=== PATIENT | male | born 1955 | race Caucasian/White ===

== ENCOUNTER 2021-02-04 21:12 | Inpatient (IN) ==
[2021-02-04] MEDS ORDERED: MoRPHine SULFATE 10 MG/ML CARP/VIAL IV STA (22:34)
[2021-02-04] MEDS ORDERED: SODIUM CHLORIDE 0.9% 1000ML 1,000 ML IV ONE (22:34)
[2021-02-04] MEDS ORDERED: ONDANSETRON INJ 2 MG/ML 2 ML VIAL IV STA (22:34)
--- NOTE | 2021-02-04 22:45 | Emergency Department Note ---
History of Present Illness General Chief complaint: Abdominal Pain Stated complaint: SEVERE STOMACH PAIN Time Seen by Provider: 02/04/21 22:22 Source: patient Mode of arrival: ambulatory Limitations: no limitations History of Present Illness Maximum Pain Intensity: 9 This patient is a 65-year-old male who presents to the emergency department for evaluation of abdominal pain. Patient reports that 2 weeks ago, he noticed an increase of his acid reflux. He states it was "the worst reflux of his life." He had some dry heaving associated with this. He states that 2 days ago while at work, he drank some Sprite and afterward developed some upper abdominal pain. He has had persistent pain since then and states it has gradually worsened. He reports the pain is across the upper abdomen. He has no nausea or vomiting. He reports a sensation of fullness and bloating. He denies urinary symptoms, fevers or changes in bowel movements. He states that the pain is "extreme" and rates his discomfort an 8/10. He states the pain makes it difficult for him to sleep. He reports associated muscle aches and headaches with the pain. He states that he saw his PCP yesterday and they recommended that he double up on his Prilosec. He states that nothing makes the pain better. He has tried Tums and chamomile tea. He reports a history of IN with 4 stents. He denies any history of similar symptoms to these. Patient states that he drinks 2-3 beers each weekend. Home Medications Medication Instructions Recorded Confirmed Type Aspirin Enteric Coated (Ecotrin Or 81 mg PO DAILY #0 08/09/08 02/05/21 History Generic *) Lisinopril (Prinivil) 10 mg PO DAILY #0 01/16/16 02/05/21 History Metoprolol Tartrate (Lopressor) 25 mg PO DAILY #0 01/16/16 02/05/21 History (Lopressor) Prilosec 20 mg PO DAILY 02/05/21 02/05/21 History nitroglycerin 0.4 mg sublingual 0.4 mg SUBLINGUAL Q5M PRN 02/05/21 02/05/21 History tablet tramadol 50 mg tablet 50 mg PO Q8H PRN 02/05/21 02/05/21 History Allergies Allergy/AdvReac Type Severity Reaction Status Date / Time No Known Allergies Allergy Unknown Verified 01/16/16 07:04 Past Med/Surg History Medical History Coronary atherosclerosis of [place] coronary vessel Esophageal reflux Myocardial infarction Surgical History History of arthroscopy of knee Social History Smoking Status: Current some day smoker Tobacco Type: E-cigarettes / Vaping Hx Substance Use: No 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 Required: No Beliefs That Will Affect Care: None Current Living Situation: Spouse Other Information That Helps Us Care for You: No Feels Safe at Home: Yes Safety Concerns: Feels Safe At This Time Assistive Devices: None Review of Systems A total of 10 systems reviewed and were otherwise negative Physical Exam Vital Signs Vital Signs - 24 hr 02/04/21 21:14 Temperature 36.8 C Temperature Source Temporal Artery Scan Pulse Rate 108 H Pulse Rhythm Regular Pulse Strength Normal Respiratory Rate 26 H Respiratory Effort / Characteristics Non-Labored Respiratory Depth Normal Respiratory Pattern Regular Blood Pressure 211/156 H Blood Pressure Mean 174 Blood Pressure Position Sitting Pulse Oximetry 95 Oxygen Delivery Method Room Air Sepsis Recent Fever Within 48 Hours No Sepsis New/Unexplained Change in Mental Status N/A Sepsis Action Taken by Nursing No Action Required VITALS: Vitals are noted on the nurse's note and reviewed by myself. GENERAL: This is a 65-year-old male, in no acute distress, nondiaphoretic. SKIN: The skin was without rashes. EARS: External auditory canals clear, tympanic membranes pearly [place]on without erythema or effusion bilaterally. EYES: Pupils equal round and reactive to light and accommodation. No scleral icterus. MOUTH: Mucous membranes moist. NECK: Supple without nuchal rigidity. HEART: Regular rate and rhythm without murmurs gallops or rubs. LUNGS: Clear to auscultation bilaterally without wheezes, rales or rhonchi. ABDOMEN: Positive bowel sounds x 4. Soft, moderate tenderness to palpation in the epigastric region and right upper quadrant. No guarding or rebound tenderness. NEURO: Patient was alert and oriented to person place and time. Course Consultations Consultation #1: Dr. Yo Mckeon hospitalist Administered Medications Aspirin (Aspirin 81 Mg Ectab) 81 mg PO DAILY ALBER Stop: 03/07/21 08:59 Last Admin: 02/05/21 09:13 Dose: 81 mg Documented by: [id number] Enoxaparin Sodium (Enoxaparin Inj 40 Mg/0.4 Ml Syr) 40 mg SQ QAM ALBER Stop: 03/07/21 08:59 Last Admin: 02/05/21 09:13 Dose: 40 mg Documented by: [id number] Promethazine HCl 12.5 mg/ (Sodium Chloride) 50.5 mls @ 202 mls/hr IV Q6H PRN PRN Reason: Nausea And Vomiting Stop: 03/07/21 04:39 Last Infusion: 02/05/21 22:28 Dose: 0 mls/hr Documented by: [id number] Admin: 02/05/21 20:28 Dose: 202 mls/hr Documented by: [id number] Lactated Ringer's (Lr) 1,000 mls @ 200 mls/hr IV .Q5H ALBER Stop: 03/07/21 08:39 Last Admin: 02/06/21 04:45 Dose: 200 mls/hr Documented by: [id number] Infusion: 02/06/21 04:45 Dose: 200 mls/hr Documented by: [id number] Admin: 02/05/21 23:49 Dose: 200 mls/hr Documented by: [id number] Infusion: 02/05/21 23:48 Dose: 0 mls/hr Documented by: [id number] Admin: 02/05/21 18:20 Dose: 200 mls/hr Documented by: [id number] Infusion: 02/05/21 18:14 Dose: 0 mls/hr Documented by: [id number] Admin: 02/05/21 13:13 Dose: 200 mls/hr Documented by: [id number] Infusion: 02/05/21 13:12 Dose: 0 mls/hr Documented by: [id number] Infusion: 02/05/21 10:53 Dose: 200 mls/hr Documented by: [id number] Infusion: 02/05/21 10:00 Dose: 0 mls/hr Documented by: [id number] Admin: 02/05/21 07:21 Dose: 200 mls/hr Documented by: [id number] Piperacillin Sod/Tazobactam (Sod 3.375 gm/ Dextrose) 115 mls @ 28.75 mls/hr IV Q8H ALBER; Protocol Stop: 02/15/21 19:59 Last Admin: 02/06/21 04:45 Dose: 28.8 mls/hr Documented by: [id number] Infusion: 02/06/21 01:19 Dose: 0 mls/hr Documented by: [id number] Admin: 02/05/21 20:22 Dose: 28.8 mls/hr Documented by: [id number] Lisinopril (Lisinopril 5 Mg Tab) 5 mg PO DAILY ALBER Stop: 03/07/21 08:59 Last Admin: 02/05/21 09:13 Dose: 5 mg Documented by: [id number] Metoprolol Tartrate (Metoprolol Tartrate 25 Mg Tab) 25 mg PO BID ALBER Stop: 03/07/21 20:59 Last Admin: 02/05/21 20:29 Dose: 25 mg Documented by: [id number] Morphine Sulfate (Morphine Sulfate 4 Mg/Ml 1 Ml Carp\\Vial) 4 mg IV Q4H PRN PRN Reason: Pain Stop: 02/19/21 04:39 Last Admin: 02/06/21 04:42 Dose: 4 mg Documented by: [id number] Admin: 02/05/21 20:52 Dose: 4 mg Documented by: [id number] Pantoprazole Sodium (Pantoprazole 40 Mg Tab) 40 mg PO DAILY ALBER Stop: 03/07/21 08:59 Last Admin: 02/05/21 09:13 Dose: 40 mg Documented by: [id number] Tramadol HCl (Tramadol Hcl 50 Mg Tablet) 25 - 50 mg PO Q4H PRN PRN Reason: Pain Stop: 03/07/21 04:39 Last Admin: 02/05/21 20:21 Dose: 50 mg Documented by: [id number] Admin: 02/05/21 15:29 Dose: 50 mg Documented by: [id number] Admin: 02/05/21 09:13 Dose: 50 mg Documented by: [id number] Admin: 02/05/21 04:51 Dose: 50 mg Documented by: [id number] Discontinued Medications Hydromorphone HCl (Hydromorphone Inj 0.5 Mg/0.5 Ml Syr) 0.5 mg IV NOW STA Stop: 02/05/21 00:20 Last Admin: 02/05/21 00:39 Dose: 0.5 mg Documented by: [id number] Sodium Chloride (Nss 1000ml) 1,000 mls @ 999 mls/hr IV .Q1H1M ONE Stop: 02/04/21 23:34 Last Infusion: 02/05/21 00:44 Dose: 0 mls/hr Documented by: [id number] Admin: 02/04/21 22:47 Dose: 999 mls/hr Documented by: [id number] Lactated Ringer's (Lr) 1,000 mls @ 200 mls/hr IV .Q5H ONE Stop: 02/05/21 07:01 Last Infusion: 02/05/21 07:20 Dose: 0 mls/hr Documented by: [id number] Admin: 02/05/21 03:40 Dose: 200 mls/hr Documented by: [id number] Piperacillin Sod/Tazobactam (Sod 3.375 gm/ Dextrose) 115 mls @ 230 mls/hr IV NOW ONE; Protocol Stop: 02/05/21 14:29 Last Infusion: 02/05/21 15:56 Dose: 0 mls/hr Documented by: [id number] Admin: 02/05/21 15:26 Dose: 230 mls/hr Documented by: [id number] Ioversol (Optiray 320 100ml) 93 ml IV ONCE ONE Stop: 02/04/21 23:22 Last Admin: 02/04/21 23:21 Dose: 93 ml Documented by: [id number] Metoprolol Tartrate (Metoprolol Tartrate 25 Mg Tab) 25 mg PO NOW STA Stop: 02/05/21 03:38 Last Admin: 02/05/21 03:40 Dose: 25 mg Documented by: [id number] Morphine Sulfate (Morphine Sulfate 10 Mg/Ml Carp/Vial) 6 mg IV NOW STA Stop: 02/04/21 22:35 Last Admin: 02/04/21 22:45 Dose: 6 mg Documented by: [id number] Morphine Sulfate (Morphine Sulfate 4 Mg/Ml 1 Ml Carp\\Vial) 4 mg IV NOW STA Stop: 02/05/21 03:28 Last Admin: 02/05/21 03:41 Dose: 4 mg Documented by: [id number] Morphine Sulfate (Morphine Sulfate 4 Mg/Ml 1 Ml Carp\\Vial) Confirm Administered Dose 4 mg .ROUTE .STK-MED ONE Stop: 02/05/21 03:39 Last Admin: 02/05/21 03:42 Dose: Not Given Documented by: [id number] Non-Formulary Medication (Metoprolol Tartrate (Lopressor) (Lopressor)) 25 mg PO BID ALBER Stop: 03/07/21 02:15 Last Admin: 02/05/21 07:00 Dose: Not Given Documented by: [id number] Non-Formulary Medication (Metoprolol Tartrate (Lopressor) (Lopressor)) 25 mg PO NOW STA Stop: 02/05/21 03:29 Last Admin: 02/05/21 07:00 Dose: Not Given Documented by: [id number] Ondansetron HCl (Ondansetron Inj 2 Mg/Ml 2 Ml Vial) 4 mg IV NOW STA Stop: 02/04/21 22:35 Last Admin: 02/04/21 22:43 Dose: 4 mg Documented by: [id number] Ondansetron HCl (Ondansetron Inj 2 Mg/Ml 2 Ml Vial) 4 mg IV NOW STA Stop: 02/05/21 00:20 Last Admin: 02/05/21 00:38 Dose: 4 mg Documented by: [id number] Medical Decision Making Differential Diagnosis Appendicitis, testicular torsion, infections, diverticulitis, UTI, obstruction, mesenteric ischemia, aortic pathology, inflammatory bowel disease, renal colic, PUD, pancreatitis, biliary pathology, hernia, volvulus, constipation, as well as other pathologies. Home Medications Current Medication List: was personally reviewed by me Laboratory Data Attestation: I reviewed the patient's lab results. Result diagrams: 02/06/21 06:20 02/05/21 06:54 Lab Results 02/04/21 02/04/21 02/04/21 Range/Units 22:27 22:27 22:27 WBC 12.03 H (4.8-10.8) K/uL RBC 4.63 L (4.7-6.1) M/uL Hgb 15.0 (14.0-18.0) g/dL Hct 43.5 (42-52) % MCV 94.0 (80-100) fL MCH 32.4 (25-34) pg MCHC 34.5 (32-36) g/dL RDW Std Deviation 45.5 (36.4-46.3) fL RDW Coeff of Isaiah 13.4 (11.5-14.5) % Plt Count 264 (130-400) K/uL MPV 10.1 (7.4-10.4) fL Immature Gran % (Auto) 0.9 % Neut % (Auto) 83.5 % Lymph % (Auto) 5.8 % [place] % (Auto) 8.6 % Eos % (Auto) 0.9 % Baso % (Auto) 0.3 % Neut # (Auto) 10.03 H (1.4-6.5) K/uL Lymph # (Auto) 0.70 L (1.2-3.4) K/uL [place] # (Auto) 1.04 H (0.11-0.59) K/uL Eos # (Auto) 0.11 (0-0.5) K/uL Baso # (Auto) 0.04 (0-0.2) K/uL Immature Gran # (Auto) 0.11 H (0.00-0.02) K/uL Sodium 133 L (136-145) mmol/L Potassium 3.9 (3.5-5.1) mmol/L Chloride 101 (98-107) mmol/L Carbon Dioxide 26 (21-32) mmol/L Anion Gap 6.0 (3-11) BUN 12 (7-18) mg/dl Creatinine 1.22 (0.6-1.4) mg/dl Est Cr Clr Drug Dosing 72.3 ml/min Est GFR ( Amer) 71.2 ml/min Est GFR (Non-Af Amer) 61.4 ml/min BUN/Creatinine Ratio 9.8 L (10-20) Glucose 178 H (70-99) mg/dl Estimat Average Glucose 146 mg/dl Hemoglobin A1c 6.7 H (4.5-5.6) % Calcium 9.5 (8.5-10.1) mg/dl Magnesium 2.2 (1.8-2.4) mg/dl Total Bilirubin 3.9 H (0.2-1) mg/dl AST 407 H (15-37) U/L ALT 642 H (12-78) U/L Alkaline Phosphatase 178 H (45-117) U/L Troponin I < 0.015 (0-0.045) ng/ml Total Protein 8.1 (6.4-8.2) gm/dl Albumin 3.6 (3.4-5.0) gm/dl Globulin 4.5 H (2.5-4.0) gm/dl Albumin/Globulin Ratio 0.8 L (0.9-2) Lipase 48777 H (73-393) U/L Procalcitonin (0-0.5) ng/ml TSH 3.230 (0.300-4.500) uIu/ml Urine Color Urine Appearance (Clear) Urine pH (4.5-7.5) Ur Specific [place] (1.000-1.030) Urine Protein (Negative) Urine Glucose (UA) (Negative) Urine Ketones (Negative) Urine Blood (Negative) Urine Nitrite (Negative) Urine Bilirubin (Negative) Urine Urobilinogen (Negative) Ur Leukocyte Esterase (Negative) Urine WBC (Auto) (0-5) /hpf Urine RBC (Auto) (0-4) /hpf U Hyaline Cast (Auto) (0-5) /lpf U Epithel Cells (Auto) (0-5) /lpf Urine Bacteria (Auto) (Negative) COVID-19 Eval Order SARS-CoV-2 (PCR) (Negative) 02/04/21 02/04/21 02/04/21 Range/Units 22:27 22:40 22:56 WBC (4.8-10.8) K/uL RBC (4.7-6.1) M/uL Hgb (14.0-18.0) g/dL Hct (42-52) % MCV (80-100) fL MCH (25-34) pg MCHC (32-36) g/dL RDW Std Deviation (36.4-46.3) fL RDW Coeff of Isaiah (11.5-14.5) % Plt Count (130-400) K/uL MPV (7.4-10.4) fL Immature Gran % (Auto) % Neut % (Auto) % Lymph % (Auto) % [place] % (Auto) % Eos % (Auto) % Baso % (Auto) % Neut # (Auto) (1.4-6.5) K/uL Lymph # (Auto) (1.2-3.4) K/uL [place] # (Auto) (0.11-0.59) K/uL Eos # (Auto) (0-0.5) K/uL Baso # (Auto) (0-0.2) K/uL Immature Gran # (Auto) (0.00-0.02) K/uL Sodium (136-145) mmol/L Potassium (3.5-5.1) mmol/L Chloride (98-107) mmol/L Carbon Dioxide (21-32) mmol/L Anion Gap (3-11) BUN (7-18) mg/dl Creatinine (0.6-1.4) mg/dl Est Cr Clr Drug Dosing ml/min Est GFR ( Amer) ml/min Est GFR (Non-Af Amer) ml/min BUN/Creatinine Ratio (10-20) Glucose (70-99) mg/dl Estimat Average Glucose mg/dl Hemoglobin A1c (4.5-5.6) % Calcium (8.5-10.1) mg/dl Magnesium (1.8-2.4) mg/dl Total Bilirubin (0.2-1) mg/dl AST (15-37) U/L ALT (12-78) U/L Alkaline Phosphatase (45-117) U/L Troponin I (0-0.045) ng/ml Total Protein (6.4-8.2) gm/dl Albumin (3.4-5.0) gm/dl Globulin (2.5-4.0) gm/dl Albumin/Globulin Ratio (0.9-2) Lipase (73-393) U/L Procalcitonin 0.21 (0-0.5) ng/ml TSH (0.300-4.500) uIu/ml Urine Color Dark Yellow Urine Appearance Clear (Clear) Urine pH 5.0 (4.5-7.5) Ur Specific [place] 1.018 (1.000-1.030) Urine Protein Negative (Negative) Urine Glucose (UA) Negative (Negative) Urine Ketones Negative (Negative) Urine Blood Trace H (Negative) Urine Nitrite Negative (Negative) Urine Bilirubin 1+ H (Negative) Urine Urobilinogen Positive H (Negative) Ur Leukocyte Esterase Negative (Negative) Urine WBC (Auto) 0 (0-5) /hpf Urine RBC (Auto) 0-4 (0-4) /hpf U Hyaline Cast (Auto) 0 (0-5) /lpf U Epithel Cells (Auto) 0-5 (0-5) /lpf Urine Bacteria (Auto) Negative (Negative) COVID-19 Eval Order Covid19 at [facility] SARS-CoV-2 (PCR) (Negative) 02/04/21 Range/Units 22:56 WBC (4.8-10.8) K/uL RBC (4.7-6.1) M/uL Hgb (14.0-18.0) g/dL Hct (42-52) % MCV (80-100) fL MCH (25-34) pg MCHC (32-36) g/dL RDW Std Deviation (36.4-46.3) fL RDW Coeff of Isaiah (11.5-14.5) % Plt Count (130-400) K/uL MPV (7.4-10.4) fL Immature Gran % (Auto) % Neut % (Auto) % Lymph % (Auto) % [place] % (Auto) % Eos % (Auto) % Baso % (Auto) % Neut # (Auto) (1.4-6.5) K/uL Lymph # (Auto) (1.2-3.4) K/uL [place] # (Auto) (0.11-0.59) K/uL Eos # (Auto) (0-0.5) K/uL Baso # (Auto) (0-0.2) K/uL Immature Gran # (Auto) (0.00-0.02) K/uL Sodium (136-145) mmol/L Potassium (3.5-5.1) mmol/L Chloride (98-107) mmol/L Carbon Dioxide (21-32) mmol/L Anion Gap (3-11) BUN (7-18) mg/dl Creatinine (0.6-1.4) mg/dl Est Cr Clr Drug Dosing ml/min Est GFR ( Amer) ml/min Est GFR (Non-Af Amer) ml/min BUN/Creatinine Ratio (10-20) Glucose (70-99) mg/dl Estimat Average Glucose mg/dl Hemoglobin A1c (4.5-5.6) % Calcium (8.5-10.1) mg/dl Magnesium (1.8-2.4) mg/dl Total Bilirubin (0.2-1) mg/dl AST (15-37) U/L ALT (12-78) U/L Alkaline Phosphatase (45-117) U/L Troponin I (0-0.045) ng/ml Total Protein (6.4-8.2) gm/dl Albumin (3.4-5.0) gm/dl Globulin (2.5-4.0) gm/dl Albumin/Globulin Ratio (0.9-2) Lipase (73-393) U/L Procalcitonin (0-0.5) ng/ml TSH (0.300-4.500) uIu/ml Urine Color Urine Appearance (Clear) Urine pH (4.5-7.5) Ur Specific [place] (1.000-1.030) Urine Protein (Negative) Urine Glucose (UA) (Negative) Urine Ketones (Negative) Urine Blood (Negative) Urine Nitrite (Negative) Urine Bilirubin (Negative) Urine Urobilinogen (Negative) Ur Leukocyte Esterase (Negative) Urine WBC (Auto) (0-5) /hpf Urine RBC (Auto) (0-4) /hpf U Hyaline Cast (Auto) (0-5) /lpf U Epithel Cells (Auto) (0-5) /lpf Urine Bacteria (Auto) (Negative) COVID-19 Eval Order SARS-CoV-2 (PCR) NEGATIVE (Negative) Imaging Data Attestation: I personally reviewed and interpreted this imaging study as follows: Radiologist's Impression: CT ABDOMEN & PELVIS With Contrast: Mild bilateral lower lobe atelectasis. Normal cardiac size with coronary artery calcifications. Diffuse fatty liver. Multiple small stones within the gallbladder. There is questionable larger stones versus fold in the gallbladder fundus. These findings may be further assessed with ultrasound if indicated. Tiny calcification in the hepatic hilum which could represent vascular origin versus tiny stones within the biliary duct. There is mild stranding surrounding the pancreas and duodenal C-loop suggestive of pancreatitis versus duodenitis. Correlation with alveolar is a lipase recommended. There is minimal stranding within the mesenteric fat. Normal bilateral kidneys. Unremarkable stomach. Nonspecific small bowel. Multilevel mild diverticulosis with no signs of diverticulitis. Normal appendix. Normal urinary bladder. Normal size of prostate gland. Tiny right-sided. Degenerative disease of the spine. Calcified atherosclerotic disease of aorta with no aneurysm. Radiologist: Kady Aviles MD US RUQ: Exam is limited due to gas artifact in the bowel. The pain is obscured. The liver measures 18.2 cm with diffuse increased echogenicity suggestive of fatty infiltration. The gallbladder reveals irregular wall with thickening and measures 3.6 mm up to 6.1 mm. Possible Pseudomonas. Question phrygian cap with multiple stones in the fundus. Echogenic sludge within the gallbladder. These findings suggest acute cholecystitis. Due to heterogeneous and irregular thickening of the wall, cannot exclude neoplasm. Questionable, tail artifact along the anterior wall which may be seen with adenomyomatosis. Marcial sign cannot be assessed due to prior medication. Common bile that measures 5.5, nonspecific. Radiologist: Kady Aviles MD MDM Narrative Continuous cardiac cath technician: Order was placed for continuous cardiac cath technician. Patient was placed on the cardiac cath technician. Patient was noted to be in sinus tachycardia at an initial rate of 100 bpm. The patient is a 65-year-old male who presents today complaining of abdominal pain which has been ongoing for the past few days. His work-up is suggestive of gallstone pancreatitis. He has an elevated lipase, elevated LFTs. He has a mild leukocytosis, but no fever. CT shows evidence of pancreatitis. Right upper quadrant ultrasound was then ordered and patient's case was discussed with the [facility] hospitalist, who agreed to evaluate the patient for further care. Patient received IV fluids, antiemetics and 2 doses of IV pain medications in the ER. He felt much better after treatment with this. All findings were discussed with the patient. Impression & Plan Acute gallstone pancreatitis Discharge Plan Visit Data Chief Complaint: Abdominal Pain Stated Complaint: SEVERE STOMACH PAIN ED Provider: Turner Mckeon ED Midlevel Provider: Kaylen Pascal Discharge Problem: Acute gallstone pancreatitis Patient Disposition: Admitted As Inpatient Discharge Instructions Interventions: ED Discharge Assessment Last Done: 02/05/21 03:43
[2021-02-04 22:46] LABS: Basophils # (auto) 0.04 K/uL (0-0.2); Basophils % (auto) 0.3 %; Eosinophils # (auto) 0.11 K/uL (0-0.5); Eosinophils % (auto) 0.9 %; Hematocrit (blood only) 43.5 % (42-52); Immature Granulocytes # (auto) 0.11 K/uL (0.00-0.02); Immature Granulocytes % (auto) 0.9 %; Lymphocytes % (auto) 5.8 %; Mean Corpuscular Hemoglobin 32.4 pg (25-34); Mean Corpuscular Hgb Conc 34.5 g/dL (32-36); Mean Platelet Volume 10.1 fL (7.4-10.4); Monocytes # (auto) 1.04 K/uL (0.11-0.59); Monocytes % (auto) 8.6 %; Neutrophils # (auto) 10.03 K/uL (1.4-6.5); Neutrophils % (auto) 83.5 %; Platelet Count 264 K/uL (130-400); RDW Coefficient of Variation 13.4 % (11.5-14.5); RDW Standard Deviation 45.5 fL (36.4-46.3); Red Blood Count 4.63 M/uL (4.7-6.1); White Blood Count 12.03 K/uL (4.8-10.8)
[2021-02-04 23:03] LABS: Alanine Aminotransferase 642 U/L (12-78); Albumin Level 3.6 gm/dl (3.4-5.0); Aspartate Aminotransferase 407 U/L (15-37); BUN Creatinine Ratio 9.8 (10-20); Blood Urea Nitrogen 12 mg/dl (7-18); Calcium 9.5 mg/dl (8.5-10.1); Carbon Dioxide 26 mmol/L (21-32); Chloride 101 mmol/L (98-107); Creatinine Clr Calc Pharmacy 72.3 ml/min; Est GFR (African American) 71.2 ml/min; Est GFR (Non-African American) 61.4 ml/min; Glucose 178 mg/dl (70-99); Potassium 3.9 mmol/L (3.5-5.1); Sodium 133 mmol/L (136-145)
[2021-02-04] MEDS ORDERED: OPTIRAY 320 100ml IV ONE (23:21)
[2021-02-04 23:26] LABS: Albumin Globulin Ratio 0.8 (0.9-2); Alkaline Phosphatase 178 U/L (45-117); Bilirubin,Total 3.9 mg/dl (0.2-1); Globulin 4.5 gm/dl (2.5-4.0); Lipase 27554 U/L (73-393); Total Protein 8.1 gm/dl (6.4-8.2); Troponin I < 0.015 ng/ml (0-0.045)
[2021-02-04 23:51] LABS: Appearance Urine Clear (Clear); Bacteria Urine Automated Negative (Negative); Blood Urine Trace (Negative); Cast Urine Automated 0 /lpf (0-5); Color Urine Dark Yellow; Epithelial Cell Urine Auto 0-5 /lpf (0-5); Glucose Urine UA Negative (Negative); Ketones Urine Negative (Negative); Leukocyte Esterase Urine Negative (Negative); Nitrite Urine Negative (Negative); Protein Urine Negative (Negative); RBC Urine Automated 0-4 /hpf (0-4); Specific Gravity Urine 1.018 (1.000-1.030); Urobilinogen Urine Positive (Negative); WBC Urine Automated 0 /hpf (0-5)
[2021-02-05 00:10] LABS: Bilirubin Urine 1+ (Negative)
[2021-02-05] MEDS ORDERED: HYDROmorphone INJ 0.5 MG/0.5 ML SYR IV STA (00:19)
[2021-02-05] MEDS ORDERED: ONDANSETRON INJ 2 MG/ML 2 ML VIAL IV STA (00:19)
[2021-02-05 01:39] LABS: Magnesium 2.2 mg/dl (1.8-2.4)
[2021-02-05] MEDS ORDERED: LACTATED RINGER'S 1,000 ML IV ONE (02:02)
--- NOTE | 2021-02-05 02:04 | History & Physical Report ---
Date of Service February 05, 2021 Assessment & Plan (1) Asymptomatic hypertensive urgency: Plan: Secondary to gallstone pancreatitis Rule out bile duct obstruction given abnormal LFTs hx CAD status post stent (2005) borderline DM as per patient, past tobacco abuse Medical telemetry Analgesia Titrate home BP meds IVF, bowel rest GI consult Re: Gallstone pancreatitis MRCP RE abnormal LFTs May require surgery consult pending GI evaluation Update hemoglobin A1c DVT prophylaxis. Lovenox subcu Full code Text document was generated using [employer] voice recognition software. It may contain grammatical or spelling errors. Kindly contact undersigned for clarification of any documentation item in question. History of Present Illness Chief Complaint: Abdominal pain Primary Care Provider: Kishore Delatorre MD History obtained from patient and records. Medical history significant for CAD status post stent, hypertension, hyperlipidemia, borderline DM as per patient, past tobacco abuse. 2 weeks history of achy epigastric discomfort described as reflux-like going under the ribs, intermittent symptoms associated with dry heaving. No fever, no chills. Urine noted to be dark at home. Patient not sure if pain related to food intake. Patient seen at PCP's office 2 days ago. Omeprazole re-prescribed for possible GERD. EGD recommended if with worsening symptoms. Worsening abdominal pain despite medication compliance. Patient consulted ER last night. Initial SBP upon arrival at the ER 210s. Patient denies chest pain, S OB, headache symptoms Medical History as above Surgical History : None Family History : Heart disease Personal/Social history : Past tobacco abuse, few alcoholic drinks on the weekend as per patient, [employer] Allergies Allergy/AdvReac Type Severity Reaction Status Date / Time No Known Allergies Allergy Unknown Verified 01/16/16 07:04 Home Medications Medication Instructions Recorded Confirmed Type Aspirin Enteric Coated (Ecotrin Or 81 mg PO DAILY #0 08/09/08 02/05/21 History Generic *) Lisinopril (Prinivil) 10 mg PO DAILY #0 01/16/16 02/05/21 History Metoprolol Tartrate (Lopressor) 25 mg PO DAILY #0 01/16/16 02/05/21 History (Lopressor) Prilosec 20 mg PO DAILY 02/05/21 02/05/21 History nitroglycerin 0.4 mg sublingual 0.4 mg SUBLINGUAL Q5M PRN 02/05/21 02/05/21 History tablet tramadol 50 mg tablet 50 mg PO Q8H PRN 02/05/21 02/05/21 History Past Med/Surg History Medical History Coronary atherosclerosis of elim ira coronary vessel Esophageal reflux Myocardial infarction Surgical History History of arthroscopy of knee Social History Smoking Status: Current every day smoker Tobacco Type: E-cigarettes / Vaping Preferred Language: Yoruba Feels Safe at Home: Yes Review of Systems Review of Systems: As per HPI, all 10 systems reviewed, all other ROS negative Physical Exam Physical Exam: GENERAL: Slightly uncomfortable, pleasant, obese, no respiratory distress SKIN: Normal color, warm HEENT: [place] palpebral conjunctivae, no ptosis, dry buccal mucosa NECK : Supple, short neck, no tenderness CHEST : CTA, no tenderness HEART : RRR, no obvious murmurs ABDOMEN: Some distention, right upper quadrant tenderness EXTREMITIES : No LE swelling/tenderness, no other conspicuous deformities noted NEUROLOGIC : Coherent, no facial asymmetry, no other gross focality Results & Data Results & Data ([facility]) Vital Signs (Past 12 Hours) Vital Signs Temp Pulse Pulse Resp BP BP Pulse Ox 02/05/21 01:00 87 22 143/87 H 02/05/21 00:30 90 25 H 139/81 02/05/21 00:11 86 15 142/79 H 94 02/04/21 23:39 93 H 16 149/75 H 96 02/04/21 22:54 93 H 18 96 02/04/21 22:52 37.2 C 93 H 18 130/65 93 02/04/21 21:14 36.8 C 108 H 26 H 211/156 H 95 Laboratory Results Laboratory Results WBC 12.03 K/uL (4.8-10.8) H 02/04/21 22:27 RBC 4.63 M/uL (4.7-6.1) L 02/04/21 22:27 Hgb 15.0 g/dL (14.0-18.0) 02/04/21 22:27 Hct 43.5 % (42-52) 02/04/21 22:27 MCV 94.0 fL (80-100) 02/04/21 22: MCH 32.4 pg (25-34) 02/04/21: MCHC 34.5 g/dL (32-36) 02/04/21: RDW Std Deviation 45.5 fL (36.4-46.3) 02/04/21: RDW Coeff of Isaiah 13.4 % (11.5-14.5) 02/04/21: Plt Count 264 K/uL (130-400) 02/04/21 22: MPV 10.1 fL (7.4-10.4) 02/04/21: Immature Gran % (Auto) 0.9 % 02/04/21: Neut % (Auto) 83.5 % 02/04/21: Lymph % (Auto) 5.8 % 02/04/21: Irion % (Auto) 8.6 % 02/04/21: Eos % (Auto) 0.9 % 02/04/21: Baso % (Auto) 0.3 % 02/04/21: Neut # (Auto) 10.03 K/uL (1.4-6.5) H 02/04/21: Lymph # (Auto) 0.70 K/uL (1.2-3.4) L 02/04/21: Irion # (Auto) 1.04 K/uL (0.11-0.59) H 02/04/21: Eos # (Auto) 0.11 K/uL (0-0.5) 02/04/21: Baso # (Auto) 0.04 K/uL (0-0.2) 02/04/21: Immature Gran # (Auto) 0.11 K/uL (0.00-0.02) H 02/04/21: Sodium 133 mmol/L (136-145) L 02/04/21: Potassium 3.9 mmol/L (3.5-5.1) 02/04/21: Chloride 101 mmol/L (98-107) 02/04/21: Carbon Dioxide 26 mmol/L (21-32) 02/04/21: Anion Gap 6.0 (3-11) 02/04/21 22: BUN 12 mg/dl (7-18) 02/04/21 22: Creatinine 1.22 mg/dl (0.6-1.4) 02/04/21 22: Est Cr Clr Drug Dosing 72.3 ml/min 02/04/21 22:27 Est GFR ( Amer) 71.2 ml/min 02/04/21 22: Est GFR (Non-Af Amer) 61.4 ml/min 02/04/21 22: BUN/Creatinine Ratio 9.8 (10-20) L 02/04/21 22: Glucose 178 mg/dl (70-99) H 02/04/21 22: Calcium 9.5 mg/dl (8.5-10.1) 02/04/21 22: Magnesium 2.2 mg/dl (1.8-2.4) 02/04/21: Total Bilirubin 3.9 mg/dl (0.2-1) H 02/04/21 22: AST 407 U/L (15-37) H 02/04/21 22: ALT 642 U/L (12-78) H 02/04/21 22: Alkaline Phosphatase 178 U/L (45-117) H 02/04/21 22: Troponin I < 0.015 ng/ml (0-0.045) 02/04/21 22: Total Protein 8.1 gm/dl (6.4-8.2) 02/04/21 22: Albumin 3.6 gm/dl (3.4-5.0) 02/04/21 22: Globulin 4.5 gm/dl (2.5-4.0) H 02/04/21 22: Albumin/Globulin Ratio 0.8 (0.9-2) L 02/04/21 22: Lipase 18296 U/L (73-393) H 02/04/21 22: Procalcitonin 0.21 ng/ml (0-0.5) 02/04/21 22: TSH 3.230 uIu/ml (0.300-4.500) 02/04/21 22: Urine Color Dark Yellow 02/04/21 22:40 Urine Appearance Clear (Clear) 02/04/21 22:40 Urine pH 5.0 (4.5-7.5) 02/04/21 22:40 Ur Specific [place] 1.018 (1.000-1.030) 02/04/21 22:40 Urine Protein Negative (Negative) 02/04/21 22:40 Urine Glucose (UA) Negative (Negative) 02/04/21 22:40 Urine Ketones Negative (Negative) 02/04/21 22:40 Urine Blood Trace (Negative) H 02/04/21 22:40 Urine Nitrite Negative (Negative) 02/04/21 22:40 Urine Bilirubin 1+ (Negative) H 02/04/21 22:40 Urine Urobilinogen Positive (Negative) H 02/04/21 22:40 Ur Leukocyte Esterase Negative (Negative) 02/04/21 22:40 Urine WBC (Auto) 0 /hpf (0-5) 02/04/21 22:40 Urine RBC (Auto) 0-4 /hpf (0-4) 02/04/21 22:40 U Hyaline Cast (Auto) 0 /lpf (0-5) 02/04/21 22:40 U Epithel Cells (Auto) 0-5 /lpf (0-5) 02/04/21 22:40 Urine Bacteria (Auto) Negative (Negative) 02/04/21 22:40 COVID-19 Eval Order Covid19 at [facility] 02/04/21 22:56 SARS-CoV-2 (PCR) NEGATIVE (Negative) 02/04/21 22:[address] abdomen pelvis initial read: Mild bilateral lower lobe atelectasis. Normal cardiac size with coronaryarterycalcifications. Diffuse fattyliver. Multiple small stoneswithin the gallbladder. There is questionable larger stones versus fold in the gallbladder fundus. These findings maybe further assessed with ultrasound if indicated. Tinycalcification in the hepatic hilumwhich could represent vascular origin versus tiny stoneswithin the biliaryduct. There is mild stranding surrounding the pancreas and duodenal C-loop suggestive of pancreatitis versus duodenitis. Correlation with alveolar is a lipase recommended. There is minimal stranding within the mesenteric fat. Normal bilateral kidneys. Unremarkable stomach. Nonspecific small bowel. Multilevel mild diverticulosiswith no signs of diverticulitis. Normal appendix. Normal urinarybladder. Normal size of prostate gland. Tinyrightsided. Degenerative disease of the spine. Calcified atherosclerotic disease of aortawith no aneurysm Gallbladder ultrasound initial read: Examis limited due to gas artifact in the bowel. The pain is obscured. The liver measures 18.2 cmwith diffuse increased echogenicitysuggestive of fattyinfiltration. The gallbladder reveals irregular wall with thickening and measures 3.6 mmup to 6.1 mm. Question phrygian cap with multiple stones in the fundus. Echogenic sludge within the gallbladder. These findings suggest acute cholecystitis. Due to heterogeneous and irregular thickening of the wall, cannot exclude neoplasm. Questionable, tail artifact along the anterior wall which maybe seen with adenomyomatosis. Murphysign cannot be assessed due to prior medication. Common bile that measures 5.5, nonspecific. EKG as per my interpretation: Rate 90, NSR, normal axis, RBBB, no ischemia Code Status & VTE Plan VTE Prophylaxis Plan VTE Prophylaxis will be ordered: Yes
[2021-02-05] MEDS ORDERED: METOPROLOL TARTRATE 25 MG PO SCH (02:16)
[2021-02-05] MEDS ORDERED: MoRPHine SULFATE 4 MG/ML 1 ML CARP\\VIAL IV STA (03:27)
[2021-02-05] MEDS ORDERED: METOPROLOL TARTRATE 25 MG PO STA (03:28)
[2021-02-05] MEDS ORDERED: METOPROLOL TARTRATE 25 MG TAB PO STA (03:37)
[2021-02-05] MEDS ORDERED: MoRPHine SULFATE 4 MG/ML 1 ML CARP\\VIAL ONE (03:38)
[2021-02-05] MEDS ORDERED: LORazepam 0.5 MG/1 ML VIAL IV PRN (04:40)
[2021-02-05] MEDS ORDERED: ACETAMINOPHEN 325 MG TAB PO PRN (04:40)
[2021-02-05] MEDS: traMADol HCL 50 MG TABLET PO PRN ×4 (04:51→20:21)
[2021-02-05 06:38] LABS: Estimated Average Glucose 146 mg/dl; Hemoglobin A1C 6.7 % (4.5-5.6)
[2021-02-05] MEDS ORDERED: LACTATED RINGER'S 1,000 ML IV SCH (07:00)
[2021-02-05 07:18] LABS: Basophils # (auto) 0.03 K/uL (0-0.2); Basophils % (auto) 0.3 %; Eosinophils # (auto) 0.17 K/uL (0-0.5); Eosinophils % (auto) 1.5 %; Hematocrit (blood only) 38.4 % (42-52); Hemoglobin 13.1 g/dL (14.0-18.0); Immature Granulocytes # (auto) 0.14 K/uL (0.00-0.02); Immature Granulocytes % (auto) 1.2 %; Lymphocytes # (auto) 1.15 K/uL (1.2-3.4); Lymphocytes % (auto) 10.1 %; Mean Corpuscular Hemoglobin 31.9 pg (25-34); Mean Corpuscular Hgb Conc 34.1 g/dL (32-36); Mean Corpuscular Volume 93.4 fL (80-100); Mean Platelet Volume 9.8 fL (7.4-10.4); Neutrophils # (auto) 9.11 K/uL (1.4-6.5); Neutrophils % (auto) 79.9 %; Platelet Count 251 K/uL (130-400); RDW Coefficient of Variation 13.4 % (11.5-14.5); RDW Standard Deviation 45.2 fL (36.4-46.3); Red Blood Count 4.11 M/uL (4.7-6.1)
[2021-02-05] MEDS: LACTATED RINGER'S 1,000 ML IV SCH ×4 (07:21→23:49)
[2021-02-05 07:43] LABS: Albumin Globulin Ratio 0.8 (0.9-2); BUN Creatinine Ratio 12.3 (10-20); Calcium 8.5 mg/dl (8.5-10.1); Creatinine Clr Calc Pharmacy 91.2 ml/min; Est GFR (African American) 103.3 ml/min; Est GFR (Non-African American) 89.1 ml/min; Potassium 3.9 mmol/L (3.5-5.1)
--- NOTE | 2021-02-05 07:49 | CT Scan Report ---
CT SCAN OF THE ABDOMEN AND PELVIS WITH IV CONTRAST CLINICAL HISTORY: Epigastric abdominal pain. COMPARISON STUDY: Abdominal CT dated 08/09/2008. TECHNIQUE: Following the IV administration of 93 cc of Optiray 320, CT scan of the abdomen and pelvi s is performed from the lung bases to the proximal femora. Images are reviewed in the axial, sagittal , and coronal planes. IV contrast was administered without complication. A dose lowering technique wa s utilized adhering to the principles of ALARA. CT DOSE: 1313.80 mGy.cm FINDINGS: Lung bases: The heart is normal in size and without pericardial effusion. The coronary arteries are d ensely calcified. There is a tiny hiatal hernia. The lung bases are clear noting bibasilar scarring/a telectasis. Liver: The contrast-enhanced liver is enlarged, measuring 19.7 cm in length. The liver demonstrates d iffusely diminished attenuation consistent with hepatic steatosis. There is no intrahepatic biliary d uctal dilatation. The hepatic veins and portal veins are patent. Gallbladder: The gallbladder is distended and contains numerous gallstones. The gallbladder wall is t hickened and there is pericholecystic inflammation. Stones are suggested within the cystic duct on im age #141. Spleen: Normal in size and attenuation. Pancreas: There is mild glandular atrophy of the pancreas. There is peripancreatic inflammatory real e and trace fluid. The appearance is consistent with acute pancreatitis. The gland enhances homogeneo usly and the duct is normal in caliber. No organized peripancreatic fluid collection is identified. T he splenic vein is patent. Adrenal glands: Unremarkable. Kidneys: The contrast enhanced kidneys are normal in size and without hydronephrosis. The kidneys enh ance symmetrically. Abdominal vasculature: The abdominal aorta is normal in course and caliber noting advanced atheroscle rotic calcification. Bowel: There is mild colonic diverticulosis without CT evidence of acute diverticulitis. No bowel obs truction is identified. Wall thickening and hyperemia of the duodenum is likely related to adjacent p ancreatitis. The appendix is well-visualized and normal. Peritoneum: No intraperitoneal free air is identified. There is trace free fluid in the pelvis. Lymphadenopathy: None. Pelvic viscera: The bladder, prostate, and seminal vesicles are normal as visualized. Skeletal structures: The skeletal structures appear osteopenic. There is moderate lumbosacral spondyl osis. No lytic or blastic lesions are seen. IMPRESSION: 1. Cholelithiasis with evidence of acute cholecystitis. 2. Findings are consistent with acute pancreatitis. 3. The pancreas enhances homogeneously and no organized peripancreatic fluid collection is identified . 4. Hepatomegaly and hepatic steatosis. 5. Inflammation of the duodenum is likely related to adjacent pancreatitis. 6. Advanced coronary artery calcification. 7. Mild colonic diverticulosis without CT evidence of acute diverticulitis. 8. Additional findings as above. ACT 112: Negative or not required by law. Electronically signed by: Dominic Kelley M.D. 02/05/2021 7:47 AM
--- NOTE | 2021-02-05 08:40 | Ultrasound Report ---
ULTRASOUND RIGHT UPPER QUADRANT ABDOMEN CLINICAL HISTORY: Right upper quadrant abdominal pain. Elevated hepatic transaminases. Elevated lipas e.. COMPARISON STUDY: Abdominal CT dated 02/04/2021. TECHNIQUE: Real-time, grayscale, and color flow sonography of the right upper quadrant of the abdomen was performed. Images are reviewed in the transverse and longitudinal planes. FINDINGS: Liver: The liver is enlarged and demonstrates heterogeneously increased echotexture consistent with h epatic steatosis. There is no intrahepatic biliary ductal dilatation. The main portal vein is patent. Gallbladder: The gallbladder is distended and contains numerous gallstones. The wall appears thickene d an irregular, measuring up to 6 mm. Foci of adenomyomatosis are noted. There is a prominent fold in the gallbladder fundus which contains sludge/debris. No pericholecystic fluid is seen. A sonographic Marcial's sign could not be assessed as the patient received analgesia. The common bile duct measures up to 0.6 cm in diameter. Pancreas: Visualized portions of the pancreatic head and body are normal in appearance. The splenic v ein is patent. Right kidney: Survey images of the right kidney demonstrate normal size and echotexture. There is no hydronephrosis. Ascites: None. IMPRESSION: 1. Cholelithiasis with an abnormal and thick-walled gallbladder. When correlated with today's CT find ings the appearance is highly concerning for acute cholecystitis. Although considered much less likel y, given the irregularity of the gallbladder wall an underlying neoplasm would be impossible to exclu de. 2. The pancreas is normal as visualized by ultrasound. 3. There is no intra or extrahepatic biliary ductal dilatation. ACT 112: Negative or not required by law. Electronically signed by: Dominic Kelley M.D. 02/05/2021 8:39 AM
[2021-02-05] MEDS: PANTOprazole 40 MG TAB PO SCH (09:13)
[2021-02-05] MEDS: ASPIRIN 81 MG ECTAB PO SCH (09:13)
[2021-02-05] MEDS: ENOXAPARIN INJ 40 MG/0.4 ML SYR SQ SCH (09:13)
[2021-02-05] MEDS: lisinopril 5 MG TAB PO SCH (09:13)
--- NOTE | 2021-02-05 13:35 | Hospitalist Progress Note ---
Date of Service February 05, 2021 Assessment & Plan (1) Acute gallstone pancreatitis: Plan: Abnormal gallbladder on us liver highly concerning for acute cholecystitis. CT and clinical picture consistent with acute gallstone pancreatitis with ongoing symptoms for the past two weeks. MRCP pending from this morning. Although improved with IVF resuscitation, the patient was tachycardic with a mild leukocytosis on admission. He doesn't appear septic, however, would cover him empirically with Zosyn for now pending negative blood cultures and clinical improvement in setting of cholecystitis. GI consulted and will also add consult for general surgery. (2) Acute cholecystitis: Plan: plan as above. (3) Asymptomatic hypertensive urgency: Plan: Secondary to gallstone pancreatitis-improved with initial therapy. Cont terra elisinopril and metoprolol (4) Obesity: Plan: Lifestyle changes recommended. (5) ASCVD (arteriosclerotic cardiovascular disease): Plan: h/o 4 stents, no chest pain or active ACS. Cont medical management per home regimen including aspirin, lisinopril and metoprolol. (6) Tobacco use disorder: Plan: Vaping-encouraged to quit and hopefully re-educated him on the misconception that vaping is "better for you" than smoking. Declines nicotine supplementation at this time. (7) DVT prophylaxis: Plan: Lovenox Full Code Dispo-to home when improved and tolerating PO. Sarita Burciaga DO [facility] Hospitalist Admission and Anticipated Discharge Date Admission Date: February 05, 2021 Subjective 65 yo M reports onset of symptoms two weeks ago with intermittent epigastric tenderness associated with heartburn. Symptoms became worse this week and pain brought him to the ER. Denied vomiting. Feels slightly better this morning after IVF overnight and narcotic medications. Denies bowel changes Epigastric pain still present and spreads across upper abdomen in both directions. denies fevers, chills, SOB or other symptoms at this time. Review of Systems Review of Systems: All systems were reviewed and negative except as indicated in HPI above. Physical Exam Physical Exam: CONSTITUTIONAL: WNWD, vitals as above, generally well- appearing EYES: normal conjunctivae, no scleral icterus ENT: external ear and nose normal, MMM NECK: trachea midline RESPIRATORY: clear to auscultation bilaterally, no crackles, rales or wheezes, normal respiratory effort CARDIOVASCULAR: regular rate and rhythm, S1 and 2 heard without murmurs, gallops or rubs, no JVD, no peripheral edema CHEST: inspection of chest was normal GASTROINTESTINAL: soft, protuberant, nondistended, TTP in epigastric region, MUSCULOSKELETAL: strength 5/5 throughout, head is normocephalic and atraumatic SKIN: warm and dry NEUROLOGIC: No facial palsy, no dysarthria. CN 2-12 grossly intact, no sensory deficit, normal cognition, normal speech, no tremor PSYCHIATRIC: alert cooperative and oriented to person, place and time. Results & Data Results & Data ([facility]) Vital Signs (Past 12 Hours) Vital Signs Temp Pulse Pulse Resp BP BP Pulse Ox 02/05/21 12:15 36.4 C L 73 18 136/92 95 02/05/21 08: 37.1 C 71 16 121/70 95 02/05/21 07:25 71 02/05/21 06:29 72 02/05/21 04:40 37 C 73 18 117/72 96 02/05/21 03:30 76 20 121/79 93 02/05/21 02:30 84 22 169/85 H 90 02/05/21 02:20 83 20 152/72 H 94 02/05/21 01:43 84 18 140/80 95 Laboratory Results Short CBC 02/04/21 02/05/21 Range/Units 22:27 06:54 WBC 12.03 H 11.40 H (4.8-10.8) K/uL Hgb 15.0 13.1 L (14.0-18.0) g/dL Hct 43.5 38.4 L (42-52) % Plt Count 264 251 (130-400) K/uL BMP 02/04/21 02/05/21 22:27 06:54 Sodium 133 L 135 L Potassium 3.9 3.9 Chloride 101 106 Carbon Dioxide 26 24 BUN 12 11 Creatinine 1.22 0.89 D Glucose 178 H 133 H Calcium 9.5 8.5 Cardiac Enzymes 02/04/21 Range/Units 22:27 Troponin I < 0.015 (0-0.045) ng/ml Liver Function 02/04/21 02/05/21 Range/Units 22:27 06:54 Total Bilirubin 3.9 H 1.0 D (0.2-1) mg/dl AST 407 H 197 H (15-37) U/L ALT 642 H 488 H (12-78) U/L Alkaline Phosphatase 178 H 150 H (45-117) U/L Albumin 3.6 3.0 L (3.4-5.0) gm/dl Urine 02/04/21 Range/Units 22:40 Urine Color Dark Yellow Urine Appearance Clear (Clear) Urine pH 5.0 (4.5-7.5) Ur Specific [place] 1.018 (1.000-1.030) Urine Protein Negative (Negative) Urine Glucose (UA) Negative (Negative) Medications Administered Current Inpatient Medications Acetaminophen (Acetaminophen 325 Mg Tab) 325 mg PO Q6H PRN PRN Reason: Mild Pain Stop: 03/07/21 04:39 Aspirin (Aspirin 81 Mg Ectab) 81 mg PO DAILY [facility] Stop: 03/07/21 08:59 Last Admin: 02/05/21 09:13 Dose: 81 mg Documented by: Enoxaparin Sodium (Enoxaparin Inj 40 Mg/0.4 Ml Syr) 40 mg SQ QAM ALBER Stop: 03/07/21 08:59 Last Admin: 02/05/21 09:13 Dose: 40 mg Documented by: Promethazine HCl 12.5 mg/ (Sodium Chloride) 50.5 mls @ 202 mls/hr IV Q6H PRN PRN Reason: Nausea And Vomiting Stop: 03/07/21 04:39 Lorazepam (Ativan) 0.5 mg in 1 mls @ 1 mls/min IV Q4H PRN PRN Reason: Anxiety/Agitation Stop: 03/07/21 04:39 Lactated Ringer's (Lr) 1,000 mls @ 200 mls/hr IV .Q5H ALBER Stop: 03/07/21 08:39 Last Admin: 02/05/21 13:13 Dose: 200 mls/hr Documented by: Lisinopril (Lisinopril 5 Mg Tab) 5 mg PO DAILY [facility] Stop: 03/07/21 08:59 Last Admin: 02/05/21 09:13 Dose: 5 mg Documented by: Metoprolol Tartrate (Metoprolol Tartrate 25 Mg Tab) 25 mg PO BID [facility] Stop: 03/07/21 20:59 Morphine Sulfate (Morphine Sulfate 4 Mg/Ml 1 Ml Carp\\Vial) 4 mg IV Q4H PRN PRN Reason: Pain Stop: 02/19/21 04:39 Pantoprazole Sodium (Pantoprazole 40 Mg Tab) 40 mg PO DAILY ALBER Stop: 03/07/21 08:59 Last Admin: 02/05/21 09:13 Dose: 40 mg Documented by: Tramadol HCl (Tramadol Hcl 50 Mg Tablet) 25 - 50 mg PO Q4H PRN PRN Reason: Pain Stop: 03/07/21 04:39 Last Admin: 02/05/21 09:13 Dose: 50 mg Documented by:
[2021-02-05] MEDS ORDERED: PIPERACILL/TAZOBAC CONSULT ACTIVE PRN (13:54)
[2021-02-05] MEDS ORDERED: PIPERACILLIN/TAZOBACTAM 3.375 GM in DEXTROSE 5% 100 ML IV ONE (14:00)
--- NOTE | 2021-02-05 15:07 | Magnetic Resonance Report ---
MRCP CLINICAL HISTORY: Abnormal liver function studies. Pancreatitis. COMPARISON STUDY: Abdominal ultrasound dated 02/05/2021. Abdominal CT dated 02/04/2021. TECHNIQUE: Abdominal MRCP is performed utilizing various T2-weighted sequences in the axial and coron al planes. 3-D reformats are created and assessed. IV contrast was not administered for this examinat ion. FINDINGS: The gallbladder is distended, and the gallbladder wall is irregularly thickened. Numerous gallstones are identified. A prominent fold is seen at the gallbladder fundus. There is no intra or extrahepatic biliary ductal dilatation. The common bile duct is normal in caliber measuring up to 4 mm. No intral uminal filling defects are identified to suggest choledocholithiasis. The pancreatic duct is normal i n caliber. The liver is enlarged. Steatosis was shown on the recent CT and ultrasound examinations. The unenhanc ed spleen, adrenal glands, and kidneys are grossly normal. There is mild peripancreatic stranding and fluid consistent with acute pancreatitis. No organized peripancreatic fluid collection is identified . A small hiatal hernia is noted. There is no pleural effusion. The visualized bony structures appear intact. IMPRESSION: 1. Cholelithiasis within an abnormal gallbladder. Findings suggest cholecystitis and clinical correla tion will be required. 2. The gallbladder wall is thickened and irregular, especially in the fundal region. This likely repr esents adenomyomatosis with superimposed cholecystitis. A mass lesion is considered less likely but n ot excluded. 3. There is evidence of mild acute pancreatitis. 4. There is no intra or extrahepatic biliary ductal dilatation or evidence of choledocholithiasis. Dictated: 02/05/2021 10:53 AM Transcribed: 02/05/2021 2:59 PM [place] [id number] [email or web address] Electronically signed by: Dominic Kelley M.D. 02/05/2021 3:06 PM
--- NOTE | 2021-02-05 15:45 | Consultation Report ---
GASTROENTEROLOGY CONSULTATION DATE OF SERVICE: 02/05/2021 REFERRED BY: Radhames Vicente MD. HISTORY OF PRESENT ILLNESS: I was asked by Dr. Vicente to consult on this gentleman for evaluation o f abdominal pain. The patient is a 65-year-old who presented to our institution with severe mid epig astric abdominal pain that he felt was going on and off for about 2 weeks. It became so severe that he presented to the Emergency Room. Upon evaluation, he was found to have gallstone pancreatitis. Anival vaughn denies previous bouts of this. He does not drink alcohol significantly. He had some associated dr berlin rizvi. He denies any fever. He denies any rectal bleeding. He has had no fevers. I reviewed anival garcia medical records and his past medical history. PAST MEDICAL HISTORY: Significant for coronary artery disease. He has had an CT and he has a histor y of reflux disease. OUTPATIENT MEDICATIONS: Include Prinivil, aspirin, Lopressor, Prilosec, tramadol and p.r.n. nitrogly cerin. ALLERGIES: He denies any drug allergies. SOCIAL HISTORY: Significant for smoking. FAMILY HISTORY: Negative for gastrointestinal disease. REVIEW OF SYSTEMS: As above, otherwise, he denies any change in vision or hearing. He has had no he at or cold intolerance. He denies any icterus or pruritus. He has had no easy bruising. He denies any joint swelling. He has had no polyuria or polydipsia. He denies any dysuria. He has had no scot nge in mood or seizure activity. He denies any hair loss. He has had no productive cough or recent chest pain episodes. PHYSICAL EXAMINATION: GENERAL: Reveals a pleasant gentleman in no distress. VITAL SIGNS: Blood pressure is 136/92, pulse is 73, temperature is 36.4. SKIN: Anicteric. HEENT: Eyes show anicteric sclerae. Mouth is dry, but clear of lesions. NECK: Supple. CHEST: Clear with good breath sounds. ABDOMEN: Soft with epigastric discomfort to pressure, but no rebound and intact bowel sounds. He jain s no masses. EXTREMITIES: Warm with fair distal pulses. NEUROLOGICAL: He is grossly intact, and alert and oriented x3. LABORATORY DATA: Shows on admission, white blood cell count of 12 with a hemoglobin of 15 and a plat elet count of 264,000. With hydration, his hemoglobin appropriately dropped to 13. Total bilirubin on admission was 3.9 and on repeat today is 1 with improvement in his AST from 407 to 197 and ALT fro m 642 to 488. Lipase on admission was 27,000. IMAGING: Shows on CAT scan cholelithiasis with some evidence of acute cholecystitis. There were fea tures consistent with acute pancreatitis including peripancreatic inflammatory changes. He also has hepatomegaly with some hepatic steatosis. IMPRESSION AND PLAN: A 65-year-old gentleman with acute gallstone pancreatitis and some evidence of cholecystitis. Aggressive hydration is the main stay of treatment. He should be n.p.o. until he has some improvement in his symptoms. He had an MRI today looking for choledocholithiasis and this shou ld be followed up. Surgery should see him to discuss the timing of cholecystectomy, and depending on MRI findings and how his symptoms are, he may or may not need an ERCP. This was discussed with the patient as well. Job ID: [id number]
--- NOTE | 2021-02-05 16:44 | Surgery Consultation ---
Date of Consultation February 05, 2021 Assessment & Plan (1) Acute cholecystitis: Acute cholecystitis identified on imaging as well as MRCP now. No evidence of a common bile duct stone. His bilirubin is now down to normal. He continues to have an elevated lipase however in light of his symptoms dramatically improving I think it would be safe to proceed with cholecystectomy tomorrow morning. I discussed his options as well as risks which would include bleeding, infection, injury to another organ, bile duct injury or bile leaks, DVT, PE, SD, CVA etc. Following our discussion I answered all of his questions. We will proceed tomorrow with laparoscopic cholecystectomy. (2) Obesity: (3) Acute gallstone pancreatitis: History of Present Illness Attending Physician: Sarita Burciaga, History of Present Illness Patient with a several day history of abdominal pain and nausea. He had it over the course of several weeks but it rapidly worsened this past into Sunday. He was admitted to the hospital with calculus cholecystitis as well as pancreatitis. He currently is feeling much better. His pain and nausea have resolved. Allergies Allergy/AdvReac Type Severity Reaction Status Date / Time No Known Allergies Allergy Unknown Verified 01/16/16 07:04 Home Medications Medication Instructions Recorded Confirmed Type Aspirin Enteric Coated (Ecotrin Or 81 mg PO DAILY #0 08/09/08 02/05/21 History Generic *) Lisinopril (Prinivil) 10 mg PO DAILY #0 01/16/16 02/05/21 History Metoprolol Tartrate (Lopressor) 25 mg PO DAILY #0 01/16/16 02/05/21 History (Lopressor) Prilosec 20 mg PO DAILY 02/05/21 02/05/21 History nitroglycerin 0.4 mg sublingual 0.4 mg SUBLINGUAL Q5M PRN 02/05/21 02/05/21 History tablet tramadol 50 mg tablet 50 mg PO Q8H PRN 02/05/21 02/05/21 History Patient History Medical History Coronary atherosclerosis of [place] coronary vessel Esophageal reflux Myocardial infarction Surgical History History of arthroscopy of knee Social History Smoking Status: Current some day smoker Tobacco Type: E-cigarettes / Vaping Hx Substance Use: No Preferred Language: Czech Community Marketing Coordinator Required: No Beliefs That Will Affect Care: None Current Living Situation: Spouse Other Information That Helps Us Care for You: No Feels Safe at Home: Yes Safety Concerns: Feels Safe At This Time Assistive Devices: None Review of Systems Review of Systems: All systems reviewed & are unremarkable except as noted in HPI & below Physical Exam Constitutional: WD/WN, vitals as above no acute distress and not ill appearing Eyes: PERRL, conjunctivae normal, anicteric sclerae EOM intact bilaterally ENMT: external ear and nose normal, oropharynx normal Ears: no hearing impairment Neck: trachea midline, no thyromegaly Respiratory: normal respiratory effort; no respiratory distress and does not use accessory muscles Cardiovascular: Rate/Rhythm: regular rate and regular rhythm Gastrointestinal (Abdomen): Soft. Obese. Mild right upper quadrant tenderness. No guarding rebound or rigidity. Skin: no rashes, warm and dry Psychiatric: Orientation: alert, oriented x 3 and cooperative Results & Data ([facility]) Vital Signs (Past 12 Hours) Vital Signs Temp Pulse Pulse Resp BP BP Pulse Ox 02/05/21 15:59 36.6 C 78 18 134/73 96 02/05/21 15:44 78 02/05/21 12:15 36.4 C L 73 18 136/92 95 02/05/21 08:21 37.1 C 71 16 121/70 95 02/05/21 07:25 71 02/05/21 06:29 72 PG Care Time/CCT Total # of Minutes Spent Total Time Spent with Patient: Total time spent is greater than 50% in coordination of care (as documented) at patient's floor/unit and/or counseling patient: Coding Level of Care Code 32188 Office/OBS Consult Lvl 4 Diagnoses Acute cholecystitis K81.0 Obesity E66.9 Acute gallstone pancreatitis K85.10
[2021-02-05] MEDS: PIPERACILLIN/TAZOBACTAM 3.375 GM in DEXTROSE 5% 100 ML IV SCH (20:22)
[2021-02-05] MEDS: PROMETHAZINE HCL 12.5 MG in SODIUM CHLORIDE 0.9% 50 ML IV PRN (20:28)
[2021-02-05] MEDS: METOPROLOL TARTRATE 25 MG TAB PO SCH (20:29)
[2021-02-05] MEDS: MoRPHine SULFATE 4 MG/ML 1 ML CARP\\VIAL IV PRN (20:52)
[2021-02-06] MEDS: MoRPHine SULFATE 4 MG/ML 1 ML CARP\\VIAL IV PRN ×2 (04:42→11:38)
[2021-02-06] MEDS: PIPERACILLIN/TAZOBACTAM 3.375 GM in DEXTROSE 5% 100 ML IV SCH ×3 (04:45→20:31)
[2021-02-06] MEDS: LACTATED RINGER'S 1,000 ML IV SCH ×2 (04:45→10:38)
--- NOTE | 2021-02-06 06:20 | Surgery Progress Note ---
Date of Service February 06, 2021 Assessment & Plan (1) Acute cholecystitis: Plan: Patient has been admitted by the hospitalist service seeding as follows: To new analgesics Continue antiemetics Continue hydration with IV fluids A.m. labs are pending Patient was noted to have a pancreatitis likely caused by gallstones. He is clinically improved and due to his cholecystitis we are planning on surgical intervention this morning. Further recommendation will made based on the patient's clinical course as it unfolds as well as operative findings. Admission and Anticipated Discharge Date Admission Date: February 05, 2021 Subjective Patient is resting in bed. He notes that he has not had any nausea or vomiting overnight. He denies having any bowel movements overnight. He notes that his abdominal pain that was noted at time of mission is markedly improved. Physical Exam Gastrointestinal (Abdomen): Slight distention noted of the abdomen. There is no rebound tenderness or guarding. There is minimal pain with palpation in the epigastric area. Results & Data ([facility]) Vital Signs (Past 12 Hours) Vital Signs Temp Pulse Pulse Resp BP Pulse Ox 02/06/21 04:16 37.4 C 80 18 141/74 H 95 02/06/21 00:00 72 02/05/21 22:21 37.6 C H 73 18 111/71 93 02/05/21 19:03 37.2 C 75 18 125/72 96 PG Care Time/CCT Total # of Minutes Spent Total Time Spent with Patient: Total time spent is greater than 50% in coordination of care (as documented) at patient's floor/unit and/or counseling patient: Coding Level of Care Code 32856 Subseq Hosp Care Lvl 1 Diagnoses Acute cholecystitis K81.0
[2021-02-06] MEDS ORDERED: BUPIVACAINE 0.5 % 5 MG/1 ML MPF 30ML VIAL ONE (06:50)
[2021-02-06] MEDS ORDERED: EPINEPHrine INJ 1 MG/ML AMP ONE (06:50)
[2021-02-06 06:52] LABS: Hematocrit (blood only) 35.6 % (42-52); Hemoglobin 11.8 g/dL (14.0-18.0); Mean Corpuscular Hemoglobin 31.7 pg (25-34); Mean Corpuscular Hgb Conc 33.1 g/dL (32-36); Mean Corpuscular Volume 95.7 fL (80-100); Mean Platelet Volume 9.8 fL (7.4-10.4); Platelet Count 236 K/uL (130-400); RDW Coefficient of Variation 13.4 % (11.5-14.5); RDW Standard Deviation 46.7 fL (36.4-46.3); Red Blood Count 3.72 M/uL (4.7-6.1); White Blood Count 9.99 K/uL (4.8-10.8)
[2021-02-06] MEDS ORDERED: PROPOFOL IV EMULSION 10 MG/ML 20 ML VIAL IV ONE ×3 (06:52→06:56)
[2021-02-06] MEDS ORDERED: LIDOCAINE 2% 2 ML VIAL/AMP(20MG/ML) INFIL ONE (06:52)
[2021-02-06] MEDS ORDERED: fentaNYL citrate 100 MCG/2 ML VIAL ONE (06:52)
[2021-02-06] MEDS ORDERED: ONDANSETRON INJ 2 MG/ML 2 ML VIAL ONE (06:52)
[2021-02-06] MEDS ORDERED: ROCURONIUM BROMIDE 10 MG/ML 5 ML VIAL IV ONE (06:57)
[2021-02-06] MEDS ORDERED: LARYING-O-JET KIT (LTA) ONE (06:57)
[2021-02-06] MEDS ORDERED: ePHEDrine sulfate 50 MG/ML AMP IV PRN (07:14)
[2021-02-06] MEDS ORDERED: ONDANSETRON INJ 2 MG/ML 2 ML VIAL IV PRN (07:14)
[2021-02-06] MEDS ORDERED: ATROPINE SULFATE 0.1 MG/ML 10ML SYR IV PRN (07:14)
--- NOTE | 2021-02-06 07:14 | Anesthesiology Consultation ---
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 History Surgery Operation Date: 02/06/21 08:00 Proposed Procedures p Laparoscopic Cholecystectomy - Jd Del Angel DO Height/Weight Height: 5 ft 8 in Weight: 114.5 kg Allergies Allergy/AdvReac Type Severity Reaction Status Date / Time No Known Allergies Allergy Unknown Verified 01/16/16 07:04 Medications Home Medications Medication Instructions Recorded Confirmed Last Taken Aspirin Enteric Coated (Ecotrin Or 81 mg PO DAILY #0 08/09/08 02/05/21 Unknown Generic *) Lisinopril (Prinivil) 10 mg PO DAILY #0 01/16/16 02/05/21 Unknown Metoprolol Tartrate (Lopressor) 25 mg PO DAILY #0 01/16/16 02/05/21 Unknown (Lopressor) Prilosec 20 mg PO DAILY 02/05/21 02/05/21 Unknown nitroglycerin 0.4 mg sublingual 0.4 mg SUBLINGUAL Q5M PRN 02/05/21 02/05/21 Unknown tablet tramadol 50 mg tablet 50 mg PO Q8H PRN 02/05/21 02/05/21 Unknown Active Medications Generic Name Dose Route Start Last Admin Trade Name Freq PRN Reason Stop Dose Admin Aspirin 81 mg 02/05/21 09:00 02/05/21 09:13 Aspirin 81 Mg Ectab PO 03/07/21 08:59 81 mg DAILY ALBER Administration Enoxaparin Sodium 40 mg 02/05/21 09:00 02/05/21 09:13 Enoxaparin Inj 40 Mg/0.4 Ml Syr SQ 03/07/21 08:59 40 mg QAM ALBER Administration Promethazine HCl 12.5 mg/ 50.5 mls @ 202 mls/hr 02/05/21 04:40 02/05/21 22:28 Sodium Chloride IV 03/07/21 04:39 Infused Q6H PRN Infusion Nausea And Vomiting Lactated Ringer's 1,000 mls @ 200 mls/hr 02/05/21 08:40 02/06/21 04:45 Lr IV 03/07/21 08:39 200 mls/hr .Q5H ALBER Administration Piperacillin Sod/Tazobactam 115 mls @ 28.75 mls/hr 02/05/21 20:00 02/06/21 04:45 Sod 3.375 gm/ Dextrose IV 02/15/21 19:59 28.8 mls/hr Q8H ALBER Administration Protocol Lisinopril 5 mg 02/05/21 09:00 02/05/21 09:13 Lisinopril 5 Mg Tab PO 03/07/21 08:59 5 mg DAILY ALBER Administration Metoprolol Tartrate 25 mg 02/05/21 21:00 02/05/21 20:29 Metoprolol Tartrate 25 Mg Tab PO 03/07/21 20:59 25 mg BID ALBER Administration Morphine Sulfate 4 mg 02/05/21 04:40 02/06/21 04:42 Morphine Sulfate 4 Mg/Ml 1 Ml Carp\Vial IV 02/19/21 04:39 4 mg Q4H PRN Administration Pain Pantoprazole Sodium 40 mg 02/05/21 09:00 02/05/21 09:13 Pantoprazole 40 Mg Tab PO 03/07/21 08:59 40 mg DAILY ALBER Administration Tramadol HCl 25 - 50 mg 02/05/21 04:40 02/05/21 20:21 Tramadol Hcl 50 Mg Tablet PO 03/07/21 04:39 50 mg Q4H PRN Administration Pain Past Medical History Medical History Coronary atherosclerosis of [place] coronary vessel Esophageal reflux Myocardial infarction Past Surgical History Surgical History History of arthroscopy of knee Social History Smoking Status: Current some day smoker tobacco type: e-cigarettes Alcohol type: beer alcohol intake frequency: a few times a month Hx Substance Use: No Physical Exam Vital Signs Last Vital Signs Temp 99.3 F 02/06/21 04:16 Pulse 80 02/06/21 04:16 Resp 18 02/06/21 04:16 BP 141/74 H 02/06/21 04:16 Pulse Ox 95 02/06/21 04:16 Testing Laboratory Results 02/06/21 06:20 Hemoglobin A1c 6.7 % (4.5-5.6) H 02/04/21 22:27 Urine Color Dark Yellow 02/04/21 22:40 Urine Appearance Clear (Clear) 02/04/21 22:40 Urine pH 5.0 (4.5-7.5) 02/04/21 22:40 Ur Specific Mcgregor 1.018 (1.000-1.030) 02/04/21 22:40 Urine Protein Negative (Negative) 02/04/21 22:40 Urine Glucose (UA) Negative (Negative) 02/04/21 22:40 Urine Ketones Negative (Negative) 02/04/21 22:40 Urine Nitrite Negative (Negative) 02/04/21 22:40 Ur Leukocyte Esterase Negative (Negative) 02/04/21 22:40 Urine WBC (Auto) 0 /hpf (0-5) 02/04/21 22:40 Urine RBC (Auto) 0-4 /hpf (0-4) 02/04/21 22:40 U Hyaline Cast (Auto) 0 /lpf (0-5) 02/04/21 22:40 U Epithel Cells (Auto) 0-5 /lpf (0-5) 02/04/21 22:40 Urine Bacteria (Auto) Negative (Negative) 02/04/21 22:40 Electrocardiogram Date: 02/04/21 Normal sinus rhythm, rate 89 bpm Right bundle branch block Abnormal ECG When compared with ECG of 09-AUG-2008 00:59, QRS axis Shifted right
--- NOTE | 2021-02-06 07:26 | History & Physical Bridge Note ---
Date of Service February 06, 2021 History & Physical Bridge Note I have examined the patient, reviewed the History & Physical and in the interval since the performance of the History & Physical I have noted the following changes of clinical significance: no changes noted
[2021-02-06 07:29] LABS: Albumin Level 2.8 gm/dl (3.4-5.0); BUN Creatinine Ratio 10.6 (10-20); Calcium 8.7 mg/dl (8.5-10.1); Creatinine Clr Calc Pharmacy 117.4 ml/min; Est GFR (African American) 110.2 ml/min; Est GFR (Non-African American) 95.1 ml/min; Potassium 3.7 mmol/L (3.5-5.1)
[2021-02-06 07:31] LABS: Bilirubin Direct 0.4 mg/dl (0-0.2); Bilirubin,Total 0.9 mg/dl (0.2-1); Total Protein 6.9 gm/dl (6.4-8.2)
--- NOTE | 2021-02-06 07:35 | Electrocardiogram Report ---
Test Reason : Blood Pressure : / mmHG Vent. Rate : 089 BPM Atrial Rate : 089 BPM P-R Int : 164 ms QRS Dur : 162 ms QT Int : 394 ms P-R-T Axes : 046 053 045 degrees QTc Int : 479 ms Normal sinus rhythm Right bundle branch block Abnormal ECG When compared with ECG of 09-AUG-2008 00:59, QRS axis Shifted right Confirmed by Hesham Linda ([id number]) on 02/06/2021 7:34:50 AM Referred By: REFERRED SELF Confirmed By:Hesham Linda
[2021-02-06] MEDS ORDERED: GLYCOPYRROLATE 0.2 MG/ML VIAL ONE (08:32)
[2021-02-06] MEDS ORDERED: NEOSTIGMINE METHYLSULFATE 1 MG/ML 10ML VIAL ONE (08:32)
[2021-02-06] MEDS ORDERED: SURGICEL ABSORB HEMOSTAT 2IN X 14IN TOP ONE (08:42)
--- NOTE | 2021-02-06 09:21 | Operative Report ---
PG Post Operative Report Pre & Post Diagnosis Operation Date: 02/06/21 08:00 Pre-Op Diagnosis: Acute cholecystitis. Post-Op Diagnosis: Acute cholecystitis. I identified the patient and participated in the time-out.: Yes Procedure Operation Date: 02/06/21 08:00 Actual Procedures p Laparoscopic Cholecystectomy - Jd Del Angel DO Surgeon Jd Del Angel DO Hot Box Spotter n/a Estimated Blood Loss 100 Findings Consistent with Post-Op Diagnosis Specimens gallbladder Description of Procedure After informed consent was obtained the patient was taken to the operating room and placed in the supine position. After successful intubation the abdomen was sterilely prepped and draped in usual fashion. A periumbilical incision was m kemi with an 11 blade scalpel and carried down through the soft tissue using electrocautery. The anterior rectus fascia was opened using electrocautery and 2 #0 Vicryl stay sutures were placed. The peritoneum was elevated with hemostats and incised under direct vision using Metzenbaum scissors. A finger sweep was performed and a 12 mm Reynolds trocar was placed. The abdomen was insufflated to 18 mmHg. The laparoscope was inserted and the abdomen was examined in 360. No gross abnormalities were identified. A subxiphoid 5 mm port and 2 right upper quadrant 5 mm ports were placed under direct vision. The patient was placed in a reverse Trendelenburg position and slightly airplaned to the left. The gallbladder was acutely inflamed and thickened. The gallbladder was grasped and elevated superiorly and laterally. A [place] dissector was used to take down adhesions around the neck of the gallbladder. The cystic duct was identified and skeletonized. It was quite thick and because of the inflammation I wanted to stay close to the gallbladder neck. For that reason I replaced the subxiphoid port with a 12 mm port and used a DOMINGO brown cartridge 60 mm stapler to transect the neck of the gallbladder/cystic duct junction. the cystic artery was identified and skeletonized clipped and divided. The gallbladder was removed from the gallbladder fossa with electrocautery. A small hole was made in it during this process. We immediately suctioned out the bile. There were a few stones that escaped as well. These were placed into the bag after the gallbladder was removed. It was placed into an Endo Catch bag. Thorough irrigation was performed. At the end of the procedure there was adequate hemostasis and no evidence of any bile leaks. I did not see any stones that were left behind. A final look around the abdomen showed no other abnormalities. There was a small amount of oozing on the gallbladder fossa and therefore I placed a piece of Surgicel into the gallbladder fossa. A 10 flat Jm-Murphy drain was also placed in the right upper quadrant and brought out through one of the trocar sites. The gallbladder and trochars were all removed and the abdomen was desufflated. The fascia of the camera port was closed using 0 Vicryl in a [id number] fashion. All the wounds were irrigated and closed using 4-0 Monocryl. Marcaine was injected around them for postoperative analgesia and skin glue used as a dressing. The patient was awakened, extubated and transferred to recovery in stable condition. I attest to the content of the Intraoperative Record and any orders documented therein. Any exceptions are noted below.
[2021-02-06] MEDS: fentaNYL citrate 100 MCG/2 ML VIAL IV PRN ×2 (09:30→09:40)
--- NOTE | 2021-02-06 09:58 | Anesthesiology Progress Note ---
Date of Service February 06, 2021 Anesthesia Post Procedure Vital Signs Vital Signs: Temp Pulse Pulse Pulse Resp BP BP 02/06/21 09:45 80 16 136/77 02/06/21 09:35 80 18 148/85 H 02/06/21 09:25 81 20 154/93 H 02/06/21 09:15 97.2 F L 86 12 142/80 H 02/06/21 07:00 81 02/06/21 04:16 99.3 F 80 18 141/74 H 02/06/21 00:00 72 02/05/21 22:21 99.7 F H 73 18 111/71 02/05/21 19:03 99.0 F 75 18 125/72 02/05/21 15:59 97.9 F 78 18 134/73 02/05/21 15:44 78 02/05/21 12:15 97.5 F L 73 18 136/92 Pulse Ox 02/06/21 09:45 94 02/06/21 09:35 95 02/06/21 09:25 96 02/06/21 09:15 96 02/06/21 07:00 02/06/21 04:16 95 02/06/21 00:00 02/05/21 22:21 93 02/05/21 19:03 96 02/05/21 15:59 96 02/05/21 15:44 02/05/21 12:15 95 Pain Intensity Abdomen: Pain Intensity: 4 Transfer of Care Handoff Completed per policy Notes Mental Status: alert / awake / arousable and participated in evaluation Patient Amnestic to Procedure: Yes Nausea / Vomiting: adequately controlled Pain: adequately controlled Airway Patency, RR, SpO2: stable & adequate BP & HR: stable & adequate Hydration State: stable & adequate Anesthetic Complications: no major complications apparent and Pt Satisfied with anesthetic care
[2021-02-06] MEDS: ASPIRIN 81 MG ECTAB PO SCH (10:18)
[2021-02-06] MEDS: METOPROLOL TARTRATE 25 MG TAB PO SCH ×2 (10:27→20:32)
[2021-02-06] MEDS: traMADol HCL 50 MG TABLET PO PRN ×2 (10:27→23:01)
[2021-02-06] MEDS: lisinopril 5 MG TAB PO SCH (10:27)
[2021-02-06] MEDS: ENOXAPARIN INJ 40 MG/0.4 ML SYR SQ SCH (10:27)
[2021-02-06] MEDS: PANTOprazole 40 MG TAB PO SCH (10:27)
[2021-02-06] MEDS ORDERED: HYDROmorphone INJ 1 MG/ML SYRINGE IV STA (11:59)
[2021-02-06] MEDS ORDERED: oxyCODONE/ACETAMINOPHEN 5mg/325mg TAB PO PRN (12:01)
--- NOTE | 2021-02-06 13:10 | Hospitalist Progress Note ---
Date of Service February 06, 2021 Assessment & Plan (1) Acute gallstone pancreatitis: Plan: No choledocholithiasis seen on MRCP yesterday, which also confirmed acute cholecystitis. Scott mckenna performed this am and is is recovering in the room. Cont Zosyn and supportive care for now. Wound care per surgery. With ongoing pain and abdominal discomfort, also with 5L input overnight and resolution of lipase to normal range, will hold on IVF at this time and will add back if patient cannot have an advancement to his diet later today. Dilaudid 1mg given now and upgraded PRN pain meds to include PRN intravenous dilaudid and percocet PRN. Nurse is aware. (2) Acute cholecystitis: Plan: plan as above. (3) Asymptomatic hypertensive urgency: Plan: Secondary to gallstone pancreatitis-resolved with therapy. Cont home lisinopril and metoprolol (4) Obesity: Plan: Lifestyle changes recommended. (5) ASCVD (arteriosclerotic cardiovascular disease): Plan: h/o 4 stents, no chest pain or active ACS. Good functional status at baseline. Works a [employer]. Cont medical management per home regimen including aspirin, lisinopril and metoprolol. (6) Tobacco use disorder: Plan: Vaping-encouraged to quit and hopefully re-educated him on the misconception that vaping is "better for you" than smoking. Declines nicotine supplementation at this time. (7) DVT prophylaxis: Plan: Lovenox Full Code Dispo-to home when improved and tolerating PO. Sarita Burciaga DO [facility]ist Admission and Anticipated Discharge Date Admission Date: February 05, 2021 Subjective 65 yo M admitted for acute gallstone pancreatitis with acute cholecystitis Recently post-op this am and having significant pain 5L in and unmeasured voids out overnight-nurse reports good output and bladder scan was consistently 35 denies nausea reports feeling "grouchy" because of the pain Review of Systems Review of Systems: All systems were reviewed and negative except as indicated in HPI above. Physical Exam Physical Exam: CONSTITUTIONAL: obese, vitals as above, generally in moderate distress EYES: normal conjunctivae, no scleral icterus ENT: external ear and nose normal, MMM NECK: trachea midline RESPIRATORY: clear to auscultation bilaterally, no crackles, rales or wheezes, normal respiratory effort CARDIOVASCULAR: regular rate and rhythm, S1 and 2 heard without murmurs, gallops or rubs, no JVD, no peripheral edema CHEST: inspection of chest was normal GASTROINTESTINAL: soft, protuberant, nondistended, guarding, TTP around right abdomen. Incision covered with dressing that is c/d/i, +BRIANNA drain in place with bloody output MUSCULOSKELETAL: no gross focal deficits, limited exam as patient is in pain SKIN: warm and dry, incisions on abdomen as above. NEUROLOGIC: CN 2-12 grossly intact, no sensory deficit, normal cognition, normal speech, no tremor PSYCHIATRIC: alert cooperative and oriented to person, place and time. Results & Data Results & Data ([facility]) Vital Signs (Past 12 Hours) Vital Signs Temp Pulse Pulse Pulse Resp BP Pulse Ox 02/06/21 11:38 36.8 C 79 18 116/64 92 02/06/21 11:00 36.8 C 75 16 111/68 92 02/06/21 10:55 80 02/06/21 10:30 36.8 C 78 18 131/76 93 02/06/21 10:15 36.8 C 75 18 129/79 93 02/06/21 10:05 79 16 141/75 H 94 02/06/21 09:55 36.1 C L 79 18 139/80 93 02/06/21 09:45 80 16 136/77 94 02/06/21 09:35 80 18 148/85 H 95 02/06/21 09:25 81 20 154/93 H 96 02/06/21 09:15 36.2 C L 86 12 142/80 H 96 02/06/21 07:00 81 02/06/21 04:16 37.4 C 80 18 141/74 H 95 Laboratory Results Short CBC 02/06/21 Range/Units 06:20 WBC 9.99 (4.8-10.8) K/uL Hgb 11.8 L (14.0-18.0) g/dL Hct 35.6 L (42-52) % Plt Count 236 (130-400) K/uL BMP 02/06/21 06:20 Sodium 136 Potassium 3.7 Chloride 103 Carbon Dioxide 25 BUN 8 Creatinine 0.76 Glucose 108 H Calcium 8.7 Liver Function 02/06/21 Range/Units 06:20 Total Bilirubin 0.9 (0.2-1) mg/dl Direct Bilirubin 0.4 H (0-0.2) mg/dl AST 58 H (15-37) U/L ALT 277 H (12-78) U/L Alkaline Phosphatase 110 (45-117) U/L Albumin 2.8 L (3.4-5.0) gm/dl Medications Administered Current Inpatient Medications Acetaminophen (Acetaminophen 325 Mg Tab) 325 mg PO Q6H PRN PRN Reason: Mild Pain Stop: 03/07/21 04:39 Enoxaparin Sodium (Enoxaparin Inj 40 Mg/0.4 Ml Syr) 40 mg SQ QAM [facility] Stop: 03/07/21 08:59 Last Admin: 02/06/21 10:27 Dose: 40 mg Documented by: Hydromorphone HCl (Hydromorphone Inj 0.5 Mg/0.5 Ml Syr) 0.5 mg IV Q6H PRN PRN Reason: Severe Pain Stop: 02/20/21 12:00 Promethazine HCl 12.5 mg/ (Sodium Chloride) 50.5 mls @ 202 mls/hr IV Q6H PRN PRN Reason: Nausea And Vomiting Stop: 03/07/21 04:39 Last Infusion: 02/05/21 22:28 Dose: Infused Documented by: Lorazepam (Ativan) 0.5 mg in 1 mls @ 1 mls/min IV Q4H PRN PRN Reason: Anxiety/Agitation Stop: 03/07/21 04:39 Lactated Ringer's (Lr) 1,000 mls @ 200 mls/hr IV .Q5H [facility] Stop: 03/07/21 08:39 Last Infusion: 02/06/21 12:09 Dose: 0 mls/hr Documented by: Piperacillin Sod/Tazobactam (Sod 3.375 gm/ Dextrose) 115 mls @ 28.75 mls/hr IV Q8H [facility]; Protocol Stop: 02/15/21 19:59 Last Admin: 02/06/21 12:12 Dose: 28.8 mls/hr Documented by: Lisinopril (Lisinopril 5 Mg Tab) 5 mg PO DAILY [facility] Stop: 03/07/21 08:59 Last Admin: 02/06/21 10:27 Dose: 5 mg Documented by: Metoprolol Tartrate (Metoprolol Tartrate 25 Mg Tab) 25 mg PO BID [facility] Stop: 03/07/21 20:59 Last Admin: 02/06/21 10:27 Dose: 25 mg Documented by: Miscellaneous Information (Piperacill/Tazobac Consult Active) 1 ea N/A UD PRN PRN Reason: Consult Stop: 03/07/21 13:53 Oxycodone/Acetaminophen (Oxycodone/Acetaminophen 5mg/325mg Tab) 1 tab PO Q4H PRN PRN Reason: Pain Stop: 02/20/21 12:00 Pantoprazole Sodium (Pantoprazole 40 Mg Tab) 40 mg PO DAILY [facility] Stop: 03/07/21 08:59 Last Admin: 02/06/21 10:27 Dose: 40 mg Documented by:
[2021-02-06] MEDS ORDERED: traMADol HCL 50 MG TABLET PO STA (17:23)
[2021-02-06] MEDS: HYDROmorphone INJ 0.5 MG/0.5 ML SYR IV PRN (19:35)
[2021-02-06] MEDS: PROMETHAZINE HCL 12.5 MG in SODIUM CHLORIDE 0.9% 50 ML IV PRN (20:14)
[2021-02-07] MEDS: HYDROmorphone INJ 0.5 MG/0.5 ML SYR IV PRN (04:38)
[2021-02-07] MEDS: PIPERACILLIN/TAZOBACTAM 3.375 GM in DEXTROSE 5% 100 ML IV SCH ×3 (04:44→20:53)
[2021-02-07 08:02] LABS: Basophils # (auto) 0.03 K/uL (0-0.2); Basophils % (auto) 0.3 %; Eosinophils # (auto) 0.12 K/uL (0-0.5); Eosinophils % (auto) 1.1 %; Hematocrit (blood only) 32.6 % (42-52); Hemoglobin 10.7 g/dL (14.0-18.0); Immature Granulocytes % (auto) 0.9 %; Lymphocytes # (auto) 0.87 K/uL (1.2-3.4); Lymphocytes % (auto) 8.1 %; Mean Corpuscular Hemoglobin 31.9 pg (25-34); Mean Corpuscular Hgb Conc 32.8 g/dL (32-36); Mean Corpuscular Volume 97.3 fL (80-100); Mean Platelet Volume 9.5 fL (7.4-10.4); Monocytes # (auto) 0.88 K/uL (0.11-0.59); Monocytes % (auto) 8.2 %; Neutrophils # (auto) 8.71 K/uL (1.4-6.5); Neutrophils % (auto) 81.4 %; Platelet Count 245 K/uL (130-400); RDW Coefficient of Variation 13.5 % (11.5-14.5); RDW Standard Deviation 47.9 fL (36.4-46.3); Red Blood Count 3.35 M/uL (4.7-6.1); White Blood Count 10.71 K/uL (4.8-10.8)
[2021-02-07] MEDS: traMADol HCL 50 MG TABLET PO PRN ×2 (08:16→15:10)
[2021-02-07] MEDS: ENOXAPARIN INJ 40 MG/0.4 ML SYR SQ SCH (08:17)
[2021-02-07] MEDS: PANTOprazole 40 MG TAB PO SCH (08:17)
[2021-02-07] MEDS: METOPROLOL TARTRATE 25 MG TAB PO SCH ×2 (08:17→20:52)
[2021-02-07] MEDS: lisinopril 5 MG TAB PO SCH (08:17)
--- NOTE | 2021-02-07 08:26 | Surgery Progress Note ---
Date of Service February 07, 2021 Assessment & Plan (1) Acute cholecystitis: Plan: pod 1 doing ok. will add flomax for urinary retention slowly advance diet as tolerated not ready for d/c yet. labs pending Admission and Anticipated Discharge Date Admission Date: February 05, 2021 Subjective pt seen. doing ok. some pain. had bee placed last night for urinary retention. Physical Exam Physical Exam: alert. nad. abd: soft. expected ttp. wounds look good. BRIANNA serous. pink Results & Data ([facility]) Vital Signs (Past 12 Hours) Vital Signs Temp Pulse Pulse Pulse Resp BP Pulse Ox 02/07/21 08:20 91 02/07/21 08:15 36.8 C 77 18 109/65 94 02/07/21 07:07 56 L 02/07/21 04:20 36.7 C 77 20 115/72 94 02/07/21 02:56 99 H 02/06/21 23:00 36.6 C 87 20 125/69 93 PG Care Time/CCT Total # of Minutes Spent Total Time Spent with Patient: Total time spent is greater than 50% in coordination of care (as documented) at patient's floor/unit and/or counseling patient: Coding Level of Care Code None Diagnoses Acute cholecystitis K81.0
[2021-02-07 08:38] LABS: Albumin Level 2.5 gm/dl (3.4-5.0); BUN Creatinine Ratio 10.5 (10-20); Bilirubin Direct 0.3 mg/dl (0-0.2); Calcium 8.1 mg/dl (8.5-10.1); Creatinine Clr Calc Pharmacy 109.5 ml/min; Est GFR (African American) 106.8 ml/min; Est GFR (Non-African American) 92.1 ml/min; Potassium 3.7 mmol/L (3.5-5.1)
[2021-02-07 08:41] LABS: Albumin Globulin Ratio 0.7 (0.9-2); Bilirubin,Total 0.8 mg/dl (0.2-1); Globulin 3.8 gm/dl (2.5-4.0); Total Protein 6.3 gm/dl (6.4-8.2)
[2021-02-07] MEDS: TAMSULOSIN HCL 0.4 MG CAP PO SCH (09:00)
--- NOTE | 2021-02-07 13:00 | Hospitalist Progress Note ---
Date of Service February 07, 2021 Assessment & Plan (1) Acute gallstone pancreatitis: Plan: No choledocholithiasis seen on MRCP, which also confirmed acute cholecystitis. Lap clarisa performed 02/07 and is is recovering in the room. Cont Zosyn and supportive care for now. Wound care per surgery. With ongoing pain and abdominal discomfort, also with 5L input overnight and resolution of lipase to normal range, will hold on IVF at this time and will add back if patient cannot have an advancement to his diet later today. Dilaudid 1mg given now and upgraded PRN pain meds to include PRN intravenous dilaudid and percocet PRN. Nurse is aware. (2) Acute cholecystitis: Plan: plan as above. (3) Obesity: Plan: Lifestyle changes recommended. (4) ASCVD (arteriosclerotic cardiovascular disease): Plan: h/o 4 stents, no chest pain or active ACS. Good functional status at baseline. Works a [employer]. Cont medical management per home regimen including aspirin, lisinopril and metoprolol. (5) Tobacco use disorder: Plan: Vaping-encouraged to quit. Declines nicotine supplementation at this time. (6) Hypertension: Plan: At goal, Cont home lisinopril and metoprolol (7) Hypoxia: Plan: Possibly related to tramadol use, patient notably fatigued per nurse. Will cut back on this now with pain reportedly more under control. Cont tylenol PRN. (8) DVT prophylaxis: Plan: Lovenox Full Code Dispo-to home when improved and tolerating PO. Sarita Burciaga DO [facility] Hospitalist Admission and Anticipated Discharge Date Admission Date: February 05, 2021 Subjective 65 yo M with acute gallstone pancreatitis, POD #1 s/p lap clarisa Pain improved no flatus or BM yet AUR requiring bee catheter placement overnight flomax started this am. tolerating clear liquids Review of Systems Review of Systems: All systems were reviewed and negative except as indicated in HPI above. Physical Exam Physical Exam: CONSTITUTIONAL: obese, vitals as above, generally in moderate distress EYES: normal conjunctivae, no scleral icterus ENT: external ear and nose normal, MMM NECK: trachea midline RESPIRATORY: clear to auscultation bilaterally, no crackles, rales or wheezes, normal respiratory effort CARDIOVASCULAR: regular rate and rhythm, S1 and 2 heard without murmurs, gallops or rubs, no JVD, no peripheral edema CHEST: inspection of chest was normal GASTROINTESTINAL: soft, protuberant, nondistended, no guarding, nontender. Incision covered with dressing that is c/d/i, +BRIANNA drain in place with bloody output MUSCULOSKELETAL: no gross focal deficits, limited exam as patient is in pain SKIN: warm and dry, incisions on abdomen as above. NEUROLOGIC: CN 2-12 grossly intact, no sensory deficit, normal cognition, normal speech, no tremor PSYCHIATRIC: alert cooperative and oriented to person, place and time. Results & Data Results & Data ([facility]) Vital Signs (Past 12 Hours) Vital Signs Temp Pulse Pulse Pulse Resp BP Pulse Ox 02/07/21 11:39 36.7 C 76 16 120/75 94 02/07/21 08:20 91 02/07/21 08:15 36.8 C 77 18 109/65 94 02/07/21 07:07 56 L 02/07/21 04:20 36.7 C 77 20 115/72 94 02/07/21 02:56 99 H Laboratory Results Short CBC 02/07/21 Range/Units 07:29 WBC 10.71 (4.8-10.8) K/uL Hgb 10.7 L (14.0-18.0) g/dL Hct 32.6 L (42-52) % Plt Count 245 (130-400) K/uL BMP 02/07/21 07:29 Sodium 133 L Potassium 3.7 Chloride 100 Carbon Dioxide 27 BUN 9 Creatinine 0.82 Glucose 124 H Calcium 8.1 L Liver Function 02/07/21 Range/Units 07:29 Total Bilirubin 0.8 (0.2-1) mg/dl Direct Bilirubin 0.3 H (0-0.2) mg/dl AST 68 H (15-37) U/L ALT 195 H (12-78) U/L Alkaline Phosphatase 82 (45-117) U/L Albumin 2.5 L (3.4-5.0) gm/dl Medications Administered Current Inpatient Medications Acetaminophen (Acetaminophen 325 Mg Tab) 325 mg PO Q6H PRN PRN Reason: Mild Pain Stop: 03/07/21 04:39 Enoxaparin Sodium (Enoxaparin Inj 40 Mg/0.4 Ml Syr) 40 mg SQ QAM [facility] Stop: 03/07/21 08:59 Last Admin: 02/07/21 08:17 Dose: 40 mg Documented by: Hydromorphone HCl (Hydromorphone Inj 0.5 Mg/0.5 Ml Syr) 0.5 mg IV Q6H PRN PRN Reason: Severe Pain Stop: 02/20/21 12:00 Last Admin: 02/07/21 04:38 Dose: 0.5 mg Documented by: Piperacillin Sod/Tazobactam (Sod 3.375 gm/ Dextrose) 115 mls @ 28.75 mls/hr IV Q8H [facility]; Protocol Stop: 02/15/21 19:59 Last Admin: 02/07/21 11:56 Dose: 28.8 mls/hr Documented by: Lisinopril (Lisinopril 5 Mg Tab) 5 mg PO DAILY [facility] Stop: 03/07/21 08:59 Last Admin: 02/07/21 08:17 Dose: 5 mg Documented by: Metoprolol Tartrate (Metoprolol Tartrate 25 Mg Tab) 25 mg PO BID [facility] Stop: 03/07/21 20:59 Last Admin: 02/07/21 08:17 Dose: 25 mg Documented by: Miscellaneous Information (Piperacill/Tazobac Consult Active) 1 ea N/A UD PRN PRN Reason: Consult Stop: 03/07/21 13:53 Pantoprazole Sodium (Pantoprazole 40 Mg Tab) 40 mg PO DAILY [facility] Stop: 03/07/21 08:59 Last Admin: 02/07/21 08:17 Dose: 40 mg Documented by: Tamsulosin HCl (Tamsulosin Hcl 0.4 Mg Cap) 0.4 mg PO QAM [facility] Stop: 03/09/21 08:59 Last Admin: 02/07/21 09:00 Dose: 0.4 mg Documented by: Tramadol HCl (Tramadol Hcl 50 Mg Tablet) 100 mg PO Q6H PRN PRN Reason: severe pain Stop: 03/08/21 17:29 Last Admin: 02/07/21 08:16 Dose: 100 mg Documented by:
[2021-02-07] MEDS ORDERED: ACETAMINOPHEN 325 MG TAB PO PRN (16:24)
[2021-02-07] MEDS ORDERED: PROMETHAZINE HCL 12.5 MG in SODIUM CHLORIDE 0.9% 50 ML IV STA (21:15)
[2021-02-07] MEDS ORDERED: traMADol HCL 50 MG TABLET PO PRN (23:00)
[2021-02-08] MEDS ORDERED: KETOROLAC TROMETHAMINE 15 MG/ML VIAL IV ONE (01:50)
[2021-02-08] MEDS: PIPERACILLIN/TAZOBACTAM 3.375 GM in DEXTROSE 5% 100 ML IV SCH ×3 (03:59→12:28)
--- NOTE | 2021-02-08 07:23 | Surgery Progress Note ---
Date of Service February 08, 2021 Assessment & Plan (1) Acute cholecystitis: Plan: POD 2 lap clarisa advance diet as above. ok for d/c when ok with primary service. post op instructions given. f/u with me in 1-2 weeks. Admission and Anticipated Discharge Date Admission Date: February 05, 2021 Subjective feeling better, minimal pain, hungry Physical Exam Gastrointestinal (Abdomen): Inspection/Auscultation: abdomen not distended Percussion/Palpation: abdomen soft; abdomen nontender Results & Data ([facility]) Vital Signs (Past 12 Hours) Vital Signs Temp Pulse Resp BP BP Pulse Ox 02/07/21 23:00 36.6 C 79 20 130/71 95 02/07/21 19:56 37.2 C 83 22 133/79 92 PG Care Time/CCT Total # of Minutes Spent Total Time Spent with Patient: Total time spent is greater than 50% in coordination of care (as documented) at patient's floor/unit and/or counseling patient: Coding Level of Care Code None Diagnoses Acute cholecystitis K81.0
[2021-02-08] MEDS: ENOXAPARIN INJ 40 MG/0.4 ML SYR SQ SCH (08:59)
[2021-02-08] MEDS: lisinopril 5 MG TAB PO SCH (08:59)
[2021-02-08] MEDS: METOPROLOL TARTRATE 25 MG TAB PO SCH (09:00)
[2021-02-08] MEDS: TAMSULOSIN HCL 0.4 MG CAP PO SCH (09:01)
[2021-02-08] MEDS: PANTOprazole 40 MG TAB PO SCH (09:01)
--- NOTE | 2021-02-08 14:53 | Discharge Summary ---
Date of Service February 08, 2021 Admission HPI Per Admitting Provider History obtained from patient and records. Medical history significant for CAD status post stent, hypertension, hyperlipidemia, borderline DM as per patient, past tobacco abuse. 2 weeks history of achy epigastric discomfort described as reflux-like going under the ribs, intermittent symptoms associated with dry heaving. No fever, no chills. Urine noted to be dark at home. Patient not sure if pain related to fo od intake. Patient seen at PCP's office 2 days ago. Omeprazole re-prescribed for possible GERD. EGD recommended if with worsening symptoms. Worsening abdominal pain despite medication compliance. Patient consulted ER last night. Initial SBP upon arrival at the ER 210s. 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 [employer] Admission Exam Per Admitting Provider Physical Exam: GENERAL: Slightly uncomfortable, pleasant, obese, no respiratory distress SKIN: Normal color, warm HEENT: [place] palpebral conjunctivae, no ptosis, dry buccal mucosa NECK : Supple, short neck, no tenderness CHEST : CTA, no tenderness HEART : RRR, no obvious murmurs ABDOMEN: Some distention, right upper quadrant tenderness EXTREMITIES : No LE swelling/tenderness, no other conspicuous deformities noted NEUROLOGIC : Coherent, no facial asymmetry, no other gross focality Principal Diagnosis Acute gallstone pancreatitis Acute cholecystitis s/p lap clarisa Tobacco use disorder-vaping mechanism Hypoxia-resolved post operative acute blood loss Discharge Exam GENERAL: Slightly uncomfortable, pleasant, obese, no respiratory distress SKIN: Normal color, warm HEENT: [place] palpebral conjunctivae, no ptosis, dry buccal mucosa NECK : Supple, short neck, no tenderness CHEST : CTA, no tenderness HEART : RRR, no obvious murmurs ABDOMEN: Some distention, right upper quadrant tenderness EXTREMITIES : No LE swelling/tenderness, no other conspicuous deformities noted NEUROLOGIC : Coherent, no facial asymmetry, no other gross focality Discharge Data Allergies Allergy/AdvReac Type Severity Reaction Status Date / Time Oihcmlp-Vez-Nsg Reductase Allergy Mild muscle Verified 02/16/21 14:12 Inhibitor aches oxycodone AdvReac Unknown upset Verified 02/06/21 17:23 stomach Consultations 02/05/21 01:06 ED Decision to Admit Stat 02/05/21 04:40 Consult Gastroenterology Routine 02/05/21 13:36 Consult General Surgery Routine Procedures Performed Operation Date: 02/06/21 08:00 Actual Procedures p Laparoscopic Cholecystectomy - Jd Del Angel DO Ordered Studies Laboratory Results WBC 10.71 K/uL (4.8-10.8) 02/07/21 07:29 RBC 3.35 M/uL (4.7-6.1) L 02/07/21 07:29 Hgb 10.7 g/dL (14.0-18.0) L 02/07/21 07:29 Hct 32.6 % (42-52) L 02/07/21 07:29 MCV 97.3 fL (80-100) 02/07/21 07:29 MCH 31.9 pg (25-34) 02/07/21 07:29 MCHC 32.8 g/dL (32-36) 02/07/21 07:29 RDW Std Deviation 47.9 fL (36.4-46.3) H 02/07/21 07:29 RDW Coeff of Isaiah 13.5 % (11.5-14.5) 02/07/21 07:29 Plt Count 245 K/uL (130-400) 02/07/21 07:29 MPV 9.5 fL (7.4-10.4) 02/07/21 07:29 Immature Gran % (Auto) 0.9 % 02/07/21 07:29 Neut % (Auto) 81.4 % 02/07/21 07:29 Lymph % (Auto) 8.1 % 02/07/21 07:29 [place] % (Auto) 8.2 % 02/07/21 07:29 Eos % (Auto) 1.1 % 02/07/21 07:29 Baso % (Auto) 0.3 % 02/07/21 07:29 Neut # (Auto) 8.71 K/uL (1.4-6.5) H 02/07/21 07:29 Lymph # (Auto) 0.87 K/uL (1.2-3.4) L 02/07/21 07:29 [place] # (Auto) 0.88 K/uL (0.11-0.59) H 02/07/21 07:29 Eos # (Auto) 0.12 K/uL (0-0.5) 02/07/21 07:29 Baso # (Auto) 0.03 K/uL (0-0.2) 02/07/21 07:29 Immature Gran # (Auto) 0.10 K/uL (0.00-0.02) H 02/07/21 07:29 Sodium 133 mmol/L (136-145) L 02/07/21 07:29 Potassium 3.7 mmol/L (3.5-5.1) 02/07/21 07:29 Chloride 100 mmol/L (98-107) 02/07/21 07:29 Carbon Dioxide 27 mmol/L (21-32) 02/07/21 07:29 Anion Gap 7.0 (3-11) 02/07/21 07:29 BUN 9 mg/dl (7-18) 02/07/21 07:29 Creatinine 0.82 mg/dl (0.6-1.4) 02/07/21 07:29 Est Cr Clr Drug Dosing 109.5 ml/min 02/07/21 07:29 Est GFR ( Amer) 106.8 ml/min 02/07/21 07:29 Est GFR (Non-Af Amer) 92.1 ml/min 02/07/21 07:29 BUN/Creatinine Ratio 10.5 (10-20) 02/07/21 07:29 Glucose 124 mg/dl (70-99) H 02/07/21 07:29 Estimat Average Glucose 146 mg/dl 02/04/21 22:27 Hemoglobin A1c 6.7 % (4.5-5.6) H 02/04/21 22:27 Calcium 8.1 mg/dl (8.5-10.1) L 02/07/21 07:29 Magnesium 2.2 mg/dl (1.8-2.4) 02/04/21 22:27 Total Bilirubin 0.8 mg/dl (0.2-1) 02/07/21 07:29 Direct Bilirubin 0.3 mg/dl (0-0.2) H 02/07/21 07:29 AST 68 U/L (15-37) H 02/07/21 07:29 ALT 195 U/L (12-78) H 02/07/21 07:29 Alkaline Phosphatase 82 U/L (45-117) 02/07/21 07: Troponin I < 0.015 ng/ml (0-0.045) 02/04/21 22:27 Total Protein 6.3 gm/dl (6.4-8.2) L 02/07/21 07: Albumin 2.5 gm/dl (3.4-5.0) L 02/07/21 07: Globulin 3.8 gm/dl (2.5-4.0) 02/07/21 07: Albumin/Globulin Ratio 0.7 (0.9-2) L 02/07/21 07: Lipase 168 U/L (73-393) 02/07/21 07: Procalcitonin 0.21 ng/ml (0-0.5) 02/04/21 22:27 TSH 3.230 uIu/ml (0.300-4.500) 02/04/21 22:27 Urine Color Dark Yellow 02/04/21 22:40 Urine Appearance Clear (Clear) 02/04/21 22:40 Urine pH 5.0 (4.5-7.5) 02/04/21 22:40 Ur Specific [place] 1.018 (1.000-1.030) 02/04/21 22:40 Urine Protein Negative (Negative) 02/04/21 22:40 Urine Glucose (UA) Negative (Negative) 02/04/21 22:40 Urine Ketones Negative (Negative) 02/04/21 22:40 Urine Blood Trace (Negative) H 02/04/21 22:40 Urine Nitrite Negative (Negative) 02/04/21 22:40 Urine Bilirubin 1+ (Negative) H 02/04/21 22:40 Urine Urobilinogen Positive (Negative) H 02/04/21 22:40 Ur Leukocyte Esterase Negative (Negative) 02/04/21 22:40 Urine WBC (Auto) 0 /hpf (0-5) 02/04/21 22:40 Urine RBC (Auto) 0-4 /hpf (0-4) 02/04/21 22:40 U Hyaline Cast (Auto) 0 /lpf (0-5) 02/04/21 22:40 U Epithel Cells (Auto) 0-5 /lpf (0-5) 02/04/21 22:40 Urine Bacteria (Auto) Negative (Negative) 02/04/21 22:40 COVID-19 Eval Order Covid19 at [facility] 02/04/21 22:56 SARS-CoV-2 (PCR) NEGATIVE (Negative) 02/04/21 22:56 Hepatitis C Ab Screen Neg (Neg) 02/06/21 06:20 Impressions Abdomen/Pelvis CT 02/04/21 22:34 CT SCAN OF THE ABDOMEN AND PELVIS WITH IV CONTRAST CLINICAL HISTORY: Epigastric abdominal pain. COMPARISON STUDY: Abdominal CT dated 08/09/2008. TECHNIQUE: Following the IV administration of 93 cc of Optiray 320, CT scan of the abdomen and pelvis is performed from the lung bases to the proximal femora. Images are reviewed in the axial, sagittal, and coronal planes. IV contrast was administered without complication. A dose lowering technique was utilized adhering to the principles of ALARA. CT DOSE: 1313.80 mGy.cm FINDINGS: Lung bases: The heart is normal in size and without pericardial effusion. The coronary arteries are densely calcified. There is a tiny hiatal hernia. The lung bases are clear noting bibasilar scarring/atelectasis. Liver: The contrast-enhanced liver is enlarged, measuring 19.7 cm in length. The liver demonstrates diffusely diminished attenuation consistent with hepatic steatosis. There is no intrahepatic biliary ductal dilatation. The hepatic veins and portal veins are patent. Gallbladder: The gallbladder is distended and contains numerous gallstones. The gallbladder wall is thickened and there is pericholecystic inflammation. Stones are suggested within the cystic duct on image #141. Spleen: Normal in size and attenuation. Pancreas: There is mild glandular atrophy of the pancreas. There is peripancreatic inflammatory change and trace fluid. The appearance is consistent with acute pancreatitis. The gland enhances homogeneously and the duct is normal in caliber. No organized peripancreatic fluid collection is identified. The splenic vein is patent. Adrenal glands: Unremarkable. Kidneys: The contrast enhanced kidneys are normal in size and without hydronephrosis. The kidneys enhance symmetrically. Abdominal vasculature: The abdominal aorta is normal in course and caliber noting advanced atherosclerotic calcification. Bowel: There is mild colonic diverticulosis without CT evidence of acute diverticulitis. No bowel obstruction is identified. Wall thickening and hyperemia of the duodenum is likely related to adjacent pancreatitis. The appendix is well-visualized and normal. Peritoneum: No intraperitoneal free air is identified. There is trace free fluid in the pelvis. Lymphadenopathy: None. Pelvic viscera: The bladder, prostate, and seminal vesicles are normal as visualized. Skeletal structures: The skeletal structures appear osteopenic. There is moderate lumbosacral spondylosis. No lytic or blastic lesions are seen. IMPRESSION: 1. Cholelithiasis with evidence of acute cholecystitis. 2. Findings are consistent with acute pancreatitis. 3. The pancreas enhances homogeneously and no organized peripancreatic fluid collection is identified. 4. Hepatomegaly and hepatic steatosis. 5. Inflammation of the duodenum is likely related to adjacent pancreatitis. 6. Advanced coronary artery calcification. 7. Mild colonic diverticulosis without CT evidence of acute diverticulitis. 8. Additional findings as above. ACT 112: Negative or not required by law. Electronically signed by: Dominic Kelley M.D. 02/05/2021 7:47 AM Gallbladder Ultrasound 02/05/21 00:19 ULTRASOUND RIGHT UPPER QUADRANT ABDOMEN CLINICAL HISTORY: Right upper quadrant abdominal pain. Elevated hepatic transaminases. Elevated lipase.. COMPARISON STUDY: Abdominal CT dated 02/04/2021. TECHNIQUE: Real-time, grayscale, and color flow sonography of the right upper quadrant of the abdomen was performed. Images are reviewed in the transverse and longitudinal planes. FINDINGS: Liver: The liver is enlarged and demonstrates heterogeneously increased echotexture consistent with hepatic steatosis. There is no intrahepatic biliary ductal dilatation. The main portal vein is patent. Gallbladder: The gallbladder is distended and contains numerous gallstones. The wall appears thickened an irregular, measuring up to 6 mm. Foci of adenomyomatosis are noted. There is a prominent fold in the gallbladder fundus which contains sludge/debris. No pericholecystic fluid is seen. A sonographic Marcial's sign could not be assessed as the patient received analgesia. The common bile duct measures up to 0.6 cm in diameter. Pancreas: Visualized portions of the pancreatic head and body are normal in appearance. The splenic vein is patent. Right kidney: Survey images of the right kidney demonstrate normal size and echotexture. There is no hydronephrosis. Ascites: None. IMPRESSION: 1. Cholelithiasis with an abnormal and thick-walled gallbladder. When correlated with today's CT findings the appearance is highly concerning for acute c holecystitis. Although considered much less likely, given the irregularity of the gallbladder wall an underlying neoplasm would be impossible to exclude. 2. The pancreas is normal as visualized by ultrasound. 3. There is no intra or extrahepatic biliary ductal dilatation. ACT 112: Negative or not required by law. Electronically signed by: Dominic Kelley M.D. 02/05/2021 8:39 AM Cholangiopancreatography MRI 02/05/21 02:02 MRCP CLINICAL HISTORY: Abnormal liver function studies. Pancreatitis. COMPARISON STUDY: Abdominal ultrasound dated 02/05/2021. Abdominal CT dated 02/04/2021. TECHNIQUE: Abdominal MRCP is performed utilizing various T2-weighted sequences in the axial and coronal planes. 3-D reformats are created and assessed. IV contrast was not administered for this examination. FINDINGS: The gallbladder is distended, and the gallbladder wall is irregularly thickened. Numerous gallstones are identified. A prominent fold is seen at the gallbladder fundus. There is no intra or extrahepatic biliary ductal dilatation. The common bile duct is normal in caliber measuring up to 4 mm. No intraluminal filling defects are identified to suggest choledocholithiasis. The pancreatic duct is normal in caliber. The liver is enlarged. Steatosis was shown on the recent CT and ultrasound examinations. The unenhanced spleen, adrenal glands, and kidneys are grossly normal. There is mild peripancreatic stranding and fluid consistent with acute pancreatitis. No organized peripancreatic fluid collection is identified. A small hiatal hernia is noted. There is no pleural effusion. The visualized bony structures appear intact. IMPRESSION: 1. Cholelithiasis within an abnormal gallbladder. Findings suggest cholecystitis and clinical correlation will be required. 2. The gallbladder wall is thickened and irregular, especially in the fundal region. This likely represents adenomyomatosis with superimposed cholecystitis. A mass lesion is considered less likely but not excluded. 3. There is evidence of mild acute pancreatitis. 4. There is no intra or extrahepatic biliary ductal dilatation or evidence of choledocholithiasis. Dictated: 02/05/2021 10:53 AM Transcribed: 02/05/2021 2:59 PM [place] [id number] IVANNA_Rajan Electronically signed by: Dominic Kelley M.D. 02/05/2021 3:06 PM Hospital Course (1) Acute gallstone pancreatitis: No choledocholithiasis seen on MRCP, which also confirmed acute cholecystitis. Lap clarisa performed 02/07 and recovered without complication on the floor. Zosyn was given during this hospital stay. He remained afebrile and hemodynamically stable most of his stay, the exception being one temp of 37.6C on 02/05 in the evening. He was mildly hypoxic post-operatively, requiring approximately 1-2 LPM supplementation, likely related to some oversedation with Tramadol which caused some excessive sleepiness. Initial volume resuscitation efforts to treat acute pancreatitis may have also contributed. Prior to discharge he was mentating clearly, his pain was managed well with minimal PO medications, and he was oxygenating well on room air. He was discharged in stable condition with close primary care and general surgery follow-up post- operatively. (2) Acute cholecystitis: (3) Hypoxia: (4) Postoperative anemia due to acute blood loss: (5) Obesity: (6) Tobacco use disorder: (7) Hypertension: Total Time Total Time Spent Total Time Spent (In Minutes): 45 Discharge Plan Discharge Items Patient Disposition: Home - Self-Care Reason For Visit: HTN URG, PANCREATITIS Discharge Diagnosis: Acute gallstone pancreatitis Acute cholecystitis s/p lap clarisa Tobacco use disorder-vaping mechanism Hypoxia-resolved Condition on Discharge: Good Health Concerns: STOP VAPING TOBACCO Activity: As commented below Lifting: No more than 10 pounds Bathing: No limitations Bathing Comment: can shower over skin glue Driving/Machine Use: Resume 3 days after discharge Non-emergency contact: Surgeon Call non-emergency contact if: you have any medication questions, your pain is not controlled, you have a fever and your temperature is above 101.5 Follow-up/Referrals: Jd Del Angel, [Surgeon] - (Please call to make an appt in 2 weeks) Kishore Delatorre MD [Primary Care Provider] - (Date & Time 02/10/2021 10:20 AM Provider Kishore Delatorre MD [facility] ) Diet: Low Fat Addtl Attending Provider Instructions: Please take all medications as instructed on discharge list below. Please follow all post-operative instructions as written by surgery team and followup as scheduled. It is essential that you quit smoking/vaping as this is terrible for your health! Please follow-up with your primary care physician at the date and time above to ensure you are still doing well after returning home. It was a pleasure taking care of you! Please call if you have any questions or problems. You can reach a [facility] hospitalist on duty at [facility] 24 hours a day by calling [phone]. Take care of yourself. Sarita Burciaga DO [facility] Hospitalist Pending Studies at Discharge: No Stand-Alone Forms: My [facility], Smoking Cessation Medications and DC Order Prescriptions: Continued aspirin 81 mg tablet,delayed release (DR/EC) 81 mg PO DAILY RF: 0 lisinopril 5 mg tablet 5 mg PO DAILY RF: 0 metoprolol tartrate 25 mg tablet 25 mg PO DAILY RF: 0 omeprazole 20 mg capsule,delayed release(DR/EC) 20 mg PO DAILY RF: 0 nitroglycerin 0.4 mg tablet, sublingual 0.4 mg sublingual Q5M PRN (Reason: Chest Pain) RF: 0 tramadol 50 mg tablet 50 mg PO Q8H PRN (Reason: pain, severe) Qty: 20 RF: 0 Discharge Orders: Discharge Order (Routine); Ordered 02/08/21 Ordered By: Sarita Green/Other Patient Handouts: A1C, 5 Steps for Eating Healthier Admission Data Admit Date/Time: 02/05/21 02:00 Attending Provider: Sarita Burciaga Admit Provider: Radhames Ram Primary Care Provider: Kishore Delatorre Other Providers: Radhames Ram ; Gracie Horvath ; Dianna Cruz ; Miguel Viramontes ; Anjana Baker ; Rony Hernandez ; Serafin Gary ; Caleb Garza ; [place] ; Janiya Hendrix ; Sue Townsend ; Edith Lynn ; Yadi Gómez ; Amanda Santos ; Jd Del Angel Other Interventions: Discharge Summary Assessment (RN) Last Done: 02/08/21 16:37
== END 2021-02-08 17:48 | disposition home or self-care (01) | DRG 418 ==
LOC: ED 21:12 → 2N 02-05 02:00
DX: Z68.39 Body mass index [BMI] 39.0-39.9, adult; I25.10 Atherosclerotic heart disease of native coronary artery without angina pectoris; E11.9 Type 2 diabetes mellitus without complications; E78.5 Hyperlipidemia, unspecified; Y92.239 Unspecified place in hospital as the place of occurrence of the external cause; K21.9 Gastro-esophageal reflux disease without esophagitis; Z95.5 Presence of coronary angioplasty implant and graft; K81.0 Acute cholecystitis; I25.2 Old myocardial infarction; R09.02 Hypoxemia; D62 Acute posthemorrhagic anemia; U07.0 Vaping-related disorder; T40.425A Adverse effect of tramadol, initial encounter; F17.290 Nicotine dependence, other tobacco product, uncomplicated; E66.9 Obesity, unspecified; K85.10 Biliary acute pancreatitis without necrosis or infection

== ENCOUNTER 2022-01-04 10:32 | Inpatient (IN) ==
[2022-01-04] MEDS ORDERED: CEFEPIME 2,000 MG/20 ML VIAL IV STA (10:43)
[2022-01-04] MEDS ORDERED: SODIUM CHLORIDE 0.9% 1000ML 1,000 ML IV SCH (10:45)
[2022-01-04] MEDS ORDERED: ONDANSETRON INJ 2 MG/ML 2 ML VIAL IV STA (10:54)
[2022-01-04] MEDS ORDERED: KETOROLAC TROMETHAMINE 15 MG/ML VIAL IV STA (10:54)
--- NOTE | 2022-01-04 10:59 | Emergency Department Note ---
Impression & Plan Weakness, Anemia, SOB (shortness of breath), Acute hyponatremia, Status post chemotherapy ED Provider Note NAME: DESIRAE MATTHEW AGE: 66 SEX: M : 1955 ARRIVES VIA: Walk-In INFORMANT: [Patient][] ED PROVIDER(S): [Dominic Bustamante MD] CHIEF COMPLAINT: Illness HISTORY OF PRESENT ILLNESS: The patient is a 66-year-old male who has adenocarcinoma of the gallbladder. He received chemotherapy on the , 5 days ago. Since the chemotherapy, he has been tired and fatigue. He has had vomiting for a few days. He has been trying some Zofran but it does not seem to be helping. Yesterday, he developed some diarrhea. No black or bloody stool, no bloody vomitus. He has felt weaker and has stumbled a few times but has not fallen. He has noticed some issues with his balance. He feels short of breath with exertion but not at rest. Patient has noticed a decreased urine stream but no urinary burning. He has had some chills, no documented fever. The patient basically feels very washed out. He was in contact with his oncologist, he was referred to the ED. Of note, the patient did test positive with an at home test for COVID-19 three weeks ago, he has since tested negative. REVIEW OF SYSTEMS: See HPI for pertinent positives and negatives. A total of ten systems were reviewed and were otherwise negative. PMHx/PSHx: See Below SOCIAL HISTORY: See Below. PHYSICAL EXAM: GENERAL: Patient is in no acute distress. HEENT: No acute trauma, normocephalic atraumatic, mucous membranes moist, no nasal congestion, no scleral icterus. NECK: No stridor, no adenopathy, no meningismus, trachea is midline. LUNGS: Clear to auscultation bilaterally, no wheezing, no respiratory distress. Breath sounds equal. HEART: Mildly tachycardic, regular rhythm, no murmurs. ABDOMEN: Soft, nontender, bowel sounds positive, no peritonitis. EXTREMITIES: No cyanosis or edema, full range of motion of all the joints without pain or difficulty, no signs for acute trauma. NEUROLOGIC: Oriented x 3, no acute motor or sensory deficits, no focal weakness. SKIN: No rash, no jaundice, no diaphoresis. Pale. Rectal: Yellow stool, heme-negative. DIFFERENTIAL DIAGNOSIS: Sepsis, UTI, pneumonia, neutropenia, dehydration, COVID-19, metabolic a bnormality, electrolyte abnormalities, cardiac sources, cellulitis, bacteremia, intracerebral event, toxicologic etiology, neurologic event, as well as other pathologies. EMERGENCY DEPARTMENT COURSE/PROCEDURES: ECG: Indication was weakness. The ECG shows a normal sinus rhythm with a rate of 88. There is a right bundle branch block. There is no ST elevation, no PVCs. QTC is 493. Compared to an ECG from 04 February 2021, I see no significant change. Continuous Cardiac Monitoring: An order was placed for continuous cardiac monitoring. The monitor shows a rate of 85 with normal sinus rhythm. Critical Care Note: I have personally spent 49 minutes of critical care time in the direct management of this patient. This includes bedside care, interpretation of diagnostic studies, and testing, discussion with consultants, patient, and family members, and other required patient management activities. This 49 minutes is in excess of all separately billable procedures. MEDICAL DECISION MAKING: There is no leukocytosis. Hemoglobin is quite low at 4.8. Platelet count was normal at 266. INR showed a slight elevation at 1.2. The PTTR was normal. Sodium was low at 126. Creatinine was a bit elevated consistent with dehydration/renal insufficiency. Lactic acid level was not elevated making severe sepsis less likely. A few subtle liver enzyme elevations were noted, ho wever, the bilirubin was normal. ECG showed a normal sinus rhythm, no obvious acute ischemia. Cardiac enzyme testing x1 was not consistent with acute cardiac injury. Procalcitonin level was elevated at 1.10. Bio fire testing returned completely negative. COVID, influenza and RSV test were negative. Chest film did not show pneumonia or CHF. I did perform a rectal exam, stool was yellow and heme-negative. Patient received IV saline for hydration. He was given IV Zofran for nausea, IV Toradol for pain, he received IV cefepime as empiric antibiotic coverage. He was ordered for 2 units of packed red blood cells to be transfused. He did sign consent for the transfusion. The patient is clearly in need of a hospital stay. I spoke to the patient about his findings, I spoke with his oncologist. I did speak with case management as well as the on-call hospitalist. I do think the majority of his symptoms can be explained by the anemia and low sodium value. Past Med/Surg History Medical History Acute gallstone pancreatitis Adenocarcinoma of gallbladder Coronary artery disease Coronary atherosclerosis of [place] coronary vessel Esophageal reflux Myocardial infarction 2005 stents x 4 Statin intolerance Type 2 diabetes mellitus Surgical History History of arthroscopy of knee History of heart artery stent x4 at [facility] History of surgery of liver due to gallbladder cancer and lymph nodes involved Hx of arthroscopy of shoulder left Port-A-Cath in place (05/04/21) Insertion Access Port with Fluoroscopy- Jd Del Angel, 05/04/2021 S/P laparoscopic cholecystectomy 02/06/2021: Grade 2 view, MAC#3, ETT#7.5, atraumatic x 1. No issues per anesthesia progress note. Family History Father Heart disease Myocardial infarction Mother Heart disease Myocardial infarction Denies family history of Ovarian cancer Prostate cancer Breast cancer Colorectal cancer Social History Smoking Status: Former smoker Tobacco Type: E-cigarettes / Vaping Second Hand Exposure: No; Hx Alcohol Use: No Hx Substance Use: No Preferred Language: Togolese Communication Ability: Effective Visual Impairment: Partially Limited Software Support Specialist Required: No Beliefs That Will Affect Care: None marital status: Current Living Situation: Spouse current occupational status: unemployed Feels Safe at Home: Yes Assistive Devices: None Allergies Allergies Allergy/AdvReac Type Severity Reaction Status Date / Time oxycodone AdvReac Mild Unknown Verified 01/04/22 15:24 [id number]-[id number]-VlV Reductase AdvReac Mild muscle Verified 01/04/22 15:24 Inhibitor aches [Rdsikdj-Nnf-Kkx Reductase Inhibitor] Home Meds Home Medications Medication Instructions Recorded Confirmed nitroglycerin 0.4 mg sublingual 0.4 mg sublingual Q5M PRN Chest 02/05/21 01/04/22 tablet Pain aspirin 81 mg tablet,delayed 81 mg PO QAM 02/16/21 01/04/22 release metoprolol tartrate 25 mg tablet 25 mg PO QAM 02/16/21 01/04/22 omeprazole 20 mg capsule,delayed 20 mg PO HS 02/16/21 01/04/22 release docusate sodium 100 mg capsule 100 mg PO BID 01/04/22 01/04/22 olanzapine 2.5 mg tablet 2.5 mg PO UD 01/04/22 01/04/22 Previous Rx's Medication Instructions Recorded tramadol 50 mg tablet 50 mg PO Q8H PRN pain, severe #20 02/08/21 tabs lisinopril 10 mg tablet 5 mg PO QAM #45 tabs 11/25/21 sennosides 8.6 mg capsule (senna) 8.6 mg PO DAILY #90 caps 11/25/21 tamsulosin 0.4 mg capsule 0.4 mg PO DAILY #90 caps 11/25/21 Results & Data (ED) Vital Signs Vital Signs - 24 hr 01/04/22 10:36 01/04/22 11:26 01/04/22 10:43 Temperature 37 C Temperature Source Temporal Artery Scan Pulse Rate 107 H 107 H Pulse Rate from SpO2 Sensor Pulse Rhythm Regular Respiratory Rate 18 18 18 Respiratory Effort / Characteristics Non-Labored Blood Pressure 136/76 Blood Pressure Mean 96 Pulse Oximetry 98 98 98 Oxygen Delivery Method Room Air Room Air Room Air Sepsis Recent Fever Within 48 Hours No Sepsis New/Unexplained Change in Mental Status No Sepsis Action Taken by Nursing No Action Required 01/04/22 11:13 01/04/22 11:43 01/04/22 12:13 Temperature Temperature Source Pulse Rate Pulse Rate from SpO2 Sensor Pulse Rhythm Respiratory Rate 18 18 18 Respiratory Effort / Characteristics Non-Labored Non-Labored Non-Labored Blood Pressure Blood Pressure Mean Pulse Oximetry 98 98 98 Oxygen Delivery Method Room Air Room Air Room Air Sepsis Recent Fever Within 48 Hours Sepsis New/Unexplained Change in Mental Status Sepsis Action Taken by Nursing 01/04/22 12:10 01/04/22 12:30 01/04/22 13:00 Temperature Temperature Source Pulse Rate 85 85 81 Pulse Rate from SpO2 Sensor 85 86 Pulse Rhythm Respiratory Rate 20 18 12 Respiratory Effort / Characteristics Blood Pressure 146/77 H 137/75 146/75 H Blood Pressure Mean 100 95 98 Pulse Oximetry 95 93 Oxygen Delivery Method Sepsis Recent Fever Within 48 Hours Sepsis New/Unexplained Change in Mental Status Sepsis Action Taken by Nursing 01/04/22 13:30 Temperature Temperature Source Pulse Rate 78 Pulse Rate from SpO2 Sensor 77 Pulse Rhythm Respiratory Rate 19 Respiratory Effort / Characteristics Blood Pressure 148/107 H Blood Pressure Mean 120 Pulse Oximetry 95 Oxygen Delivery Method Sepsis Recent Fever Within 48 Hours Sepsis New/Unexplained Change in Mental Status Sepsis Action Taken by Correction Medications Current Medication List: was personally reviewed by me Laboratory Data Attestation: I reviewed the patient's lab results. Result diagrams: 01/04/22 12:00 01/04/22 12:00 Lab Results 01/04/22 01/04/22 01/04/22 Range/Units 12:00 12:00 12:00 WBC 8.81 (4.8-10.8) K/ul RBC 1.55 L (4.63-6.08) M/uL Hgb 4.8 L* (14.0-18.0) g/dl Hct 13.8 L* (40.1-51.0) % MCV 89.0 (80.0-100.0) fL MCH 31.0 (25.0-34.0) pg MCHC 34.8 (32.0-36.0) g/dL RDW Std Deviation 46.8 H (36.4-46.3) fL RDW Coeff of Isaiah 15.3 H (11.5-14.5) % Plt Count 266 (130-400) K/uL MPV 9.8 (9.4-12.4) fL Immature Gran % (Auto) 5.6 % Neut % (Auto) 62.4 % Lymph % (Auto) 16.0 % Bennett % (Auto) 15.0 % Eos % (Auto) 0.9 % Baso % (Auto) 0.1 % Neut # (Auto) 5.50 (1.4-6.5) K/uL Lymph # (Auto) 1.41 (1.2-3.4) K/uL Bennett # (Auto) 1.32 H (0.24-0.82) K/uL Eos # (Auto) 0.08 (0-0.50) K/uL Baso # (Auto) 0.01 (0-0.2) K/uL Immature Gran # (Auto) 0.49 H (0.00-0.02) K/uL RBC Morphology Unremarkable PT 12.4 H (9.0-12.0) Seconds INR 1.2 H (0.9-1.1) APTT 27.6 (21.0-31.0) Seconds PTT Ratio 1.0 Sodium 126 L (136-145) mmol/L Potassium 4.3 (3.5-5.1) mmol/L Chloride 95 L (98-107) mmol/L Carbon Dioxide 21 (21-32) mmol/L Anion Gap 10 (3-11) BUN 30 H (6-23) mg/dl Creatinine 1.74 H (0.6-1.4) mg/dl Est Cr Clr Drug Dosing 47.4 ml/min Est GFR ( Amer) 46.0 ml/min Est GFR (Non-Af Amer) 39.7 ml/min BUN/Creatinine Ratio 17.2 (10-20) Glucose 101 H (70-99(Fasting)) mg/dl Lactate (0.4-2.0) mmol/L Calcium 8.8 (8.5-10.1) mg/dl Magnesium 1.9 (1.7-2.4) mg/dl Total Bilirubin 1.0 (0.2-1.0) mg/dl AST 62 H (13-39) U/L ALT 80 H (7-52) U/L Alkaline Phosphatase 68 (34-104) U/L Troponin I High Sens 12.5 (0-20) pg/ml Total Protein 7.3 (6.0-8.3) gm/dl Albumin 3.6 (3.4-5.0) gm/dl Globulin 3.7 (2.5-4.0) gm/dl Albumin/Globulin Ratio 1.0 (0.9-2) Procalcitonin (0-0.5) ng/ml SARS-CoV-2 (PCR) (Negative) Influenza Type A (PCR) (Neg) Influenza Type B (PCR) (Neg) RSV (RT-PCR) (Neg) Blood Type Antibody Screen Crossmatch 01/04/22 01/04/22 01/04/22 Range/Units 12:00 12:00 12:07 WBC (4.8-10.8) K/ul RBC (4.63-6.08) M/uL Hgb (14.0-18.0) g/dl Hct (40.1-51.0) % MCV (80.0-100.0) fL MCH (25.0-34.0) pg MCHC (32.0-36.0) g/dL RDW Std Deviation (36.4-46.3) fL RDW Coeff of Isaiah (11.5-14.5) % Plt Count (130-400) K/uL MPV (9.4-12.4) fL Immature Gran % (Auto) % Neut % (Auto) % Lymph % (Auto) % Bennett % (Auto) % Eos % (Auto) % Baso % (Auto) % Neut # (Auto) (1.4-6.5) K/uL Lymph # (Auto) (1.2-3.4) K/uL Bennett # (Auto) (0.24-0.82) K/uL Eos # (Auto) (0-0.50) K/uL Baso # (Auto) (0-0.2) K/uL Immature Gran # (Auto) (0.00-0.02) K/uL RBC Morphology PT (9.0-12.0) Seconds INR (0.9-1.1) APTT (21.0-31.0) Seconds PTT Ratio Sodium (136-145) mmol/L Potassium (3.5-5.1) mmol/L Chloride (98-107) mmol/L Carbon Dioxide (21-32) mmol/L Anion Gap (3-11) BUN (6-23) mg/dl Creatinine (0.6-1.4) mg/dl Est Cr Clr Drug Dosing ml/min Est GFR ( Amer) ml/min Est GFR (Non-Af Amer) ml/min BUN/Creatinine Ratio (10-20) Glucose (70-99(Fasting)) mg/dl Lactate 1.4 (0.4-2.0) mmol/L Calcium (8.5-10.1) mg/dl Magnesium (1.7-2.4) mg/dl Total Bilirubin (0.2-1.0) mg/dl AST (13-39) U/L ALT (7-52) U/L Alkaline Phosphatase (34-104) U/L Troponin I High Sens (0-20) pg/ml Total Protein (6.0-8.3) gm/dl Albumin (3.4-5.0) gm/dl Globulin (2.5-4.0) gm/dl Albumin/Globulin Ratio (0.9-2) Procalcitonin 1.10 H (0-0.5) ng/ml SARS-CoV-2 (PCR) NEGATIVE (Negative) Influenza Type A (PCR) Negative (Neg) Influenza Type B (PCR) Negative (Neg) RSV (RT-PCR) Negative (Neg) Blood Type Antibody Screen Crossmatch 01/04/22 Range/Units 12:59 WBC (4.8-10.8) K/ul RBC (4.63-6.08) M/uL Hgb (14.0-18.0) g/dl Hct (40.1-51.0) % MCV (80.0-100.0) fL MCH (25.0-34.0) pg MCHC (32.0-36.0) g/dL RDW Std Deviation (36.4-46.3) fL RDW Coeff of Isaiah (11.5-14.5) % Plt Count (130-400) K/uL MPV (9.4-12.4) fL Immature Gran % (Auto) % Neut % (Auto) % Lymph % (Auto) % Bennett % (Auto) % Eos % (Auto) % Baso % (Auto) % Neut # (Auto) (1.4-6.5) K/uL Lymph # (Auto) (1.2-3.4) K/uL Bennett # (Auto) (0.24-0.82) K/uL Eos # (Auto) (0-0.50) K/uL Baso # (Auto) (0-0.2) K/uL Immature Gran # (Auto) (0.00-0.02) K/uL RBC Morphology PT (9.0-12.0) Seconds INR (0.9-1.1) APTT (21.0-31.0) Seconds PTT Ratio Sodium (136-145) mmol/L Potassium (3.5-5.1) mmol/L Chloride (98-107) mmol/L Carbon Dioxide (21-32) mmol/L Anion Gap (3-11) BUN (6-23) mg/dl Creatinine (0.6-1.4) mg/dl Est Cr Clr Drug Dosing ml/min Est GFR ( Amer) ml/min Est GFR (Non-Af Amer) ml/min BUN/Creatinine Ratio (10-20) Glucose (70-99(Fasting)) mg/dl Lactate (0.4-2.0) mmol/L Calcium (8.5-10.1) mg/dl Magnesium (1.7-2.4) mg/dl Total Bilirubin (0.2-1.0) mg/dl AST (13-39) U/L ALT (7-52) U/L Alkaline Phosphatase (34-104) U/L Troponin I High Sens (0-20) pg/ml Total Protein (6.0-8.3) gm/dl Albumin (3.4-5.0) gm/dl Globulin (2.5-4.0) gm/dl Albumin/Globulin Ratio (0.9-2) Procalcitonin (0-0.5) ng/ml SARS-CoV-2 (PCR) (Negative) Influenza Type A (PCR) (Neg) Influenza Type B (PCR) (Neg) RSV (RT-PCR) (Neg) Blood Type AB Negative Antibody Screen NEGATIVE Crossmatch See Detail Administered Medications Discontinued Medications Sodium Chloride (Nss 1000ml) 1,000 mls @ 999 mls/hr IV .Q1H1M ALBER Stop: 01/04/22 11:45 Last Infusion: 01/04/22 13:10 Dose: 0 mls/hr Documented By: Admin: 01/04/22 12:07 Dose: 999 mls/hr Documented By: SINGH Cefepime HCl (Maxipime) 2,000 mg in 20 mls @ 5 mls/min IV NOW STA; Protocol Stop: 01/04/22 10:46 Last Admin: 01/04/22 12:08 Dose: 5 mls/min Documented By: SINGH Ketorolac Tromethamine (Ketorolac Tromethamine 15 Mg/Ml Vial) 15 mg IV NOW STA Stop: 01/04/22 10:55 Last Admin: 01/04/22 12:07 Dose: 15 mg Documented By: SINGH Ondansetron HCl (Ondansetron Inj 2 Mg/Ml 2 Ml Vial) 4 mg IV NOW STA Stop: 01/04/22 10:55 Last Admin: 01/04/22 12:07 Dose: 4 mg Documented By: SINGH Imaging Data Radiologist's Impression: Chest X-Ray 01/04/22 10:43 XR chest 1V portable CLINICAL HISTORY: SEPSIS COMPARISON STUDY: Chest CT November 22, 2021. FINDINGS: Left subclavian Esrnxc-z-Owjo is in place. Lung volumes are normal. Lungs are clear. There is no pneumothorax or pleural effusion. Cardiac size is stable. Mediastinal contours are normal. There is no evidence for pulmonary edema. IMPRESSION: No acute cardiopulmonary findings. No change in appearance of the chest. ACT 112: Negative or not required by law. Electronically signed by: Camden Dahl M.D. 01/04/2022 12:29 PM Discharge Plan Visit Data Chief Complaint: Illness Stated Complaint: CANCER, FATIGUE, ACHING, DIARRHEA ED Provider: Dominic Bustamante Discharge Problem: Weakness, Anemia, SOB (shortness of breath), Acute hyponatremia, Status post chemotherapy Patient Disposition: Admitted As Inpatient Condition: Fair
[2022-01-04 12:22] LABS: Hematocrit (blood only) 13.8 % (40.1-51.0); Hemoglobin 4.8 g/dl (14.0-18.0); Mean Corpuscular Hgb Conc 34.8 g/dL (32.0-36.0); Mean Platelet Volume 9.8 fL (9.4-12.4); Platelet Count 266 K/uL (130-400); RDW Coefficient of Variation 15.3 % (11.5-14.5); RDW Standard Deviation 46.8 fL (36.4-46.3); Red Blood Count 1.55 M/uL (4.63-6.08); White Blood Count 8.81 K/ul (4.8-10.8)
--- NOTE | 2022-01-04 12:31 | XRay Report ---
XR chest 1V portable CLINICAL HISTORY: SEPSIS COMPARISON STUDY: Chest CT November 22, 2021. FINDINGS: Left subclavian Dkhlum-z-Uydv is in place. Lung volumes are normal. Lungs are clear. There is no pneumothorax or pleural effusion. Cardiac size is stable. Mediastinal contours are normal. Ther e is no evidence for pulmonary edema. IMPRESSION: No acute cardiopulmonary findings. No change in appearance of the chest. ACT 112: Negative or not required by law. Electronically signed by: Camden Dahl M.D. 01/04/2022 12:29 PM
[2022-01-04 12:37] LABS: Basophils # (auto) 0.01 K/uL (0-0.2); Basophils % (auto) 0.1 %; Eosinophils # (auto) 0.08 K/uL (0-0.50); Eosinophils % (auto) 0.9 %; Immature Granulocytes # (auto) 0.49 K/uL (0.00-0.02); Immature Granulocytes % (auto) 5.6 %; Lymphocytes # (auto) 1.41 K/uL (1.2-3.4); Monocytes # (auto) 1.32 K/uL (0.24-0.82); Neutrophils % (auto) 62.4 %; RBC Morphology Unremarkable
[2022-01-04 12:41] LABS: Albumin Level 3.6 gm/dl (3.4-5.0); BUN Creatinine Ratio 17.2 (10-20); Calcium 8.8 mg/dl (8.5-10.1); Creatinine Clr Calc Pharmacy 47.4 ml/min; Est GFR (Non-African American) 39.7 ml/min; Globulin 3.7 gm/dl (2.5-4.0); Magnesium 1.9 mg/dl (1.7-2.4); Potassium 4.3 mmol/L (3.5-5.1); Total Protein 7.3 gm/dl (6.0-8.3); Troponin I High Sensitivity 12.5 pg/ml (0-20)
[2022-01-04] MEDS ORDERED: SODIUM CHLORIDE 0.9% 250 ML IV PRN ×2 (12:44→22:42)
[2022-01-04 13:16] LABS: Influenza A virus by PCR Negative (Neg); Influenza B virus by PCR Negative (Neg); RSV by PCR Negative (Neg); SARS CoV2 RNA(COVID-19) InHosp NEGATIVE (Negative)
[2022-01-04 13:33] LABS: INR 1.2 (0.9-1.1); Partial Thromboplastin Time 27.6 Seconds (21.0-31.0); Prothrombin Time 12.4 Seconds (9.0-12.0)
--- NOTE | 2022-01-04 14:07 | History & Physical Report ---
Date of Service January 04, 2022 Assessment & Plan (1) Anemia: Plan: Anemia unspecified- subacute/chronic likely as he is hemodynamically stable and without reports of GI symptoms/loss- FOBT negative in EMD. - Likely related to his chemotherapy - RBC morphology reported as unremarkable - Normocytic, normochromic, RDW 15 - Transfuse 2 units PRBC - follow CBC- is without chest pain, but is dyspneic, pale, and easily fatigued - Will place on PPI IV BID until rule out other losses - Hold ASA likely able to restart in AM - Follow hemodynamics - continue Metoprolol hold YAMILKA (2) Hyponatremia: Plan: Likely related to diarrhea and decrease oral intake with fatigue - NA level 126 asymptomatic - Serum OSMO - Urine OSMO - WENDIE - Likely hypovolemic hyponatremia as hypochloremic as well Saline infusion fo llowing blood volume (3) ANNA (acute kidney injury): Plan: LUCY II secondary to above - hold YAMILKA in am - replete intravascular volume - follow in AM - avoid further nephrotoxic medicaitons (4) Diarrhea: Plan: one day history of with 2-3 loose stools but none endorsed today - he is not leukopenic or neutropenic and is with out any abdominal pain/discomfort - will await stool culture - PCT is elevated, but as above without fevers or further evidence of infection, normal lactate - follow clinically (5) Adenocarcinoma of gallbladder: Plan: Currently undergoing chemotherapy - LFTs elevated- downtrending - Follow as above (6) Type 2 diabetes mellitus: Plan: Not on any agents at home - will place on sliding scale aspart at this time - goal <180 if needed (7) Coronary artery disease: Plan: History of stents x4 - no symptoms of angina - hold asa- likely able to restart in AM if his HGB stays stble - Hold YAMILKA with ANNA and follow hemodynamics - Statin intolerant (8) Elevated liver enzymes: Plan: As above follow History of Present Illness Primary Care Provider: Alysia Espinal MD 66 YOM with medical history of: adenocarcinoma of the gallbladder (on chemotherapy), medi-port placement, DMII (not on therapy), CT(2005 with 4 stents), GERD, Obesity. Patient comes to the hospital today for about a week of feeling fatigued, cold, and dyspneic with any exertion. He reports that this was associated with some body aches. He reports that he tested himself for COVID a few weeks ago and was positive and retested at a later date and was negative. His COVID test here is Negative. He tested himself following his receipt of his COVID and Pneumovax booster administration and after a chemotherapy session. As he started feeling the above symptoms. They have never quite resolved. He denies any fevers, chills, urinary symptoms or sore throats. He does endorse some diarrhea that started yesterday. Denies any change in his stools or abdominal pain. He continues to endorse easily fatigability, dizziness when standing, and dyspnea. In the EMD the patient had routine labs performed to include a HScTNI. His labs were notable for anemia with a HGB of 4.8, WBC 8 and stable PLT count of 266. He is also noted to be hyponatremic at 126 with elevated [employer]. Patient reports his last Chemotherapy appointment was last week as he thinks he is starting maintenance cycles- he is unsure of what he received and his chemotherapy records are not available for review. He did have a HGB level drawn on 12/14 and 12/23 that was 13.1 and 11.8 respectively. Patient was typed and crossed in the EMD and will receive 2 units of PRBCs. He is symptomatic, is without chest pain or elevation in his HScTNI. PCT was elevated without source and no fever or WBC elevation. Will await stool culture ordered in EMD and UA. He received empiric dose of Cefepime in the EMD. Will admit to medical surgical floor. Follow CBC. Adenocarcinoma of gallbladder diagnosed 03/31- he underwent diagnostic laparotomy [place] [facility] [place] biopsy and segmental wedge resection of liver, cystic du ct stump and portal lymphadenopathy. [facility] is [facility]. He completed his original cycles of Gemcitabine and Cisplatin. COVID/RSV/FLU: NEGATIVE on admission Allergies Allergy/AdvReac Type Severity Reaction Status Date / Time oxycodone AdvReac Mild Unknown Verified 01/04/22 15:24 Gdcjrnk-HWU-KyL Reductase AdvReac Mild muscle Verified 01/04/22 15:24 Inhibitor aches [Chmsywf-Ogx-Ysd Reductase Inhibitor] Home Medications Medication Instructions Recorded Confirmed Type nitroglycerin 0.4 mg sublingual 0.4 mg sublingual Q5M PRN Chest 02/05/21 01/04/22 History tablet Pain tramadol 50 mg tablet 50 mg PO Q8H PRN pain, severe #20 02/08/21 01/04/22 Rx tabs aspirin 81 mg tablet,delayed 81 mg PO QAM 02/16/21 01/04/22 History release metoprolol tartrate 25 mg tablet 25 mg PO QAM 02/16/21 01/04/22 History omeprazole 20 mg capsule,delayed 20 mg PO HS 02/16/21 01/04/22 History release lisinopril 10 mg tablet 5 mg PO QAM #45 tabs 11/25/21 01/04/22 Rx sennosides 8.6 mg capsule (senna) 8.6 mg PO DAILY #90 caps 11/25/21 01/04/22 Rx tamsulosin 0.4 mg capsule 0.4 mg PO DAILY #90 caps 11/25/21 01/04/22 Rx docusate sodium 100 mg capsule 100 mg PO BID 01/04/22 01/04/22 History olanzapine 2.5 mg tablet 2.5 mg PO UD 01/04/22 01/04/22 History Past Med/Surg History Medical History Acute gallstone pancreatitis Adenocarcinoma of gallbladder Coronary artery disease Coronary atherosclerosis of mo[place] coronary vessel Esophageal reflux Myocardial infarction 2004 stents x 4 [facility] Statin intolerance Type 2 diabetes mellitus Surgical History History of arthroscopy of knee History of heart artery stent x4 at [facility] History of surgery of liver due to gallbladder cancer and lymph nodes involved Hx of arthroscopy of shoulder left Port-A-Cath in place (05/04/21) Insertion Access Port with Fluoroscopy- Jd Del Angel, DO 05/04/2021 S/P laparoscopic cholecystectomy 02/06/2021: Grade 2 view, MAC#3, ETT#7.5, atraumatic x 1. No issues per anesthesia progress note. Family History Father Heart disease Myocardial infarction Mother Heart disease Myocardial infarction Denies family history of Ovarian cancer Prostate cancer Breast cancer Colorectal cancer Social History Smoking Status: Former smoker Tobacco Type: E-cigarettes / Vaping Second Hand Exposure: No; Hx Alcohol Use: No Hx Substance Use: No Preferred Language: Greek Communication Ability: Effective Visual Impairment: Partially Limited Grades 6 Through 8 Teacher Required: No Beliefs That Will Affect Care: None marital status: Current Living Situation: Spouse current occupational status: unemployed Feels Safe at Home: Yes Assistive Devices: None Review of Systems Review of Systems: REVIEW OF SYSTEMS: Constitutional: No fever, sweats or chills Eyes: No diplopia, no worsening or blurred vision ENT: normal hearing, no trouble swallowing Respiratory: (+) dyspnea with any activity, No cough, sputum Cardiovascular: (+) dizziness, No chest pain, tightness or palpitations Abdomen: (+) diarrhea, No pain, nausea, vomiting, diarrhea or constipation Musculoskeletal: No joint pain, calf pain, swelling Neurologic: No weakness, numbness/tingling, or balance problems Psychiatric: No anxiety or depression Skin: No rash or itch Physical Exam Physical Exam: PHYSICAL EXAM: General: awake, alert, no apparent distress Head: Normocephalic, atraumatic ENT: PERRLA, EOMI, no pharyngeal exudate, mucous membranes dry Neuro: AAO x 3, speech clear and appropriate, strength intact bilaterally 5/5, sensation intact and equal all extremities and dermatomes, no pronator drift Chest: equal rise and fall of the chest, no accessory muscle use, no heaves or thrills, Clear to auscultation, on room air, Cardiac: Regular rate and rhythm, telemetry reviewed-NSR, skin warm dry, cap refill <3 seconds, peripheral pulses +2 no JVD, no murmur, no edema GI: NABS x 4 quadrants, soft, nontender to palpation, no rebound, guarding or tenderness, no epigastric pain, small central hernia soft and not incarcerated : Spontaneously voiding, no pain, no CVA tenderness, Extremities: Normal inspection, no peripheral edema or erythema, calfs nontender to palpation Psych: Normal mood and affect Skin: no rash or erythema Results & Data Results & Data ([facility]) Vital Signs (Past 12 Hours) Vital Signs Temp Pulse Resp BP Pulse Ox O2 Del Method 01/04/22 13:00 81 12 146/75 H 01/04/22 12:30 85 18 137/75 93 01/04/22 12:10 85 20 146/77 H 95 01/04/22 12:13 18 98 Room Air 01/04/22 11:43 18 98 Room Air 01/04/22 11:13 18 98 Room Air 01/04/22 10:43 18 98 Room Air 01/04/22 11:26 107 H 18 98 Room Air 01/04/22 10:36 37 C 107 H 18 136/76 98 Room Air Laboratory Results Abnormal lab results 01/04/22 01/04/22 01/04/22 Range/Units 12:00 12:00 12:00 RBC 1.55 L (4.63-6.08) M/uL Hgb 4.8 L* (14.0-18.0) g/dl Hct 13.8 L* (40.1-51.0) % RDW Std Deviation 46.8 H (36.4-46.3) fL RDW Coeff of Isaiah 15.3 H (11.5-14.5) % [place] # (Auto) 1.32 H (0.24-0.82) K/uL Immature Gran # (Auto) 0.49 H (0.00-0.02) K/uL PT 12.4 H (9.0-12.0) Seconds INR 1.2 H (0.9-1.1) Sodium 126 L (136-145) mmol/L Chloride 95 L (98-107) mmol/L BUN 30 H (6-23) mg/dl Creatinine 1.74 H (0.6-1.4) mg/dl Glucose 101 H (70-99(Fasting)) mg/dl AST 62 H (13-39) U/L ALT 80 H (7-52) U/L Procalcitonin (0-0.5) ng/ml Crossmatch 01/04/22 01/04/22 Range/Units 12:00 12:59 RBC (4.63-6.08) M/uL Hgb (14.0-18.0) g/dl Hct (40.1-51.0) % RDW Std Deviation (36.4-46.3) fL RDW Coeff of Isaiah (11.5-14.5) % [place] # (Auto) (0.24-0.82) K/uL Immature Gran # (Auto) (0.00-0.02) K/uL PT (9.0-12.0) Seconds INR (0.9-1.1) Sodium (136-145) mmol/L Chloride (98-107) mmol/L BUN (6-23) mg/dl Creatinine (0.6-1.4) mg/dl Glucose (70-99(Fasting)) mg/dl AST (13-39) U/L ALT (7-52) U/L Procalcitonin 1.10 H (0-0.5) ng/ml Crossmatch See Detail Diagnostic Findings Chest X-Ray 01/04/22 10:43 XR chest 1V portable CLINICAL HISTORY: SEPSIS COMPARISON STUDY: Chest CT November 22, 2021. FINDINGS: Left subclavian Rlgahe-s-Zqby is in place. Lung volumes are normal. Lungs are clear. There is no pneumothorax or pleural effusion. Cardiac size is stable. Mediastinal contours are normal. There is no evidence for pulmonary edema. IMPRESSION: No acute cardiopulmonary findings. No change in appearance of the chest. ACT 112: Negative or not required by law. Electronically signed by: Camden Dahl M.D. 01/04/2022 12:29 PM Medications Administered Home Medications nitroglycerin 0.4 mg sublingual tablet 0.4 mg sublingual Q5M PRN Chest Pain 02/05/21 [History Confirmed 11/25/21] tramadol 50 mg tablet 50 mg PO Q8H PRN pain, severe #20 tabs 02/08/21 [Rx Confirmed 11/25/21] aspirin 81 mg tablet,delayed release 81 mg PO QAM 02/16/21 [History Confirmed 11/25/21] metoprolol tartrate 25 mg tablet 25 mg PO QAM 02/16/21 [History Confirmed 11/25/21] omeprazole 20 mg capsule,delayed release 20 mg PO HS 02/16/21 [History Confirmed 11/25/21] Colace 1 tab PO DAILY 05/04/21 [History Confirmed 11/25/21] lisinopril 10 mg tablet 5 mg PO QAM #45 tabs 11/25/21 [Rx Confirmed 11/25/21] sennosides 8.6 mg capsule (senna) 8.6 mg PO DAILY #90 caps 11/25/21 [Rx Confirmed 11/25/21] tamsulosin 0.4 mg capsule 0.4 mg PO DAILY #90 caps 11/25/21 [Rx Confirmed 11/25/21] Active Medications Sodium Chloride (Nss) 250 mls @ 15 mls/hr IV .[id number] PRN PRN Reason: For Transfusion Stop: 01/04/22 22:44 Discontinued Medications Sodium Chloride (Nss 1000ml) 1,000 mls @ 999 mls/hr IV .Q1H1M ALBER Stop: 01/04/22 11:45 Last Infusion: 01/04/22 13:10 Dose: 0 mls/hr Documented By: Admin: 01/04/22 12:07 Dose: 999 mls/hr Documented By: SINGH Cefepime HCl (Maxipime) 2,000 mg in 20 mls @ 5 mls/min IV NOW STA; Protocol Stop: 01/04/22 10:46 Last Admin: 01/04/22 12:08 Dose: 5 mls/min Documented By: SINGH Ketorolac Tromethamine (Ketorolac Tromethamine 15 Mg/Ml Vial) 15 mg IV NOW STA Stop: 01/04/22 10:55 Last Admin: 01/04/22 12:07 Dose: 15 mg Documented By: SINGH Ondansetron HCl (Ondansetron Inj 2 Mg/Ml 2 Ml Vial) 4 mg IV NOW STA Stop: 01/04/22 10:55 Last Admin: 01/04/22 12:07 Dose: 4 mg Documented By: SINGH ECG Additional Comments: Normal sinus rhythm Right bundle branch block Abnormal ECG When compared with ECG of 04-FEB-2021 21:23, No significant change was found Code Status & VTE Plan Code Status CODE: FULL VTE: SCDS, ambulation VTE Prophylaxis Plan VTE Prophylaxis will be ordered: Yes Supervising Physician Co-Signing Physician Notes I supervised ALF Merritt on this admission. I interviewed and examined the patient independently of him. The plan is as written in his note except for any following changes/exceptions: None 66yo M w/ gallbladder adenocarcinoma who presents with VILLAR and fatigue and found to be significantly anemic. Patient with stable vitals, making subacute process likely. Will give blood and follow trend. No present signs/symptoms of acute bleeding. No focal infectious findings, so will monitor cultures and defer further abx for now. PG Care Time/CCT Total # of Minutes Spent Total Time Spent with Patient: Total time spent is greater than 50% in coordination of care (as documented) at patient's floor/unit and/or counseling patient: Coding Level of Care Code 24291 Initial Inpt Care Lvl 3 Diagnoses Anemia D64.9 Hyponatremia E87.1 ANNA (acute kidney injury) N17.9 Diarrhea R19.7 Adenocarcinoma of gallbladder C23 Type 2 diabetes mellitus E11.9 Coronary artery disease I25.10 Elevated liver enzymes R74.8
--- NOTE | 2022-01-04 14:49 | Electrocardiogram Report ---
Test Reason : Blood Pressure : / mmHG Vent. Rate : 088 BPM Atrial Rate : 088 BPM P-R Int : 194 ms QRS Dur : 170 ms QT Int : 408 ms P-R-T Axes : 064 087 031 degrees QTc Int : 493 ms Normal sinus rhythm Right bundle branch block Abnormal ECG When compared with ECG of 04-FEB-2021 21:23, No significant change was found Confirmed by Mike Vargas ([id number]) on 01/04/2022 2:49:21 PM Referred By: REFERRED SELF Confirmed By:Mike Vargas
[2022-01-04 15:49] LABS: Adenovirus F 40/41 PCR Not Detected (NotDetected); Astrovirus PCR Not Detected (NotDetected); Campylobacter PCR Not Detected (NotDetected); Clostridium diff Toxin A/B PCR Not Detected (NotDetected); Cryptosporidium PCR Not Detected (NotDetected); Cyclospora cayetanensis PCR Not Detected (NotDetected); Entamoeba histolytica PCR Not Detected (NotDetected); Enteroaggregative E.coli(EAEC) Not Detected (NotDetected); Enteropathogenic E.coli (EPEC) Not Detected (NotDetected); Enterotoxigenic E.coli (ETEC) Not Detected (NotDetected); Giardia lamblia PCR Not Detected (NotDetected); Norovirus GI/GII PCR Not Detected (NotDetected); Plesiomonas shigelloides PCR Not Detected (NotDetected); Rotavirus A PCR Not Detected (NotDetected); Salmonella PCR Not Detected (NotDetected); Sapovirus PCR Not Detected (NotDetected); Shiga-like Toxin E.coli (STEC) Not Detected (NotDetected); Shigella/Enteroinvasive E.coli Not Detected (NotDetected); Vibrio cholerae PCR Not Detected (NotDetected); Vibrio species PCR Not Detected (NotDetected); Yersinia enterocolitica PCR Not Detected (NotDetected)
[2022-01-04] MEDS ORDERED: CARBOHYDRATES FOR HYPOGLYCEMIA PO PRN (16:18)
[2022-01-04] MEDS ORDERED: DEXTROSE 50% 50 ML SYRINGE IV PRN (16:18)
[2022-01-04] MEDS ORDERED: GLUCOSE 40% GEL 15 GM TUBE PO PRN (16:18)
[2022-01-04] MEDS ORDERED: GLUCAGON FOR INJ 1 MG VIAL SQ PRN (16:18)
[2022-01-04] MEDS ORDERED: ONDANSETRON INJ 2 MG/ML 2 ML VIAL IV PRN (16:18)
[2022-01-04] MEDS ORDERED: NITROGLYCERIN SL 0.4 MG/TAB TAB SL PRN (16:18)
[2022-01-04] MEDS ORDERED: GLUCOSE 10 TAB/TUBE PO PRN (16:18)
[2022-01-04] MEDS: SODIUM CHLORIDE 0.9% 1000ML 1,000 ML IV SCH (16:25)
[2022-01-04] MEDS: INSULIN ASPART PER UNIT SC SCH ×2 (18:17→20:25)
[2022-01-04] MEDS ORDERED: IBUPROFEN 600 MG TAB PO STA (20:03)
[2022-01-04] MEDS ORDERED: VANCOMYCIN CONSULT ACTIVE PRN (20:04)
[2022-01-04] MEDS ORDERED: ACETAMINOPHEN 500 MG TAB PO ONE (20:04)
[2022-01-04] MEDS: IBUPROFEN 600 MG TAB PO ONE ×2 (20:04→20:12)
[2022-01-04] MEDS: ACETAMINOPHEN 500 MG TAB ONE ×2 (20:04→20:12)
--- NOTE | 2022-01-04 20:23 | Pharmacy Report ---
Pharmacy PK ABX Note - Date of Service January 04, 2022 - Assessment and Plan Assessment 66 year old M receiving IV Vancomycin + Cefepime for empiric treatment of fever, elevated procal, unknown source, questionable if caused by transfusion reaction? Blood cultures pending PMH: GB cancer, currently on chemo, mediport in place Febrile Plan Vancomycin * Loading dose: 2500 mg IV x 1 * Maintenance dose: 1250 mg IV every 24 hours * Regimen is predicted to achieve target AUC/SUDHEER of 400-600 mg/L.hr * Levels to be ordered if duration of therapy extended beyond 48 hours Cefepime 2g IV Q12H for CrCl 30-60ml/min Pharmacy will continue to follow and will adjust dose/frequency as necessary. Thank you. Pharmacy has transitioned to AUC monitoring for vancomycin. AUC/SUDHEER is the preferred PK/PD target and is associated with decreased risk of nephrotoxicity c ompared to traditional trough targets.
[2022-01-04] MEDS ORDERED: VANCOMYCIN HCL 2,500 MG in SODIUM CHLORIDE 0.9% 500 ML IV ONE (20:30)
[2022-01-04 20:44] LABS: Blood Urine 3+ (Negative); RBC Urine Automated 0-4 /hpf (0-4)
[2022-01-04] MEDS: PANTOprazole 40 MG in SYRINGE 0 ML IV SCH (21:35)
[2022-01-05] MEDS ORDERED: ACETAMINOPHEN 500 MG TAB ONE (01:28)
[2022-01-05] MEDS ORDERED: CEFEPIME 2,000 MG/20 ML VIAL ONE (01:28)
[2022-01-05] MEDS: CEFEPIME 2,000 MG in SYRINGE 0 ML IV SCH ×3 (01:32→22:40)
[2022-01-05] MEDS: SODIUM CHLORIDE 0.9% 1000ML 1,000 ML IV SCH ×3 (06:00→21:13)
[2022-01-05 09:03] LABS: Basophils # (auto) 0.05 K/uL (0-0.2); Basophils % (auto) 0.8 %; Eosinophils % (auto) 1.6 %; Hematocrit (blood only) 37.3 % (40.1-51.0); Hemoglobin 13.2 g/dl (14.0-18.0); Immature Granulocytes # (auto) 0.26 K/uL (0.00-0.02); Immature Granulocytes % (auto) 4.2 %; Lymphocytes # (auto) 0.29 K/uL (1.2-3.4); Lymphocytes % (auto) 4.6 %; Mean Corpuscular Hemoglobin 30.6 pg (25.0-34.0); Mean Corpuscular Hgb Conc 35.4 g/dL (32.0-36.0); Mean Corpuscular Volume 86.3 fL (80.0-100.0); Mean Platelet Volume 9.8 fL (9.4-12.4); Monocytes # (auto) 0.83 K/uL (0.24-0.82); Monocytes % (auto) 13.3 %; Neutrophils # (auto) 4.73 K/uL (1.4-6.5); Neutrophils % (auto) 75.5 %; Platelet Count 177 K/uL (130-400); RDW Coefficient of Variation 15.8 % (11.5-14.5); Red Blood Count 4.32 M/uL (4.63-6.08); White Blood Count 6.26 K/ul (4.8-10.8)
[2022-01-05] MEDS: INSULIN ASPART PER UNIT SC SCH ×4 (09:26→22:40)
[2022-01-05] MEDS: TAMSULOSIN HCL 0.4 MG CAP PO SCH (09:32)
[2022-01-05] MEDS: METOPROLOL TARTRATE 25 MG TAB PO SCH (09:32)
[2022-01-05] MEDS: PANTOprazole 40 MG in SYRINGE 0 ML IV SCH ×2 (09:32→22:39)
[2022-01-05] MEDS: VANCOMYCIN HCL 1,250 MG in SODIUM CHLORIDE 0.9% 250 ML IV SCH (09:33)
[2022-01-05 09:35] LABS: BUN Creatinine Ratio 17.8 (10-20); Calcium 8.3 mg/dl (8.5-10.1); Creatinine Clr Calc Pharmacy 52.5 ml/min; Est GFR (African American) 52.1 ml/min; Est GFR (Non-African American) 44.9 ml/min; Magnesium 1.8 mg/dl (1.7-2.4); Potassium 4.8 mmol/L (3.5-5.1)
[2022-01-05] MEDS: traMADol HCL 50 MG TABLET PO PRN (09:38)
[2022-01-05] MEDS: SENNA 8.6 MG TAB PO SCH (10:17)
[2022-01-05] MEDS: ACETAMINOPHEN 325 MG TAB PO PRN ×2 (12:42→21:32)
[2022-01-05 13:09] LABS: Estimated Average Glucose 140 mg/dl; Hemoglobin A1C 6.5 % (4.5-5.6)
--- NOTE | 2022-01-05 18:03 | Hospitalist Progress Note ---
Date of Service January 05, 2022 Assessment & Plan (1) Anemia: Plan: Anemia unspecified- subacute/chronic likely as he is hemodynamically stable and without reports of GI symptoms/loss- FOBT negative in EMD. - Likely related to his chemotherapy - RBC morphology reported as unremarkable - Normocytic, normochromic, RDW 15 - Transfuse 2 units PRBC - follow CBC- is without chest pain, but is dyspneic, pale, and easily fatigued - Will place on PPI IV BID until rule out other losses - Hold ASA likely able to restart in AM - Follow hemodynamics - continue Metoprolol hold YAMILKA on 01/05 hemoglobin improved. will recheck in AM. symptoms have also improved (2) Hyponatremia: Plan: Likely related to diarrhea and decrease oral intake with fatigue - NA level 126 asymptomatic - Serum OSMO - Urine OSMO - WENDIE - Likely hypovolemic hyponatremia as hypochloremic as well Saline infusion following blood volume -improved on 01/05, will rehceck in AM/ (3) ANNA (acute kidney injury): Plan: LUCY II secondary to above - hold YAMILKA in am - replete intravascular volume - follow in AM - avoid further nephrotoxic medicaitons Improved on 01/05 (4) Diarrhea: Plan: one day history of with 2-3 loose stools but none endorsed today - he is not leukopenic or neutropenic and is with out any abdominal pain/discomfort - will await stool culture - PCT is elevated, but as above without fevers or further evidence of infection, normal lactate - follow clinically (5) Adenocarcinoma of gallbladder: Plan: Currently undergoing chemotherapy - LFTs elevated- downtrending - Follow as above (6) Type 2 diabetes mellitus: Plan: Not on any agents at home - will place on sliding scale aspart at this time - goal <180 if needed (7) Coronary artery disease: Plan: History of stents x4 - no symptoms of angina - hold asa- likely able to restart in AM if his HGB stays stble - Hold YAMILKA with ANNA and follow hemodynamics - Statin intolerant (8) Elevated liver enzymes: Plan: As above follow Admission and Anticipated Discharge Date Admission Date: January 04, 2022 Subjective Patient reports doing well. He feels much better this afternoon. He had a meal and tolerated his diet. Review of Systems Review of Systems: All systems reviewed & are unremarkable except as noted in HPI & below Physical Exam Physical Exam: General: awake, alert, no apparent distress Head: Normocephalic, atraumatic ENT: PERRLA, EOMI, no pharyngeal exudate Neuro: AAO x 3, speech clear and appropriate, strength intact bilaterally 5/5, sensation intact and equal all extremities and dermatomes, no pronator drift Chest: equal rise and fall of the chest, no accessory muscle use, no heaves or thrills, Clear to auscultation, on room air, Cardiac: Regular rate and rhythm, telemetry reviewed-NSR, skin warm dry, cap refill <3 seconds, peripheral pulses +2 no JVD, no murmur, no edema GI: NABS x 4 quadrants, soft, nontender to palpation, no rebound, guarding or tenderness, no epigastric pain, small central hernia soft and not incarcerated : Spontaneously voiding, no pain, no CVA tenderness, Extremities: Normal inspection, no peripheral edema or erythema, calfs nontender to palpation Psych: Normal mood and affect Skin: no rash or erythema Results & Data Results & Data ([facility]) Vital Signs (Past 12 Hours) Vital Signs Temp Pulse Pulse Resp BP Pulse Ox O2 Del Method 01/05/22 12:44 86 18 138/78 96 Room Air 01/05/22 06:25 37.0 C 72 18 96 PG Care Time/CCT Total # of Minutes Spent Total Time Spent with Patient: Total time spent is greater than 50% in coordination of care (as documented) at patient's floor/unit and/or counseling patient: Coding Level of Care Code 32781 Subseq Hosp Care Lvl 3 Diagnoses Anemia D64.9 Hyponatremia E87.1 ANNA (acute kidney injury) N17.9 Diarrhea R19.7 Adenocarcinoma of gallbladder C23 Type 2 diabetes mellitus E11.9 Coronary artery disease I25.10 Elevated liver enzymes R74.8 Time Spent (min) 35
[2022-01-06] MEDS: SODIUM CHLORIDE 0.9% 1000ML 1,000 ML IV SCH ×2 (07:25→20:32)
[2022-01-06] MEDS: PANTOprazole 40 MG in SYRINGE 0 ML IV SCH ×2 (07:35→20:32)
[2022-01-06] MEDS: INSULIN ASPART PER UNIT SC SCH ×4 (08:16→20:17)
[2022-01-06 08:40] LABS: Basophils # (auto) 0.05 K/uL (0-0.2); Basophils % (auto) 0.9 %; Eosinophils # (auto) 0.06 K/uL (0-0.50); Eosinophils % (auto) 1.1 %; Hematocrit (blood only) 33.7 % (40.1-51.0); Hemoglobin 11.8 g/dl (14.0-18.0); Immature Granulocytes # (auto) 0.14 K/uL (0.00-0.02); Immature Granulocytes % (auto) 2.6 %; Lymphocytes # (auto) 0.66 K/uL (1.2-3.4); Lymphocytes % (auto) 12.2 %; Mean Corpuscular Hemoglobin 30.4 pg (25.0-34.0); Mean Corpuscular Volume 86.9 fL (80.0-100.0); Mean Platelet Volume 10.5 fL (9.4-12.4); Monocytes # (auto) 0.87 K/uL (0.24-0.82); Monocytes % (auto) 16.1 %; Neutrophils # (auto) 3.61 K/uL (1.4-6.5); Neutrophils % (auto) 67.1 %; Platelet Count 234 K/uL (130-400); RDW Coefficient of Variation 15.9 % (11.5-14.5); RDW Standard Deviation 49.2 fL (36.4-46.3); Red Blood Count 3.88 M/uL (4.63-6.08); White Blood Count 5.39 K/ul (4.8-10.8)
[2022-01-06 09:00] LABS: BUN Creatinine Ratio 14.3 (10-20); Est GFR (African American) 63.7 ml/min; Est GFR (Non-African American) 54.9 ml/min; Magnesium 1.7 mg/dl (1.7-2.4); Potassium 4.1 mmol/L (3.5-5.1)
[2022-01-06] MEDS: METOPROLOL TARTRATE 25 MG TAB PO SCH (09:13)
[2022-01-06] MEDS: TAMSULOSIN HCL 0.4 MG CAP PO SCH (09:14)
[2022-01-06] MEDS: SENNA 8.6 MG TAB PO SCH (09:15)
[2022-01-06] MEDS: VANCOMYCIN HCL 1,250 MG in SODIUM CHLORIDE 0.9% 250 ML IV SCH (09:15)
[2022-01-06] MEDS: CEFEPIME 2,000 MG in SYRINGE 0 ML IV SCH ×2 (11:14→20:32)
--- NOTE | 2022-01-06 21:01 | Hospitalist Progress Note ---
Date of Service January 06, 2022 Assessment & Plan (1) Anemia: Plan: Anemia unspecified- subacute/chronic likely as he is hemodynamically stable and without reports of GI symptoms/loss- FOBT negative in EMD. - Likely related to his chemotherapy - RBC morphology reported as unremarkable - Normocytic, normochromic, RDW 15 - Transfuse 2 units PRBC - follow CBC- is without chest pain, but is dyspneic, pale, and easily fatigued - Will place on PPI IV BID until rule out other losses - Hold ASA likely able to restart in AM - Follow hemodynamics - continue Metoprolol hold YAMILKA on 01/05 hemoglobin improved. will recheck in AM. symptoms have also improved On 01/06 Patient is having febrile episodes. Procal is also positive. will continue antibiotics. unsure of source. will consider CT scan of chest and abd/pelvis with contrast in AM. (2) Hyponatremia: Plan: Likely related to diarrhea and decrease oral intake with fatigue - NA level 126 asymptomatic - Serum OSMO - Urine OSMO - WENDIE - Likely hypovolemic hyponatremia as hypochloremic as well Saline infusion following blood volume -improved on 01/05, 129 on 01/06 (3) ANNA (acute kidney injury): Plan: LUCY II secondary to above - hold YAMILKA in am - replete intravascular volume - follow in AM - avoid further nephrotoxic medicaitons Improved on 01/05 (4) Diarrhea: Plan: one day history of with 2-3 loose stools but none endorsed today - he is not leukopenic or neutropenic and is with out any abdominal pain/dis comfort - will await stool culture - PCT is elevated, but as above without fevers or further evidence of infection, normal lactate - follow clinically (5) Adenocarcinoma of gallbladder: Plan: Currently undergoing chemotherapy - LFTs elevated- downtrending - Follow as above (6) Type 2 diabetes mellitus: Plan: Not on any agents at home - will place on sliding scale aspart at this time - goal <180 if needed (7) Coronary artery disease: Plan: History of stents x4 - no symptoms of angina - hold asa- likely able to restart in AM if his HGB stays stble - Hold YAMILKA with ANNA and follow hemodynamics - Statin intolerant (8) Elevated liver enzymes: Plan: As above follow Admission and Anticipated Discharge Date Admission Date: January 04, 2022 Subjective 66 yo male reports no new symptoms. Review of Systems Review of Systems: All systems reviewed & are unremarkable except as noted in HPI & below Physical Exam Physical Exam: General: awake, alert, no apparent distress Head: Normocephalic, atraumatic ENT: PERRLA, EOMI, no pharyngeal exudate Neuro: AAO x 3, speech clear and appropriate, strength intact bilaterally 5/5, sensation intact and equal all extremities and dermatomes, no pronator drift Chest: equal rise and fall of the chest, no accessory muscle use, no heaves or thrills, Clear to auscultation, on room air, Cardiac: Regular rate and rhythm, telemetry reviewed-NSR, skin warm dry, cap refill <3 seconds, peripheral pulses +2 no JVD, no murmur, no edema GI: NABS x 4 quadrants, soft, nontender to palpation, no rebound, guarding or tenderness, no epigastric pain, small central hernia soft and not incarcerated : Spontaneously voiding, no pain, no CVA tenderness, Extremities: Normal inspection, no peripheral edema or erythema, calfs nontender to palpation Psych: Normal mood and affect Skin: no rash or erythema Results & Data Results & Data ([facility]) Vital Signs (Past 12 Hours) Vital Signs Temp Pulse Pulse Resp BP BP Pulse Ox 01/06/22 19:34 37.0 C 77 18 154/81 H 94 01/06/22 15:47 37.5 C 74 20 156/80 H 97 01/06/22 12:38 37.7 C H 77 20 154/83 H 96 O2 Del Method 01/06/22 19:34 Room Air 01/06/22 15:47 Room Air 01/06/22 12:38 Room Air PG Care Time/CCT Total # of Minutes Spent Total Time Spent with Patient: Total time spent is greater than 50% in coordination of care (as documented) at patient's floor/unit and/or counseling patient: Coding Level of Care Code 59851 Subseq Hosp Care Lvl 3 Diagnoses Anemia D64.9 Hyponatremia E87.1 ANNA (acute kidney injury) N17.9 Diarrhea R19.7 Adenocarcinoma of gallbladder C23 Type 2 diabetes mellitus E11.9 Coronary artery disease I25.10 Elevated liver enzymes R74.8 Time Spent (min) 35
--- NOTE | 2022-01-06 21:46 | Communication Note ---
Date of Service: January 06, 2022 Patient believed he was to be discharged tonight. I reviewed his chart and did not see mention of discharge. He is receiving empiric IV abx for fever yesterday during blood transfusion. Blood cultures pending. He is agreeable w/ staying.
[2022-01-07] MEDS: CEFEPIME 2,000 MG in SYRINGE 0 ML IV SCH (02:51)
[2022-01-07] MEDS: SODIUM CHLORIDE 0.9% 1000ML 1,000 ML IV SCH (04:50)
[2022-01-07] MEDS: INSULIN ASPART PER UNIT SC SCH ×4 (08:30→20:16)
[2022-01-07] MEDS: SENNA 8.6 MG TAB PO SCH (08:31)
[2022-01-07] MEDS: METOPROLOL TARTRATE 25 MG TAB PO SCH (08:31)
[2022-01-07] MEDS: TAMSULOSIN HCL 0.4 MG CAP PO SCH (08:32)
[2022-01-07] MEDS: PANTOprazole 40 MG in SYRINGE 0 ML IV SCH ×2 (08:35→20:24)
[2022-01-07 08:37] LABS: Basophils # (auto) 0.06 K/uL (0-0.2); Eosinophils # (auto) 0.12 K/uL (0-0.50); Hematocrit (blood only) 33.2 % (40.1-51.0); Hemoglobin 11.8 g/dl (14.0-18.0); Immature Granulocytes # (auto) 0.19 K/uL (0.00-0.02); Immature Granulocytes % (auto) 3.2 %; Lymphocytes % (auto) 11.7 %; Mean Corpuscular Hemoglobin 30.9 pg (25.0-34.0); Mean Corpuscular Hgb Conc 35.5 g/dL (32.0-36.0); Mean Corpuscular Volume 86.9 fL (80.0-100.0); Mean Platelet Volume 9.7 fL (9.4-12.4); Monocytes # (auto) 1.51 K/uL (0.24-0.82); Monocytes % (auto) 25.3 %; Neutrophils # (auto) 3.39 K/uL (1.4-6.5); Neutrophils % (auto) 56.8 %; Platelet Count 254 K/uL (130-400); RDW Coefficient of Variation 15.9 % (11.5-14.5); RDW Standard Deviation 48.7 fL (36.4-46.3); Red Blood Count 3.82 M/uL (4.63-6.08); White Blood Count 5.97 K/ul (4.8-10.8)
[2022-01-07] MEDS ORDERED: VANCOMYCIN HCL 1,500 MG in SODIUM CHLORIDE 0.9% 500 ML IV SCH (09:00)
[2022-01-07 09:36] LABS: Procalcitonin 1.74 ng/ml (0-0.5)
[2022-01-07 09:41] LABS: Lyme Ab IgG w/WB Rflx Negative (Negative); Lyme Ab IgM w/WB Rflx Negative (Negative)
[2022-01-07 09:49] LABS: Albumin Level 2.9 gm/dl (3.4-5.0); BUN Creatinine Ratio 13.4 (10-20); Bilirubin Direct 0.3 mg/dl (0-0.2); Bilirubin,Total 1.1 mg/dl (0.2-1.0); Calcium 7.7 mg/dl (8.5-10.1); Creatinine Clr Calc Pharmacy 69.3 ml/min; Est GFR (African American) 72.8 ml/min; Est GFR (Non-African American) 62.8 ml/min; Magnesium 1.6 mg/dl (1.7-2.4); Potassium 4.1 mmol/L (3.5-5.1); Total Protein 5.9 gm/dl (6.0-8.3)
[2022-01-07] MEDS ORDERED: OPTIRAY 320 100ml IV ONE (09:54)
--- NOTE | 2022-01-07 11:28 | CT Scan Report ---
CHEST CT WITH CONTRAST; CT ABDOMEN AND PELVIS WITH IV CONTRAST ONLY CT DOSE: 1605.67 mGy.cm HISTORY: Acute fever in patient with history of gallbladder carcinoma fever of unknown cause TECHNIQUE: Multiaxial CT images of the chest, abdomen and pelvis were performed following the IV admi nistration of 94 cc of Optiray. A dose lowering technique was utilized adhering to the principles o f ALARA. COMPARISON: CT chest, abdomen and pelvis 11/22/2021, CT abdomen and pelvis 09/30/2021. FINDINGS: CT CHEST: No thyroid nodule. Enlarged mediastinal lymph nodes are redemonstrated. A 10 mm right paratracheal ly mph node on image 87 previously measured 7 mm. A 2.1 x 1.2 cm paratracheal lymph node on image 106 pr eviously measured 1.7 x 1.0 cm. Prevascular lymph nodes measure up to 9 mm, previously 8 mm. A left p aratracheal lymph node on image 106 measures 2.2 x 1.4 cm. Hilar lymph nodes appear generally stable. The heart is normal in size. There is no pericardial effusion. Extensive coronary artery calcificati ons. There is atherosclerosis of the thoracic aorta without aneurysm or dissection. The opacified pul monary artery appears unremarkable. Left subclavian Nkzayn-n-Ethw catheter distal tip terminates in t he inferior SVC. No pneumothorax. Trace right pleural effusion. Intralobular septal thickening. Multifocal multilobar distribution of ill-defined bilateral groundglass and centrilobular consolidative nodular densities. These findings are new from 11/22/2021. The central airways are patent. No acute fracture. Degenerativ e changes of the shoulders and spine. CT ABDOMEN/PELVIS: Patient is status post left hepatic lobe wedge resection and cholecystectomy. Perihepatic versus subc apsular fluid collection along the anterior left hepatic lobe at the resection site measures 4.3 x 2. 8 cm, similar to the prior study. There is patency of the hepatic and portal veins. The spleen is enl arged, 14 cm in length. Unremarkable pancreas. There is unchanged mild thickening of the adrenal glan ds. Several peritoneal nodules in the abdominal right upper quadrant including a 1.6 x 1.2 cm stable nodule on image 149. A 1.2 x 1.1 cm nodule on image 139 previously measured approximately 8 x 9 mm. N odularity along the inferior right hepatic lobe as seen on image 171 has progressed. Unremarkable kidneys. There is no hydronephrosis. Urinary bladder wall thickening with partial disten tion and perivesicular stranding. Prostamegaly. Atherosclerosis of the aorta without aneurysm. There is no new or progressive lymphadenopathy. No bowel obstruction or bowel wall thickening. Trace free p elvic fluid. Possible nodule within the midline pelvis on image 380 measuring 8 mm which could be ass essed on follow-up. Mild fecal retention. Noninflamed appendix. Bowel and fat filled periumbilical he rnia, diastases of 6 cm. Unremarkable soft tissues. No acute fracture or destructive bone lesion. IMPRESSION: 1. Intralobular septal thickening with multifocal multilobar distribution of ill-defined groundglass densities and centrilobular nodular opacities. Findings are suggestive of an infectious or inflammato ry pneumonitis, new from the 11/22/2021 exam. Pulmonary metastatic disease considered less likely. 2. Mildly progressed mediastinal lymphadenopathy. 3. Prior cholecystectomy with left hepatic lobe wedge resection. Mild progression of the irregular pe ritoneal nodules within the abdominal right upper quadrant suggestive of metastatic disease. 4. Additional findings as above. ACT 112: Negative or not required by law. Dictated: 01/07/2022 10:04 AM Transcribed: 01/07/2022 11:22 AM [place] [id number] IVANNA_Rajan Electronically signed by: David Guerra M.D. 01/07/2022 11:27 AM
[2022-01-07 14:36] LABS: Base Excess VBG -2.3 mEq/L; HCO3 VBG 21 mmol/L; PCO2 VBG 32 mmHg (38-50); PO2 VBG 34 mmHg; pH VBG 7.43 (7.36-7.41)
--- NOTE | 2022-01-07 16:21 | Hospitalist Progress Note ---
Date of Service January 07, 2022 Assessment & Plan (1) Fever: Plan: FEVER OF UNKNOWN ORIGIN. Patient will have CT scan of chest and ABD/PELVIS. Ray hold antibiotics. blood work appears stable, procal is decreasing today. will repeat blood cultures if fever returns. Biofire is negative. will consult pulm given nonspecific results of CT scan, however will continue to hold antibiotics. will also try to limit tylenol usage. (2) Anemia: Plan: Anemia unspecified- subacute/chronic likely as he is hemodynamically stable and without reports of GI symptoms/loss- FOBT negative in EMD. - Likely related to his chemotherapy - RBC morphology reported as unremarkable - Normocytic, normochromic, RDW 15 - Transfuse 2 units PRBC - follow CBC- is without chest pain, but is dyspneic, pale, and easily fatigued - Will place on PPI IV BID until rule out other losses - Hold ASA likely able to restart in AM - Follow hemodynamics - continue Metoprolol hold YAMILKA on 01/05 hemoglobin improved. will recheck in AM. symptoms have also improved On 01/06 Patient is having febrile episodes. Procal is also positive. unsure of source. (3) Hyponatremia: Plan: Likely related to diarrhea and decrease oral intake with fatigue - NA level 126 asymptomatic - Serum OSMO - Urine OSMO - WENDIE - Likely hypovolemic hyponatremia as hypochloremic as well Saline infusion following blood volume -SODIUM HAS IMPROVED BUT HAS SLOWLY DECREASED OVER PAST 24 HOURS, WILL HOLD IV fluids (4) ANNA (acute kidney injury): Plan: LUCY II secondary to above - hold YAMILKA in am - replete intravascular volume - follow in AM - avoid further nephrotoxic medicaitons resolved. (5) Diarrhea: Plan: one day history of with 2-3 loose stools but none endorsed today - he is not leukopenic or neutropenic and is with out any abdominal pain/discomfort - will await stool culture - PCT is elevated, but as above without fevers or further evidence of infection, normal lactate - follow clinically (6) Adenocarcinoma of gallbladder: Plan: Currently undergoing chemotherapy - LFTs elevated- downtrending - Follow as above (7) Type 2 diabetes mellitus: Plan: Not on any agents at home - will place on sliding scale aspart at this time - goal <180 if needed (8) Coronary artery disease: Plan: History of stents x4 - no symptoms of angina - hold asa- likely able to restart in AM if his HGB stays stble - Hold YAMILKA with ANNA and follow hemodynamics - Statin intolerant (9) Elevated liver enzymes: Plan: As above follow Admission and Anticipated Discharge Date Admission Date: January 04, 2022 Subjective Patient reports feeling well. Patient has not had a fever this AM. Review of Systems Review of Systems: All systems reviewed & are unremarkable except as noted in HPI & below Physical Exam Physical Exam: General: awake, alert, no apparent distress Head: Normocephalic, atraumatic ENT: PERRLA, EOMI, no pharyngeal exudate Neuro: AAO x 3, speech clear and appropriate, strength intact bilaterally 5/5, sensation intact and equal all extremities and dermatomes, no pronator drift Chest: equal rise and fall of the chest, no accessory muscle use, no heaves or thrills, Clear to auscultation, on room air, Cardiac: Regular rate and rhythm, telemetry reviewed-NSR, skin warm dry, cap refill <3 seconds, peripheral pulses +2 no JVD, no murmur, no edema GI: NABS x 4 quadrants, soft, nontender to palpation, no rebound, guarding or tenderness, no epigastric pain, small central hernia soft and not incarcerated : Spontaneously voiding, no pain, no CVA tenderness, Extremities: Normal inspection, no peripheral edema or erythema, calfs nontender to palpation Psych: Normal mood and affect Skin: no rash or erythema Results & Data Results & Data ([facility]) Vital Signs (Past 12 Hours) Vital Signs Temp Pulse Resp BP Pulse Ox O2 Del Method 01/07/22 15:27 38.2 C H 82 20 138/74 95 Room Air 01/07/22 07:21 36.8 C 84 20 143/77 H 94 Room Air PG Care Time/CCT Total # of Minutes Spent Total Time Spent with Patient: Total time spent is greater than 50% in coordination of care (as documented) at patient's floor/unit and/or counseling patient: Coding Level of Care Code 56644 Subseq Hosp Care Lvl 3 Diagnoses Fever R50.9 Anemia D64.9 Hyponatremia E87.1 ANNA (acute kidney injury) N17.9 Diarrhea R19.7 Adenocarcinoma of gallbladder C23 Type 2 diabetes mellitus E11.9 Coronary artery disease I25.10 Elevated liver enzymes R74.8 Time Spent (min) 35
[2022-01-07 16:26] LABS: Adenovirus PCR Not Detected (NotDetected); Bordetella parapertussis PCR Not Detected (NotDetected); Bordetella pertussis PCR Not Detected (NotDetected); Chlamydia pneumoniae PCR Not Detected (NotDetected); Coronavirus 229E PCR Not Detected (NotDetected); Coronavirus CoV-2 (COVID19)PCR Not Detected (NotDetected); Coronavirus HKU1 PCR Not Detected (NotDetected); Coronavirus NL63 PCR Not Detected (NotDetected); Coronavirus OC43PCR Not Detected (NotDetected); Human Metapneumovirus PCR Not Detected (NotDetected); Influenza A PCR Not Detected (NotDetected); Influenza B PCR Not Detected (NotDetected); Mycoplasma pneumoniae PCR Not Detected (NotDetected); Parainfluenza Virus 1 PCR Not Detected (NotDetected); Parainfluenza Virus 2 PCR Not Detected (NotDetected); Parainfluenza Virus 3 PCR Not Detected (NotDetected); Parainfluenza Virus 4 PCR Not Detected (NotDetected); Respiratory Syncytial VirusPCR Not Detected (NotDetected); Rhinovirus/Enterovirus PCR Not Detected (NotDetected)
[2022-01-07] MEDS: traMADol HCL 50 MG TABLET PO PRN (18:10)
[2022-01-08 06:50] LABS: Creatinine Clr Calc Pharmacy 75.6 ml/min; Est GFR (Non-African American) 69.9 ml/min
[2022-01-08] MEDS: METOPROLOL TARTRATE 25 MG TAB PO SCH (07:45)
[2022-01-08] MEDS: SENNA 8.6 MG TAB PO SCH (07:45)
[2022-01-08] MEDS: TAMSULOSIN HCL 0.4 MG CAP PO SCH (07:45)
[2022-01-08] MEDS: INSULIN ASPART PER UNIT SC SCH ×4 (07:46→20:58)
[2022-01-08] MEDS: PANTOprazole 40 MG in SYRINGE 0 ML IV SCH ×2 (07:46→20:53)
--- NOTE | 2022-01-08 09:13 | Pulmonary Consultation ---
Date of Consultation January 08, 2022 Assessment & Plan (1) Abnormal chest CT: (2) Pulmonary infiltrate: (3) Ex-smoker: Plan CT chest 01/07/2022 personally reviewed: Patchy groundglass opacities appreciated bilaterally upper and lower lobes, more pronounced in the upper lobes Significant mediastinal lymphadenopathy -- Abnormal chest CT Groundglass patchy opacities appreciated bilaterally Covid-19 NAAT negative Respiratory bio fire negative Procalcitonin 1.74 BNP 106, LDH 355 No eosinophilia on CBC Patient did have transfusion reaction when he was getting blood on the day of presentation The finding could represent transfusion related edema-like picture Patient also has history of cancer, lymphatic spread can present the same way although unlikely given CT chest in November 2021 was negative for this opacities Patient self tested for COVID at home and he was positive at that time. He was also given a booster for COVID-19 approximately 2 weeks ago both of which can give transient opacities on the CT chest Patient is not on steroids or DMARDs for me to think about PJP. --Ex-smoker [id number] smoking history Quit in the 40s Plan: Would recommend 5 days of antibiotics for atypical coverage, given QTC is 493. Doxycycline would be a better option Mycoplasma IgM and Legionella IgG Follow-up 2D echo Plan was discussed with Dr. Castaneda Please note the above document was generated using voice recognition software. It may contain grammatical, syntax or spelling errors.Any formal questions or concerns about the content, text or information contained within the body of this dictation should be directly addressed to the provider for clarification. History of Present Illness Attending Physician: Nicanor Castaneda History of Present Illness 66-year-old male presented to the hospital with complaints of fatigue dyspnea on exertion Past medical history: Adenocarcinoma of the gallbladder on chemotherapy, diabetes type 2, coronary artery disease, GERD, obesity Apparently patient tested himself approximately 2 weeks ago for COVID at home and he was positive. He was retested to a later date and was negative. Pulmonary consulted for abnormal chest CT and fever. Patient said he started to have issues with fatigue and exertional shortness of breath after he got chemotherapy. He also got booster for COVID-19 in the interim. Today the time of examination he says he is doing much better. Denies any chest pain, no shortness of breath, no headache, no nausea, no vomiting Fair appetite. Denies any diarrhea. No dysuria. No headache or blurry vision. No recent travel history. Social history: Approximately [id number] smoking history quit in his 40s. Denies any illicit drug use. Allergies Allergy/AdvReac Type Severity Reaction Status Date / Time oxycodone AdvReac Mild Unknown Verified 01/04/22 15:24 Xaivjxb-SVH-XaT Reductase AdvReac Mild muscle Verified 01/04/22 15:24 Inhibitor aches [Noipzev-Ewc-Uuo Reductase Inhibitor] Home Medications Medication Instructions Recorded Confirmed Type nitroglycerin 0.4 mg sublingual 0.4 mg sublingual Q5M PRN Chest 02/05/21 01/04/22 History tablet Pain tramadol 50 mg tablet 50 mg PO Q8H PRN pain, severe #20 02/08/21 01/04/22 Rx tabs aspirin 81 mg tablet,delayed 81 mg PO QAM 02/16/21 01/04/22 History release metoprolol tartrate 25 mg tablet 25 mg PO QAM 02/16/21 01/04/22 History omeprazole 20 mg capsule,delayed 20 mg PO HS 02/16/21 01/04/22 History release lisinopril 10 mg tablet 5 mg PO QAM #45 tabs 11/25/21 01/04/22 Rx sennosides 8.6 mg capsule (senna) 8.6 mg PO DAILY #90 caps 11/25/21 01/04/22 Rx tamsulosin 0.4 mg capsule 0.4 mg PO DAILY #90 caps 11/25/21 01/04/22 Rx docusate sodium 100 mg capsule 100 mg PO BID 01/04/22 01/04/22 History olanzapine 2.5 mg tablet 2.5 mg PO UD 01/04/22 01/04/22 History Patient History Medical History Acute gallstone pancreatitis Adenocarcinoma of gallbladder Coronary artery disease Coronary atherosclerosis of [place] coronary vessel Esophageal reflux Myocardial infarction 2004 stents x 4 [facility] Statin intolerance Type 2 diabetes mellitus Surgical History History of arthroscopy of knee History of heart artery stent x4 at [facility] History of surgery of liver due to gallbladder cancer and lymph nodes involved Hx of arthroscopy of shoulder left Port-A-Cath in place (05/04/21) Insertion Access Port with Fluoroscopy- Jd Del Angel, DO 05/04/2021 S/P laparoscopic cholecystectomy 02/06/2021: Grade 2 view, MAC#3, ETT#7.5, atraumatic x 1. No issues per anesthesia progress note. Family History Father Heart disease Myocardial infarction Mother Heart disease Myocardial infarction Denies family history of Ovarian cancer Prostate cancer Breast cancer Colorectal cancer Social History Smoking Status: Former smoker Tobacco Type: E-cigarettes / Vaping Second Hand Exposure: No; Hx Alcohol Use: No Hx Substance Use: No Preferred Language: Romanian Communication Ability: Effective Visual Impairment: Partially Limited [employer] Director Required: No Beliefs That Will Affect Care: None marital status: Current Living Situation: Spouse current occupational status: unemployed Feels Safe at Home: Yes Assistive Devices: None Review of Systems Review of Systems: All systems reviewed & are unremarkable except as noted in HPI & below Physical Exam Physical Exam: Constitutional: No acute distress HEENT: EOMI, PERRLA Respiratory system: Good air entry bilaterally, no wheeze, no rhonchi, no crackles CVS: S1-S2 positive, no murmurs or gallops, left-sided Port-A-Cath in place Abdomen: Soft, nontender, nondistended, positive bowel sounds x4 Extremities: +2 pulses bilaterally radialis/ dorsalis pedis, no cyanosis, no edema Neuro: Awake alert oriented x3 Psych: Normal mood and affect G/U: No Davis Skin: no rashes, warm and dry Lymphatic: no cervical or axillary lymphadenopathy Results & Data Results & Data ([facility]) Vital Signs (Past 12 Hours) Vital Signs Temp Pulse Resp BP Pulse Ox O2 Del Method 01/08/22 07:52 37.4 C 85 18 156/77 H 94 Room Air 01/07/22 23:19 36.8 C 84 18 158/85 H 95 Room Air Laboratory Results 01/07/22 08:16 01/08/22 06:19 PG Care Time/CCT Total # of Minutes Spent Total Time Spent with Patient: Total time spent is greater than 50% in coordination of care (as documented) at patient's floor/unit and/or counseling patient: Coding Level of Care Code 71647 Initial Inpt Care Lvl [address] R93.89 Pulmonary infiltrate R91.8 Ex-smoker Z87.891
[2022-01-08] MEDS: DOXYCYCLINE HYCLATE 100 MG CAP PO SCH ×2 (10:53→20:52)
--- NOTE | 2022-01-08 13:45 | Hospitalist Progress Note ---
Date of Service January 08, 2022 Assessment & Plan (1) Fever: Plan: FEVER OF UNKNOWN ORIGIN. Patient will have CT scan of chest and ABD/PELVIS. Will hold antibiotics on 01/07 blood work appears stable, procal is decreasing today. will repeat blood cultures if fever returns. Biofire is negative. will consult pulm given nonspecific results of CT scan, however will continue to hold antibiotics. will also try to limit tylenol usage. Placed on doxycycline for atypical coverage on 01/08 (2) Anemia: Plan: Anemia unspecified- subacute/chronic likely as he is hemodynamically stable and without reports of GI symptoms/loss- FOBT negative in EMD. - Likely related to his chemotherapy - RBC morphology reported as unremarkable - Normocytic, normochromic, RDW 15 - Transfuse 2 units PRBC - follow CBC- is without chest pain, but is dyspneic, pale, and easily fatigued - Will place on PPI IV BID until rule out other losses - Hold ASA likely able to restart in AM - Follow hemodynamics - continue Metoprolol hold YAMILKA on 01/05 hemoglobin improved. will recheck in AM. symptoms have also improved On 01/06 Patient is having febrile episodes. Procal is also positive. unsure of source. On 01/08 ordered doxycycline (3) Hyponatremia: Plan: Likely related to diarrhea and decrease oral intake with fatigue - NA level 126 asymptomatic - Serum OSMO - Urine OSMO - WENDIE - Likely hypovolemic hyponatremia as hypochloremic as well Saline infusion following blood volume -SODIUM HAS IMPROVED BUT HAS SLOWLY DECREASED OVER PAST 24 HOURS, WILL HOLD IV fluids (4) ANNA (acute kidney injury): Plan: LUCY II secondary to above - hold YAMILKA in am - replete intravascular volume - follow in AM - avoid further nephrotoxic medicaitons resolved. (5) Diarrhea: Plan: one day history of with 2-3 loose stools but none endorsed today - he is not leukopenic or neutropenic and is with out any abdominal pain/discomfort - will await stool culture - PCT is elevated, but as above without fevers or further evidence of infection, normal lactate - follow clinically (6) Adenocarcinoma of gallbladder: Plan: Currently undergoing chemotherapy - LFTs elevated- downtrending - Follow as above (7) Type 2 diabetes mellitus: Plan: Not on any agents at home - will place on sliding scale aspart at this time - goal <180 if needed (8) Coronary artery disease: Plan: History of stents x4 - no symptoms of angina - hold asa- likely able to restart in AM if his HGB stays stble - Hold YAMILKA with ANNA and follow hemodynamics - Statin intolerant (9) Elevated liver enzymes: Plan: As above follow Admission and Anticipated Discharge Date Admission Date: January 04, 2022 Subjective 66 yo male reports feeling well. He has no new complaints. Review of Systems Review of Systems: All systems reviewed & are unremarkable except as noted in HPI & below Physical Exam Physical Exam: General: awake, alert, no apparent distress Head: Normocephalic, atraumatic ENT: PERRLA, EOMI, no pharyngeal exudate Neuro: AAO x 3, speech clear and appropriate, strength intact bilaterally 5/5, sensation intact and equal all extremities and dermatomes, no pronator drift Chest: equal rise and fall of the chest, no accessory muscle use, no heaves or thrills, Clear to auscultation, on room air, Cardiac: Regular rate and rhythm, telemetry reviewed-NSR, skin warm dry, cap refill <3 seconds, peripheral pulses +2 no JVD, no murmur, no edema GI: NABS x 4 quadrants, soft, nontender to palpation, no rebound, guarding or tenderness, no epigastric pain, small central hernia soft and not incarcerated : Spontaneously voiding, no pain, no CVA tenderness, Extremities: Normal inspection, no peripheral edema or erythema, calfs nontender to palpation Psych: Normal mood and affect Skin: no rash or erythema Results & Data Results & Data ([facility]) Vital Signs (Past 12 Hours) Vital Signs Temp Pulse Resp BP Pulse Ox O2 Del Method 01/08/22 07:52 37.4 C 85 18 156/77 H 94 Room Air PG Care Time/CCT Total # of Minutes Spent Total Time Spent with Patient: Total time spent is greater than 50% in coordination of care (as documented) at patient's floor/unit and/or counseling patient: Coding Level of Care Code 26553 Subseq Hosp Care Lvl 2 Diagnoses Fever R50.9 Anemia D64.9 Hyponatremia E87.1 ANNA (acute kidney injury) N17.9 Diarrhea R19.7 Adenocarcinoma of gallbladder C23 Type 2 diabetes mellitus E11.9 Coronary artery disease I25.10 Elevated liver enzymes R74.8
--- NOTE | 2022-01-08 13:56 | XCELERA ---
[id number]
[2022-01-08] MEDS: traMADol HCL 50 MG TABLET PO PRN (22:39)
[2022-01-09 07:09] LABS: Hematocrit (blood only) 35.2 % (40.1-51.0); Hemoglobin 12.1 g/dl (14.0-18.0); Mean Corpuscular Hemoglobin 29.5 pg (25.0-34.0); Mean Corpuscular Hgb Conc 34.4 g/dL (32.0-36.0); Mean Corpuscular Volume 85.9 fL (80.0-100.0); Mean Platelet Volume 11.4 fL (9.4-12.4); Nucleated RBC # (auto) 0.02 K/uL (0-0); Nucleated RBC % (auto) 0.2 %; Platelet Count 232 K/uL (130-400); RDW Coefficient of Variation 15.7 % (11.5-14.5); RDW Standard Deviation 48.3 fL (36.4-46.3); White Blood Count 8.84 K/ul (4.8-10.8)
[2022-01-09 07:37] LABS: Albumin Globulin Ratio 0.9 (0.9-2); Albumin Level 3.1 gm/dl (3.4-5.0); BUN Creatinine Ratio 16.7 (10-20); Bilirubin,Total 1.3 mg/dl (0.2-1.0); Calcium 8.5 mg/dl (8.5-10.1); Creatinine Clr Calc Pharmacy 76.3 ml/min; Est GFR (African American) 81.9 ml/min; Est GFR (Non-African American) 70.6 ml/min; Globulin 3.4 gm/dl (2.5-4.0); Total Protein 6.5 gm/dl (6.0-8.3)
[2022-01-09] MEDS: DOXYCYCLINE HYCLATE 100 MG CAP PO SCH (08:08)
[2022-01-09] MEDS: INSULIN ASPART PER UNIT SC SCH ×2 (08:08→11:46)
[2022-01-09] MEDS: METOPROLOL TARTRATE 25 MG TAB PO SCH (08:09)
[2022-01-09] MEDS: TAMSULOSIN HCL 0.4 MG CAP PO SCH (08:09)
[2022-01-09] MEDS: PANTOprazole 40 MG in SYRINGE 0 ML IV SCH (08:09)
[2022-01-09] MEDS: SENNA 8.6 MG TAB PO SCH (08:09)
--- NOTE | 2022-01-09 16:38 | Discharge Summary ---
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 Patient comes to the hospital today for about a week of feeling fatigued, cold, and dyspneic with any exertion. He reports that this was associated with some body aches. He reports that he tested himself for COVID a few weeks ago and was positive and retested at a later date and was negative. His COVID test here is Negative. He tested himself following his receipt of his COVID and Pneumovax booster administration and after a chemotherapy session. As he started feeling the above symptoms. They have never quite resolved. He denies any fevers, chills, urinary symptoms or sore throats. He does endorse some diarrhea that started yesterday. Denies any change in his stools or abdominal pain. He continues to endorse easily fatigability, dizziness when standing, and dyspnea. In the EMD the patient had routine labs performed to include a HScTNI. His labs were notable for anemia with a HGB of 4.8, WBC 8 and stable PLT count of 266. He is also noted to be hyponatremic at 126 with elevated COMBER FIXER. Patient reports his last Chemotherapy appointment was last week as he thinks he is starting maintenance cycles- he is unsure of what he received and his chemotherapy records are not available for review. He did have a HGB level drawn on 12/14 and 12/23 that was 13.1 and 11.8 respectively. Patient was typed and crossed in the EMD and will receive 2 units of PRBCs. He is symptomatic, is without chest pain or elevation in his HScTNI. PCT was elevated without source and no fever or WBC elevation. Will await stool culture ordered in EMD and UA. He received empiric dose of Cefepime in the EMD. Will admit to medical surgical floor. Follow CBC. Adenocarcinoma of gallbladder diagnosed 03/31- he underwent diagnostic [place] [facility] [place] and segmental wedge resection of liver, cystic duct stump and portal lymphadenopathy. [facility]. He completed his original cycles of Gemcitabine and Cisplatin. COVID/RSV/FLU: NEGATIVE on admission Discharge Data Allergies Allergy/AdvReac Type Severity Reaction Status Date / Time oxycodone AdvReac Mild Unknown Verified 01/04/22 15:24 Dhwscwz-RWB-BmG Reductase AdvReac Mild muscle Verified 01/04/22 15:24 Inhibitor aches [Gpwnecj-Aut-Ado Reductase Inhibitor] Consultations 01/04/22 12:51 ED Decision to Admit Stat 01/08/22 08:02 Consult Pulmonology Routine Ordered Studies 01/07/22 07:56 CT abd pelvis IV con only Routine CT chest diagnostic w con Routine Hospital Course (1) Fever: FEVER OF UNKNOWN ORIGIN. Patient will have CT scan of chest and ABD/PELVIS. Will hold antibiotics on 01/07 blood work appears stable, procal is decreasing today. will repeat blood cultures if fever returns. Biofire is negative. will consult pulm given nonspecific results of CT scan, however will continue to hold antibiotics. will also try to limit tylenol usage. Placed on doxycycline for atypical coverage on 01/08 (2) Anemia: Anemia unspecified- subacute/chronic likely as he is hemodynamically stable and without reports of GI symptoms/loss- FOBT negative in EMD. - Likely related to his chemotherapy - RBC morphology reported as unremarkable - Normocytic, normochromic, RDW 15 - Transfuse 2 units PRBC - follow CBC- is without chest pain, but is dyspneic, pale, and easily fatigued - Will place on PPI IV BID until rule out other losses - Hold ASA likely able to restart in AM - Follow hemodynamics - continue Metoprolol hold YAMILKA on 01/05 hemoglobin improved. will recheck in AM. symptoms have also improved On 01/06 Patient is having febrile episodes. Procal is also positive. unsure of source. On 01/08 ordered doxycycline (3) Hyponatremia: Likely related to diarrhea and decrease oral intake with fatigue - NA level 126 asymptomatic - Serum OSMO - Urine OSMO - WENDIE - Likely hypovolemic hyponatremia as hypochloremic as well Saline infusion following blood volume -SODIUM HAS IMPROVED BUT HAS SLOWLY DECREASED OVER PAST 24 HOURS, WILL HOLD IV fluids (4) ANNA (acute kidney injury): LUCY II secondary to above - hold YAMILKA in am - replete intravascular volume - follow in AM - avoid further nephrotoxic medicaitons resolved. (5) Diarrhea: one day history of with 2-3 loose stools but none endorsed today - he is not leukopenic or neutropenic and is with out any abdominal pain/discomfort - will await stool culture - PCT is elevated, but as above without fevers or further evidence of infection, normal lactate - follow clinically (6) Adenocarcinoma of gallbladder: Currently undergoing chemotherapy - LFTs elevated- downtrending - Follow as above (7) Type 2 diabetes mellitus: Not on any agents at home - will place on sliding scale aspart at this time - goal <180 if needed (8) Coronary artery disease: History of stents x4 - no symptoms of angina - hold asa- likely able to restart in AM if his HGB stays stble - Hold YAMILKA with ANNA and follow hemodynamics - Statin intolerant (9) Elevated liver enzymes: As above follow Discharge Plan Discharge Items Patient Disposition: Home - Self-Care Reason For Visit: FATIGUE, ANEMIA Discharge Diagnosis: Anemia Condition on Discharge: Fair Activity: Resume your previous activity Non-emergency contact: Primary Care Provider Call non-emergency contact if: you have any medication questions Follow-up/Referrals: Alysia Espinal MD [Primary Care Provider] - 01/20/22 11:00 am Diet: Regular Addtl Attending Provider Instructions: You were admitted due to having a fever. It appears this may have been caused by an atypical pneumonia, will cover for 7 more days. Thankfully, your fevers have subsided. Now in regards to your Liver function tests, they have risen steadily over past few days. will recommend repeating blood work on thrsday to see if they continue to rise. Currently you are not having any symptoms, so I am ok with you going home. Howver, if you have worsening abdominal pain, nausea or vomiting. Please return or inform your PCP. Your sodium was mildly low, will recommend sodium tablets once a day for a week. Will also check your sodium on (a component of the CMP) Recommend followup with PCP in 1-2 weeks. It was a pleasure seeing you. Best regards, Ncianor Tonya Pending Studies at Discharge: No Stand-Alone Forms: My [employer], Smoking Cessation Medications and DC Order Prescriptions: New doxycycline hyclate 100 mg Capsule 100 mg PO BID Qty: 7 0RF sodium chloride 1 gram tablet 1,000 mg PO DAILY Qty: 7 0RF Continued aspirin 81 mg tablet,delayed release (DR/EC) 81 mg PO QAM metoprolol tartrate 25 mg tablet 25 mg PO QAM omeprazole 20 mg capsule,delayed release(DR/EC) 20 mg PO HS lisinopril 10 mg tablet 5 mg PO QAM Qty: 45 3RF senna 8.6 mg capsule 8.6 mg PO DAILY Qty: 90 3RF tamsulosin 0.4 mg capsule 0.4 mg PO DAILY Qty: 90 3RF olanzapine 2.5 mg tablet 2.5 mg PO UD Rx Instructions: take 1 tablet at bedtime for 4 days starting day 1 of chemotherapy for nausea docusate sodium 100 mg capsule 100 mg PO BID nitroglycerin 0.4 mg tablet, sublingual 0.4 mg sublingual Q5M PRN (Reason: Chest Pain) tramadol 50 mg tablet 50 mg PO Q8H PRN (Reason: pain, severe) Qty: 20 0RF Discharge Orders: Discharge Order (Routine); Ordered 01/09/22 Ordered By: Nicanor Green/Other Patient Handouts: Type 2 Diabetes Admission Data Admit Date/Time: 01/04/22 13:33 Attending Provider: Nicanor Castaneda Admit Provider: Santos Villar Primary Care Provider: Alysia Espinal Other Providers: Santos Villar ; Katherin Henning Other Interventions: Discharge Summary Assessment (RN) Last Done: 01/09/22 14:06 Coding Diagnoses Fever R50.9 Anemia D64.9 Hyponatremia E87.1 ANNA (acute kidney injury) N17.9 Diarrhea R19.7 Adenocarcinoma of gallbladder C23 Type 2 diabetes mellitus E11.9 Coronary artery disease I25.10 Elevated liver enzymes R74.8
[2022-01-09] MEDS ORDERED: PANTOprazole 40 MG TAB PO SCH (21:00)
[2022-01-10 17:16] LABS: Anti Nuclear Antibody Screen POSITIVE (NEGATIVE)
[2022-01-11 08:49] LABS: ANA Pattern Nuclear, Speckled
[2022-01-12 17:02] LABS: CMV IgG Antibody <0.60 U/mL; CMV IgM Antibody <30.00 AU/mL; EBV Virus Capsid Ag IgG Ab >750.00 U/mL; Epstein Barr Virus Early Ag Ab <9.00 U/mL; Fungitell (1-3)-B-D-Glucan <31 pg/mL
== END 2022-01-09 14:44 | disposition home or self-care (01) | DRG 812 ==
LOC: ED 10:32 → SUATTDRO 13:33 → EDINP 13:33 → 2W 01-05 16:17

== ENCOUNTER 2022-02-07 11:41 | Inpatient (IN) ==
--- NOTE | 2022-02-07 13:50 | History & Physical Report ---
Date of Service February 07, 2022 Assessment & Plan (1) Elevated liver enzymes: Plan: - Initially elevated during hospitalization last month thought to be due to chemo, however have been steadily increasing since then with T bili today 11.8, D bili 6.9, AST 60, ALT 133, alk phos 126. - Due to concern for obstruction and CBD, patient has been admitted with [facility] consulted to perform MRCP this evening and. Further intervention depending on results. (2) Adenocarcinoma of gallbladder: Plan: - With metastatic disease, progression noted on CT A/P from 02/03. - Last chemo was one month ago. Follows with Dr. Hassan. - Management for worsening LFTs as above. (3) Constipation: Plan: - Ongoing for the past month, despite taking Lasix daily, he has not had a bowel movement 3 days. - KUB on 02/03 with mild to moderate fecal retention and nonobstructive bowel gas pattern. - Repeat KUB now, will order MiraLAX BID and Dulcolax suppository now. (4) Acute urinary retention: Plan: - Davis catheter placed. - Prostate enlarged from previous imaging. - UA ordered. (5) Type 2 diabetes mellitus: Plan: - Not on any home medications. - Will place on SSI with Accu-Cheks ACHS. BGM's were consistently [id number] during his hospitalization with SSI alone last month, with rare readings in the 140- 160 range. - A1c last month 6.8%. (6) Coronary artery disease: Plan: - Chronic, stable, no angina or anginal equivalent today. - S/p 4 stents in 2005 after an CA. - Continue baby aspirin daily, metoprolol 25 mg, nitroglycerin as needed. - He is statin intolerant. (7) Ex-smoker: Plan: - Quit smoking cigarettes, however vapes regularly and endorses occasional marijuana use for pain/appetite. Plan - Admitted to med/tele. - SCDs for VTE PPx. - Full code. Admission and Anticipated Discharge Date Admission Date: February 07, 2022 History of Present Illness Chief Complaint: elevated LFTs Primary Care Provider: Alysia Espinal MD Konstantin Mckeon is a 66-year-old male with a past medical history significant for metastatic adenocarcinoma of the gallbladder s/p wedge resection of liver and cholecystectomy, DM2, CAD s/p stext x4 in 2005, BPH, GERD, former cigarette smoker who now vapes 3 mg tobacco/day who presents to [facility] today as a direct admit for worsening liver function. He was diagnosed with GB cancer last fall after being admitted to our facility for gallstone pancreatitis, during hospitalization he underwent cholecystectomy and unfortunately pathology showed well-differentiated infiltrative adenocarcinoma, a diagnostic laparoscopy in March was performed and confirmed metastatic adenocarcinoma originating from the gallbladder. He underwent 6 rounds of chemotherapy, last session in August and had one cycle of maintenance chemotherapy in December. Prior to maintenance chemo, he received his COVID booster and Prevnar vaccine. Shortly after his first round of maintenance chemo, he felt very fatigued and had new VILLAR, tested positive on a home COVID test and was subsequently hospitalized here from 01/04 - 01/09 (COVID neg on admission) due to anemia and fever, both suspect to be due to chemotherapy. He also had a mild ANNA and hyponatremia. He was transfused with 2 units pRBCs, + PPI BID, treated with doxycycline due to chest CT revealing intralobular septal thickening with multifocal multilobar distribution of ill-defined groundglass densities and cent rilobular nodular opacities suspected to be due to atypical pneumonia from recent COVID booster/infection. He also had elevated LFTs during this admission, T bili at 1.1, d bili 0.3, AST 62, ALT 80, alk phos within normal limits. It was suspected these were mildly elevated secondary to chemotherapy. Since then, he has seen his PCP several times, however has not undergone any more chemotherapy. He is also presented to the ED twice this discharge, once on 02/03 for abdominal fullness, constipation and urinary retention. CT A/P was obtained given his elevated LFTs (T bili 6.4, AST 101, ALT 216, alk phos 126) and history of metastatic cancer then, imaging revealed progression of metastatic disease, no other acute findings. He was otherwise stable, case was reviewed with radiology who felt MRCP was not warranted at that time, therefore patient was d/c'd home pain free with Davis catheter, MiraLAX daily, and advised to follow up with oncologist Dr. Hassan. He presented again yesterday, 02/06 with complaints of nausea , vomiting, and worsening acid reflux. Labs were significant for T bili of 11.2, AST 81, ALT 161, alk phos 131. As he had just had CT A/P performed 3 days prior, further imaging was deferred. He was given a GI cocktail and stable for discharge, again advised to follow up with oncology for further management of his GB adenocarcinoma. He met with Dr. Hassan yesterday and given his progression of symptoms since discharge on 01/09 and rising LFTs, she requested direct admission to obtain MRCP to identify possible obstruction causing worsening LFTs. Besides symptoms disc ussed above, he has has 2 episodes of vomiting in the past 3 days which seemingly came out of nowhere, not precipitated by meals. He has been without fever/chills, hemoptysis, abdominal pain, chets pain, palpitations, SOB, VILLAR, dysuria, or hematuria. Last BM was 3 days ago, he reports it was somewhat formed but soft and doss, without blood. He has been taking Miralax daily. Allergies Allergy/AdvReac Type Severity Reaction Status Date / Time oxycodone AdvReac Mild Unknown Verified 01/23/22 10:15 Frmvucd-HRC-DwM Reductase AdvReac Mild muscle Verified 01/23/22 10:15 Inhibitor aches [Olyadbl-Rye-Pxf Reductase Inhibitor] Home Medications Medication Instructions Recorded Confirmed Type nitroglycerin 0.4 mg sublingual 0.4 mg sublingual Q5M PRN Chest 02/05/21 02/07/22 History tablet Pain tramadol 50 mg tablet 50 mg PO Q8H PRN pain, severe #20 02/08/21 02/07/22 Rx tabs aspirin 81 mg tablet,delayed 81 mg PO QAM 02/16/21 02/07/22 History release metoprolol tartrate 25 mg tablet 25 mg PO QAM 02/16/21 02/07/22 History omeprazole 20 mg capsule,delayed 20 mg PO HS 02/16/21 02/07/22 History release tamsulosin 0.4 mg capsule 0.4 mg PO DAILY #90 caps 11/25/21 02/07/22 Rx polyethylene glycol 3350 17 17 g PO DAILY #119 grams 01/30/22 02/07/22 Rx gram/dose oral powder (Miralax) Past Med/Surg History Medical History Acute gallstone pancreatitis Adenocarcinoma of gallbladder Coronary artery disease Coronary atherosclerosis of [place] coronary vessel Esophageal reflux Myocardial infarction 2005 stents x 4 [facility] Statin intolerance Type 2 diabetes mellitus Surgical History History of arthroscopy of knee History of heart artery stent x4 at [facility] History of surgery of liver due to gallbladder cancer and lymph nodes involved Hx of arthroscopy of shoulder left Port-A-Cath in place (05/04/21) Insertion Access Port with Fluoroscopy- dJ Del Angel, 05/04/2021 S/P laparoscopic cholecystectomy 02/06/2021: Grade 2 view, MAC#3, ETT#7.5, atraumatic x 1. No issues per anesthesia progress note. Family History Father Heart disease Myocardial infarction Mother Heart disease Myocardial infarction Denies family history of Ovarian cancer Prostate cancer Breast cancer Colorectal cancer Social History Smoking Status: Current some day smoker Tobacco Type: E-cigarettes / Vaping Second Hand Exposure: No; Hx Alcohol Use: No Hx Substance Use: No Preferred Language: Lebanese Communication Ability: Effective Visual Impairment: Partially Limited Technology Instructor Required: No Beliefs That Will Affect Care: None marital status: Current Living Situation: Spouse current occupational status: unemployed Feels Safe at Home: Yes Dental Care, Regularly: Yes Physical Activity Frequency: 3-4 Times per Week Seatbelt Use: always Sunscreen Use: Yes Assistive Devices: None Review of Systems Review of Systems: Constitutional: anorexia and fatigue, ongoing x1 monoth; No fever/chills, weakness, myalgias, night sweats Eyes: No diplopia, no worsening or blurred vision ENT: normal hearing, no trouble swallowing Respiratory: No cough, sputum, dyspnea at rest or on exertion Cardiovascular: No chest pain, tightness or palpitations Abdomen: abdominal fullness, nausea, vomiting, and constipation without hemoptysis, diarrhea, hematochezia, or melena : Denies dysuria, hematuria, increased urgency/frequency, urinary retention Musculoskeletal: No joint pain, calf pain, swelling Neurologic: No weakness, numbness/tingling, or balance problems Psychiatric: No anxiety or depression Skin: full body itching Physical Exam Physical Exam: General: awake, alert, no apparent distress; jaundiced and icteric Head: Normocephalic, atraumatic ENT: PERRL, EOMI, no pharyngeal exudate, mucous membranes moist Chest: Clear to auscultation, on room air, no adventitious breath sounds Cardiac: Regular rate and rhythm, no murmur, no JVD, normal peripheral pulses, good capillary refill Abdominal: NABS x 4 quadrants, soft, nontender to palpation, no rebound, guarding or tenderness Extremities: Normal inspection, no peripheral edema or erythema, calfs nontender to palpation Psych: Normal mood and affect Neuro: AAO x 3, strength intact bilaterally and rated 5/5, no motor deficits, speech is clear, no peripheral sensory deficits Skin: no rash or erythema Results & Data Results & Data ([facility]) Vital Signs (Past 12 Hours) Vital Signs Temp Pulse Resp BP Pulse Ox O2 Del Method 02/07/22 13:32 36.6 C 69 16 160/74 H 96 Room Air Laboratory Results Abnormal lab results 02/07/22 Range/Units 14:17 Sodium 134 L (136-145) mmol/L Glucose 118 H (70-99(Fasting)) mg/dl Total Bilirubin 11.8 H (0.2-1.0) mg/dl AST 68 H (13-39) U/L ALT 133 H (7-52) U/L Alkaline Phosphatase 126 H (34-104) U/L Albumin 3.3 L (3.4-5.0) gm/dl Code Status & VTE Plan Code Status Full Code. Supervising Physician Co-Signing Physician Notes Attending Attestation & Admission Note: Pt seen/examined, chart reviewed, care plan d/w LEONARDO Tanner. I agree with the sherman components of her documentation. 66yo male with h/o metastatic adenocarcinoma of the gall bladder, T2DM, CAD - recent hospital stay for pneumonitis and multiple ER visits - presents as a direct [facility] due to ongoing liver function abnormalities, abdominal pain, constipation, etc. Just underwent CT abd/pelvis on 02/03/22. At that time no evidence of CBD obstruction. Bilirubin continues to rise despite the 02/03 CT a/p. During my assessment he c/o constipation x 3 days and frustration with his bowels. Davis is in place due to recent incomplete bladder emptying and voiding issues. No fevers or chills. PMH/PSH/allergies/meds/sochx/famhx - reviewed VSS, afebrile gen - NAD skin - jaundice face, chest eyes - icterus mouth - MMM; icterus heart - RRR, s1 s2 lungs - CTA b/l abd - soft, minimal tenderness, minimal distension, BS+, liver edge palpable ext - no edema, pulses 2+ b/l labs reviewed recent imaging from 02/03, etc reviewed A/P: 1. worsening LFTs including hyperbilirubinemia -- MRCP ordered, [facility], if [facility] shows obstruction then ERCP; repeat LFTs in am 2. various abd complaints, constipation -- repeat KUB x-ray, treat constipation accordingly 3. metastatic gall bladder adenocarcinoma 4. CAD - no ischemic symptoms at this time 5. T2DM - novolog SSI Morris Strauss MD PG Care Time/CCT Total # of Minutes Spent Total Time Spent with Patient: Total time spent is greater than 50% in coordination of care (as documented) at patient's floor/unit and/or counseling patient: Coding Level of Care Code 40409 Initial Inpt Care Lvl 3 Diagnoses Elevated liver enzymes R74.8 Adenocarcinoma of gallbladder C23 Constipation K59.00 Acute urinary retention R33.8 Type 2 diabetes mellitus E11.9 Coronary artery disease I25.10 Ex-smoker Z87.891
[2022-02-07] MEDS ORDERED: traMADol HCL 50 MG TABLET PO PRN (14:23)
[2022-02-07] MEDS ORDERED: NITROGLYCERIN SL 0.4 MG/TAB TAB SL PRN (14:23)
[2022-02-07] MEDS ORDERED: GLUCOSE 40% GEL 15 GM TUBE PO PRN (14:25)
[2022-02-07] MEDS ORDERED: DEXTROSE 50% 50 ML SYRINGE IV PRN (14:25)
[2022-02-07] MEDS ORDERED: GLUCAGON FOR INJ 1 MG VIAL SQ PRN (14:25)
[2022-02-07] MEDS ORDERED: CARBOHYDRATES FOR HYPOGLYCEMIA PO PRN (14:25)
[2022-02-07] MEDS ORDERED: GLUCOSE 10 TAB/TUBE PO PRN (14:25)
[2022-02-07 14:57] LABS: Alanine Aminotransferase 133 U/L (7-52); Albumin Level 3.3 gm/dl (3.4-5.0); Alkaline Phosphatase 126 U/L (34-104); Anion Gap 7 (3-11); Aspartate Aminotransferase 68 U/L (13-39); BUN Creatinine Ratio 13.7 (10-20); Bilirubin,Total 11.8 mg/dl (0.2-1.0); Blood Urea Nitrogen 16 mg/dl (6-23); Calcium 8.8 mg/dl (8.5-10.1); Carbon Dioxide 24 mmol/L (21-32); Chloride 103 mmol/L (98-107); Est GFR (African American) 74.3 ml/min; Est GFR (Non-African American) 64.1 ml/min; Globulin 3.3 gm/dl (2.5-4.0); Glucose 118 mg/dl (70-99(Fasting)); Potassium 3.8 mmol/L (3.5-5.1); Sodium 134 mmol/L (136-145); Total Protein 6.6 gm/dl (6.0-8.3)
--- NOTE | 2022-02-07 15:05 | Gastrointestinal Consultation ---
Date of Consultation February 07, 2022 Assessment & Plan (1) Abnormal LFTs: From obstruction vs less likely DILI. (2) Metastatic adenocarcinoma: (3) Constipation: Increase miralax to BID. Add Dulcolax po QD. Plan MRI/MRCP to look for biliary obstruction. If obstruction is present, would progress to ERCP. Supervising Physician Co-Signing Physician Notes Attg add: I interviewed and examined pt, reviewed charts and lab. Pt with gb ca on gemzaar now admit with jaundice. He reports lower abd pain from constipation, nausea, reflux, early satiety. He denies skin or urine discoloration, pruritus. No fever. No alcohol, on doxy early January o/w no new meds. Plan MRCP/abd MRI, further recs to follow. History of Present Illness Reason for Consultation: Elevated bilirubin Requesting Physician: Dr. Brooks Attending Physician: Morris Strauss History of Present Illness Mr. Konstantin Mckeon is a 66 yr old male pt of Dr. 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 He had not noticed the yellow eyes/skin. Additionally, he is also very frustrated with constipation. He is on Miralax one dose daily and his most recent BM was 3 days ago. He feels full/bloated. Current chemo regime is Gemcitabine, most recently about 3 wks ago which was stopped for anemia. Was on cisplatin previously, stopped due to COVID in December. Vomited x 2 in the past week. Decreased appetite and lower abd cramping pain for a week. Upper abd pressure/fullness after eating/drinking anything. Has early satiety. Has reflux, burning in the chest/throat in the past week, sometimes bringing up yellow stomach fluids. Admits to occasional marijuana use, most recently this morning, for nausea and to increase his appetite. Allergies Allergy/AdvReac Type Severity Reaction Status Date / Time oxycodone AdvReac Mild Unknown Verified 01/23/22 10:15 Ncrqkql-FNR-VkN Reductase AdvReac Mild muscle Verified 01/23/22 10:15 Inhibitor aches [Jyfnoad-Bxj-Qgz Reductase Inhibitor] Home Medications Medication Instructions Recorded Confirmed Type nitroglycerin 0.4 mg sublingual 0.4 mg sublingual Q5M PRN Chest 02/05/21 02/07/22 History tablet Pain tramadol 50 mg tablet 50 mg PO Q8H PRN pain, severe #20 02/08/21 02/07/22 Rx tabs aspirin 81 mg tablet,delayed 81 mg PO QAM 02/16/21 02/07/22 History release metoprolol tartrate 25 mg tablet 25 mg PO QAM 02/16/21 02/07/22 History omeprazole 20 mg capsule,delayed 20 mg PO HS 02/16/21 02/07/22 History release tamsulosin 0.4 mg capsule 0.4 mg PO DAILY #90 caps 11/25/21 02/07/22 Rx polyethylene glycol 3350 17 17 g PO DAILY #119 grams 01/30/22 02/07/22 Rx gram/dose oral powder (Miralax) Patient History Medical History Acute gallstone pancreatitis Adenocarcinoma of gallbladder Coronary artery disease Coronary atherosclerosis of [place] coronary vessel Esophageal reflux Myocardial infarction 2005 stents x 4 Statin intolerance Type 2 diabetes mellitus Surgical History History of arthroscopy of knee History of heart artery stent x4 at [facility] History of surgery of liver due to gallbladder cancer and lymph nodes involved Hx of arthroscopy of shoulder left Port-A-Cath in place (05/04/21) Insertion Access Port with Fluoroscopy- Jd Del Angel DO 05/04/2021 S/P laparoscopic cholecystectomy 02/06/2021: Grade 2 view, MAC#3, ETT#7.5, atraumatic x 1. No issues per anesthesia progress note. Family History Father Heart disease Myocardial infarction Mother Heart disease Myocardial infarction Denies family history of Ovarian cancer Prostate cancer Breast cancer Colorectal cancer Social History Smoking Status: Current some day smoker Tobacco Type: E-cigarettes / Vaping Second Hand Exposure: No; Hx Alcohol Use: No Hx Substance Use: No Preferred Language: Andorran Communication Ability: Effective Visual Impairment: Partially Limited Data Analysis Assistant Required: No Beliefs That Will Affect Care: None marital status: Current Living Situation: Spouse current occupational status: unemployed Feels Safe at Home: Yes Dental Care, Regularly: Yes Physical Activity Frequency: 3-4 Times per Week Seatbelt Use: always Sunscreen Use: Yes Assistive Devices: None Review of Systems Review of Systems: ROS: Gen: + weight loss; Denies weakness, fevers Eyes: No eye redness, or pain, no recent vision changes Resp: No SOB, no cough Cardio: No palpitations/irregular beats, no chest pain GI: See HPI, otherwise (-) : Davis cath in place x one week for bladder outlet obstruction per pt this is due to constipation Skin: + jaundice, + generalized itching; no other rashes Physical Exam Constitutional: well developed, well nourished, + ill appearing (chronically), + obese and well groomed Eyes: PERRL icteric ENMT: external ear and nose normal, oropharynx normal Neck: trachea midline, no thyromegaly Respiratory: normal respiratory effort, lungs clear to auscultation Cardiovascular: RRR, no murmur, no edema Gastrointestinal (Abdomen): Inspection/Auscultation: abdomen normal to inspection and + hypoactive bowel sounds; abdomen not distended and no abdominal edema Percussion/Palpation: + abdomen tender (suprapubic area, mild) and abdomen soft; no splenomegaly Skin: + jaundice; no ulcers and no wound Neurologic: PERRL, EOMI, accommodation nl, no face palsy, no dysarthria Psychiatric: A+Ox3, euthymic affect Lymphatic: no cervical or axillary lymphadenopathy Results & Data ([facility]) Vital Signs (Past 12 Hours) Vital Signs Temp Pulse Resp BP Pulse Ox O2 Del Method 02/07/22 13:32 36.6 C 69 16 160/74 H 96 Room Air Laboratory Results WBC 6, Hb 12 (Yesterday) Na 134, K 3.8, Cl 103, CO2 24, BUN 15, Crr 1.17, glucose 118 Diagnostic Findings CTAP w IV contrast 02/03/22: 1. Progressive soft tissue thickening/nodularity within the gallbladder fossa, javy hepatis, and along the undersurface of the right hepatic lobe. This is consistent with progressive metastatic disease and likely accounts for the mild intrahepatic bile duct dilatation. 2. Mild thickening at the cecal base and base of the appendix without adjacent fat stranding. This likely represents serosal implants of the metastatic disease and has also progressed. No evidence for acute appendicitis. 3. Prior left hepatic lobe wedge resection and cholecystectomy. 4. Additional findings as described above.
[2022-02-07] MEDS ORDERED: bisacodyL 5 MG TABEC PO PRN (15:43)
[2022-02-07 15:50] LABS: Bilirubin Direct 6.9 mg/dl (0-0.2)
[2022-02-07] MEDS ORDERED: bisacodyL 10 MG SUPP PR STA (17:35)
[2022-02-07 18:03] LABS: Appearance Urine Clear (Clear); Bacteria Urine Automated Negative (Negative); Blood Urine 3+ (Negative); Color Urine Dark Yellow; Epithelial Cell Urine Auto 0-5 /lpf (0-5); Glucose Urine UA Negative (Negative); Ketones Urine Negative (Negative); Leukocyte Esterase Urine 2+ (Negative); Nitrite Urine Positive (Negative); Protein Urine 1+ (Negative); Specific Gravity Urine 1.018 (1.000-1.030); Urobilinogen Urine Negative (Negative); pH Urine 5.5 (4.5-7.5)
[2022-02-07 18:04] LABS: Basophils # (auto) 0.05 K/uL (0-0.2); Eosinophils # (auto) 0.17 K/uL (0-0.50); Eosinophils % (auto) 3.3 %; Hematocrit (blood only) 34.6 % (40.1-51.0); Hemoglobin 11.2 g/dl (14.0-18.0); Immature Granulocytes # (auto) 0.07 K/uL (0.00-0.02); Immature Granulocytes % (auto) 1.3 %; Lymphocytes # (auto) 0.63 K/uL (1.2-3.4); Mean Corpuscular Hemoglobin 31.5 pg (25.0-34.0); Mean Corpuscular Hgb Conc 32.4 g/dL (32.0-36.0); Mean Corpuscular Volume 97.5 fL (80.0-100.0); Mean Platelet Volume 10.9 fL (9.4-12.4); Monocytes # (auto) 0.56 K/uL (0.24-0.82); Monocytes % (auto) 10.7 %; Neutrophils # (auto) 3.75 K/uL (1.4-6.5); Neutrophils % (auto) 71.7 %; Platelet Count 139 K/uL (130-400); RDW Coefficient of Variation 18.5 % (11.5-14.5); RDW Standard Deviation 65.7 fL (36.4-46.3); Red Blood Count 3.55 M/uL (4.63-6.08); White Blood Count 5.23 K/ul (4.8-10.8)
[2022-02-07 18:13] LABS: Bilirubin Urine 3+ (Negative)
[2022-02-07] MEDS: INSULIN ASPART PER UNIT SC SCH ×2 (18:34→22:59)
[2022-02-07] MEDS: PANTOprazole 40 MG TAB PO SCH (22:59)
[2022-02-07] MEDS: POLYETHYLENE (MIRALAX) 17 GM PACK PO SCH (22:59)
[2022-02-08] MEDS: HEPARIN 100 UNIT/ML 5ML FLUSH FLUSH PRN (08:41)
[2022-02-08] MEDS ORDERED: ASPIRIN 81 MG ECTAB PO SCH (09:00)
[2022-02-08] MEDS ORDERED: POLYETHYLENE (MIRALAX) 17 GM PACK PO SCH (09:00)
[2022-02-08] MEDS: INSULIN ASPART PER UNIT SC SCH ×4 (09:17→21:52)
[2022-02-08] MEDS: TAMSULOSIN HCL 0.4 MG CAP PO SCH (09:18)
[2022-02-08] MEDS: POLYETHYLENE (MIRALAX) 17 GM PACK PO SCH ×2 (09:18→21:43)
[2022-02-08] MEDS: METOPROLOL TARTRATE 25 MG TAB PO SCH (09:18)
--- NOTE | 2022-02-08 09:48 | XRay Report ---
XR KUB/Abdomen 1 view CLINICAL HISTORY: n/v, no BM in 3 days, r/o obstruction TECHNIQUE: 1 view of the abdomen was obtained. Comparison: Comparison is made to abdomen radiograph 02/03/2022 FINDINGS: Surgical clips are again noted in the upper abdomen. Degenerative changes are seen in the visualized skeleton. The bowel gas pattern is nonobstructive. Small stool burden is seen. IMPRESSION: Nonobstructive bowel gas pattern. No evidence of large stool burden or fecal impaction. ACT 112: Negative or not required by law. Electronically signed by: Esteban Chávez M.D. 02/08/2022 9:47 AM
[2022-02-08 10:06] LABS: Alanine Aminotransferase 130 U/L (7-52); Albumin Globulin Ratio 0.9 (0.9-2); Albumin Level 3.4 gm/dl (3.4-5.0); Alkaline Phosphatase 131 U/L (34-104); Anion Gap 10 (3-11); Aspartate Aminotransferase 76 U/L (13-39); BUN Creatinine Ratio 13.6 (10-20); Blood Urea Nitrogen 17 mg/dl (6-23); Carbon Dioxide 21 mmol/L (21-32); Chloride 103 mmol/L (98-107); Est GFR (African American) 68.6 ml/min; Est GFR (Non-African American) 59.2 ml/min; Globulin 3.7 gm/dl (2.5-4.0); Glucose 101 mg/dl (70-99(Fasting)); Lipase 20 U/L (11-82); Potassium 3.7 mmol/L (3.5-5.1); Sodium 134 mmol/L (136-145); Total Protein 7.1 gm/dl (6.0-8.3)
--- NOTE | 2022-02-08 11:49 | Magnetic Resonance Report ---
MR MRCP HISTORY: elevated LFTs, hx of gallbladder adenocarcinoma TECHNIQUE: MRCP of the abdomen was performed without contrast according to standard department protoc ol. COMPARISON STUDY: Abdomen and pelvis CT 02/03/2022. FINDINGS: The lung bases appear clear. There is moderate intrahepatic bile duct dilatation which is s lightly progressed. There is abrupt cut off at the confluence of the extrahepatic bile ducts with a f ocal 1 cm defect between the common bile duct and extra hepatic ducts. The mid to distal common bile duct is normal in caliber measuring 3 mm. The main pancreatic duct is also normal in caliber. The abr upt cut off at the confluence of the intrahepatic ducts appears to be due to abnormal soft tissue thi ckening at the javy hepatis and along the undersurface of the gallbladder fossa/right hepatic lobe. This is consistent with metastatic disease. The spleen, adrenal glands, kidneys, and pancreas unremar kable. Moderate size fat-containing midline ventral hernia. Visualized loops of bowel show no wall th ickening or obstruction. Prior cholecystectomy. IMPRESSION: 1. There is focal obstruction at the confluence of the extra hepatic ducts due to the abnormal soft t issue/metastatic disease at this location. This accounts for the moderate intrahepatic bile duct dila tation which has slightly progressed. 2. The common bile duct is normal in course and caliber. 3. Additional metastatic soft tissue deposits seen within the gallbladder fossa and along the undersu rface of the right hepatic lobe are again noted. ACT 112: Negative or not required by law. Electronically signed by: Harsh Bañuelos M.D. 02/08/2022 11:47 AM
[2022-02-08] MEDS: NSS + 20MEQ KCL 20 MEQ/1,000 ML BAG IV SCH (12:34)
--- NOTE | 2022-02-08 14:23 | Gastroenterology Progress Note ---
Date of Service February 08, 2022 Assessment & Plan (1) Abnormal LFTs: Plan: From obstruction vs less likely DILI. (2) Metastatic adenocarcinoma: (3) Constipation: Plan: Increase miralax to BID. Add Dulcolax po QD. Plan MRI/MRCP today w bile duct obstruction and intrahepatic dilation. ERCP this afternoon by Dr. Santos. The procedure was described in detail including risks and pt agrees to go forward w the procedure. Admission and Anticipated Discharge Date Admission Date: February 07, 2022 Supervising Physician Co-Signing Physician Notes I performed a history and physical examination of the patient today, including specifically on physical exam - soft abdomen. I have discussed the patient's management with the advanced practitioner. Please refer to the nurse practitioner's note for the documented findings and plan of care. ERCP Patient was explained in detail regarding risks, benefits, limitations and alternatives of the above endoscopic procedure. Risks of intravenous sedation used for procedure were also explained. Risks include, but not limited to perforation, bleeding, infection, respiratory distress, cardiac arrest and . Patient is also aware about the possibility of missed lesion. Patient's questions were answered. The patient verbalized understanding the information and agreed to undergo the procedure. Subjective 66 yr old male w hx of gallbladder adenocarcinoma w mets to liver S/P liver resection/cholecystectomy in 2020 on chem. Admitted 02/07 for elevated LFTs. MRCP today w bile duct irregularities. Pt with mostly lower abd pain - chronic, unchanged, some mild epigastric discomfort as well. Has been NPO Review of Systems Review of Systems: ROS: Gen: + weight loss; Denies weakness, fevers Eyes: No eye redness, or pain, no recent vision changes Resp: No SOB, no cough Cardio: No palpitations/irregular beats, no chest pain GI: See HPI, otherwise (-) : Davis cath in place x one week for bladder outlet obstruction per pt this is due to constipation Skin: + jaundice, + generalized itching; no other rashes Physical Exam Constitutional: well developed, well nourished, + ill appearing (chronically), + obese and well groomed Eyes: PERRL ENMT: external ear and nose normal, oropharynx normal Neck: trachea midline, no thyromegaly Respiratory: normal respiratory effort, lungs clear to auscultation Cardiovascular: RRR, no murmur, no edema Gastrointestinal (Abdomen): Inspection/Auscultation: abdomen normal to inspection and + hypoactive bowel sounds; abdomen not distended and no abdominal edema Percussion/Palpation: + abdomen tender (suprapubic area, mild) and abdomen soft; no splenomegaly large incisional hernia, central/lower abd Skin: + jaundice; no ulcers and no wound Neurologic: PERRL, EOMI, accommodation nl, no face palsy, no dysarthria Psychiatric: A+Ox3, euthymic affect Lymphatic: no cervical or axillary lymphadenopathy Results & Data ([facility]) Vital Signs (Past 12 Hours) Vital Signs Temp Pulse Pulse Resp BP BP Pulse Ox 02/08/22 08:12 66 02/08/22 08:00 76 20 152/81 H 96 02/08/22 04:54 36.5 C 75 18 145/77 H 95 O2 Del Method 02/08/22 08:12 02/08/22 08:00 Room Air 02/08/22 04:54 Room Air Laboratory Results WBC 5.2, Hb 11.2, Hct 34.6, Plts 139, Na134, K 3.8, Cl 103, CL 24, BUN16, Cr1.17. INR 1.1 Diagnostic Findings MRCP 02/08/22 1. There is focal obstruction at the confluence of the extra hepatic ducts due to the abnormal soft tissue/metastatic disease at this location. This accounts for the moderate intrahepatic bile duct dilatation which has slightly progressed. 2. The common bile duct is normal in course and caliber. 3. Additional metastatic soft tissue deposits seen within the gallbladder fossa and along the undersurface of the right hepatic lobe are again noted.
--- NOTE | 2022-02-08 14:53 | Anesthesiology Consultation ---
Date of Service February 08, 2022 Assessment & Plan (1) Encounter for pre-operative examination: History Surgery Operation Date: 02/08/22 09:00 Proposed Procedures p Endoscopic Retrograde Cholangiopancreato - Amanda Santos MD Height/Weight Weight: 95 kg Allergies Allergy/AdvReac Type Severity Reaction Status Date / Time oxycodone AdvReac Mild Unknown Verified 01/23/22 10:15 Ztltpwl-XHR-YbH Reductase AdvReac Mild muscle Verified 01/23/22 10:15 Inhibitor aches [Nyhnosq-Kbp-Tbt Reductase Inhibitor] Medications Home Medications Medication Instructions Recorded Confirmed Last Taken nitroglycerin 0.4 mg sublingual 0.4 mg sublingual Q5M PRN Chest 02/05/21 02/07/22 Unknown tablet Pain tramadol 50 mg tablet 50 mg PO Q8H PRN pain, severe #20 02/08/21 02/07/22 02/03/22 tabs aspirin 81 mg tablet,delayed 81 mg PO QAM 02/16/21 02/07/22 02/07/22 release metoprolol tartrate 25 mg tablet 25 mg PO QAM 02/16/21 02/07/22 02/07/22 omeprazole 20 mg capsule,delayed 20 mg PO HS 02/16/21 02/07/22 05/03/21 19:00 release tamsulosin 0.4 mg capsule 0.4 mg PO DAILY #90 caps 11/25/21 02/07/22 Unknown polyethylene glycol 3350 17 17 g PO DAILY #119 grams 01/30/22 02/07/22 02/06/22 gram/dose oral powder (Miralax) Active Medications Generic Name Dose Route Start Last Admin Trade Name Freq PRN Reason Stop Dose Admin Aspirin 81 mg 02/08/22 09:00 02/08/22 09:18 Aspirin 81 Mg Ectab PO 03/10/22 08:59 Not Given QAM [facility] Heparin Sodium (Porcine) 5 ml 02/08/22 08:28 02/08/22 08:41 Heparin 100 Unit/Ml 5ml Flush FLUSH 03/10/22 08:27 5 ml PRN PRN Administration Flush Potassium Chloride/Sodium Chloride 20 meq in 1,000 mls @ 75 mls/hr 02/08/22 12:00 02/08/22 12:34 Normal Saline W/20 Meq Kcl IV 03/10/22 11:59 75 mls/hr .[id number] ALBER Administration Protocol Insulin Aspart 0 units 02/07/22 16:30 02/08/22 12:32 Insulin Aspart Per Unit SC 03/09/22 16:29 Not Given ACHS ALBER Metoprolol Tartrate 25 mg 02/08/22 09:00 02/08/22 09:18 Metoprolol Tartrate 25 Mg Tab PO 03/10/22 08:59 Not Given QAM ALBER Pantoprazole Sodium 40 mg 02/07/22 21:00 02/07/22 22:59 Pantoprazole 40 Mg Tab PO 03/09/22 20:59 40 mg HS ALBER Administration Polyethylene Glycol 17 gm 02/07/22 21:00 02/08/22 09:18 Polyethylene (Miralax) 17 Gm Pack PO 03/09/22 20:59 Not Given BID ALBER Tamsulosin HCl 0.4 mg 02/08/22 09:00 02/08/22 09:18 Tamsulosin Hcl 0.4 Mg Cap PO 03/10/22 08:59 Not Given DAILY ALBER Past Medical History Medical History Acute gallstone pancreatitis Adenocarcinoma of gallbladder Coronary artery disease Coronary atherosclerosis of [place] coronary vessel Esophageal reflux Myocardial infarction 2005 stents x 4 [facility] Statin intolerance Type 2 diabetes mellitus Past Family History Family History Father Heart disease Myocardial infarction Mother Heart disease Myocardial infarction Denies family history of Ovarian cancer Prostate cancer Breast cancer Colorectal cancer Past Surgical History Surgical History History of arthroscopy of knee History of heart artery stent x4 at [facility] History of surgery of liver due to gallbladder cancer and lymph nodes involved Hx of arthroscopy of shoulder left Port-A-Cath in place (05/04/21) Insertion Access Port with Fluoroscopy- Jd Del Angel DO 05/04/2021 S/P laparoscopic cholecystectomy 02/06/2021: Grade 2 view, MAC#3, ETT#7.5, atraumatic x 1. No issues per anesthesia progress note. Social History Smoking Status: Current some day smoker tobacco type: e-cigarettes Hx Alcohol Use: No Alcohol type: beer alcohol intake frequency: a few times a month Hx Substance Use: No substance use type: does not use Physical Exam Vital Signs Last Vital Signs Temp 97.7 F 02/08/22 04:54 Pulse 66 02/08/22 08:12 Resp 20 02/08/22 08:00 BP 152/81 H 02/08/22 08:00 Pulse Ox 96 02/08/22 08:00 O2 Del Method 02/08/22 08:00 Testing Laboratory Results 02/07/22 14:18 02/08/22 08:26 Urine Color Dark Yellow 02/07/22 Unknown Urine Appearance Clear (Clear) 02/07/22 Unknown Urine pH 5.5 (4.5-7.5) 02/07/22 Unknown Ur Specific [place] 1.018 (1.000-1.030) 02/07/22 Unknown Urine Protein 1+ (Negative) H 02/07/22 Unknown Urine Glucose (UA) Negative (Negative) 02/07/22 Unknown Urine Ketones Negative (Negative) 02/07/22 Unknown Urine Nitrite Positive (Negative) A 02/07/22 Unknown Ur Leukocyte Esterase 2+ (Negative) H 02/07/22 Unknown Urine WBC (Auto) 1-5 /hpf (0-5) 02/07/22 Unknown Urine RBC (Auto) 5-10 /hpf (0-4) H 02/07/22 Unknown U Hyaline Cast (Auto) 1-5 /lpf (0-5) 02/07/22 Unknown U Epithel Cells (Auto) 0-5 /lpf (0-5) 02/07/22 Unknown Urine Bacteria (Auto) Negative (Negative) 02/07/22 Unknown 02/08/22 02/08/22 12:17 06:02 POC Glucose 114 H 113 H Electrocardiogram Date: 01/04/22 Findings: + NSR @ and + RBBB Echocardiogram Date: 01/08/22 EF: 60-65 LV Function: normal Valvular Disease: + (mild)
[2022-02-08 14:56] LABS: INR 1.1 (0.9-1.1); Prothrombin Time 11.5 Seconds (9.0-12.0)
--- NOTE | 2022-02-08 15:24 | History & Physical Report ---
Date of Service February 08, 2022 Assessment & Plan (1) Biliary obstruction: Plan: ERCP Patient was explained in detail regarding risks, benefits, limitations and alternatives of the above endoscopic procedure. Risks of intravenous sedation used for procedure were also explained. Risks include, but not limited to perforation, bleeding, infection, respiratory distress, cardiac arrest and . Patient is also aware about the possibility of missed lesion. Patient's q uestions were answered. The patient verbalized understanding the information and agreed to undergo the procedure. 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, needs ERCP today Allergies Allergy/AdvReac Type Severity Reaction Status Date / Time oxycodone AdvReac Mild Unknown Verified 01/23/22 10:15 Rqwfnpq-UAI-TkG Reductase AdvReac Mild muscle Verified 01/23/22 10:15 Inhibitor aches [Lgonjrs-Vxj-Wxx Reductase Inhibitor] Home Medications Medication Instructions Recorded Confirmed Type nitroglycerin 0.4 mg sublingual 0.4 mg sublingual Q5M PRN Chest 02/05/21 02/07/22 History tablet Pain tramadol 50 mg tablet 50 mg PO Q8H PRN pain, severe #20 02/08/21 02/07/22 Rx tabs aspirin 81 mg tablet,delayed 81 mg PO QAM 02/16/21 02/07/22 History release metoprolol tartrate 25 mg tablet 25 mg PO QAM 02/16/21 02/07/22 History omeprazole 20 mg capsule,delayed 20 mg PO HS 02/16/21 02/07/22 History release tamsulosin 0.4 mg capsule 0.4 mg PO DAILY #90 caps 11/25/21 02/07/22 Rx polyethylene glycol 3350 17 17 g PO DAILY #119 grams 01/30/22 02/07/22 Rx gram/dose oral powder (Miralax) Past Med/Surg History Medical History Acute gallstone pancreatitis Adenocarcinoma of gallbladder Coronary artery disease Coronary atherosclerosis of [place] coronary vessel Esophageal reflux Myocardial infarction 2005 stents x 4 [facility] Statin intolerance Type 2 diabetes mellitus Surgical History History of arthroscopy of knee History of heart artery stent x4 at [facility] History of surgery of liver due to gallbladder cancer and lymph nodes involved Hx of arthroscopy of shoulder left Port-A-Cath in place (05/04/21) Insertion Access Port with Fluoroscopy- Jd Del Angel DO 05/04/2021 S/P laparoscopic cholecystectomy 02/06/2021: Grade 2 view, MAC#3, ETT#7.5, atraumatic x 1. No issues per anesthesia progress note. Family History Father Heart disease Myocardial infarction Mother Heart disease Myocardial infarction Denies family history of Ovarian cancer Prostate cancer Breast cancer Colorectal cancer Social History Smoking Status: Current some day smoker Tobacco Type: E-cigarettes / Vaping Second Hand Exposure: No; Hx Alcohol Use: No Hx Substance Use: No Preferred Language: Icelandic Communication Ability: Effective Visual Impairment: Partially Limited Drupal Web Developer Required: No Beliefs That Will Affect Care: None marital status: Current Living Situation: Spouse current occupational status: unemployed Feels Safe at Home: Yes Dental Care, Regularly: Yes Physical Activity Frequency: 3-4 Times per Week Seatbelt Use: always Sunscreen Use: Yes Assistive Devices: None Review of Systems All systems reviewed & are unremarkable except as noted in HPI & below Physical Exam Constitutional: comfortable; no acute distress Respiratory: normal respiratory effort, lungs clear to auscultation Cardiovascular: RRR, no murmur, no edema Gastrointestinal (Abdomen): normal bowel sounds, soft, nontender, no hepatosplenomegaly Results & Data ([facility]) Vital Signs (Past 12 Hours) Vital Signs Temp Pulse Pulse Resp BP BP Pulse Ox 02/08/22 15:10 36.7 C 64 18 152/94 H 98 02/08/22 08:12 66 02/08/22 08:00 76 20 152/81 H 96 02/08/22 04:54 36.5 C 75 18 145/77 H 95 O2 Del Method 02/08/22 15:10 Room Air 02/08/22 08:12 02/08/22 08:00 Room Air 02/08/22 04:54 Room Air Code Status & VTE Plan VTE Prophylaxis Plan VTE Prophylaxis will be ordered: Yes
[2022-02-08] MEDS ORDERED: INDOMETHACIN 50 MG SUPP PR ONE (15:26)
[2022-02-08] MEDS ORDERED: ePHEDrine sulfate 50 MG/ML AMP IV PRN (15:59)
[2022-02-08] MEDS ORDERED: ATROPINE SULFATE 0.1 MG/ML 10ML SYR IV PRN (15:59)
[2022-02-08] MEDS ORDERED: ONDANSETRON INJ 2 MG/ML 2 ML VIAL IV PRN (15:59)
[2022-02-08] MEDS ORDERED: PROPOFOL IV EMULSION 10 MG/ML 20 ML VIAL IV ONE (16:06)
[2022-02-08] MEDS ORDERED: fentaNYL citrate 100 MCG/2 ML VIAL ONE ×2 (16:06→16:42)
[2022-02-08] MEDS ORDERED: LIDOCAINE 2% MPF LOCAL 5 ML VIAL INFIL ONE (16:06)
[2022-02-08] MEDS ORDERED: SUCCINYLCHOLINE CHLORIDE 20 MG/ML 10 ML VIAL IV ONE (16:06)
[2022-02-08] MEDS ORDERED: ROCURONIUM BROMIDE 10 MG/ML 5 ML VIAL IV ONE (16:06)
[2022-02-08] MEDS ORDERED: CIPROFLOXACIN / D5W 400 MG/200 ML BAG IV STA (16:21)
[2022-02-08] MEDS ORDERED: ONDANSETRON INJ 2 MG/ML 2 ML VIAL ONE (16:42)
--- NOTE | 2022-02-08 17:11 | Operative Report ---
Post Operative Report Pre & Post Diagnosis Operation Date: 02/08/22 09:00 Pre-Op Diagnosis: BILIARY OBSTRUCTION Post-Op Diagnosis: BILIARY OBSTRUCTION I identified the patient and participated in the time-out.: Yes Procedure Operation Date: 02/08/22 09:00 Actual Procedures p Endoscopic Retrograde Cholangiopancreatography with stent(Not Applicable) - Amanda Santos MD Surgeon Amanda Santos MD Machine Mover None Estimated Blood Loss 0 Findings See Below (Hilar stricture, metal stent placed) Specimens None Description of Procedure ERCP I attest to the content of the Intraoperative Record and any orders documented therein. Any exceptions are noted below.
--- NOTE | 2022-02-08 17:23 | GI REPORT ---
Patient Name: Konstantin Mckeon Procedure Date: 02/08/2022 3:19 PM Date of : 1955 Admit Type: Inpatient Age: 66 Gender: Male Attending MD: Amanda Santos MD Procedure: ERCP Providers: Amanda Santos MD Referring MD: Morris Strauss, Enedina Hassan Md Indications: Jaundice, Bile duct stricture Medicines: General Anesthesia, Cipro 400 mg IV Complications: No immediate complications. Estimated Blood Loss: Estimated blood loss: none. Procedure: Pre-Anesthesia Assessment: - Prior to the procedure, a History and Physical was performed, and patient medications, allergies and sensitivities were reviewed. The patient's tolerance of previous anesthesia was reviewed. - The risks and benefits of the procedure and the sedation options and risks were discussed with the patient. All questions were answered and informed consent was obtained. - Patient identification and proposed procedure were verified prior to the procedure by the physician and the nurse. The procedure was verified in the procedure room. - Pre-procedure physical examination revealed no contraindications to sedation. After obtaining informed consent, the scope was passed under direct vision. Throughout the procedure, the patient's blood pressure, pulse, and oxygen saturations were monitored continuously. The Duodenoscope was introduced through the mouth, and advanced to the duodenum and used to inject contrast into the bile duct. The ERCP was accomplished without difficulty. The patient tolerated the procedure well. Findings: A court registry officer film of the abdomen was obtained. Surgical clips, consistent with a previous cholecystectomy, were seen in the area of the right upper quadrant of the abdomen. The esophagus was successfully intubated under direct vision. The scope was advanced to a normal major papilla in the descending duodenum without detailed examination of the pharynx, larynx and associated structures, and upper GI tract. The upper GI tract was grossly normal. The ventral pancreatic duct was inadvertently cannulated. A 0.025 inch x 270 cm angled Visiglide wire was passed into the biliary tree. The CleverCut distal wire sphincterotome was passed over the guidewire and the bile duct was then deeply cannulated. Contrast was injected. I personally interpreted the bile duct images. Ductal flow of contrast was adequate. Image quality was adequate. Contrast extended to the main bile duct. Opacification of the entire biliary tree except for the gallbladder was successful. The maximum diameter of the ducts was 5 mm below the stricture and 12 mm above the stricture. The upper third of the main bile duct contained a single severe stenosis just below the bifurcation of the anterior and posterior right hepatic duct. The right main hepatic duct and right intrahepatic branches were diffusely dilated. The patient is s/p left lobe hepatectomy. Biliary sphincterotomy was made with a monofilament traction (standard) sphincterotome using ERBE electrocautery. There was no post-sphincterotomy bleeding. One 5 Fr by 9 cm plastic pancreatic stent with a single external pigtail and no internal flaps was placed into the ventral pancreatic duct. Clear fluid flowed through the stent. The stent was in good position. One 10 mm by 10 cm uncovered metal biliary stent was placed into the common bile duct. Bile flowed through the stent. The stent was in good position. The upper third of the main bile duct was successfully dilated with a 4 mm balloon dilator. Indomethacin 100 mg was given via suppository to decrease the risk of post-ERCP pancreatitis (PEP). Impression: - A single severe malignant appearing biliary stricture was found in the upper third of the main bile duct with upstream ductal dilation. - A biliary sphincterotomy was performed. - One uncovered metal biliary stent was placed into the common bile duct. - One plastic pancreatic stent was placed into the ventral pancreatic duct to decrease risk of post-ERCP pancreatitis. Recommendation: - [facility]. - Obtain KUB in 3 weeks to assure spontaneous migration of the PD stent, otherwise will need EGD for removal. - Monitor LFTs. Amanda Santos MD 02/08/2022 5:23:06 PM This report has been signed electronically. Note Initiated On: 02/08/2022 3:19 PM Number of Addenda: 0 I attest to the content of the Intraoperative Record and orders documented therein, exceptions below {[id number]}
[2022-02-08] MEDS ORDERED: LABETALOL HCL IV 5 MG/ML 20ML IV PRN (17:54)
[2022-02-08] MEDS ORDERED: LABETALOL HCL IV 5 MG/ML 20ML IV ONE (17:56)
[2022-02-08] MEDS ORDERED: FAMOTIDINE 20 MG in SYRINGE 3 ML IV ONE (18:00)
[2022-02-08] MEDS ORDERED: hydrALAZINE HCL 20 MG/ML VIAL IV STA (18:12)
[2022-02-08] MEDS ORDERED: hydrALAZINE HCL 20 MG/ML VIAL ONE (18:15)
[2022-02-08] MEDS ORDERED: ALUMINUM/MAGNESIUM SUSP 18 ML, LIDOCAINE VISCOUS 2% SOLN 6 ML, BARCODE IDENTIFIER 1 EACH PO ONE (18:32)
--- NOTE | 2022-02-08 18:48 | Anesthesiology Progress Note ---
Date of Service February 08, 2022 Anesthesia Post Procedure Vital Signs Vital Signs: Temp Pulse Pulse Pulse Resp BP BP 02/08/22 18:30 55 L 18 179/99 H 02/08/22 18:10 52 L 16 196/98 H 02/08/22 18:20 56 L 19 189/96 H 02/08/22 18:00 58 L 12 193/95 H 02/08/22 17:50 60 16 201/92 H 02/08/22 17:40 56 L 19 179/93 H 02/08/22 17:30 62 17 188/92 H 02/08/22 17:22 96.8 F L 72 19 185/94 H 02/08/22 15:10 98.1 F 64 18 152/94 H 02/08/22 08:12 66 02/08/22 08:00 76 20 152/81 H 02/07/22 22:30 74 02/08/22 04:54 97.7 F 75 18 145/77 H 02/07/22 23:19 97.9 F 67 18 145/75 H 02/07/22 19:42 97.7 F 71 20 171/81 H Pulse Ox O2 Del Method O2 Flow Rate 02/08/22 18:30 97 Room Air 02/08/22 18:10 96 Room Air 02/08/22 18:20 97 Room Air 02/08/22 18:00 97 Room Air 02/08/22 17:50 99 Room Air 02/08/22 17:40 100 Oxymask 3 02/08/22 17:30 100 Oxymask 6 02/08/22 17:22 100 Oxymask 6 02/08/22 15:10 98 Room Air 02/08/22 08:12 02/08/22 08:00 96 Room Air 02/07/22 22:30 02/08/22 04:54 95 Room Air 02/07/22 23:19 97 Room Air 02/07/22 19:42 95 Room Air Pain Intensity Abdomen: Pain Intensity: 2 Upper Abdomen: Pain Intensity: 7 Transfer of Care Handoff Completed per policy Notes Mental Status: alert / awake / arousable and participated in evaluation Patient Amnestic to Procedure: Yes Nausea / Vomiting: adequately controlled Pain: adequately controlled Airway Patency, RR, SpO2: stable & adequate BP & HR: stable & adequate Hydration State: stable & adequate Anesthetic Complications: no major complications apparent and Pt Satisfied with anesthetic care Notes: pepcid and GI cocktail given for GERD like symptoms, denies any shortness of breath, diaphoresis
[2022-02-08] MEDS: fentaNYL citrate 100 MCG/2 ML VIAL IV PRN ×4 (19:05→19:20)
--- NOTE | 2022-02-08 19:21 | Fluoroscopy Report ---
[place] ERCP biliary ductal CLINICAL HISTORY: EXPLORE DUCTS COMPARISON STUDY: CT of the abdomen and pelvis February 03, 2022. MRCP February 07, 2022. FLUOROSCOPY TIME: 2 minutes and 16 seconds. FLUOROSCOPIC IMAGES: 13 FINDINGS: Fluoroscopy was provided during ERCP. These images demonstrate cannulation of the common bi le duct. High-grade structure within the common hepatic duct was noted. A metallic wall stent pedro pablo ing the stricture was placed. This is well positioned. Pancreatic duct stent was also placed. IMPRESSION: Fluoroscopy provided during ERCP with placement of a metallic biliary stent and a pancre atic duct stent. ACT 112: Negative or not required by law. Electronically signed by: Camden Dahl M.D. 02/08/2022 7:19 PM
[2022-02-08] MEDS: PANTOprazole 40 MG TAB PO SCH (21:43)
--- NOTE | 2022-02-08 23:19 | Hospitalist Progress Note ---
Date of Service February 08, 2022 Assessment & Plan (1) Biliary obstruction: Plan: This is the cause of his rising LFTs and in particular his t bili/d bili. MRCP with proximal CBD narrowing seen. s/p ERCP by Dr Santos today -- cancer related stricture seen in the proximal CBD. As per the op note -- "The upper third of the main bile duct contained a single severe stenosis just below the bifurcation of the anterior and posterior right hepatic duct. The right main hepatic duct and right intrahepatic branches were diffusely dilated." Stent placed. No cholangitis seen. Blood cx's remain negative to date. LFTs should improve now that stent is in place. Appreciate GI assistance today. (2) Elevated liver enzymes: Plan: 2nd to biliary obstruction as in #1 above. Repeat LFTs in am. Hold aspirin due to ERCP today and stent. (3) Adenocarcinoma of gallbladder: Plan: Initial dx 01/2021 when path from his lap clarisa returned with adenocarcinoma of gall bladder. Following initial dx referred to Dr Tolentino at [facility]. Underwent diagnostic laparoscopy with omental biopsy and removal of liver segmen ts 4b and 5. Biopsy consistent with metastatic disease. Initiated systemic chemo 04/[address] Ghassan Tidwell. Now following with Dr Hassan. Last chemo was one month ago. Now with biliary obstruction as in #1 above. (4) Constipation: Plan: Improved. Cont bowel maintenance with miralax BID. (5) Acute urinary retention: Plan: s/p recent bee catheter placement 02/03. Prostate enlarged on CT imaging c/w BPH. Is on flomax. Consider finasteride. Consider voiding trial before discharge. U/a noted. (6) Type 2 diabetes mellitus: Plan: Not on any home medications. Novolog SSI. HbA1c last month 6.8%. (7) Coronary artery disease: Plan: S/p 4 stents in 2005 after an [place]. Hold aspirin due to biliary stent placement today. Cont metoprolol 25 mg daily. He is statin intolerant; thus, he is not on statin therapy chronically. (8) Ex-smoker: Plan: Quit smoking cigarettes in the past. Vapes regularly and endorses occasional marijuana use for pain/appetite. 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 Follow. Plan Avoid chemical DVT proph due to biliary stent placement today. extensively updated at bedside today. Admission and Anticipated Discharge Date Admission Date: February 07, 2022 Subjective tele stable overnight patient irritable during the visit due to prolonged NPO status and waiting for tests at bedside discussed MRCP results and that he needs ERCP for likely biliary stent placement he did have a small BM this am - this relieved some of the abdominal pressure he had been feeling no vomiting denies dyspnea Review of Systems Review of Systems: gen - no fevers or chills cv - no cp, no orthopnea pulm - no dyspnea, no cough skin - mild pruritis Physical Exam Physical Exam: gen - NAD, mildly anxious/upset this am mouth - icterus; MMM eyes - icteric sclera neck - no JVD heart - RRR, s1 s2 lungs - CTA b/l abd - soft, ND, mildly tender mid-abdomen, BS+, no peritoneal signs ext - no edema, pulses 2+ b/l skin - jaundice to abdomen; port L upper chest clean Results & Data Results & Data ([facility]) Vital Signs (Past 12 Hours) Vital Signs Temp Pulse Pulse Pulse Resp BP BP 02/08/22 21:42 57 L 157/74 H 02/08/22 19:48 36.4 C L 68 17 161/87 H 02/08/22 19:30 58 L 12 177/70 H 02/08/22 19:20 59 L 15 178/92 H 02/08/22 19:10 58 L 13 186/91 H 02/08/22 19:00 62 18 165/95 H 02/08/22 18:50 58 L 14 179/91 H 02/08/22 18:40 55 L 16 178/98 H 02/08/22 18:30 55 L 18 179/99 H 02/08/22 18:10 52 L 16 196/98 H 02/08/22 18:20 56 L 19 189/96 H 02/08/22 18:00 58 L 12 193/95 H 02/08/22 17:50 60 16 201/92 H 02/08/22 17:40 56 L 19 179/93 H 02/08/22 17:30 62 17 188/92 H 02/08/22 17:22 36.0 C L 72 19 185/94 H 02/08/22 15:10 36.7 C 64 18 152/94 H Pulse Ox O2 Del Method O2 Flow Rate 02/08/22 21:42 02/08/22 19:48 98 Room Air 02/08/22 19:30 97 Room Air 02/08/22 19:20 99 Room Air 02/08/22 19:10 98 Room Air 02/08/22 19:00 99 Room Air 02/08/22 18:50 99 Room Air 02/08/22 18:40 98 Room Air 02/08/22 18:30 97 Room Air 02/08/22 18:10 96 Room Air 02/08/22 18:20 97 Room Air 02/08/22 18:00 97 Room Air 02/08/22 17:50 99 Room Air 02/08/22 17:40 100 Oxymask 3 02/08/22 17:30 100 Oxymask 6 02/08/22 17:22 100 Oxymask 6 02/08/22 15:10 98 Room Air Laboratory Results Laboratory Results - last 24 hr 02/08/22 02/08/22 02/08/22 06:02 08:26 10:48 PT INR Sodium 134 L Potassium 3.7 Chloride 103 Carbon Dioxide 21 Anion Gap 10 BUN 17 Creatinine 1.25 Est Cr Clr Drug Dosing Not Reportable Est GFR ( Amer) 68.6 Est GFR (Non-Af Amer) 59.2 BUN/Creatinine Ratio 13.6 Glucose 101 H POC Glucose 113 H Calcium 9.0 Total Bilirubin 14.0 H Direct Bilirubin Cancelled 8.4 H AST 76 H ALT 130 H Alkaline Phosphatase 131 H Total Protein 7.1 Albumin 3.4 Globulin 3.7 Albumin/Globulin Ratio 0.9 Lipase 20 02/08/22 02/08/22 02/08/22 12:17 14:16 17:21 PT 11.5 INR 1.1 Sodium Potassium Chloride Carbon Dioxide Anion Gap BUN Creatinine Est Cr Clr Drug Dosing Est GFR ( Amer) Est GFR (Non-Af Amer) BUN/Creatinine Ratio Glucose POC Glucose 114 H 185 H Calcium Total Bilirubin Direct Bilirubin AST ALT Alkaline Phosphatase Total Protein Albumin Globulin Albumin/Globulin Ratio Lipase 02/08/22 21:51 PT INR Sodium Potassium Chloride Carbon Dioxide Anion Gap BUN Creatinine Est Cr Clr Drug Dosing Est GFR ( Amer) Est GFR (Non-Af Amer) BUN/Creatinine Ratio Glucose POC Glucose 136 H Calcium Total Bilirubin Direct Bilirubin AST ALT Alkaline Phosphatase Total Protein Albumin Globulin Albumin/Globulin Ratio Lipase PG Care Time/CCT Total # of Minutes Spent Total Time Spent with Patient: Total time spent is greater than 50% in coordination of care (as documented) at patient's floor/unit and/or counseling patient: Coding Level of Care Code 42156 Subseq Hosp Care Lvl 2 Diagnoses Biliary obstruction K83.1 Elevated liver enzymes R74.8 Adenocarcinoma of gallbladder C23 Constipation K59.00 Acute urinary retention R33.8 Type 2 diabetes mellitus E11.9 Coronary artery disease I25.10 Ex-smoker Z87.891 Hyponatremia E87.1
[2022-02-09] MEDS: ONDANSETRON INJ 2 MG/ML 2 ML VIAL IV PRN (01:08)
[2022-02-09] MEDS ORDERED: CALCIUM CARBONATE 500 MG CHEWABLE TAB PO ONE (01:16)
[2022-02-09] MEDS ORDERED: SUCRALFATE 1 GM/10 ML UDC PO STA (03:34)
[2022-02-09] MEDS ORDERED: FAMOTIDINE 20 MG TAB PO STA (03:34)
[2022-02-09] MEDS ORDERED: MoRPHine SULFATE 2 MG/ML CARP IV STA (06:27)
[2022-02-09 06:47] LABS: Hematocrit (blood only) 36.5 % (40.1-51.0); Hemoglobin 12.1 g/dl (14.0-18.0); Mean Corpuscular Hemoglobin 31.8 pg (25.0-34.0); Mean Corpuscular Hgb Conc 33.2 g/dL (32.0-36.0); Mean Corpuscular Volume 96.1 fL (80.0-100.0); Mean Platelet Volume 10.4 fL (9.4-12.4); Platelet Count 169 K/uL (130-400); RDW Coefficient of Variation 19.1 % (11.5-14.5); RDW Standard Deviation 66.3 fL (36.4-46.3); White Blood Count 8.92 K/ul (4.8-10.8)
[2022-02-09 07:10] LABS: Alanine Aminotransferase 116 U/L (7-52); Albumin Level 3.4 gm/dl (3.4-5.0); Alkaline Phosphatase 148 U/L (34-104); Anion Gap 11 (3-11); Aspartate Aminotransferase 70 U/L (13-39); BUN Creatinine Ratio 16.2 (10-20); Blood Urea Nitrogen 22 mg/dl (6-23); Carbon Dioxide 20 mmol/L (21-32); Chloride 103 mmol/L (98-107); Est GFR (Non-African American) 53.5 ml/min; Globulin 3.5 gm/dl (2.5-4.0); Glucose 122 mg/dl (70-99(Fasting)); Potassium 4.1 mmol/L (3.5-5.1); Sodium 134 mmol/L (136-145); Total Protein 6.9 gm/dl (6.0-8.3)
[2022-02-09] MEDS: METOPROLOL TARTRATE 25 MG TAB PO SCH (08:24)
[2022-02-09] MEDS: TAMSULOSIN HCL 0.4 MG CAP PO SCH (08:24)
[2022-02-09] MEDS: POLYETHYLENE (MIRALAX) 17 GM PACK PO SCH ×2 (08:25→20:33)
[2022-02-09] MEDS: INSULIN ASPART PER UNIT SC SCH ×4 (08:26→21:53)
[2022-02-09] MEDS: NSS + 20MEQ KCL 20 MEQ/1,000 ML BAG IV SCH ×2 (08:28→15:47)
--- NOTE | 2022-02-09 11:15 | Gastroenterology Progress Note ---
Date of Service February 09, 2022 Assessment & Plan (1) Abnormal LFTs: Plan: Secondary to malignant obstruction of the CBD, stented, slight improvement in LFTs today. (2) Metastatic adenocarcinoma: (3) Constipation: Plan: Continue Miralax to BID. Add Dulcolax po QD prn no BM in 24 hrs. Plan Metastatic gallbladder adenocarcinoma, S/P cholecystectomy. Malignant stricture of the CBD, stented. Advance diet as tolerated. GI will watch peripherally. Admission and Anticipated Discharge Date Admission Date: February 07, 2022 Supervising Physician Co-Signing Physician Notes Attg add: I interviewed and examined pt, reviewed chart and labs. Pt with less abdominal pain. Bili is falling. OK for discharge. Subjective 66 yr old male metastatic adenocarcinoma of the gallbladder s/p wedge resection of liver and cholecystectomy in 2020, also w DM2, CAD s/p stext x4 in 2005, BPH, GERD, constipation . ERCP yesterday suggestive of mets to intrahepatic bile ducts/upper CBD. Metal stent placed. Pt resting comfortably this morning. LFTs slightly improved this morning T bili 14 yesterday 13 today. Review of Systems Review of Systems: ROS: Gen: + weight loss; Denies weakness, fevers Eyes: No eye redness, or pain, no recent vision changes Resp: No SOB, no cough Cardio: No palpitations/irregular beats, no chest pain GI: See HPI, otherwise (-) : Davis cath in place x one week for bladder outlet obstruction per pt this is due to constipation Skin: + jaundice, + generalized itching; no other rashes Physical Exam Constitutional: well developed, well nourished, + ill appearing (chronically), + obese and well groomed Eyes: PERRL ENMT: external ear and nose normal, oropharynx normal Neck: trachea midline, no thyromegaly Respiratory: normal respiratory effort, lungs clear to auscultation Cardiovascular: RRR, no murmur, no edema Gastrointestinal (Abdomen): Inspection/Auscultation: abdomen normal to inspection and + hypoactive bowel sounds; abdomen not distended and no abdominal edema Percussion/Palpation: + abdomen tender (suprapubic area, mild) and abdomen soft; no splenomegaly Skin: + jaundice; no ulcers and no wound Neurologic: PERRL, EOMI, accommodation nl, no face palsy, no dysarthria Psychiatric: A+Ox3, euthymic affect Lymphatic: no cervical or axillary lymphadenopathy Results & Data ([facility]) Vital Signs (Past 12 Hours) Vital Signs Temp Pulse Pulse Resp BP Pulse Ox O2 Del Method 02/09/22 11:03 36.5 C 60 20 159/87 H 96 Room Air 02/09/22 07:18 66 02/09/22 06:09 36.3 C L 58 L 18 160/82 H 98 Room Air 02/09/22 03:19 36.3 C L 75 18 152/84 H 95 Room Air 02/09/22 00:08 36.5 C 56 L 16 132/71 98 Room Air Laboratory Results WBC 8.9, Hb 12.1, HCT 36.5, PLT S169, NA 134, K4.1, CL 103, CO2 20, BUN 22, CR 1.36, glucose 122, TB 13, AST 70, ALT 116, alk phos 149. Diagnostic Findings See ERCP report 02/08/22.
[2022-02-09] MEDS ORDERED: HYDROmorphone INJ 0.5 MG/0.5 ML SYR IV PRN (13:14)
[2022-02-09] MEDS: LACTATED RINGER'S 1,000 ML IV SCH ×2 (15:39→23:12)
[2022-02-09] MEDS: PANTOprazole 40 MG TAB PO SCH (20:33)
--- NOTE | 2022-02-09 21:30 | Hospitalist Progress Note ---
Date of Service February 09, 2022 Assessment & Plan (1) Biliary obstruction: Plan: POD #1 s/p ERCP Obstructyion 2nd to cancer related stricture seen in the proximal CBD. As per the op note -- "The upper third of the main bile duct contained a single severe stenosis just below the bifurcation of the anterior and posterior right hepatic duct. The right main hepatic duct and right intrahepatic branches were diffusely dilated." Stent placed in CBD. Stent placed in pancreatic duct as well. No cholangitis seen. Blood cx's remain negative to date. LFTs modestly improved overnight & should cont to improve. Unfortunately has evidence of #2 below. Appreciate GI assistance today. LFTs in am. (2) Post-ERCP acute pancreatitis: Plan: Restrict diet to clears. Change IV fluids to LR at 150cc/hr. Repeat lipase/lfts am. (3) Elevated liver enzymes: Plan: 2nd to biliary obstruction as in #1 above. Repeat LFTs in am. Hold aspirin due to ERCP yesterday. (4) Adenocarcinoma of gallbladder: Plan: Initial dx 01/2021 when path from his lap clarisa returned with adenocarcinoma of gall bladder. Following initial dx referred to Dr Tolentino at [facility]. Underwent diagnostic laparoscopy with omental biopsy and removal of liver segments 4b and 5. Biopsy consistent with metastatic disease. Initiated systemic chemo 04/[address] Ghassan Tidwell. Now following with Dr Hassan. Last chemo was one month ago. Now with biliary obstruction as in #1 above. s/p ERCP with CBD stent. Will resume chemo post-discharge. (5) Constipation: Plan: Improved. Cont bowel maintenance with miralax BID. (6) Acute urinary retention: Plan: s/p recent bee catheter placement 02/03. Prostate enlarged on CT imaging c/w BPH. Is on flomax. Consider finasteride. Consider voiding trial before discharge. U/a noted. (7) Type 2 diabetes mellitus: Plan: Not on any home medications. Novolog SSI. HbA1c last month 6.8%. (8) Coronary artery disease: Plan: S/p 4 stents in 2005 after an [place]. Hold aspirin due to biliary stent placement today. Cont metoprolol 25 mg daily. He is statin intolerant; thus, he is not on statin therapy chronically. (9) Ex-smoker: Plan: Quit smoking cigarettes in the past. Vapes regularly and endorses occasional marijuana use for pain/appetite. 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 Follow. Plan Avoid chemical DVT proph due to biliary stent placement. extensively updated at bedside today. Mild toxic encephalopathy - stop tramadol, stop morphine; use low-dose dilaudid 0.25mg IV q6h prn. PT, OT. Admission and Anticipated Discharge Date Admission Date: February 07, 2022 Subjective patient had worsening central abdominal pain post-ERCP overnight needed tramadol and morphine for such since receiving these the pain is better this pain is different than the pains he had been having at time of admission passing flatus had small stool again today tolerating liquid diet despite the pain he is a little confused this am during the visit tele wnl overnight Review of Systems Review of Systems: gen - no fevers cv - no cp pulm - no dyspnea or VILLAR GI - no vomiting Physical Exam Physical Exam: gen - NAD, modestly confused this am mouth - icterus; MMM eyes - icteric sclera neck - no JVD heart - RRR, s1 s2, no murmur lungs - CTA b/l abd - soft, ND, mildly tender centrally; BS+, no peritoneal signs ext - no edema, pulses 2+ b/l skin - jaundice to abdomen; port L upper chest clean Results & Data Results & Data ([facility]) Vital Signs (Past 12 Hours) Vital Signs Temp Pulse Pulse Resp BP Pulse Ox O2 Del Method 02/09/22 18:41 36.6 C 70 18 145/76 H 96 Room Air 02/09/22 16:08 56 L 02/09/22 14:38 36.5 C 61 18 149/78 H 96 Room Air 02/09/22 11:03 36.5 C 60 20 159/87 H 96 Room Air Laboratory Results Laboratory Results - last 24 hr 02/08/22 02/09/22 02/09/22 21:51 06:04 06:04 WBC 8.92 RBC 3.80 L Hgb 12.1 L Hct 36.5 L MCV 96.1 MCH 31.8 MCHC 33.2 RDW Std Deviation 66.3 H RDW Coeff of Isaiah 19.1 H Plt Count 169 MPV 10.4 Sodium 134 L Potassium 4.1 Chloride 103 Carbon Dioxide 20 L Anion Gap 11 BUN 22 Creatinine 1.36 Est Cr Clr Drug Dosing Not Reportable Est GFR ( Amer) 62.0 Est GFR (Non-Af Amer) 53.5 BUN/Creatinine Ratio 16.2 Glucose 122 H POC Glucose 136 H Calcium 9.0 Total Bilirubin 13.0 H AST 70 H ALT 116 H Alkaline Phosphatase 148 H Total Protein 6.9 Albumin 3.4 Globulin 3.5 Albumin/Globulin Ratio 1.0 Lipase 02/09/22 02/09/22 02/09/22 06:04 08:13 11:28 WBC RBC Hgb Hct MCV MCH MCHC RDW Std Deviation RDW Coeff of Isaiah Plt Count MPV Sodium Potassium Chloride Carbon Dioxide Anion Gap BUN Creatinine Est Cr Clr Drug Dosing Est GFR ( Amer) Est GFR (Non-Af Amer) BUN/Creatinine Ratio Glucose POC Glucose 132 H 131 H Calcium Total Bilirubin AST ALT Alkaline Phosphatase Total Protein Albumin Globulin Albumin/Globulin Ratio Lipase 4783 H 02/09/22 02/09/22 16:26 20:08 WBC RBC Hgb Hct MCV MCH MCHC RDW Std Deviation RDW Coeff of Isaiah Plt Count MPV Sodium Potassium Chloride Carbon Dioxide Anion Gap BUN Creatinine Est Cr Clr Drug Dosing Est GFR ( Amer) Est GFR (Non-Af Amer) BUN/Creatinine Ratio Glucose POC Glucose 105 H 110 H Calcium Total Bilirubin AST ALT Alkaline Phosphatase Total Protein Albumin Globulin Albumin/Globulin Ratio Lipase PG Care Time/CCT Total # of Minutes Spent Total Time Spent with Patient: Total time spent is greater than 50% in coordination of care (as documented) at patient's floor/unit and/or counseling patient: Coding Level of Care Code 41226 Subseq Hosp Care [facility] 3 Diagnoses Biliary obstruction K83.1 Post-ERCP acute pancreatitis K91.89; K85.90 Elevated liver enzymes R74.8 Adenocarcinoma of gallbladder C23 Constipation K59.00 Acute urinary retention R33.8 Type 2 diabetes mellitus E11.9 Coronary artery disease I25.10 Ex-smoker Z87.891 Hyponatremia E87.1
[2022-02-10] MEDS ORDERED: traMADol HCL 50 MG TABLET PO PRN (00:48)
[2022-02-10] MEDS: LACTATED RINGER'S 1,000 ML IV SCH ×2 (05:15→16:08)
[2022-02-10 06:36] LABS: Hematocrit (blood only) 31.5 % (40.1-51.0); Hemoglobin 10.6 g/dl (14.0-18.0); Mean Corpuscular Hemoglobin 32.8 pg (25.0-34.0); Mean Corpuscular Hgb Conc 33.7 g/dL (32.0-36.0); Mean Corpuscular Volume 97.5 fL (80.0-100.0); Mean Platelet Volume 10.3 fL (9.4-12.4); Platelet Count 129 K/uL (130-400); RDW Coefficient of Variation 18.8 % (11.5-14.5); RDW Standard Deviation 66.4 fL (36.4-46.3); Red Blood Count 3.23 M/uL (4.63-6.08); White Blood Count 6.24 K/ul (4.8-10.8)
[2022-02-10 07:19] LABS: Alanine Aminotransferase 80 U/L (7-52); Albumin Level 2.9 gm/dl (3.4-5.0); Alkaline Phosphatase 121 U/L (34-104); Anion Gap 5 (3-11); Aspartate Aminotransferase 49 U/L (13-39); BUN Creatinine Ratio 15.8 (10-20); Bilirubin,Total 7.9 mg/dl (0.2-1.0); Blood Urea Nitrogen 16 mg/dl (6-23); Calcium 8.5 mg/dl (8.5-10.1); Carbon Dioxide 24 mmol/L (21-32); Chloride 103 mmol/L (98-107); Est GFR (African American) 88.8 ml/min; Est GFR (Non-African American) 76.6 ml/min; Globulin 2.9 gm/dl (2.5-4.0); Glucose 109 mg/dl (70-99(Fasting)); Lipase 386 U/L (11-82); Potassium 3.9 mmol/L (3.5-5.1); Sodium 132 mmol/L (136-145); Total Protein 5.8 gm/dl (6.0-8.3)
[2022-02-10] MEDS: LOSARTAN POTASSIUM 25 MG TAB PO SCH (09:03)
[2022-02-10] MEDS: TAMSULOSIN HCL 0.4 MG CAP PO SCH (09:03)
[2022-02-10] MEDS: METOPROLOL TARTRATE 25 MG TAB PO SCH (09:04)
[2022-02-10] MEDS: POLYETHYLENE (MIRALAX) 17 GM PACK PO SCH ×2 (09:04→20:22)
[2022-02-10] MEDS: INSULIN ASPART PER UNIT SC SCH ×4 (09:08→21:36)
--- NOTE | 2022-02-10 20:33 | Hospitalist Progress Note ---
Date of Service February 10, 2022 Assessment & Plan (1) Biliary obstruction: Plan: POD #2 s/p ERCP Obstructyion 2nd to cancer related stricture seen in the proximal CBD. As per the op note -- "The upper third of the main bile duct contained a single severe stenosis just below the bifurcation of the anterior and posterior right hepatic duct. The right main hepatic duct and right intrahepatic branches were diffusely dilated." Stent placed in CBD. Stent placed in pancreatic duct as well. No cholangitis seen. Blood cx's remain negative to date. LFTs nicely improved today & should cont to improve now that obstruction is resolved. Per Dr Santos -- "Obtain KUB in 3 weeks to assure spontaneous migration of the PD stent, otherwise will need EGD for removal." Appreciate GI assistance. LFTs in am. (2) Post-ERCP acute pancreatitis: Plan: Clinically resolved. Advanced to full liquids today and tolerated. Thus, ok to move to low fat diet. Can stop fluids. (3) Elevated liver enzymes: Plan: 2nd to biliary obstruction as in #1 above. IMPROVING nicely. Repeat LFTs in am. Hold aspirin due to ERCP x 5 days then ok to resume. (4) Adenocarcinoma of gallbladder: Plan: Initial dx 01/2021 when path from his lap clarisa returned with adenocarcinoma of gall bladder. Following initial dx referred to Dr Tolentino at [facility]. Underwent diagnostic laparoscopy with omental biopsy and removal of liver segm ents 4b and 5. Biopsy consistent with metastatic disease. Initiated systemic chemo 04/[address] Ghassan Tidwell. Now following with Dr Hassan. Last chemo was one month ago. Now with biliary obstruction as in #1 above. s/p ERCP with CBD stent. Will resume chemo post-discharge. (5) Constipation: Plan: Improved. Cont bowel maintenance with miralax BID. (6) Acute urinary retention: Plan: s/p recent bee catheter placement 02/03. Prostate enlarged on CT imaging c/w BPH. Is on flomax. Consider finasteride. d/c bee in am tomorrow before d/c -- voiding trial. worst case scenario he needs bee placed back. (7) Type 2 diabetes mellitus: Plan: Not on any home medications. Novolog SSI. HbA1c last month 6.8%. (8) Coronary artery disease: Plan: S/p 4 stents in 2005 after an [place]. Hold aspirin due to biliary stent placement x 5 days. Cont metoprolol 25 mg daily. He is statin intolerant; thus, he is not on statin therapy chronically. (9) Ex-smoker: Plan: Quit smoking cigarettes in the past. Vapes regularly and endorses occasional marijuana use for pain/appetite. 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 Stable Na level. BMP am. Plan Avoid chemical DVT proph due to biliary stent placement. extensively updated by phone this evening. d/c tele. probable d/c tomorrow. Admission and Anticipated Discharge Date Admission Date: February 07, 2022 Subjective sharp pains he had had post-ERCP are resolved minimal abd discomfort - but, has good appetite and eating well wants to go home ambulating BSGs wnl upset about our hospital beds - very uncomfortable, not sleeping due to such tele overnight wnl Review of Systems Review of Systems: gen - no fevers; decent energy cv - no orthopnea pulm - no dyspnea GI - no vomiting or nausea; no diarrhea; moving bowels - back to normal Physical Exam Physical Exam: gen - NAD, previous confusion resolved mouth - icterus; MMM eyes - icteric sclera neck - no JVD heart - RRR, s1 s2, no murmur lungs - CTA b/l abd - soft, ND, NT, BS+, no peritoneal signs; no HSM ext - no edema, pulses 2+ b/l skin - jaundice to face/neck only Results & Data Results & [facility] ([facility]) Vital Signs (Past 12 Hours) Vital Signs Temp Pulse Pulse Resp BP Pulse Ox O2 Del Method 02/10/22 17:04 60 02/10/22 16:37 36.7 C 80 16 123/74 97 Room Air 02/10/22 11:10 36.5 C 57 L 20 129/74 97 Room Air Laboratory Results Laboratory Results - last 24 hr 02/10/22 02/10/22 02/10/22 06:18 06:18 07:26 WBC 6.24 RBC 3.23 L Hgb 10.6 L Hct 31.5 L MCV 97.5 MCH 32.8 MCHC 33.7 RDW Std Deviation 66.4 H RDW Coeff of Isaiah 18.8 H Plt Count 129 L MPV 10.3 Sodium 132 L Potassium 3.9 Chloride 103 Carbon Dioxide 24 Anion Gap 5 BUN 16 Creatinine 1.01 D Est Cr Clr Drug Dosing Not Reportable Est GFR ( Amer) 88.8 Est GFR (Non-Af Amer) 76.6 BUN/Creatinine Ratio 15.8 Glucose 109 H POC Glucose 111 H Calcium 8.5 Total Bilirubin 7.9 H AST 49 H ALT 80 H Alkaline Phosphatase 121 H Total Protein 5.8 L Albumin 2.9 L Globulin 2.9 Albumin/Globulin Ratio 1.0 Lipase 386 H 02/10/22 02/10/22 11:15 16:19 WBC RBC Hgb Hct MCV MCH MCHC RDW Std Deviation RDW Coeff of Isaiah Plt Count MPV Sodium Potassium Chloride Carbon Dioxide Anion Gap BUN Creatinine Est Cr Clr Drug Dosing Est GFR ( Amer) Est GFR (Non-Af Amer) BUN/Creatinine Ratio Glucose POC Glucose 119 H 100 H Calcium Total Bilirubin AST ALT Alkaline Phosphatase Total Protein Albumin Globulin Albumin/Globulin Ratio Lipase Diagnostic Findings blood cultures negative PG Care Time/CCT Total # of Minutes Spent Total Time Spent with Patient: Total time spent is greater than 50% in coordination of care (as documented) at patient's floor/unit and/or counseling patient: Coding Level of Care Code 95713 Subseq Hosp Care Lvl 2 Diagnoses Biliary obstruction K83.1 Post-ERCP acute pancreatitis K91.89; K85.90 Elevated liver enzymes R74.8 Adenocarcinoma of gallbladder C23 Constipation K59.00 Acute urinary retention R33.8 Type 2 diabetes mellitus E11.9 Coronary artery disease I25.10 Ex-smoker Z87.891 Hyponatremia E87.1
[2022-02-10] MEDS: PANTOprazole 40 MG TAB PO SCH (21:03)
[2022-02-10] MEDS: ONDANSETRON INJ 2 MG/ML 2 ML VIAL IV PRN (21:13)
[2022-02-10] MEDS: HEPARIN 100 UNIT/ML 5ML FLUSH FLUSH PRN (21:20)
[2022-02-11] MEDS ORDERED: ALUMINUM/MAGNESIUM SUSP 18 ML, LIDOCAINE VISCOUS 2% SOLN 6 ML, BARCODE IDENTIFIER 1 EACH PO ONE (02:30)
[2022-02-11 08:00] LABS: Basophils # (auto) 0.06 K/uL (0-0.2); Basophils % (auto) 0.9 %; Eosinophils # (auto) 0.24 K/uL (0-0.50); Eosinophils % (auto) 3.7 %; Hematocrit (blood only) 34.9 % (40.1-51.0); Hemoglobin 11.6 g/dl (14.0-18.0); Immature Granulocytes # (auto) 0.08 K/uL (0.00-0.02); Immature Granulocytes % (auto) 1.2 %; Lymphocytes # (auto) 1.01 K/uL (1.2-3.4); Lymphocytes % (auto) 15.8 %; Mean Corpuscular Hemoglobin 32.4 pg (25.0-34.0); Mean Corpuscular Hgb Conc 33.2 g/dL (32.0-36.0); Mean Corpuscular Volume 97.5 fL (80.0-100.0); Mean Platelet Volume 9.8 fL (9.4-12.4); Monocytes # (auto) 0.58 K/uL (0.24-0.82); Neutrophils # (auto) 4.44 K/uL (1.4-6.5); Neutrophils % (auto) 69.4 %; Platelet Count 155 K/uL (130-400); RDW Coefficient of Variation 19.2 % (11.5-14.5); RDW Standard Deviation 67.9 fL (36.4-46.3); Red Blood Count 3.58 M/uL (4.63-6.08); White Blood Count 6.41 K/ul (4.8-10.8)
[2022-02-11 08:34] LABS: Alanine Aminotransferase 84 U/L (7-52); Albumin Globulin Ratio 0.9 (0.9-2); Albumin Level 3.3 gm/dl (3.4-5.0); Alkaline Phosphatase 128 U/L (34-104); Anion Gap 8 (3-11); Aspartate Aminotransferase 61 U/L (13-39); BUN Creatinine Ratio 16.8 (10-20); Blood Urea Nitrogen 17 mg/dl (6-23); Calcium 8.9 mg/dl (8.5-10.1); Carbon Dioxide 23 mmol/L (21-32); Chloride 103 mmol/L (98-107); Est GFR (African American) 88.8 ml/min; Est GFR (Non-African American) 76.6 ml/min; Globulin 3.5 gm/dl (2.5-4.0); Glucose 111 mg/dl (70-99(Fasting)); Potassium 4.1 mmol/L (3.5-5.1); Sodium 134 mmol/L (136-145); Total Protein 6.8 gm/dl (6.0-8.3)
[2022-02-11] MEDS: INSULIN ASPART PER UNIT SC SCH ×2 (09:51→14:13)
[2022-02-11] MEDS: TAMSULOSIN HCL 0.4 MG CAP PO SCH (09:52)
[2022-02-11] MEDS: METOPROLOL TARTRATE 25 MG TAB PO SCH (09:52)
[2022-02-11] MEDS: LOSARTAN POTASSIUM 25 MG TAB PO SCH (09:52)
[2022-02-11] MEDS: POLYETHYLENE (MIRALAX) 17 GM PACK PO SCH (09:53)
--- NOTE | 2022-02-11 12:11 | Discharge Summary ---
Date of Service date of admission - February 07, 2022 date of discharge - February 11, 2022 Admission HPI Per Admitting Provider Konstantin Mckeon is a 66-year-old male with a past medical history significant for metastatic adenocarcinoma of the gallbladder s/p wedge resection of liver and ch olecystectomy, DM2, CAD s/p stext x4 in 2005, BPH, GERD, former cigarette smoker who now vapes 3 mg tobacco/day who presents to [facility] today as a direct admit for worsening liver function. He was diagnosed with GB cancer last fall after being admitted to our facility for gallstone pancreatitis, during hospitalization he underwent cholecystectomy and unfortunately pathology showed well-differentiated infiltrative adenocarcinoma, a diagnostic laparoscopy in March was performed and confirmed metastatic adenocarcinoma originating from the gallbladder. He underwent 6 rounds of chemotherapy, last session in August and had one cycle of maintenance chemotherapy in December. Prior to maintenance chemo, he received his COVID booster and Prevnar vaccine. Shortly after his first round of maintenance chemo, he felt very fatigued and had new VILLAR, tested positive on a home COVID test and was subsequently hospitalized here from 01/04 - 01/09 9 (COVID neg on admission) due to anemia and fever, both suspect to be due to chemotherapy. He also had a mild ANNA and hyponatremia. He was transfused with 2 units pRBCs, + PPI BID, treated with doxycycline due to chest CT revealing intralobular septal thickening with multifocal multilobar distribution of ill-defined groundglass densities and centrilobular nodular opacities suspected to be due to atypical pneumonia from recent COVID booster/infection. He also had elevated LFTs during this admission, T bili at 1.1, d bili 0.3, AST 62, ALT 80, alk phos within normal limits. It was suspected these were mildly elevated secondary to chemotherapy. Since then, he has seen his PCP several times, however has not undergone any more chemotherapy. He is also presented to the ED twice this discharge, once on 02/03 for abdominal fullness, constipation and urinary retention. CT A/P was obtained given his elevated LFTs (T bili 6.4, AST 101, ALT 216, alk phos 126) and history of metastatic cancer then, imaging revealed progression of metastatic disease, no other acute findings. He was otherwise stable, case was reviewed with radiology who felt MRCP was not warranted at that time, therefore patient was d/c'd home pain free with Bee catheter, MiraLAX daily, and advised to follow up with oncologist Dr. Hassan. He presented again yesterday, 02/06 with complaints of nausea , vomiting, and worsening acid reflux. Labs were significant for T bili of 11.2, AST 81, ALT 161, alk phos 131. As he had just had CT A/P performed 3 days prior, further imaging was deferred. He was given a GI cocktail and stable for discharge, again advised to follow up with oncology for further management of his GB adenocarcinoma. He met with Dr. Hassan yesterday and given his progression of symptoms since discharge on 01/09 and rising LFTs, she requested direct admission to obtain MRCP to identify possible obstruction causing worsening LFTs. Besides symptoms discussed above, he has has 2 episodes of vomiting in the past 3 days which seemingly came out of nowhere, not precipitated by meals. He has been without fever/chills, hemoptysis, abdominal pain, chets pain, palpitations, SOB, VILLAR, dysuria, or hematuria. Last BM was 3 days ago, he reports it was somewhat formed but soft and doss, without blood. He has been taking Miralax daily. Principal Diagnosis Biliary obstruction 2nd to stage 4 adenocarcinoma of the gall bladder s/p ERCP with CBD stent placement Discharge Exam gen - NAD, previous confusion resolved mouth - icterus; MMM eyes - icteric sclera neck - no JVD heart - RRR, s1 s2, no murmur lungs - CTA b/l abd - soft, ND, NT, BS+, no peritoneal signs; no HSM ext - no edema, pulses 2+ b/l skin - jaundice to face/neck only psych - a/o x 3 only Discharge Data Allergies Allergy/AdvReac Type Severity Reaction Status Date / Time oxycodone AdvReac Mild Unknown Verified 01/23/22 10:15 Loynwuj-PXC-GvL Reductase AdvReac Mild muscle Verified 01/23/22 10:15 Inhibitor aches [Hzzjguk-Axc-Aro Reductase Inhibitor] Consultations [facility] PT, OT Procedures Performed Operation Date: 02/08/22 09:00 Actual Procedures Endoscopic Retrograde Cholangiopancreatography with stent - Amanda Santos MD Impression: - A single severe malignant appearing biliary stricture was found in the upper third of the main bile duct with upstream ductal dilation. - A biliary sphincterotomy was performed. - One uncovered metal biliary stent was placed into the common bile duct. - One plastic pancreatic stent was placed into the ventral pancreatic duct to decrease risk of post-ERCP pancreatitis. Recs: : - Return patient to [facility] for ongoing care. - Obtain KUB in 3 weeks to assure spontaneous migration of the PD stent, otherwise will need EGD for removal. Ordered Studies KUB X-Ray 02/07/22 15:17 XR KUB/Abdomen 1 view CLINICAL HISTORY: n/v, no BM in 3 days, r/o obstruction TECHNIQUE: 1 view of the abdomen was obtained. Comparison: Comparison is made to abdomen radiograph 02/03/2022 FINDINGS: Surgical clips are again noted in the upper abdomen. Degenerative changes are seen in the visualized skeleton. The bowel gas pattern is nonobstructive. Small stool burden is seen. IMPRESSION: Nonobstructive bowel gas pattern. No evidence of large stool burden or fecal impaction. ACT 112: Negative or not required by law. Electronically signed by: Esteban Chávez M.D. 02/08/2022 9:47 AM Cholangiopancreatography MRI 02/07/22 15:26 MR MRCP HISTORY: elevated LFTs, hx of gallbladder adenocarcinoma TECHNIQUE: MRCP of the abdomen was performed without contrast according to standard department protocol. COMPARISON STUDY: Abdomen and pelvis CT 02/03/2022. FINDINGS: The lung bases appear clear. There is moderate intrahepatic bile duct dilatation which is slightly progressed. There is abrupt cut off at the confluence of the extrahepatic bile ducts with a focal 1 cm defect between the common bile duct and extra hepatic ducts. The mid to distal common bile duct is normal in caliber measuring 3 mm. The main pancreatic duct is also normal in caliber. The abrupt cut off at the confluence of the intrahepatic ducts appears to be due to abnormal soft tissue thickening at the javy hepatis and along the undersurface of the gallbladder fossa/right hepatic lobe. This is consistent with metastatic disease. The spleen, adrenal glands, kidneys, and pancreas unremarkable. Moderate size fat-containing midline ventral hernia. Visualized loops of bowel show no wall thickening or obstruction. Prior cholecystectomy. IMPRESSION: 1. There is focal obstruction at the confluence of the extra hepatic ducts due to the abnormal soft tissue/metastatic disease at this location. This accounts for the moderate intrahepatic bile duct dilatation which has slightly progressed. 2. The common bile duct is normal in course and caliber. 3. Additional metastatic soft tissue deposits seen within the gallbladder fossa and along the undersurface of the right hepatic lobe are again noted. ACT 112: Negative or not required by law. Electronically signed by: Harsh Bañuelos M.D. 02/08/2022 11:47 AM Endo Retro Cholangiopancreatogram 02/08/22 16:00 FL ERCP biliary ductal CLINICAL HISTORY: EXPLORE DUCTS COMPARISON STUDY: CT of the abdomen and pelvis February 03, 2022. MRCP February 07, 2022. FLUOROSCOPY TIME: 2 minutes and 16 seconds. FLUOROSCOPIC IMAGES: 13 FINDINGS: Fluoroscopy was provided during ERCP. These images demonstrate cannulation of the common bile duct. High-grade structure within the common hepatic duct was noted. A metallic wall stent traversing the stricture was placed. This is well positioned. Pancreatic duct stent was also placed. IMPRESSION: Fluoroscopy provided during ERCP with placement of a metallic biliary stent and a pancreatic duct stent. ACT 112: Negative or not required by law. Electronically signed by: Camden Dahl M.D. 02/08/2022 7:19 PM Hospital Course (1) Biliary obstruction: METASTATIC ADENOCARCINOMA OF GALL BLADDER was the cause of his BILIARY OBSTRUCTION. Patient presented with worsening jaundice and various GI symptoms including abdominal pain, constipation and dyspepsia. Total bilirubin at time of presentation was 11.8, peaking at 14. Bilirubin had been <1 in early January 2022. Blood cultures were drawn and remained negative during his stay. He underwent MRCP showing obstruction in the proximal CBD. [facility] was consulted, and on 02/08/22 he underwent ERCP by Dr Amanda Santos. Dr Santos identified a cancer-related stricture seen in the proximal CBD. As per the op note -- "The upper third of the main bile duct contained a single severe stenosis just below the bifurcation of the anterior and posterior right hepatic duct. The right main hepatic duct and right intrahepatic branches were diffusely dilated." Stent was placed in the CBD. Stent was placed in the pancreatic duct as well. No cholangitis was seen. Following ERCP his LFTs improved nicely. Total bilirubin fell to 7 by time of discharge. Per Dr Santos a KUB x-ray will need to be obtained in 3 weeks to assure spontaneous migration of the PD stent. If it hasn't migrated it will need to be removed. Patient was advised to have repeat LFTs within 5-7 days of discharge to ensure they continue to improve. He should hold his aspirin through 02/13/22. (2) Post-ERCP acute pancreatitis: Patient had short-lived post-ERCP induced acute pancreatitis. Peak lipase level was 4783, falling to 120 prior to discharge. He needed a brief period of diet restriction for such. Abdominal pain from the pancreatitis resolved by the time of discharge. He was tolerating a low-fat diet before discharge, and was advised to follow a low-fat diet potentially indefinitely. (3) Elevated liver enzymes: 2nd to biliary obstruction as in #1 above. IMPROVING nicely s/p ERCP. Repeat LFTs within a week of discharge will be needed. (4) Adenocarcinoma of gallbladder: METASTATIC ADENOCARCINOMA OF GALL BLADDER CAUSING BILIARY OBSTRUCTION Initial dx 01/2021 when path from his lap clarisa returned with adenocarcinoma of gall bladder. Following initial dx referred to Dr Tolentino at [facility]. Underwent diagnostic laparoscopy with omental biopsy and removal of liver segments 4b and 5. Biopsy consistent with metastatic disease. Initiated systemic chemo 04/[address] Ghassan Tidwell. Now following with Dr Enedina Hassan. Last chemo was ~one month ago. Now with biliary obstruction as in #1 above. s/p ERCP with CBD stent. Will resume chemo post-discharge under Dr Hassan's care. (5) Constipation: Improved. Cont bowel maintenance with miralax BID. (6) Acute urinary retention: s/p recent bee catheter placement 02/03/22. Prostate enlarged on CT imaging c/w BPH. Is on flomax. Consider finasteride. Bee was removed the AM of 02/11/22 and passed his voiding trial with PVR <50cc. (7) Type 2 diabetes mellitus: Not on any home medications. Control was very good while here. Most recent HbA1c 6.8%. (8) Coronary artery disease: s/p 4 stents in 2005 after an [place]. Hold aspirin due to biliary stent placement x 5 days (can resume 02/13/22). Cont metoprolol 25 mg daily. He is statin intolerant; thus, he is not on statin therapy chronically. (9) Ex-smoker: Quit smoking cigarettes in the past. Vapes regularly and endorses occasional marijuana use for pain/appetite. 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 Stable Na level of 134 at discharge. (11) GERD (gastroesophageal reflux disease): Omeprazole dose was increased from 20mg to 40mg daily. Plan Patient was ambulating well at time of discharge and will return home with his . Total Time Total Time Spent Total Time Spent (In Minutes): 45 Discharge Plan Discharge Items Patient Disposition: Home - Self-Care Reason For Visit: BILIARY OBSTRUCTION Discharge Diagnosis: 1. Common bile duct obstruction - resolved; placement of stent by Dr Santos, [facility]. 2. Abnormal liver function tests - resolving; was due to common bile duct obstruction. 3. Recent urinary retention with bee placement - resolved, bee is discontinued. Activity: Resume your previous activity Activity Comment: as tolerated Non-emergency contact: Primary Care Provider, County Administrator and Oncologist Call non-emergency contact if: you have any medication questions, your symptoms worsen, your pain is not controlled, your pain is worsening, your pain is unusual for you and you have a fever Follow-up/Referrals: Alysia Espinal MD [Primary Care Provider] - 02/24/22 3:00 pm (1-2 weeks for follow-up ) Amanda Santos MD [Physician] - (you will need a repeat x-ray of your abdomen to check your stents in 3 weeks; please call Dr Santos's office this coming 02/14/22, to arrange this follow-up. ) Enedina Hassan MD [Physician] - (please call Dr Hassan's office on 02/14/22, to arrange follow-up) Diet: Carb Consistent or DM2 and Low Fat Addtl Attending Provider Instructions: Mr Mckeon, Mino were admitted to [facility] for abdominal discomforts, constipation, and elevated liver function tests. An MRI of your bile ducts and liver showed that your main bile duct (common bile duct) was blocked due to your cancer. Dr [facility] in consult and performed "ERCP" proc edure. During the ERCP he placed 2 stents -- 1 went into the common bile duct to relieve the blockage; another stent went into your pancreatic duct. The stent in your bile duct allowed your liver functions to start to improve. Your jaundice (yellowing of the skin) improved later in the stay and should continue to get better. Unfortunately you had "ERCP induced pancreatitis" (irritation of the pancreas as a result of the ERCP procedure). This is not an uncommon side effect of the procedure. It improved very quickly, and your pancreas test in the blood (also known as lipase level) is nearly normal on day of discharge. You were resumed on a diet and this was advanced to a low-fat diet. You are tolerating this well at time of discharge. Finally, your bee catheter was removed the morning of 02/11/22. You voided after the catheter was removed and the bladder scan was normal (no retention of urine). Recommendations - 1. low-fat diet -- see handout. 2. start losartan 25mg once daily for your high blood pressure. New prescription sent to your pharmacy for you. 3. ondansetron 4mg every 6 hours as needed for nausea or vomiting. 4. HOLD YOUR ASPIRIN TODAY AND ALSO 02/12/22. YOU CAN RESUME YOUR BABY ASPIRIN ON 02/13/22. 5. DO NOT TAKE ANY MOTRIN, IBUPROFEN, ALLEVE, NAPROSYN AT THIS TIME. 6. For heartburn - please increase your omeprazole to 40mg once daily. New prescription sent to your pharmacy for you. 7. For constipation - miralax once or twice daily. Shoot for 1 soft bowel movement every 1-2 days. New prescription sent to your pharmacy for you. Follow-up - 1. call Dr Hassan's office on Sunday to arrange follow-up for your cancer treatment 2. call Dr aSntos's office on Sunday to arrange the x-ray of your abdomen you will need in 3 weeks Return to [facility] if - * you have fevers over 100 degrees * you have worsening abdominal pain * you have severe constipation or severe diarrhea * you have vomiting unresponsive to your anti-vomiting medication * you have difficulty breathing or chest pains * you have worsening yellowing of your skin (usually starts on the head and spreads downward to the chest, then abdomen, then legs, etc) * you develop recurrent issues with urinary retention / inability to pass your urine * any other concerns It was our pleasure to care for you! Dr Strauss Pending Studies at Discharge: No Stand-Alone Forms: My [facility], Smoking Cessation Medications and DC Order Prescriptions: New losartan 25 mg Tablet 25 mg PO QAM Qty: 30 2RF Rx Instructions: for high blood pressure ondansetron 4 mg tablet,disintegrating 4 mg PO Q6H PRN (Reason: nausea and vomiting) Qty: 10 0RF Continued aspirin 81 mg tablet,delayed release (DR/EC) 81 mg PO QAM metoprolol tartrate 25 mg tablet 25 mg PO QAM tamsulosin 0.4 mg capsule 0.4 mg PO DAILY Qty: 90 3RF nitroglycerin 0.4 mg tablet, sublingual 0.4 mg sublingual Q5M PRN (Reason: Chest Pain) tramadol 50 mg tablet 50 mg PO Q8H PRN (Reason: pain, severe) Qty: 20 0RF polyethylene glycol 3350 [Miralax] 17 gram/dose powder 17 g PO DAILY Qty: 510 1RF Changed omeprazole 40 mg capsule,delayed release(DR/EC) 40 mg PO DAILY Qty: 30 2RF Discharge Orders: Discharge Order (Routine); Ordered 02/11/22 Ordered By: Morris Green/Other Patient Handouts: ED Diet, Low Fat Admission Data Admit Date/Time: 02/07/22 12:49 Attending Provider: Morris Strauss Admit Provider: Morris Strauss Primary Care Provider: Alysia Espinal Other Providers: Caleb Garza Other Interventions: Discharge Summary Assessment (RN) Last Done: 02/11/22 14:10 Coding Level of Care Code D/C DAY MANAGEMENT >30 MINS Diagnoses Biliary obstruction K83.1 Post-ERCP acute pancreatitis K91.89; K85.90 Elevated liver enzymes R74.8 Adenocarcinoma of gallbladder C23 Constipation K59.00 Acute urinary retention R33.8 Type 2 diabetes mellitus E11.9 Coronary artery disease I25.10 Ex-smoker Z87.891 Hyponatremia E87.1 GERD (gastroesophageal reflux disease) K21.9
[2022-02-11] MEDS: HEPARIN 100 UNIT/ML 5ML FLUSH FLUSH PRN (14:45)
== END 2022-02-11 15:00 | disposition home or self-care (01) | DRG 374 ==
LOC: 2N 12:49 → 3W 02-10 18:45

== ENCOUNTER 2022-05-18 22:35 | Inpatient (IN) ==
--- NOTE | 2022-05-18 22:50 | Emergency Department Note ---
Impression & Plan Adenocarcinoma of gallbladder, Fever, Cancer associated pain, SVT (supraventricular tachycardia), Acute hypotension ED Provider Note NAME: DESIRAE MATTHEW AGE: 66 SEX: M : 1955 ARRIVES VIA: Ambulance INFORMANT: Patient, EMS ED PROVIDER(S): Severiano Howell DO CHIEF COMPLAINT: Altered mental status HPI: The patient is a 66-year-old male who has a history of metastatic cholangiocarcinoma who presented to the emergency department for an evaluation of altered mental status. According to the EMS personnel the patient had a syncopal episode. After the syncopal episode he was found to have an altered mental status. His family members did give him his pain medication which included morphine and methadone. The patient himself states he has pain all over. He denies having any fever. He denies having any cough. He states he has chest pain as well as abdominal pain. He also has back pain. I received 3 prehospital medical command calls about this patient prior to arrival. The family tried to contact the hospice nurse 3 times but they were unable to have the patient evaluated at home so the decision was made to bring the patient to the emergency department but they were very adamant that they do not want any interventions at this time. ROS: See above HPI for pertinent positives & negatives. A total of 10 systems reviewed and were otherwise negative. PAST MEDICAL HISTORY: See Below PAST SURGICAL HISTORY: See Below FAMILY HISTORY: See Below SOCIAL HISTORY: See Below HOME MEDICATIONS: See Below ALLERGIES: See Below VITALS: See Below PHYSICAL EXAMINATION: GENERAL: The patient is awake and very anxious appearing. EYES: The conjunctivae are clear. The pupils are round and reactive. EARS, NOSE, MOUTH AND THROAT: The nose is without any evidence of any deformity. Mucous membranes are dry. NECK: The neck is nontender and supple. RESPIRATORY: Diminished breath sounds are noted throughout. Tachypnea was noted. CARDIOVASCULAR: Tachycardic and regular heart sounds were noted auscultation. There is no definite murmur. GASTROINTESTINAL: The abdomen was distended. There is diffuse tenderness to palpation but no guarding rigidity. MUSCULOSKELETAL/EXTREMITIES: There is no evidence of gross deformity full range of motion is noted in the hips and shoulders. SKIN: The skin is cool and dry. There is trace pedal edema bilaterally. NEUROLOGIC: Patient is awake and oriented to person place and situation. Strength was symmetric. MEDICAL DECISION MAKING: The patient is a 66-year-old male who presented to the emergency department for an evaluation of pain. The patient had a syncopal episode at home. His states that he has not been eating very well especially over the course the last few days. He is hardly had anything to drink. Upon arrival his was requesting very little intervention including laboratory and radiographic studies. The patient did receive IV fluids in the emergency department. He received IV antiemetics as well as IV adenosine for the SVT. He would break from the SVT but then go right back into it. I discussed the patient's condition with his significant other. I also discussed his case with the on- call [facility]. They have agreed to evaluate the patient in the emergency department for further management and disposition. Triage Nursing notes reviewed. Prior medical records reviewed Vital Signs: reviewed and remarkable for hypotension, tachycardia, fever and tachypnea. Differential diagnosis: Infection, hypoglycemia, electrolyte abnormalities, overdose, toxicologic, cardiac sources, intracerebral event, neurologic, trauma, as well as other pathologies. ER treatment provided: See below Diagnostics interpreted by me: ECG: none Cardiac Monitoring: An order was placed for continuous cardiac monitoring. The monitor shows a rate of 200 bpm with narrow complex tachycardia. SVT. Laboratory studies: As stated above and show below. Imaging studies: See below Consultation(s): I discussed this case with Dr. Guzman who is on-call for the [facility] group. ED COURSE: The patient's arrived at the emergency department to be with him. We reviewed with the patient would not want to receive. At this time we have compromised on IV fluids IV pain medication chest x-ray and we are going to attempt to cardiovert chemically the SVT. Procedures: none Critical Care: I have personally spent greater than 35 minutes of critical care time in the direct management of this patient. This includes bedside care, interpretation of diagnostic studies, and testing, discussion with consultants, patient, and family members, and other required patient management activities. This 35 minutes is in excess of all separately billable procedures. Past Med/Surg History Medical History Acute gallstone pancreatitis Acute urinary retention Adenocarcinoma of gallbladder Biliary obstruction Constipation Coronary artery disease Coronary atherosclerosis of [place] coronary vessel Elevated liver enzymes Esophageal reflux Ex-smoker Hyponatremia Metastatic adenocarcinoma Myocardial infarction 2005 stents x 4 [facility] Post-ERCP acute pancreatitis Statin intolerance Type 2 diabetes mellitus Surgical History History of arthroscopy of knee History of heart artery stent x4 at [facility] History of surgery of liver due to gallbladder cancer and lymph nodes involved Hx of arthroscopy of shoulder left Port-A-Cath in place (05/04/21) Insertion Access Port with Fluoroscopy- Jd Del Angel DO 05/04/2021 S/P laparoscopic cholecystectomy 02/06/2021: Grade 2 view, MAC#3, ETT#7.5, atraumatic x 1. No issues per anesthesia progress note. Family History Father Heart disease Myocardial infarction Mother Heart disease Myocardial infarction Denies family history of Ovarian cancer Prostate cancer Breast cancer Colorectal cancer Social History Smoking Status: Unknown if ever smoked Tobacco Type: E-cigarettes / Vaping Second Hand Exposure: No; Hx Alcohol Use: No Hx Substance Use: No Preferred Language: [place] Communication Ability: Effective Visual Impairment: Partially Limited Overlock Hemmer Required: No Beliefs That Will Affect Care: None marital status: Current Living Situation: Spouse current occupational status: unemployed Feels Safe at Home: Yes Dental Care, Regularly: Yes Physical Activity Frequency: 3-4 Times per Week Seatbelt Use: always Sunscreen Use: Yes Assistive Devices: Glasses Allergies Allergies Allergy/AdvReac Type Severity Reaction Status Date / Time oxycodone AdvReac Mild Unknown Verified 05/06/22 19:32 Hfowtxk-VNI-MbM Reductase AdvReac Mild muscle Verified 05/06/22 19:32 Inhibitor aches [Esiyftl-Lqn-Yrx Reductase Inhibitor] Home Meds Home Medications Medication Instructions Recorded Confirmed nitroglycerin 0.4 mg sublingual 0.4 mg sublingual Q5M PRN Chest 02/05/21 05/18/22 tablet Pain acetaminophen 650 mg rectal 650 mg AK Q4 PRN Fever Or Pain 05/18/22 05/18/22 suppository haloperidol lactate 2 mg/mL oral 1 mg PO Q4 PRN 05/18/22 05/18/22 concentrate nausea/vomiting/agitation methadone 10 mg/mL oral concentrate 2.5 mg PO BID 05/18/22 05/18/22 morphine concentrate 100 mg/5 mL 5 mg PO .Q 2 HOURS PRN pain or SOB 05/18/22 05/18/22 (20 mg/mL) oral solution ondansetron HCl 8 mg tablet 8 mg PO Q6 PRN nauea/vomiting 05/18/22 05/18/22 Previous Rx's Medication Instructions Recorded finasteride 5 mg tablet 5 mg PO DAILY #90 tabs 03/03/22 tamsulosin 0.4 mg capsule 0.4 mg PO DAILY #90 caps 03/03/22 Results & Data (ED) Vital Signs Vital Signs - 24 hr 05/18/22 22:47 05/18/22 23:13 05/18/22 23:00 Temperature 38.4 C H Temperature Source Axillary Pulse Rate 200 H 189 H Pulse Rate from SpO2 Sensor 191 H Respiratory Rate 48 H 35 H Blood Pressure 74/59 L 79/49 L Blood Pressure Mean 64 59 Pulse Oximetry 93 100 97 Oxygen Delivery Method Room Air Non-rebreather Oxygen Flow Rate 15 Sepsis Recent Fever Within 48 Hours Yes Sepsis New/Unexplained Change in Mental Status No Sepsis Action Taken by Nursing Physician Notified Home Medications Current Medication List: was personally reviewed by me Laboratory Data Attestation: I reviewed the patient's lab results. Administered Medications Sodium Chloride (Nss 1000ml) 1,000 mls @ 999 mls/hr IV .Q1H1M ONE Stop: 05/18/22 23:54 Last Admin: 05/18/22 23:10 Dose: 999 mls/hr Documented By: ALFREDITO Discontinued Medications Adenosine (Adenosine Iv Soln 3 Mg/Ml 2 Ml Vial) 6 mg IV NOW STA Stop: 05/18/22 22:55 Last Admin: 05/18/22 23:22 Dose: 6 mg Documented By: ALFREDITO Acetaminophen (Ofirmev) 1,000 mg in 100 mls @ 400 mls/hr IV NOW STA Stop: 05/18/22 23:09 Last Infusion: 05/18/22 23:26 Dose: 0 mls/hr Documented By: Admin: 05/18/22 23:10 Dose: 400 mls/hr Documented By: ALFREDITO Ondansetron HCl (Ondansetron Inj 2 Mg/Ml 2 Ml Vial) 4 mg IV NOW STA Stop: 05/18/22 22:55 Last Admin: 05/18/22 23:10 Dose: 4 mg Documented By: Imaging Data Attestation: I personally reviewed and interpreted this imaging study as follows: My Impression: 1 view chest x-ray was obtained in the emergency department. No acute disease was appreciated. There was no free air, no definite infiltrate. Discharge Plan Visit Data Chief Complaint: Confusion Stated Complaint: AMS ED Provider: Severiano Howell Discharge Problem: Adenocarcinoma of gallbladder, Fever, Cancer associated pain, SVT (supraventricular tachycardia), Acute hypotension Patient Disposition: Being Evaluated by Hospitalist Forms Stand Alone Forms: My [facility] Prescriptions Prescriptions: No Action tamsulosin 0.4 mg capsule 0.4 mg PO DAILY Qty: 90 3RF finasteride 5 mg tablet 5 mg PO DAILY Qty: 90 3RF acetaminophen 650 mg suppository 650 mg AK Q4 MDD 4 doses PRN (Reason: Fever Or Pain) methadone 10 mg/mL concentrate 2.5 mg PO BID haloperidol lactate 2 mg/mL concentrate 1 mg PO Q4 PRN (Reason: nausea/vomiting/agitation) Rx Instructions: may use po or sl ondansetron HCl 8 mg tablet 8 mg PO Q6 PRN (Reason: nauea/vomiting) morphine concentrate 100 mg/5 mL (20 mg/mL) solution 5 mg PO .Q 2 HOURS PRN (Reason: pain or SOB) Rx Instructions: 0.25 ml dose...may use po or sl nitroglycerin 0.4 mg tablet, sublingual 0.4 mg sublingual Q5M PRN (Reason: Chest Pain) Referrals Referrals: Alysia Espinal MD [Primary Care Provider] -
[2022-05-18] MEDS ORDERED: ONDANSETRON INJ 2 MG/ML 2 ML VIAL IV STA (22:54)
[2022-05-18] MEDS ORDERED: SODIUM CHLORIDE 0.9% 1000ML 1,000 ML IV ONE (22:54)
[2022-05-18] MEDS ORDERED: ADENOSINE IV SOLN 3 MG/ML 2 ML VIAL IV STA (22:54)
[2022-05-18] MEDS ORDERED: ACETAMINOPHEN 1,000 MG/100 ML VIAL IV STA (22:55)
[2022-05-18] MEDS ORDERED: POTASSIUM CHLORIDE / WTR 10 MEQ/100 ML PLCT IV SCH (23:45)
[2022-05-18] MEDS ORDERED: MAGNESIUM SULFATE / D5W 1 GM/100 ML BAG IV SCH (23:45)
[2022-05-18] MEDS: HYDROmorphone INJ 0.5 MG/0.5 ML SYR IV PRN (23:58)
--- NOTE | 2022-05-19 00:18 | Hospitalist Consultation ---
Date of Consultation May 19, 2022 Assessment & Plan (1) Comfort measures only status: Konstantin is a 66-year-old male with a history of metastatic cholangiocarcinoma on currently on hospice who presented to [facility] for altered mental status, syncope, and progressing pain, subsequently found to be profoundly hypotensive and in SVT on arrival. Extensive bedside discussion was held after the hospitalist service was consulted, and confirmed with family that Konstantin is to be DNR/DNI and on comfort-measures only. BULLDOGGER Status - Extensive discussion held with family RE: options in his presenting situation with treating disease/pursuing work-up, or focusing more on achieving comfort/reducing discomfort. They say that Konstantin has been in a lot of pain at home despite ongoing hospice measures. They would NOT like to pursue further work-up (including labs) or medical management intended to prolong life/treat disease, and would only like to focus on achieving comfort - knowing that this will likely result in his passing. - Goal (since pt cannot provide hx at this time, provided by ): Reduce pain, reduce need to interact with the medical system (if he does eventually leave). Has had many recent visits to hospitals because of pain. - Will admit the patient with comfort measures and case management aid if/when indicated - Continue home hospice medications, reduce frequency between morphine doses PRN, add Dilaudid for breakthrough pain - Stop invasive testing - labs, RX, regular VS checks - Comfort diet ordered - Palliative care consulted (2) Hypotension: Shock / Hypotension - Presented profoundly hypotensive, tachycardic (SVT), and febrile in the setting of metastatic disease, recent changes with antipsychotics/pain medications at home - Etiology is unclear given goals to abstain from further w/u. Possibly due to tachyarrhythmia/cardiogenic vs. distributive/septic shock/RX - BULLDOGGER as above. Stop IVF. (3) Supraventricular tachycardia: SVT - Appreciated in ED with rates >180 and HoTN - Adenosine 6mg pushed x 2 alongside IVF -- after further d/w family, would like to hold from further treatment (fluids, electrolyte repletion, adenosine, etc.) or aggressive measures - BULLDOGGER as above, hold from further cardiac monitoring (4) Adenocarcinoma of gallbladder: Adenocarcinoma of the Gallbladder - Status post wedge resection of the liver and CCY ; dz also possibly complicated by gastric outlet syndrome - [place] [facility] [place] ; ongoing hospice services at home per patient's - Extensive intraabdominal metastases which are the primary source of his pain at present Plan Code: DNR/DNI Dispo: with BULLDOGGER PPX: Not indicated at this time Diet: Comfort History of Present Illness History of Present Illness Konstantin is a 66-year-old male with a history of metastatic cholangiocarcinoma cu rrently on hospice who presented to [facility] for altered mental status, syncope, and progressing pain. His and daughter at the bedside, who provide history for him while he is very somnolent. Due to patient's critical condition, history was obtained as thoroughly but efficiently as possible. Konstantin has been on hospice for the last several weeks. He has been on Haldol for nausea, and morphine/methadone for his pain. His notes that they recently increased the dose of his Haldol, but not significantly. She said that as the day went on, he was getting up out of bed and very altered/confused. Then later in the evening, he became very somnolent and had a syncopal episode. Per ED provider, morphine and methadone was given at some point throughout the day to help control his pain. Given the notable changes in mentation today, the family did try to reach out to the hospice agency, but were unable to get a hold of them. Due to concerns that he was still in pain, they reported to the ER via EMS. In the ED, patient was found to be hypotensive, febrile, tachycardic, and tachypneic. He was started on intravenous fluids. According to the ER physician, family was adamant that they did not want any life-saving interventions that would prolong his life. This included drawing blood for testing of what may be going on in this situation. He was given 2 pushes of adenosine for SVT, which transiently converted him to sinus rhythm, but he then just recurred into this rhythm. At the bedside, his monitor revealed a profound hypotension with SVT as the rhy thm. He was febrile to 38.4 Fahrenheit. I introduced myself to his and his daughter, who speak on his behalf. I shared the critical nature of the situation, and they expressed understanding. I also noted that I am not exactly sure what is causing his instability given the limited work-up. I asked them what Konstantin would want in a situation like this. Initially said they were not sure ; however, they understand a part of the shared family human experience is getting to know someone, and based on their traits and recent wishes, being able to speak on their behalf. I asked them what a "good day "has look to Konstantin over the last several weeks on hospice. They both describe to me that a good day is being pain-free and not in any distress. Despite all their measures to achieve these goals through hospice at home, unfortunately he has still remained in quite a bit of pain. They describe that this is not what he wanted, to be in pain; he very much wanted to be comfortable and pain-free. Following this insight/conversation, I did ask about CODE STATUS. They said that they would not want, and he would not, CPR or intubation in his current situation; confirmed that he is a DNR/DNI. Proceeded to describe the various ways medicine can assist in a situation like this, where he is in a critical state; we could use our medicines to aggressively treat disease with an attempt to preserve quality of life when possible, or we could primarily use her medications to focus on achieving comfort and decreasing discomfort -- with an understanding that this often results in a person's passing (in a situation like this). I explained that medications like adenosine, electrolytes, and fluids would primarily be in assistance of the former than the latter, to which they agreedas he overall appeared comfortable right now, despite his vitals. This about one of the biggest concerns, as well as his, is returning to the hospital, being in an unfamiliar environment, and having test done that are not in alignment with achieving "good days." In this regard, they said that they would not like to pursue further workup or medical management to prolong life, and would like to focus on achieving comfort and reducing his discomfort during this time. "Comfort measures only" was formally discussed, and was initiated and communicated to the ER nurse and provider. Family understands that in choosing this route, he will ultimately pass away, likely in hours to days. On repeat assessments, patient is more comfortable and is able to tell me he continues to be in severe 8/10 pain. His shares with me that she doesn't have the resources to do this process at home. She shares that his primary objective is not to be in pain. --- This documentation was created utilizing dictation software. As such, syntax, grammatical, and word-choice errors may be present. Notes are screened prior to submission in an attempt to reduce these errors. If there are any questions or c oncerns, please contact the author directly for clarification. Allergies Allergy/AdvReac Type Severity Reaction Status Date / Time oxycodone AdvReac Mild Unknown Verified 05/06/22 19:32 Lfryaed-GRB-ZxQ Reductase AdvReac Mild muscle Verified 05/06/22 19:32 Inhibitor aches [Mdgqcng-Oxv-Gin Reductase Inhibitor] Home Medications Medication Instructions Recorded Confirmed Type nitroglycerin 0.4 mg sublingual 0.4 mg sublingual Q5M PRN Chest 02/05/21 05/18/22 History tablet Pain finasteride 5 mg tablet 5 mg PO DAILY #90 tabs 03/03/22 05/18/22 Rx tamsulosin 0.4 mg capsule 0.4 mg PO DAILY #90 caps 03/03/22 05/18/22 Rx acetaminophen 650 mg rectal 650 mg [place] Q4 PRN Fever Or Pain 05/18/22 05/18/22 History suppository haloperidol lactate 2 mg/mL oral 1 mg PO Q4 PRN 05/18/22 05/18/22 History concentrate nausea/vomiting/agitation methadone 10 mg/mL oral concentrate 2.5 mg PO BID 05/18/22 05/18/22 History morphine concentrate 100 mg/5 mL 5 mg PO .Q 2 HOURS PRN pain or SOB 05/18/22 05/18/22 History (20 mg/mL) oral solution ondansetron HCl 8 mg tablet 8 mg PO Q6 PRN nauea/vomiting 05/18/22 05/18/22 History Patient History Medical History (Updated 05/19/22 @ 01:00 by Arnulfo Strong MD) Acute gallstone pancreatitis Acute urinary retention Adenocarcinoma of gallbladder Biliary obstruction Constipation Coronary artery disease Coronary atherosclerosis of [place] coronary vessel Elevated liver enzymes Esophageal reflux Ex-smoker Hyponatremia Metastatic adenocarcinoma Myocardial infarction [address] [facility] Post-ERCP acute pancreatitis Statin intolerance Type 2 diabetes mellitus Surgical History History of arthroscopy of knee History of heart artery stent x4 at [facility] History of surgery of liver due to gallbladder cancer and lymph nodes involved Hx of arthroscopy of shoulder left Port-A-Cath in place (05/04/21) Insertion Access Port with Fluoroscopy- Jd Del Angel DO 05/04/2021 S/P laparoscopic cholecystectomy 02/06/2021: Grade 2 view, MAC#3, ETT#7.5, atraumatic x 1. No issues per anesthesia progress note. Family History Father Heart disease Myocardial infarction Mother Heart disease Myocardial infarction Denies family history of Ovarian cancer Prostate cancer Breast cancer Colorectal cancer Social History Smoking Status: Unknown if ever smoked Tobacco Type: E-cigarettes / Vaping Second Hand Exposure: No; Hx Alcohol Use: No Hx Substance Use: No Preferred Language: Chinese Communication Ability: Effective Visual Impairment: Partially Limited [employer] Required: No Beliefs That Will Affect Care: None marital status: Current Living Situation: Spouse current occupational status: unemployed Feels Safe at Home: Yes Dental Care, Regularly: Yes Physical Activity Frequency: 3-4 Times per Week Seatbelt Use: always Sunscreen Use: Yes Assistive Devices: Glasses Review of Systems Review of Systems: as per HPI Physical Exam Physical Exam: General: 66-year old male who is pale, appears ill, and is somnolent. Initially does not awaken to voice/touch. Eventually, he does wake up, say he's in "pain all over," but cannot answer any further questions. Not oriented, and falls in and out of alertness. HEENT: NCAT. - Eyes - Sclera are white, anicteric, and without injection. - Mouth - dry mucus membranes - Neck - supple, no appreciable JVD Cardiac: Rapid rate and indeterminate rhythm; S1 and S2 present with no murmurs, rubs, or gallops. Pulmonary: Increased respiratory effort with symmetric expansion of the chest. Lung sounds are coarse and diminished throughout, with some rhonchi near the bilateral bases. Abdominal: Normoactive bowel sounds. Abdomen was soft, mildly distended, but non-tender to palpation. Extremities: Upper and lower extremities are somewhat warm to the touch. Psych: Well-developed, well-nourished, appropriately dressed for occasion. Behavior is cooperative and appropriate. Affect is WNL. Insight is appropriate. Results & Data Results & Data ([facility]) Vital Signs (Past 12 Hours) Vital Signs Temp Pulse Resp BP Pulse Ox O2 Del Method O2 Flow Rate 05/18/22 23:00 189 H 35 H 79/49 L 97 05/18/22 23:13 100 Non-rebreather 15 05/18/22 22:47 38.4 C H 200 H 48 H 74/59 L 93 Room Air Resident Activity Tracking Resident Involvement: Resident Care Provided Care Provided: Adult Hospital Medicine
[2022-05-19] MEDS: HYDROmorphone INJ 0.5 MG/0.5 ML SYR IV PRN ×2 (00:29→01:33)
[2022-05-19] MEDS ORDERED: LORazepam 0.5 MG in SYRINGE 0 ML IV PRN (02:20)
[2022-05-19] MEDS ORDERED: chlorproMAZINE HCL 25 MG TAB PO PRN (02:20)
[2022-05-19] MEDS ORDERED: LORazepam 0.5 MG TAB PO PRN (02:20)
[2022-05-19] MEDS ORDERED: ONDANSETRON INJ 2 MG/ML 2 ML VIAL IV PRN ×3 (02:20→10:33)
[2022-05-19] MEDS ORDERED: GLYCOPYRROLATE 0.2 MG/ML VIAL IV PRN (02:20)
[2022-05-19] MEDS ORDERED: ONDANSETRON 8MG OD TAB PO PRN (02:31)
--- NOTE | 2022-05-19 02:52 | History & Physical Report ---
Date of Service May 19, 2022 Assessment & Plan (1) Comfort measures only status: Plan: Konstantin is a 66-year-old male with a history of metastatic cholangiocarcinoma on currently on hospice who presented to [facility] for altered mental status, syncope, and progressing pain, subsequently found to be profoundly hypotensive and in SVT on arrival. Extensive bedside discussion was held after the hospitalist service was consulted, and confirmed with family that Konstantin is to be DNR/DNI and on comfort-measures only. [employer] Status - Extensive discussion held with family RE: options in his presenting situation with treating disease/pursuing work-up, or focusing more on achieving comfort/reducing discomfort. They say that Konstantin has been in a lot of pain at home despite ongoing hospice measures. They would NOT like to pursue further work-up (including labs) or medical management intended to prolong life/treat disease, and would only like to focus on achieving comfort - knowing that this will likely result in his passing. - Goal (since pt cannot provide hx at this time, provided by ): Reduce pain, reduce need to interact with the medical system (if he does eventually leave). Has had many recent visits to hospitals because of pain. - Will admit the patient with comfort measures and case management aid if/when indicated - Continue home hospice medications, reduce frequency between morphine doses PRN - Stop invasive testing - labs, RX, regular VS checks - Comfort diet ordered (2) Hypotension: Plan: Shock / Hypotension - Presented profoundly hypotensive, tachycardic (SVT), and febrile in the setting of metastatic disease, recent changes with antipsychotics/pain medications at home - Etiology is unclear given goals to abstain from further w/u. Possibly due to tachyarrhythmia/cardiogenic vs. distributive/septic shock/RX? - [employer]G TRACK as above. Stop IVF. (3) Supraventricular tachycardia: Plan: SVT - Appreciated in ED with rates >180 and HoTN - Adenosine 6mg pushed x 2 alongside IVF -- after further d/w family, would like to hold from further treatment (fluids, electrolyte repletion, adenosine, etc.) or aggressive measures - [employer] TRACK as above, hold from further cardiac monitoring (4) Adenocarcinoma of gallbladder: Plan: Adenocarcinoma of the Gallbladder - Status post wedge resection of the liver and CCY ; dz also possibly complicated by gastric outlet syndrome - [place] [facility] ; ongoing hospice services at home per patient's - Extensive intraabdominal metastases which are the primary source of his pain at present Plan Code: DNR/DNI Dispo: MS with [employer] TRACK PPX: Not indicated at this time Diet: Comfort Admission and Anticipated Discharge Date Admission Date: May 19, 2022 History of Present Illness Primary Care Provider: Alysia Espinal MD Konstantin is a 66-year-old male with a history of metastatic cholangiocarcinoma currently on hospice who presented to [facility] for altered mental status, syncope, and progressing pain. His and daughter at the bedside, who provide history for him while he is very somnolent. Due to patient's critical condition, history was obtained as thoroughly but efficiently as possible. Konstantin has been on hospice for the last several weeks. He has been on Haldol for nausea, and morphine/methadone for his pain. His notes that they recently increased the dose of his Haldol, but not significantly. She said that as the day went on, he was getting up out of bed and very altered/confused. Then later in the evening, he became very somnolent and had a syncopal episode. Per ED provider, morphine and methadone was given at some point throughout the day to help control his pain. Given the notable changes in mentation today, the family did try to reach out to the hospice agency, but were unable to get a hold of them. Due to concerns that he was still in pain, they reported to the ER via EMS. In the ED, patient was found to be hypotensive, febrile, tachycardic, and tachypneic. He was started on intravenous fluids. According to the ER physician, family was adamant that they did not want any life-saving interventions that would prolong his life. This included drawing blood for testing of what may be going on in this situation. He was given 2 pushes of adenosine for SVT, which transiently converted him to sinus rhythm, but he then just recurred into this rhythm. At the bedside, his monitor revealed a profound hypotension with SVT as the rhythm. He was febrile to 38.4 Fahrenheit. I introduced myself to his and his daughter, who speak on his behalf. I shared the critical nature of the situation, and they expressed understanding. I also noted that I am not exactly sure what is causing his instability given the limited work-up. I asked them what Konstantin would want in a situation like this. Initially said they were not sure ; however, they understand a part of the shared family human experience is getting to know someone, and based on their traits and recent wishes, being able to speak on their behalf. I asked them what a "good day "has look to Konstantin over the last several weeks on hospice. They both describe to me that a good day is being pain-free and not in any distress. Despite all their measures to achieve these goals through hospice at home, unfortunately he has still remained in quite a bit of pain. They describe that this is not what he wanted, to be in pain; he very much wanted to be comfortable and pain-free. Following this insight/conversation, I did ask about CODE STATUS. They said that they would not want, and he would not, CPR or intubation in his current situation; confirmed that he is a DNR/DNI. Proceeded to describe the various ways medicine can assist in a situation like this, where he is in a critical state; we could use our medicines to aggressively treat disease with an attempt to preserve quality of life when possible, or we could primarily use her medica tions to focus on achieving comfort and decreasing discomfort -- with an understanding that this often results in a person's passing (in a situation like this). I explained that medications like adenosine, electrolytes, and fluids would primarily be in assistance of the former than the latter, to which they agreedas he overall appeared comfortable right now, despite his vitals. This about one of the biggest concerns, as well as his, is returning to the hospital, being in an unfamiliar environment, and having test done that are not in alignment with achieving "good days." In this regard, they said that they would not like to pursue further workup or medical management to prolong life, and would like to focus on achieving comfort and reducing his discomfort during this time. "Comfort measures only" was formally discussed, and was initiated and communicated to the ER nurse and provider. Family understands that in choosing this route, he will ultimately pass away, likely in hours to days. On repeat assessments, patient is more comfortable and is able to tell me he continues to be in severe 8/10 pain. His shares with me that she doesn't have the resources to do this process at home. She shares that his primary objective is not to be in pain. --- This documentation was created utilizing dictation software. As such, syntax, grammatical, and word-choice errors may be present. Notes are screened prior to submission in an attempt to reduce these errors. If there are any questions or concerns, please contact the author directly for clarification. Allergies Allergy/AdvReac Type Severity Reaction Status Date / Time oxycodone AdvReac Mild Unknown Verified 05/06/22 19:32 Axemcxe-DFV-LkH Reductase AdvReac Mild muscle Verified 05/06/22 19:32 Inhibitor aches [Coiotgh-Qrs-Sao Reductase Inhibitor] Home Medications Medication Instructions Recorded Confirmed Type nitroglycerin 0.4 mg sublingual 0.4 mg sublingual Q5M PRN Chest 02/05/21 05/18/22 History tablet Pain finasteride 5 mg tablet 5 mg PO DAILY #90 tabs 03/03/22 05/18/22 Rx tamsulosin 0.4 mg capsule 0.4 mg PO DAILY #90 caps 03/03/22 05/18/22 Rx acetaminophen 650 mg rectal 650 mg OK Q4 PRN Fever Or Pain 05/18/22 05/18/22 History suppository haloperidol lactate 2 mg/mL oral 1 mg PO Q4 PRN 05/18/22 05/18/22 History concentrate nausea/vomiting/agitation methadone 10 mg/mL oral concentrate 2.5 mg PO BID 05/18/22 05/18/22 History morphine concentrate 100 mg/5 mL 5 mg PO .Q 2 HOURS PRN pain or SOB 05/18/22 05/18/22 History (20 mg/mL) oral solution ondansetron HCl 8 mg tablet 8 mg PO Q6 PRN nauea/vomiting 05/18/22 05/18/22 History Past Med/Surg History Medical History (Updated 05/19/22 @ 10:50 by Chayo Abbasi DNP) Acute gallstone pancreatitis Acute urinary retention Adenocarcinoma of gallbladder Biliary obstruction Constipation Coronary artery disease Coronary atherosclerosis of [place] coronary vessel Elevated liver enzymes Encounter for hospice care discussion Esophageal reflux Ex-smoker Generalized abdominal pain Hyponatremia Metastatic adenocarcinoma Myocardial infarction [address] x [address] [facility] Nausea & vomiting Palliative care encounter Post-ERCP acute pancreatitis Statin intolerance Type 2 diabetes mellitus Surgical History History of arthroscopy of knee History of heart artery stent x4 at [facility] History of surgery of liver due to gallbladder cancer and lymph nodes involved Hx of arthroscopy of shoulder left Port-A-Cath in place (05/04/21) Insertion Access Port with Fluoroscopy- Jd Del Angel DO 05/04/2021 S/P laparoscopic cholecystectomy 02/06/2021: Grade 2 view, MAC#3, ETT#7.5, atraumatic x 1. No issues per anesthesia progress note. Family History Father Heart disease Myocardial infarction Mother Heart disease Myocardial infarction Denies family history of Ovarian cancer Prostate cancer Breast cancer Colorectal cancer Social History Smoking Status: Former smoker Tobacco Type: E-cigarettes / Vaping Second Hand Exposure: No; Hx Alcohol Use: No Hx Substance Use: No Preferred Language: Lao Communication Ability: Effective Visual Impairment: Partially Limited Wardrobe Specialty Worker Required: No Beliefs That Will Affect Care: Restorationist marital status: Current Living Situation: Spouse current occupational status: unemployed Feels Safe at Home: Yes Dental Care, Regularly: Yes Physical Activity Frequency: 3-4 Times per Week Seatbelt Use: always Sunscreen Use: Yes Assistive Devices: Cane and Glasses Review of Systems Review of Systems: as per HPI Physical Exam Physical Exam: General: 66-year old male who is pale, appears ill, and is somnolent and unable to answer questions on my arrival. Initially does not awaken to voice/touch. Eventually, he does wake up, say he's in "pain all over," but cannot answer any further questions. Not oriented, and falls in and out of alertness. HEENT: NCAT. - Eyes - Sclera are white, anicteric, and without injection. - Mouth - dry mucus membranes - Neck - supple, no appreciable JVD Cardiac: Rapid rate and indeterminate rhythm; S1 and S2 present with no murmurs, rubs, or gallops. Pulmonary: Increased respiratory effort with symmetric expansion of the chest. Lung sounds are coarse and diminished throughout, with some rhonchi near the bilateral bases. Abdominal: Normoactive bowel sounds. Abdomen was soft, mildly distended, but non-tender to palpation. Extremities: Upper and lower extremities are somewhat warm to the touch. Results & Data Results & Data ([facility]) Vital Signs (Past 12 Hours) Vital Signs Temp Pulse Resp BP Pulse Ox O2 Del Method O2 Flow Rate 05/19/22 00:00 174 H 14 57/43 L 98 05/18/22 23:45 176 H 38 H 67/48 L 98 05/18/22 23:30 174 H 29 H 75/52 L 97 05/18/22 23:15 182 H 42 H 68/52 L 100 05/18/22 23:00 189 H 35 H 79/49 L 97 05/18/22 23:13 100 Non-rebreather 15 05/18/22 22:47 38.4 C H 200 H 48 H 74/59 L 93 Room Air Code Status & VTE Plan VTE Prophylaxis Plan VTE Prophylaxis will be ordered: No Reason for no VTE drug order: Treatment not indicated Supervising Physician Co-Signing Physician Notes Attending addendum: I have physically seen this patient, have supervised the medical residents activities, and agree with the H&P unless as otherwise noted. Assessment and Plan: Comfort measures only- Extensive discussion with family regarding future directions Patient be admitted for comfort measures protocol as noted
[2022-05-19] MEDS: MoRPHine SULFATE 5 MG/0.25 ML UDP PO PRN ×2 (03:05→07:08)
[2022-05-19] MEDS ORDERED: HALOPERIDOL 1 MG/0.5 ML UDP PO PRN (03:24)
--- NOTE | 2022-05-19 07:14 | XRay Report ---
XR chest 1V portable CLINICAL HISTORY: SOB TECHNIQUE: Single frontal radiograph of the chest was obtained. Comparison: Comparison is made to chest radiograph 05/06/[address] chest 04/27/2022 FINDINGS: A port catheter is seen. The cardiomediastinal silhouette is normal. The lungs are clear. No evidence of pleural effusion or pneumothorax. IMPRESSION: No acute chest disease. ACT 112: Negative or not required by law. Electronically signed by: Esteban Chávez M.D. 05/19/2022 7:13 AM
[2022-05-19] MEDS ORDERED: METHADONE HCL 5 MG TAB PO SCH ×2 (09:00→14:00)
[2022-05-19] MEDS ORDERED: METHADONE HCL 5 MG TAB PO PRN (10:38)
[2022-05-19] MEDS ORDERED: ondansetron HCL 8 MG in DEXTROSE 5% 50 ML IV PRN (10:39)
--- NOTE | 2022-05-19 10:46 | Palliative Care Consultation ---
Date of Consultation May 19, 2022 Assessment & Plan (1) Palliative care encounter: Pt admitted from home while he was on hospice for terminal cholangio ca. He was on [facility] hospice but family reports they did not receive adequate support from hospice/ is very angry with the hospice and they were also unable to reach hospice - the emergency number went unanswered and had prolonged hold times > 10min. He is now admitted for comfort care. says she has revoked hospice. She does not want to resume care with [facility] hospice. This is essentially a respite admission for refractory symptom mgt and caregiver stress. Had the family been able to have more reliable communication with hospice, the admission may have been avoidable OR he would have been admitted as GIP under hospice. [facility] aboriginal liaison officer will be in to see pt today, will await their feedback. We discussed the goals of hospice as a patient service and the goals of care; we discussed EOL trajectories and transitions susi the emotional impact of realizing mortality as a concrete reality from prior abstract considerations. Pt was reassured that no matter where they are along this trajectory, they are not alone - their medical team will remain by their side through their journey. Discussed the pros/cons of accepting help when especially weakened and distressed by pain-which would also help provide relief/decrease caregiver burden/strain. (2) Cancer associated pain: pt has uncontrolled, very severe cancer pain reported as 8/10 at this time. NO relief with prn methadone and morphine. he has not had any long acting or scheduled meds. I have stopped prn morphine. I have started Methadone Intensol 5mg PO Q8h and 5mg PO q3h prn BTP. Please note that METHADONE SHOULD NOT BE TITRATED DAILY: Methadone is lipophilic, thus it takes time to develop tissue stores that maintain serum levels. There is enormous interindividual variation in how long this takes. After a single dose there is a short distribution phase (associated with acute pain relief) with a half-life of 2-3 hours and a slow elimination phase (half- life 15-60 hours). Dosing must account for the accumulation of drug over days. It is this accumulation that accounts for most therapeutic misadventures. Liver metabolites are inactive; therefore no dose reduction is required with renal failure. After steady-state is reached, about two-thirds of patients will get adequate pain relief with twice a day dosing.Note: a number of drugs will alter methadone metabolism, so there needs to be close follow-up to drug interactions. There are several approaches to starting methadone for the treatment of pain. All take into account the long-half life of the drug that leads to drug accumulation over days.I favor a conservative approach as follows: Conservative Approach: 1. Begin fixed dose methadone 5 or 10 mg orally bid for 4-7 days: this pt has been on methadone at home with hospice but not fixed dose. the 2.5mg dose he was getting every 4hr did not bring him enough relief. 2. If incomplete pain reliefafter 2-3 days,increase the dose by 50% and continue for 4-7 days. 3. Continue increasing dose every 4-7 days until stable pain relief achieved. For breakthrough pain: use an alternative short acting oral opioid with short half-life (for this pt, I will use Methadone q3h prnfor breakthrough pain)and to provide pain relief during titration phase. This dose too may need to be tit rated based on efficacy. Present on Admission?: Yes (3) Nausea & vomiting: pt failed Haldol while on hospice, states this made him more confused, agitated and did not relief nausea Olanzapine is a second-generation atypical antipsychotic that has shown off- label efficacy for the treatment of nausea, delirium, anxiety, insomnia, and cachexia in adults. n addition to antagonizing dopamine receptors in the ASSOCIATE [employer] (nausea, delirium), it blocks serotonin (5HT2) receptors (insomnia, anxiety, cachexia) and is anticholinergic. When compared to other antipsychotics, olanzapine causes fewer extrapyramidal symptoms and has lesser effect on the QTc interval compared to IV haloperidol, but it may have a higher prevalence of somnolence and weight gain. advanced cancer patients receiving olanzapine at doses between 2.5 to 10 mg had a significant improvement in quality of life and a decrease in nausea compared to baseline; olanzapine has been studied for use in cachexia related to chronic illnesses like cancer. Improvements have been seen in weight gain and appetite stimulation when olanzapine 5 mg/day was added to megestrol acetate therapy. I have ordered Zofran 8mg IV for immediate relief of his severe n/v. I have added orders for Olanzapine 5mg ODT BID I have stopped Haldol since it did not help I have added compazine IA for pt nausea, IA may help faster bring n/v under control by bypassing his gut. Present on Admission?: Yes (4) Generalized abdominal pain: (5) Encounter for hospice care discussion: See above. willing to return home but with another hospice agency. I have notified care mgAmanda caldwell. we spoke about changes patient experience at EOL and I provided the following information: TEACHING THE FAMILY WHAT TO EXPECT WHEN THE PATIENT IS DYING (from Mike Cintron MD, PhD) Introduction Family members look to the medical team to help them know what to expect when a loved one is dying. No matter the underlying causes, there is a common final pathway that most patients travel. Indicate your desire to be helpful. Say, Many families like to know what may happen so they will be prepared, is that true for you? If they say yes, describe the features on this list and answer their questions. 1. Social Withdrawal is normal for the dying patient as the person becomes less concerned about his or her surroundings. Separation begins first from the world no more interest in newspaper or television, then from people no more neighbors visiting, and finally from the children, grandchildren and perhaps even those persons most loved. With this withdrawal comes less of a need to communicate with others, even with close family. 2. Food: The patient will have a decreased need for food and drink as the body is preparing to . This is one of the hardest things for some family to accept. There is a gradual decrease in interest in eating and appetiteeven for their favorite foods. Interest may come and go. The patient is not starving to deaththis reflects the underlying disease. Liquids are preferred to solidsfollow the patients lead and do not force feed. 3. Sleep: The patient will spend more and more time sleeping; it may be difficult for them to keep their eyes open. This is a result of a change in the bodys metabolism as a result of the disease. Tell family to spend more time with the patient during those times when he/she is most alert; this might be the middle of the night. 4. Disorientation: The patient may become confused about time, place and the identity of people around him/her. He/she may see people who are not there, such as family members who have already . Sometimes patients describe welcoming or beckoning. While the patient may not be distressed, it is frequently distressing to family or health critical care paramedic. Gently orient the patient if he or she asks. There is no need to correct the patient if he or she is not distressed. 5. Restlessness: The patient may become restless and pull at the bed linens. These symptoms are also a change in the bodys metabolism. Talk calmly and assuredly with the patient so as not to startle or frighten them. If the patient is a danger to himself or others, you may prescribe sedating neuroleptics (e.g.chlorpromazine), or neuroleptics (e.g. haloperidol) in combination with benzodiazepines (e.g. lorazepam), to help the patient rest. 6. Decreased Senses: Clarity of hearing and vision may decrease. Soft lights in the room may prevent visual misinterpretations. Never assume that the patient cannot hear you, as hearing is the last of the five senses to be lost. 7. Incontinence of urine and bowel movements is often not a problem until is very near. Invite family to participate in direct care; the nurse can help place absorbent pads under the patient for more comfort and cleanliness, or a urinary catheter may be used. The amount of urine will decrease and the urine become darker as becomes near. 8. Physical Changes as approaches: a. The blood pressure decreases; the pulse may increase or decrease. c. The body temperature can fluctuate; fever is common. d. There is increased perspiration often with clamminess. e. The skin color changes: flushed with fever, bluish with cold. A pale yellowish pallor (not to be confused with jaundice) often accompanies approaching . f. Breathing changes also occur. Respirations may increase, decrease or become irregular; periods of no breathing (apnea) are common. g. Congestion will present as a rattling sound in the lungs and/or upper throat. This occurs because the patient is too weak to clear the throat or cough. The congestion can be affected by positioning, may be very loud, and sometimes just comes and goes. Anticholinergic medications (like scopolamine or glycopyrrolate) can help (see Fast Fact #109). Elevating the head of bed and swabbing the mouth with oral swabs give comfort and give the family something to do. h. The arms and legs may become cool to the touch. The hands and feet become purplish. The knees, ankles and elbows are blotchy. These symptoms are a result of decreased circulation. i. The patient will enter a coma before and not respond to verbal or tactile stimuli. HOW TO KNOW THAT HAS OCCURRED No breathing and heartbeat. Loss of control of bowel or bladder. No response to verbal commands or gentle shaking. Eyelids slightly open; eyes fixed on a certain spot. Jaw relaxed and mouth slightly open. Acknowledgement: This Fact Fact was adapted with permission from a family information handout (The Blue Sheet) given to families of [facility]. References 1. Dax Bledsoe I. The terminal phase. In: Gildardo Martinez, Wandy GWC, Otf N, eds. [place] Textbook of Palliative Medicine. 2nd ed. [place], [employer]: [place] [employer] Pre [employer]; 1997. 2. Fang J, Darnell C. Care of the dying patient: the last hours or days of life. BMJ. 2003; 326(3635):30-4. 3. Kendall FD, tomasz Church CF, James LL. Competency in End of Life Care: the las t hours of living. J Palliat Med. 2003; 6(4):605-613. (6) Metastatic adenocarcinoma: (7) Comfort measures only status: (8) Generalized weakness: (9) Adenocarcinoma of gallbladder: Plan * Will work to improve his refractory cancer related pain and symptoms. * CM to assist with identifying alternate hospice agencies. and patient decline option of asking [facility] Hospice for GIP eval and they have revoked hospice. * Please page me through weekend for assistance with pain mgt, Please note methadone should not be titrated quickly. * EOL process reviewed at length with family. They were advised that what pt is experiencing is normal for EOL transitions. I also provided additional information via the [employer] [facility]'s website. She is high information seeking and feels she was not properly empowered with the knowledge of what hospice should/would cover and therefore didn't know what to ask for or expect. * [facility] Damage Adjuster came to see pt: she is awaiting d/w her restaurant operations manager about whether or not they will make this a hospice admission. She will be in touch with primary team once she has a definite answer. She has met with and dtr, will be following up with them after hearing from her restaurant operations manager. History of Present Illness Reason for Consultation: met cholangiocarcinoma, failed home hospice, comfort care Attending Physician: Morris Strauss History of Present Illness Piter Mckeon is a 66yo male who was recently dc home with [facility] hospice approx 1 week ago who came to ED via EMS with refractory, uncontrolled cancer related pain and nausea/vomiting along with some AMS and agitation as reported by family; he is seen bedside together with his and daughter who provide much of the HPI Piter is resting in bed, chronically ill appearing, pale and skin in cool to touch. he states he is in severe pain, rating this 8/10, current meds are not helping. he is also very nauseated and occasionally retching through this consultation. he is awake but tired, but alert when awake. he does answer most questions fairly appropriately. he states he is miserable. states "[facility] hospice was of no help": they did not send nurses as frequently as promised/she was told they didn't have enough staff, when she called for help, she encountered difficulty getting though to them and prolonged hold times exceeding ten minutes so ultimately felt she had no choice but to call 911 for help. Upon arrival at home, EMS asked her to call hospice but after again encountering long hold times and unable to reach anyone, EMS told her to hang up and they brought pt to hospital. patient and report uncontrolled pain and n/v. He is occasionally confused. he is not taking much PO, largely sips of water or dayanna rhoda for the past week. [facility] Hospice started pt on prn methadone, morphine, haldol, ativan and compazine. states the regimen they gave her for medication was extremely complex and she was very uncomfortable. He was not on any regularly scheduled pain medication. The haldol had a paradoxic effect and made him more agitated and confused/sedated and did not improve nausea even after dose escalation. Allergies Allergy/AdvReac Type Severity Reaction Status Date / Time oxycodone AdvReac Mild Unknown Verified 05/06/22 19:32 Aduqwan-XUN-AgY Reductase AdvReac Mild muscle Verified 05/06/22 19:32 Inhibitor aches [Hguixwk-Bum-Hnu Reductase Inhibitor] Home Medications Medication Instructions Recorded Confirmed Type nitroglycerin 0.4 mg sublingual 0.4 mg sublingual Q5M PRN Chest 02/05/21 05/18/22 History tablet Pain finasteride 5 mg tablet 5 mg PO DAILY #90 tabs 03/03/22 05/18/22 Rx tamsulosin 0.4 mg capsule 0.4 mg PO DAILY #90 caps 03/03/22 05/18/22 Rx acetaminophen 650 mg rectal 650 mg IA Q4 PRN Fever Or Pain 05/18/22 05/18/22 History suppository haloperidol lactate 2 mg/mL oral 1 mg PO Q4 PRN 05/18/22 05/18/22 History concentrate nausea/vomiting/agitation methadone 10 mg/mL oral concentrate 2.5 mg PO BID 05/18/22 05/18/22 History morphine concentrate 100 mg/5 mL 5 mg PO .Q 2 HOURS PRN pain or SOB 05/18/22 05/18/22 History (20 mg/mL) oral solution ondansetron HCl 8 mg tablet 8 mg PO Q6 PRN nauea/vomiting 05/18/22 05/18/22 History Patient History Medical History (Updated 05/19/22 @ 10:50 by Chayo Abbasi, JUANCARLOS) Acute gallstone pancreatitis Acute urinary retention Adenocarcinoma of gallbladder Biliary obstruction Constipation Coronary artery disease Coronary atherosclerosis of [place] coronary vessel Elevated liver enzymes Encounter for hospice care discussion Esophageal reflux Ex-smoker Generalized abdominal pain Hyponatremia Metastatic adenocarcinoma Myocardial infarction 2004 stents x 4 [facility] Nausea & vomiting Palliative care encounter Post-ERCP acute pancreatitis Statin intolerance Type 2 diabetes mellitus Surgical History History of arthroscopy of knee History of heart artery stent x4 at [facility] History of surgery of liver due to gallbladder cancer and lymph nodes involved Hx of arthroscopy of shoulder left Port-A-Cath in place (05/04/21) Insertion Access Port with Fluoroscopy- Jd Del Angel DO 05/04/2021 S/P laparoscopic cholecystectomy 02/06/2021: Grade 2 view, MAC#3, ETT#7.5, atraumatic x 1. No issues per anesthesia progress note. Family History Father Heart disease Myocardial infarction Mother Heart disease Myocardial infarction Denies family history of Ovarian cancer Prostate cancer Breast cancer Colorectal cancer Social History Smoking Status: Former smoker Tobacco Type: E-cigarettes / Vaping Second Hand Exposure: No; Hx Alcohol Use: No Hx Substance Use: No Preferred Language: Peruvian Communication Ability: Effective Visual Impairment: Partially Limited Housing Management Officer Required: No Beliefs That Will Affect Care: None marital status: Current Living Situation: Spouse current occupational status: unemployed Feels Safe at Home: Yes Dental Care, Regularly: Yes Physical Activity Frequency: 3-4 Times per Week Seatbelt Use: always Sunscreen Use: Yes Assistive Devices: Glasses Review of Systems Review of Systems: All systems reviewed & are unremarkable except as noted in Subjective Physical Exam Physical Exam: Frail, chronically ill appearing male, cachectic and fatigued. Color pale, skin cool. No mottling. He is awake and alert for some of this visit. He was intermittently nauseated. He has signif abd and back pain that radiated to lower quadrant. Results & Data ([facility]) Vital Signs (Past 12 Hours) Vital Signs Temp Pulse Pulse Resp BP BP Pulse Ox 05/19/22 06:36 140 H 65/42 L 98 05/19/22 03:13 36.2 C L 149 H 22 65/46 L 100 05/19/22 02:05 05/19/22 02:05 97 05/19/22 00:00 174 H 14 57/43 L 98 05/18/22 23:45 176 H 38 H 67/48 L 98 05/18/22 23:30 174 H 29 H 75/52 L 97 05/18/22 23:15 182 H 42 H 68/52 L 100 05/18/22 23:00 189 H 35 H 79/49 L 97 05/18/22 23:13 100 05/18/22 22:47 38.4 C H 200 H 48 H 74/59 L 93 O2 Del Method O2 Flow Rate 05/19/22 06:36 Nasal Cannula 2 05/19/22 03:13 Nasal Cannula 2 05/19/22 02:05 Nasal Cannula 2 05/19/22 02:05 Nasal Cannula 2 05/19/22 00:00 05/18/22 23:45 05/18/22 23:30 05/18/22 23:15 05/18/22 23:00 05/18/22 23:13 Non-rebreather 15 05/18/22 22:47 Room Air PG Care Time/CCT Total # of Minutes Spent Total Time Spent: 115 Total Time Spent with Patient: Total time spent is greater than 50% in coordination of care (as documented) at patient's floor/unit and/or counseling patient: I spent 115 minutes overall addressing this very complex case: 15 in medical data review/discussion with referring provider(s) and/or preparation for the visit 60 in direct interaction with the patient and/or family 20 Advance Care Planning/Goals of Care discussions as detailed above in note (must be >16min) 10 in subsequent review and synthesis of assessment and plan 10 in communicating with other providers regarding the patient's case: [facility] aboriginal liaison officer, nursing, CM, primary team Prolonged Care Time Prolonged Care Time: [place] [address] Inpt Consult Level 5 Patient Type New History Comprehensive Exam Detailed Medical Decision Making High Complexity Diagnoses Palliative care encounter Z51.5 Cancer associated pain G89.3 Nausea & vomiting R11.2 Generalized abdominal pain R10.84 Encounter for hospice care discussion Z71.89 Metastatic adenocarcinoma C79.9 Comfort measures only status Z51.5 Generalized weakness R53.1 Adenocarcinoma of gallbladder C23 Additional Codes Prolonged Care Time - Prolonged Care Time: Yes ([id number])
[2022-05-19] MEDS ORDERED: PROCHLORPERAZINE 25 MG SUPP PR SCH (14:00)
[2022-05-19] MEDS ORDERED: ondansetron HCL 8 MG in DEXTROSE 5% 50 ML IV SCH (14:00)
--- NOTE | 2022-05-19 16:52 | Discharge Summary ---
Date of Service date of admission - May 19, 2022 date of discharge - May 19, 2022 Admission HPI Per Admitting Provider Konstantin is a 66-year-old male with a history of metastatic cholangiocarcinoma currently on hospice who presented to [facility] for altered mental status, syncope, and progressing pain. His and daughter at the bedside, who provide history for him while he is very somnolent. Due to patient's critical condition, history was obtained as thoroughly but efficiently as possible. Konstantin has been on hospice for the last several weeks. He has been on Haldol for nausea, and morphine/methadone for his pain. His notes that they recently increased the dose of his Haldol, but not significantly. She said that as the day went on, he was getting up out of bed and very altered/confused. Then later in the evening, he became very somnolent and had a syncopal episode. Per ED provider, morphine and methadone was given at some point throughout the day to help control his pain. Given the notable changes in mentation today, the family did try to reach out to the hospice agency, but were unable to get a hold of them. Due to concerns that he was still in pain, they reported to the ER via EMS. In the ED, patient was found to be hypotensive, febrile, tachycardic, and tachypneic. He was started on intravenous fluids. According to the ER physician, family was adamant that they did not want any life-saving interventions that would prolong his life. This included drawing blood for testing of what may be going on in this situation. He was given 2 pushes of adenosine for SVT, which transiently converted him to sinus rhythm, but he then just recurred into this rhythm. At the bedside, his monitor revealed a profound hypotension with SVT as the rhythm. He was febrile to 38.4 Fahrenheit. I introduced myself to his and his daughter, who speak on his behalf. I shared the critical nature of the situation, and they expressed understanding. I also noted that I am not exactly sure what is causing his instability given the limited work-up. I asked them what Konstantin would want in a situation like this. Initially said they were not sure ; however, they understand a part of the shared family human experience is getting to know someone, and based on their traits and recent wishes, being able to speak on their behalf. I asked them what a "good day "has look to Konstantin over the last several weeks on hospice. They both describe to me that a good day is being pain-free and not in any distress. Despite all their measures to achieve these goals through hospice at home, unfortunately he has still remained in quite a bit of pain. They describe that this is not what he wanted, to be in pain; he very much wanted to be comfortable and pain-free. Following this insight/conversation, I did ask about CODE STATUS. They said that they would not want, and he would not, CPR or intubation in his current situation; confirmed that he is a DNR/DNI. Proceeded to describe the various ways medicine can assist in a situation like this, where he is in a critical state; we could use our medicines to aggressively treat disease with an attempt to preserve quality of life when possible, or we could primarily use her medications to focus on achieving comfort and decreasing discomfort -- with an understanding that this often results in a person's passing (in a situation like this). I explained that medications like adenosine, electrolytes, and fluids would primarily be in assistance of the former than the latter, to which they agreedas he overall appeared comfortable right now, despite his vitals. This about one of the biggest concerns, as well as his, is returning to the hospital, being in an unfamiliar environment, and having test done that are not in alignment with achieving "good days." In this regard, they said that they would not like to pursue further workup or medical management to prolong life, and would like to focus on achieving comfort and reducing his discomfort during this time. "Comfort measures only" was formally discussed, and was initiated and communicated to the ER nurse and provider. Family understands that in choosing this route, he will ultimately pass away, likely in hours to days. On repeat assessments, patient is more comfortable and is able to tell me he continues to be in severe 8/10 pain. His shares with me that she doesn't have the resources to do this process at home. She shares that his primary objective is not to be in pain. --- This documentation was created utilizing dictation software. As such, syntax, grammatical, and word-choice errors may be present. Notes are screened prior to submission in an attempt to reduce these errors. If there are any questions or concerns, please contact the author directly for clarification. Principal Diagnosis 1. metastatic cholangiocarcinoma 2. acute metabolic encephalopathy 3. cardiogenic shock due to SVT 4. SVT 5. hospice status at home 6. syncope 2nd to 7. abdominal pain 2nd to #1 8. history of gastric outlet obstruction (GOO) s/p duodenal stent 04/2022; GOO 2nd to #1 Discharge Exam gen - altered, lethargic skin - pallor, ashen mouth - MM dry heart - heart tones distant, s1 s2, regular rate lungs - CTA b/l abd - tender central abdomen; BS+, distended ext - no edema, pulses 2+ b/l Discharge Data Allergies Allergy/AdvReac Type Severity Reaction Status Date / Time oxycodone AdvReac Mild Unknown Verified 05/06/22 19:32 Xiwrrrx-TNA-WeU Reductase AdvReac Mild muscle Verified 05/06/22 19:32 Inhibitor aches [Mksdibe-Pct-Gtt Reductase Inhibitor] Consultations 05/18/22 23:39 ED Decision to Admit Stat 05/19/22 02:20 Consult Palliative Care Routine Hospital Course (1) Palliative care encounter: Patient was under hospice care at home prior to ER presentation. He presented with altered mental status, syncope, abdominal pain, and extreme weakness. Found to be in SVT with shock. Admitted for palliative care purposes to control his nausea/vomiting, abdominal pain, and any other symptoms related to his cancer. Seen by the palliative care team, and after consultation with his local outpatient hospice agency, he is now being admitted to inpatient hospice status for symptom management. (2) Supraventricular tachycardia: did spontaneously convert back to what was presumed to be NSR as pulse was normal following admission to the medical floor (3) Cardiogenic shock: 2nd to SVT (4) Nausea & vomitinnd to metastatic adenocarcinoma of gall bladder placed on scheduled anti-emetics for such with improvement in symptoms (5) Generalized abdominal pain: palliative care team provided recommendations for his pain control (6) Metabolic encephalopathy: (7) Coronary artery disease: (8) Adenocarcinoma of gallbladder: Total Time Total Time Spent Total Time Spent (In Minutes): 40 Discharge Plan Discharge Items Patient Disposition: Hospice - Medical Facility Reason For Visit: SHOCK - MORTARMAN Discharge Diagnosis: Comfort measures only status for advanced cancer Shock SVT Activity: As commented below Activity Comment: bedrest Non-emergency contact: Specialist Call non-emergency contact if: your pain is not controlled Follow-up/Referrals: Alysia Espinal MD [Primary Care Provider] - Diet: Regular Addtl Attending Provider Instructions: Mr Mckeon is being admitted to inpatient hospice status for pain control and symptom control. Pending Studies at Discharge: No Stand-Alone Forms: My [facility] Skilled Items Patient informed of condition?: Yes DNR: Yes Discharge Level of Care: Other Communicable Disease: No Discharge Prognosis: Deteriorating Lines: Peripheral IV Urinary Catheter: No Medications and DC Order Prescriptions: Continued haloperidol lactate 2 mg/mL concentrate 1 mg PO Q4 PRN (Reason: nausea/vomiting/agitation) Rx Instructions: may use po or sl Discontinued tamsulosin 0.4 mg capsule 0.4 mg PO DAILY Qty: 90 3RF finasteride 5 mg tablet 5 mg PO DAILY Qty: 90 3RF acetaminophen 650 mg suppository 650 mg MI Q4 MDD 4 doses PRN (Reason: Fever Or Pain) methadone 10 mg/mL concentrate 2.5 mg PO BID ondansetron HCl 8 mg tablet 8 mg PO Q6 PRN (Reason: nauea/vomiting) morphine concentrate 100 mg/5 mL (20 mg/mL) solution 5 mg PO .Q 2 HOURS PRN (Reason: pain or SOB) Rx Instructions: 0.25 ml dose...may use po or sl nitroglycerin 0.4 mg tablet, sublingual 0.4 mg sublingual Q5M PRN (Reason: Chest Pain) Discharge Orders: Discharge Order (Routine); Ordered 05/19/22 Ordered By: Morris Strauss Admission Data Admit Date/Time: 05/19/22 00:53 Attending Provider: Morris Strauss Admit Provider: Arnulfo Strong Primary Care Provider: Alysia Espinal Other Providers: William Guzman ; Aleisha Starks Coding Level of Care Code D/C DAY MANAGEMENT >30 MINS Diagnoses Palliative care encounter Z51.5 Supraventricular tachycardia I47.1 Cardiogenic shock R57.0 Nausea & vomiting R11.2 Generalized abdominal pain R10.84 Metabolic encephalopathy G93.41 Coronary artery disease I25.10 Adenocarcinoma of gallbladder C23
[2022-05-19] MEDS ORDERED: OLANZapine ZYDIS 5 MG ORALLY DIS. TAB PO SCH (21:00)
--- NOTE | 2022-05-19 21:10 | Billing Data ---
Date of Service May 19, 2022 Coding Level of Care Code 37802 Initial Inpt Care Lvl 2
== END 2022-05-19 16:52 | disposition hospice, inpatient (51) | DRG 951 ==
LOC: ED 22:35 → 3E 05-19 00:53 → SUATTDRO 05-19 00:53 → 3E 05-19 02:01

== ENCOUNTER 2022-05-19 16:52 | Inpatient (IN) ==
[2022-05-19] MEDS ORDERED: chlorproMAZINE HCL 25 MG TAB PO PRN (17:18)
[2022-05-19] MEDS ORDERED: ACETAMINOPHEN 325 MG TAB PO PRN (17:18)
[2022-05-19] MEDS ORDERED: LORazepam 0.5 MG in SYRINGE 0 ML IV PRN (17:18)
[2022-05-19] MEDS ORDERED: haloperidoL 1 MG TAB PO PRN ×2 (17:18)
[2022-05-19] MEDS ORDERED: ATROPINE SULFATE 1% OP SOLN 5 ML BTL SL PRN (17:18)
--- NOTE | 2022-05-19 17:18 | History & Physical Report ---
Date of Service May 19, 2022 Assessment & Plan (1) Admission for hospice care: (2) Palliative care encounter: (3) Adenocarcinoma of gallbladder: (4) Cancer associated pain: (5) Comfort measures only status: (6) Generalized abdominal pain: (7) GERD (gastroesophageal reflux disease): (8) SVT (supraventricular tachycardia): (9) Coronary artery disease: (10) Metabolic encephalopathy: Plan 1. formal palliative care consultation was completed earlier today; I appreciate their recommendations 2. continue methadone 5mg TID with 5mg prn for breakthrough pain 3. nausea is his biggest complaint other than pain. He very well could be obstructed again given the refractory nausea. Will place on schedule zofran 8mg IV q6h. Can use haldol prn and phenergan prn for additional relief of nausea if necessary. If nausea and/or vomiting persist despite the above plan could c onsider a palliative NG tube but I would only use as a last resort. 4. pepcid IV q12h for GERD. 5. palliative care has ordered olanzapine 10mg BID for anxiety, sleep, etc. 6. ativan 0.5mg q4h prn sleep, agitation, or anxiety. 7. atropine drops prn for excess oral secretions. 8. chlorpromazine prn hiccups, etc. 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 He was initially diagnosed with his biliary tract cancer in the fall of 2020 after being admitted to [facility] [address] for gallstone pancreatitis in 01/2021. During that hospitalization he underwent cholecystectomy and unfortunately pathology showed well-differentiated infiltrative adenocarcinoma. Patient was hospitalized at [facility] in 04/2022 due to gastric outlet obstruction. 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 He underwent palliative stenting of the duodenum during that hospital stay. Sometime in April the patient initiated hospice. He continues to live at home with his where he is using methadone, haldol, and morphine prn for his pain, nausea, and other symptoms. Evening of 05/18 he presented to [facility] [address] with severe weakness and a syncopal event. He was found to be in SVT with marked hypotension. During the ER visit he complained of severe abdominal pain. He was ultimately admitted last evening for symptomatic control of his pain & nausea. Today, 05/19, he was seen by the palliative care team as well as social work. Numerous medication adjustments were made to his pain regimen and nausea therapies. There was discussion about having Mr Mckeon admitted under inpatient hospice status. Fortunately this status was granted by [facility]. He is now being fully admitted under inpatient hospice status. Allergies Allergy/AdvReac Type Severity Reaction Status Date / Time oxycodone AdvReac Mild Unknown Verified 05/06/22 19:32 Ngzedcu-DWB-FdO Reductase AdvReac Mild muscle Verified 05/06/22 19:32 Inhibitor aches [Tmdwbtv-Fwg-Akj Reductase Inhibitor] Home Medications Medication Instructions Recorded Confirmed Type nitroglycerin 0.4 mg sublingual 0.4 mg sublingual Q5M PRN Chest 02/05/21 05/18/22 History tablet Pain finasteride 5 mg tablet 5 mg PO DAILY #90 tabs 03/03/22 05/18/22 Rx tamsulosin 0.4 mg capsule 0.4 mg PO DAILY #90 caps 03/03/22 05/18/22 Rx acetaminophen 650 mg rectal 650 mg [place] Q4 PRN Fever Or Pain 05/18/22 05/18/22 History suppository haloperidol lactate 2 mg/mL oral 1 mg PO Q4 PRN 05/18/22 05/18/22 History concentrate nausea/vomiting/agitation methadone 10 mg/mL oral concentrate 2.5 mg PO BID 05/18/22 05/18/22 History morphine concentrate 100 mg/5 mL 5 mg PO .Q 2 HOURS PRN pain or SOB 05/18/22 05/18/22 History (20 mg/mL) oral solution ondansetron HCl 8 mg tablet 8 mg PO Q6 PRN nauea/vomiting 05/18/22 05/18/22 History Past Med/Surg History Medical History (Updated 05/19/22 @ 21:31 by Morris Strauss) Acute gallstone pancreatitis Acute urinary retention Adenocarcinoma of gallbladder Biliary obstruction Constipation Coronary artery disease Coronary atherosclerosis of [place] coronary vessel Elevated liver enzymes Encounter for hospice care discussion Esophageal reflux Ex-smoker Generalized abdominal pain Hyponatremia Metastatic adenocarcinoma Myocardial infarction 2005 stents x 4 [facility] Nausea & vomiting Palliative care encounter Post-ERCP acute pancreatitis Statin intolerance Type 2 diabetes mellitus Surgical History History of arthroscopy of knee History of heart artery stent x4 at [facility] History of surgery of liver due to gallbladder cancer and lymph nodes involved Hx of arthroscopy of shoulder left Port-A-Cath in place (05/04/21) Insertion Access Port with Fluoroscopy- Jd Del Angel, 05/04/2021 S/P laparoscopic cholecystectomy 02/06/2021: Grade 2 view, MAC#3, ETT#7.5, atraumatic x 1. No issues per anesthesia progress note. Family History Father Heart disease Myocardial infarction Mother Heart disease Myocardial infarction Denies family history of Ovarian cancer Prostate cancer Breast cancer Colorectal cancer Social History Smoking Status: Former smoker Tobacco Type: E-cigarettes / Vaping Second Hand Exposure: No; Hx Alcohol Use: No Hx Substance Use: No Preferred Language: [place] Communication Ability: Effective Visual Impairment: Partially Limited Railway Engineer Required: No Beliefs That Will Affect Care: Methodist marital status: Current Living Situation: Spouse current occupational status: unemployed Feels Safe at Home: Yes Dental Care, Regularly: Yes Physical Activity Frequency: 3-4 Times per Week Seatbelt Use: always Sunscreen Use: Yes Assistive Devices: Cane and Glasses Review of Systems Review of Systems: Unobtainable due to cognitive status Physical Exam Physical Exam: gen - sleeping; cachectic skin - severe pallor/ashen color mouth - MM dry heart - heart tones are very distant; s1 s2, tachycardic lungs - decreased BS bases, CTA apices abd - distended, tender upper abdomen, BS+ ext - cool to touch, pulses 1+ b/l psych - sleeping Results & Data Results & Data ([facility]) Vital Signs (Past 12 Hours) last taken earlier today - HR 140s, BP 65/42, T 36.2 Code Status & VTE Plan Code Status DNR/DNI PG Care Time/CCT Total # of Minutes Spent Total Time Spent with Patient: Total time spent is greater than 50% in coordination of care (as documented) at patient's floor/unit and/or counseling patient: Coding Level of Care Code 96720 Initial Inpt Care Lvl 1 Diagnoses Admission for hospice care Z51.5 Palliative care encounter Z51.5 Adenocarcinoma of gallbladder C23 Cancer associated pain G89.3 Comfort measures only status Z51.5 Generalized abdominal pain R10.84 GERD (gastroesophageal reflux disease) K21.9 SVT (supraventricular tachycardia) I47.1 Coronary artery disease I25.10 Metabolic encephalopathy G93.41
[2022-05-19] MEDS ORDERED: METHADONE HCL 5 MG TAB PO PRN (17:24)
[2022-05-19] MEDS ORDERED: PROMETHAZINE HCL 12.5 MG in SODIUM CHLORIDE 0.9% 50 ML IV PRN (17:53)
[2022-05-19] MEDS ORDERED: ONDANSETRON INJ 2 MG/ML 2 ML VIAL IV SCH ×2 (18:00→20:00)
[2022-05-19] MEDS: ondansetron HCL 8 MG in DEXTROSE 5% 50 ML IV SCH (20:03)
[2022-05-19] MEDS: METHADONE HCL 5 MG TAB PO SCH (20:22)
[2022-05-19] MEDS: OLANZapine 5 MG TABLET PO SCH (20:22)
[2022-05-19] MEDS: FAMOTIDINE 20 MG in SYRINGE 3 ML IV SCH (21:46)
[2022-05-20] MEDS: ondansetron HCL 8 MG in DEXTROSE 5% 50 ML IV SCH ×4 (00:59→18:45)
[2022-05-20] MEDS: FAMOTIDINE 20 MG in SYRINGE 3 ML IV SCH ×2 (08:47→21:53)
[2022-05-20] MEDS: OLANZapine 5 MG TABLET PO SCH (08:48)
[2022-05-20] MEDS: METHADONE HCL 5 MG TAB PO SCH ×2 (09:29→17:39)
--- NOTE | 2022-05-20 20:20 | Hospitalist Progress Note ---
Date of Service May 20, 2022 Assessment & Plan (1) Admission for hospice care: (2) Palliative care encounter: (3) Adenocarcinoma of gallbladder: (4) Cancer associated pain: (5) Comfort measures only status: (6) Generalized abdominal pain: (7) GERD (gastroesophageal reflux disease): (8) SVT (supraventricular tachycardia): (9) Coronary artery disease: (10) Metabolic encephalopathy: Plan 1. continue palliative care pathway/comfort care pathway 2. hospice agency nurse came to visit him today; asked that the methadone 5mg prn be changed back to roxanol 5mg q2h prn; orders placed for such 3. continue methadone 5mg TID; once unable to swallow change everything to IV as needed 4. nausea is better with scheduled zofran 8mg IV q6h 5. cont pepcid IV q12h 6. cont olanzapine 5mg BID for anxiety, sleep, etc 7. ativan 0.5mg q4h prn sleep, agitation, or anxiety. 8. atropine drops prn for excess oral secretions. 9. chlorpromazine prn hiccups, etc. 10. cont bee support given to pt's daughter at bedside appreciate hospice agency input Admission and Anticipated Discharge Date Admission Date: May 19, 2022 Subjective during my visit his daughter was at bedside she reported he has been sleeping on/off much of the day minimal oral intake very little UOP he awoke when I began to examine him he was confused and groggy he complained of abd pain he stated his nausea was not present has had hiccups but no emesis Review of Systems Review of Systems: denies dyspnea denies chest pain +ongoing abd pain Physical Exam Physical Exam: gen - confused, sleepy; cachectic skin - severe pallor/ashen color mouth - MM dry heart - heart tones are very distant but RRR, s1 s2 lungs - decreased BS bases, CTA apices abd - distended, tender upper abdomen as prior, BS+ ext - cool to touch, pulses 1+ b/l psych - confused, groggy/sleepy PG Care Time/CCT Total # of Minutes Spent Total Time Spent with Patient: Total time spent is greater than 50% in coordination of care (as documented) at patient's floor/unit and/or counseling patient: Coding Level of Care Code 73714 Subseq Hosp Care Lvl 1 Diagnoses Admission for hospice care Z51.5 Palliative care encounter Z51.5 Adenocarcinoma of gallbladder C23 Cancer associated pain G89.3 Comfort measures only status Z51.5 Generalized abdominal pain R10.84 GERD (gastroesophageal reflux disease) K21.9 SVT (supraventricular tachycardia) I47.1 Coronary artery disease I25.10 Metabolic encephalopathy G93.41
[2022-05-21] MEDS: ondansetron HCL 8 MG in DEXTROSE 5% 50 ML IV SCH ×4 (00:45→18:45)
[2022-05-21] MEDS: METHADONE HCL 5 MG TAB PO SCH ×4 (00:45→20:09)
[2022-05-21] MEDS: OLANZapine 5 MG TABLET PO SCH ×3 (00:46→20:10)
[2022-05-21] MEDS: MoRPHine SULFATE 5 MG/0.25 ML UDP PO PRN (02:09)
[2022-05-21] MEDS: FAMOTIDINE 20 MG in SYRINGE 3 ML IV SCH ×2 (10:52→20:10)
--- NOTE | 2022-05-21 21:17 | Hospitalist Progress Note ---
Date of Service May 21, 2022 Assessment & Plan (1) Admission for hospice care: (2) Palliative care encounter: (3) Adenocarcinoma of gallbladder: (4) Cancer associated pain: (5) Comfort measures only status: (6) Generalized abdominal pain: (7) GERD (gastroesophageal reflux disease): (8) SVT (supraventricular tachycardia): (9) Coronary artery disease: (10) Metabolic encephalopathy: Plan 1. continue palliative care pathway/comfort care pathway 2. appreciate hospice agency nurse visits and recs 3. continue methadone 5mg TID; once unable to swallow change everything to IV as needed 4. nausea is better with scheduled zofran 8mg IV q6h; has only needed 1x dose of phenergan IV; the nausea/spitting up/regurgitation is MUCH improved 5. cont pepcid IV q12h 6. cont olanzapine 5mg BID for anxiety, sleep, etc 7. ativan 0.5mg q4h prn sleep, agitation, or anxiety. 8. atropine drops prn for excess oral secretions. 9. chlorpromazine prn hiccups, etc. 10. cont bee support given to pt's daughter at bedside Admission and Anticipated Discharge Date Admission Date: May 19, 2022 Subjective patient sleeping during the visit I did not wake him he has had long stretches of sleeping interspersed with short periods of wakefulness during wakefulness he is confused daughter at bedside today she mentioned that if his passing is not imminent and if he discharges her mother is nervous for him to be at home SNF placement?? Review of Systems Review of Systems: Unobtainable due to reduced consciousness Physical Exam Physical Exam: gen - sleeping, comfortable skin - severe pallor mouth - MM dry heart - heart tones are very distant but RRR, s1 s2 lungs - decreased BS bases but clear abd - distended, BS+ ext - cool to touch, pulses 1+ b/l Results & Data Results & Data ([facility]) Vital Signs (Past 12 Hours) Vital Signs O2 Del Method 05/21/22 19:42 Room Air PG Care Time/CCT Total # of Minutes Spent Total Time Spent with Patient: Total time spent is greater than 50% in coordination of care (as documented) at patient's floor/unit and/or counseling patient: Coding Level of Care Code 46629 Subseq Hosp Care Lvl 1 Diagnoses Admission for hospice care Z51.5 Palliative care encounter Z51.5 Adenocarcinoma of gallbladder C23 Cancer associated pain G89.3 Comfort measures only status Z51.5 Generalized abdominal pain R10.84 GERD (gastroesophageal reflux disease) K21.9 SVT (supraventricular tachycardia) I47.1 Coronary artery disease I25.10 Metabolic encephalopathy G93.41
[2022-05-22] MEDS: ondansetron HCL 8 MG in DEXTROSE 5% 50 ML IV SCH ×4 (01:02→18:36)
[2022-05-22] MEDS: MoRPHine SULFATE 5 MG/0.25 ML UDP PO PRN (04:11)
[2022-05-22] MEDS: METHADONE HCL 5 MG TAB PO SCH ×3 (08:34→21:10)
[2022-05-22] MEDS: OLANZapine 5 MG TABLET PO SCH ×2 (08:34→21:10)
[2022-05-22] MEDS: FAMOTIDINE 20 MG in SYRINGE 3 ML IV SCH ×2 (08:48→21:10)
--- NOTE | 2022-05-22 16:25 | Palliative Family Discussion ---
Date of Service May 22, 2022 Patient Directed Conference Time of Meetin Participants: Chayo Abbasi DNP Patient participation: no/lethargic Patient Support System: Other Healthcare Provider Participation: None Meeting Location: family meeting room The patient's surrogate medical decision maker participated: yes Legally authorized health care proxy: yes/ A family meeting was held for DESIRAE MATTHEW. This meeting was necessary for determining the appropriate course of treatment. Topics of Discussion Topics of Discussion: 1. met cholangio ca 2. terminally ill, uncontrolled cancer pain and terminal delirium 3. admitted with GIP. is struggling with pt decline. She cannot manage his needs alone. She has no help and cannot afford private caregivers. She says hospice insisting brings pt home even though has been saying she cannot handle it anymore. Other Content of Meetin. Opportunity given for participants to speak and ask questions. 2. Participants were assured of attention to patient comfort. 3. Reassurance provided. 4. Support was provided for informed, good-angel decisions. 5. Emotions expressed by family were acknowledged and addressed. 6. Plan of Care: I advised he cannot go home anymore, needs placement. She is visibly relieved. She is crying throughout this discussion. Many emotions noted including grief, fear, guilt, worry. Reassurance provided. Assured this is disease worsening, his behavior towards is not his normal and I told this is the disease process causing his complications, not anything has done or not done - it is easiest to lash out at the ones we love the most, this is the space we feel safest even when our behavior is not at its best. * Dying process: Discussed changes pt may move through in the dying process including but not limited to sleeping more, disorientation when awake, restlessness, diminished senses/inability to respond to stimulus although ability to be aware of them remains intact longer, and changes in body temperatures, skin changes/mottling/cyanosis, respiratory pattern changes, and oral secretions. Family verbalized understanding. The goal is to assure a peaceful . * EOL Rally: When a person facing the end of life rallies, they seem to become "more stable" - may want to talk or even begin taking PO; this phenomen on is usually seen as a sudden burst of energy before . This period of perking up can be accompanied by such a notable change in mental clarity that is often referred to as terminal lucidity. This change in cognition and behavior goes against everything families learn about the physical signs that the end of life is near. It is important to note that evidence-based data is elusive, if nonexistent. Theories support that it may be a search for a final, strong connection. Also, as organs shut down, they can release a steroid like compound that briefly rouses the body - in the specific case of brain tumors, swelling occurs in the confined space of the skull. The edema shrinks as EOL care patients are weaned off food and drink, waking up the brain a bit. Families and caregivers may grasp at what seems to be a turnaround in a loved ones health, however, the EOL Rally is a hallmark pre- sign. It is not uncommon for patients to show improvement before : they may want to talk while others may become restless or act as if they need to start preparing for a trip. Some patients will become more relaxed yet remain tuned in to what is going on around them, others will show signs of physical stability when, seconds before, they seemed on the verge of letting go. A rally can last for a few moments or even days. Short or long, these temporary improvements can have a profound effect on loved ones who are keeping brice. Like a moment of clarity for someone who has dementia, a rally is one last opportunity to connect with a loved one. Each persons experience is unique and impossible to predict with total accuracy. Life is full of questions, and some of them simply are not meant to be answered. Read more: [email or web address] * Oxygen at EOL: For patients at the end of life, oxygen delivered by a nasal cannula provides no additional symptomatic benefit for relief of refractory dyspnea in patients with life-limiting illness compared with room air: there's a point at which that the oxygen level gets so low that it's no longer compatible with life. By providing supplemental oxygen, the dying process will be unnecessarily prolonged. Please use less burdensome but more effective strategies such as comfort care meds, oscillating fan, massage, repositioning, etc. (Fred AP, Franco CF, Precious PATTERSON, et al. Effect of palliative oxygen versus room air in relief of breathlessness in patients with refractory dyspnoea: a double-blind, randomised controlled trial. Lancet. 2010;376(0001):339-510. doi:10.1016/N8103-4092513-1230(82)93847-4) * Secretions at EOL/management: I discussed with family that as the level of consciousness decreases in the dying process, patients lose their ability to swallow and clear oral secretions. As air moves over the secretions, which have pooled in the oropharynx and bronchi, the resulting turbulence produces noisy ventilation with each breath, described as gurgling or rattling noises. While there is no evidence that patients find this rattle disturbing, evidence from bereaved surveys suggests the noises can be disturbing to the patients visitors and caregivers who may fear that the patient is choking to . We recommend a combination of Non- Pharmacological and Pharmacological Treatments: * 1. Position the patient on their side or in a semi-prone position to facilitate postural drainage * 2. Communication with family and caregivers to reaffirm commitment to their loves ones care, reduce anxiety and fears. * 3. Gentle oropharyngeal suctioning is used although this can be ineffective when fluids are beyond the reach of the catheter. Avoid deep suctioning as it is very irritating. Note that frequent suctioning is disturbing to both the patient and the visitors. * 4. Reduction of fluid intake. * 5. Consider a 1-2 min Trendelenburg positioning, to move fluids up into the oropharynx for easier removal BUT note that ASPIRATION RISK WILL INCREASE. * 6. Muscarinic receptor blockers (anti-cholinergic drugs) are most often used: glycopyrrolate (Robinul), scopolamine (Transderm Scop), hyoscyamine and atropine. Of these, I prefer to using glycopyrrolate as first line treatment, because it is a quaternary amine (therefore does not cross the blood-brain barrier) which reduces the potential anti cholinergic agent associated [employer] toxicity (sedation, delirium). * 7. Glycopyrrolate has five times the anti-secretory potency compared to atropine, while scopolamine dries/thickens secretions and causes dry mouth, which may be more distressing to the patient and detract from comfort. Time Involved in Meeting: I spent 60 minutes overall addressing this case: 2 in medical data review/discussion with referring provider(s) and/or preparation for the visit 50 in direct interaction with the patient / 40 of above 50min Advance Care Planning/Goals of Care discussions as detailed above in note (must be >16min) 3 in subsequent review and synthesis of assessment and plan 5 in communicating with other providers regarding the patient's case: nursing, primary team, Care mgt Chayo Abbasi DNP Clinical Director, Palliative Medicine
--- NOTE | 2022-05-22 22:05 | Hospitalist Progress Note ---
Date of Service May 22, 2022 Assessment & Plan (1) Admission for hospice care: (2) Palliative care encounter: (3) Adenocarcinoma of gallbladder: (4) Cancer associated pain: (5) Comfort measures only status: (6) Generalized abdominal pain: (7) GERD (gastroesophageal reflux disease): (8) SVT (supraventricular tachycardia): (9) Coronary artery disease: (10) Metabolic encephalopathy: Plan 1. continue palliative care pathway/comfort care pathway 2. appreciate hospice agency nurse visits and recs 3. continue methadone 5mg TID; once unable to swallow change everything to IV as needed 4. nausea is better with scheduled zofran 8mg IV q6h; has only needed 1x dose of phenergan IV during this stay; the nausea/spitting up/regurgitation/hiccups MUCH improved 5. cont pepcid IV q12h 6. cont olanzapine 5mg BID for anxiety, sleep, etc 7. ativan 0.5mg q4h prn sleep, agitation, or anxiety. 8. atropine drops prn for excess oral secretions. 9. chlorpromazine prn hiccups, etc. 10. cont bee support given to pt's daughter at bedside appreciate palliative care provider's assistance dispo - SNF with hospice social work assistance appreciated Admission and Anticipated Discharge Date Admission Date: May 19, 2022 Subjective patient sleeping upon my arrival did wake up when I called his name he was confused, stating he was in [facility]" he asked me an odd question that was unrelated to his hospitalization denied any pain denied any nausea daughter arrived at the tail end of my visit she reports that her mother had a "rough day" his family is all in agreement about having him be placed in SNF at discharge Review of Systems Review of Systems: Unobtainable due to cognitive status Physical Exam Physical Exam: gen - sleeping, comfortable; awoke easily when I called his name skin - severe pallor mouth - MM dry heart - heart tones are very distant but RRR, s1 s2 lungs - decreased BS bases but clear anteriorly abd - distended, BS+, nontender today ext - pulses 1+ b/l, no edema neuro -asterixis present - bee in place, minimal urine in bag PG Care Time/CCT Total # of Minutes Spent Total Time Spent with Patient: Total time spent is greater than 50% in coordination of care (as documented) at patient's floor/unit and/or counseling patient: Coding Level of Care Code 35104 Subseq Hosp Care Lvl 1 Diagnoses Admission for hospice care Z51.5 Palliative care encounter Z51.5 Adenocarcinoma of gallbladder C23 Cancer associated pain G89.3 Comfort measures only status Z51.5 Generalized abdominal pain R10.84 GERD (gastroesophageal reflux disease) K21.9 SVT (supraventricular tachycardia) I47.1 Coronary artery disease I25.10 Metabolic encephalopathy G93.41
[2022-05-23] MEDS: ondansetron HCL 8 MG in DEXTROSE 5% 50 ML IV SCH ×4 (01:28→18:40)
[2022-05-23] MEDS: METHADONE HCL 5 MG TAB PO SCH ×4 (07:54→20:44)
[2022-05-23] MEDS: OLANZapine 5 MG TABLET PO SCH (07:54)
[2022-05-23] MEDS: FAMOTIDINE 20 MG in SYRINGE 3 ML IV SCH ×2 (07:54→20:44)
--- NOTE | 2022-05-23 14:01 | Palliative Care Progress Note ---
Date of Service May 23, 2022 Assessment & Plan (1) Palliative care encounter: Plan: Remains on GIP Pall med is assisting with very severe cancer pain and sx mgt (2) Admission for hospice care: Plan: pt is on GIP (3) Cancer associated pain: Plan: pt reports uncontrolled severe pain, better than on admission but still signific ant. he would like dose adjusted to improve pain and was reminded of the BTP option. as well. He is still nauseated. he is also restless and agitated, at times belligerent. I have increased methadone to 7.5mg PO TID; METHADONE SHOULD NOT BE TITRATED DAILY: Methadone is lipophilic, thus it takes time to develop tissue stores that maintain serum levels. There is enormous interindividual variation in how long this takes. After a single dose there is a short distribution phase (associated with acute pain relief) with a half-life of 2-3 hours and a slow elimination phase (half-life 15-60 hours). Dosing must account for the accumulation of drug over days. It is this accumulation that accounts for most therapeutic misadventures. Liver metabolites are inactive; therefore no dose reduction is required with renal failure. After steady-state is reached, about two-thirds of patients will get adequate pain relief with twice a day dosing.Note: a number of drugs will alter methadone metabolism, so there needs to be close follow-up to drug interactions. I did not change prn roxanol for now, though I will note that using methadone for prn BTP is better and likely more effective for this patient than the roxanol given its significantly lower potency and patient's severe pain which with continued dose escalation of roxanol and progression to impaired renal function/declining UOP/declining oral intake may lead to a point where nephropathy would impair relief from morphine: Avoid use of morphine in patients with advancing renal disease/nephropathy. Pt should not have morphine because of the end stage renal failure - it is recommended that morphine (and codeine) are avoided in renal failure/dialysis patients, because when renal failure patients take morphine, their toxic metabolites, which are renally excreted, accumulate and can quickly cause over-opiation. Over opiation would be easily done with the use of a medication that pt cannot properly excrete. pt had paradox reaction to haldol at home (see my consult note for details.) I have increased ativan for now. if pain remains poorly controlled would need to likely move towards Dilaudid CLIENT SUPPORT ADMINISTRATOR however with his increased agitation/restlessness, I worry he may be heading towards terminal delirium and further lines/tubes will add to his agitation. (4) Adenocarcinoma of gallbladder: (5) Comfort measures only status: (6) Metabolic encephalopathy: Plan Continue GIP/comfort care med chnages as outlined above No hospice nurse visit noted today Updated primary nurse, care mgt and attending. Chayo Abbasi DNP Clinical Director, Palliative Medicine Admission and Anticipated Discharge Date Admission Date: May 19, 2022 Subjective remains on inpt hospice semi reclined in bed when i was seeing him awakens easily, admits to uncontrolled pain and still nauseated tells me he feels we are all "punishing him" and keeping him from leaving not eating or drinking much, just sipping liquids Review of Systems Review of Systems: All systems reviewed & are unremarkable except as noted in Subjective Physical Exam Physical Exam: Frail, chronically ill appearing male, cachectic and fatigued. He is a little agitated today, repeatedly says we are "you guys are punishing me, I don't know why. What did I do wrong, I'm sorry." he is more restless, picking at linens and shifting around in bed. His skin is pale, skin cool. No mottling. He was intermittently nauseated. He has signif abd and back pain that radiated to lower quadrant. He has some distension. He has diminished breath sounds, no wheezing. tachy with apical rate 108. Results & Data ([facility]) Vital Signs (Past 12 Hours) Vital Signs O2 Del Method 05/23/22 08:00 Room Air PG Care Time/CCT Total # of Minutes Spent Total Time Spent: 65 Total Time Spent with Patient: Total time spent is greater than 50% in coordination of care (as documented) at patient's floor/unit and/or counseling patient: C[place] [address] Subseq Hosp Care Lvl 3 Patient Type Established Medical Decision Making High Complexity Diagnoses Palliative care encounter Z51.5 Admission for hospice care Z51.5 Cancer associated pain G89.3 Adenocarcinoma of gallbladder C23 Comfort measures only status Z51.5 Metabolic encephalopathy G93.41
[2022-05-23] MEDS: LORazepam 1 MG in SYRINGE 0 ML IV PRN ×2 (14:10→18:40)
--- NOTE | 2022-05-23 14:43 | Hospitalist Progress Note ---
Date of Service May 23, 2022 Assessment & Plan (1) Admission for hospice care: (2) Palliative care encounter: (3) Adenocarcinoma of gallbladder: (4) Cancer associated pain: (5) Comfort measures only status: (6) Generalized abdominal pain: (7) GERD (gastroesophageal reflux disease): (8) SVT (supraventricular tachycardia): (9) Coronary artery disease: (10) Metabolic encephalopathy: Plan 1. continue palliative care pathway/comfort care pathway 2. appreciate hospice agency nurse visits and recs 3. Palliative increased methadone to 7.5mg TID; once unable to swallow change everything to IV as needed 4. nausea is better with scheduled zofran 8mg IV q6h; has only needed 1x dose of phenergan IV during this stay; the nausea/spitting up/regurgitation/hiccups MUCH improved 5. cont pepcid IV q12h 6. cont olanzapine but was increased to 10mg BID for anxiety, sleep, etc 7. increase ativan to 1.0 mg q4h prn sleep, agitation, or anxiety. 8. changed atropine to glycopyrrolate for excess oral secretions. 9. chlorpromazine prn hiccups, etc. 10. cont bee appreciate palliative care provider's assistance dispo - SNF with hospice when available social work assistance appreciated Admission and Anticipated Discharge Date Admission Date: May 19, 2022 Subjective Pt sleeping deeply and I did not wake him. He appeared comfortable. I discussed his care with Palliative Medicine. He apparently is starting to get more agitation and delirium. Review of Systems Review of Systems: Unobtainable due to cognitive status Physical Exam Physical Exam: gen - sleeping, comfortably skin - severe pallor mouth - MM dry heart - heart tones are very distant but RRR, s1 s2 lungs - decreased BS bases but clear anteriorly Results & Data Results & Data ([facility]) Vital Signs (Past 12 Hours) Vital Signs O2 Del Method 05/23/22 08:00 Room Air PG Care Time/CCT Total # of Minutes Spent Total Time Spent with Patient: Total time spent is greater than 50% in coordination of care (as documented) at patient's floor/unit and/or counseling patient: Coding Level of Care Code 29904 Subseq Hosp Care Lvl 1 Diagnoses Admission for hospice care Z51.5 Palliative care encounter Z51.5 Adenocarcinoma of gallbladder C23 Cancer associated pain G89.3 Comfort measures only status Z51.5 Generalized abdominal pain R10.84 GERD (gastroesophageal reflux disease) K21.9 SVT (supraventricular tachycardia) I47.1 Coronary artery disease I25.10 Metabolic encephalopathy G93.41
[2022-05-23] MEDS: OLANZapine 10 MG TAB PO SCH (20:44)
[2022-05-24] MEDS: ondansetron HCL 8 MG in DEXTROSE 5% 50 ML IV SCH ×4 (00:58→19:42)
[2022-05-24] MEDS: FAMOTIDINE 20 MG in SYRINGE 3 ML IV SCH (07:47)
[2022-05-24] MEDS: METHADONE HCL 5 MG TAB PO SCH ×3 (07:51→21:57)
[2022-05-24] MEDS: OLANZapine 10 MG TAB PO SCH ×2 (07:52→21:58)
--- NOTE | 2022-05-24 10:28 | Hospitalist Progress Note ---
Date of Service May 24, 2022 Assessment & Plan (1) Admission for hospice care: (2) Palliative care encounter: (3) Adenocarcinoma of gallbladder: (4) Cancer associated pain: (5) Comfort measures only status: (6) Generalized abdominal pain: (7) GERD (gastroesophageal reflux disease): (8) SVT (supraventricular tachycardia): (9) Coronary artery disease: (10) Metabolic encephalopathy: Plan 1. continue palliative care pathway/comfort care pathway 2. appreciate hospice agency nurse visits and recs 3. Palliative increased methadone to 7.5mg TID; once unable to swallow change everything to IV as needed 4. nausea is better with scheduled zofran 8mg IV q6h; the nausea/spitting up/regurgitation/hiccups MUCH improved; phenergan and compazine dcd; on prn olanzapine as well, lorazepam prn 5. will discontinue pepcid IV q12h 6. cont olanzapine but was increased to 10mg BID for anxiety, sleep,nausea etc 7. continue ativan 1.0 mg q4h prn sleep, agitation, or anxiety. 8. changed atropine to glycopyrrolate for excess oral secretions. 9. cont bee appreciate palliative care provider's assistance dispo - SNF with hospice when available-waiting bed at [facility] hopefully next week if has not passed before then social work assistance appreciated Support given to at bedside Admission and Anticipated Discharge Date Admission Date: May 19, 2022 Subjective Pt sleeping comfortably but did wake up earlier and get OOB w/ assistance as per RN. at bedside. She asks about prognosis, all concerns addressed. No BM in 4 days. Has not eaten in 9 days, has a few small sips of water occasionally as per . Review of Systems Review of Systems: Unobtainable due to cognitive status Physical Exam Physical Exam: gen - sleeping, comfortably skin - severe pallor mouth - MM dry heart - heart tones are very distant but RRR, s1 s2 lungs - decreased BS bases but clear anteriorly PG Care Time/CCT Total # of Minutes Spent Total Time Spent with Patient: Total time spent is greater than 50% in coordination of care (as documented) at patient's floor/unit and/or counseling patient: Coding Level of Care Code 46555 Subseq Hosp Care Lvl 1 Diagnoses Admission for hospice care Z51.5 Palliative care encounter Z51.5 Adenocarcinoma of gallbladder C23 Cancer associated pain G89.3 Comfort measures only status Z51.5 Generalized abdominal pain R10.84 GERD (gastroesophageal reflux disease) K21.9 SVT (supraventricular tachycardia) I47.1 Coronary artery disease I25.10 Metabolic encephalopathy G93.41
--- NOTE | 2022-05-24 10:31 | Palliative Care Progress Note ---
Date of Service May 24, 2022 Assessment & Plan (1) Palliative care encounter: Plan: Remains on GIP Pall med is assisting with very severe cancer pain and sx mgt (2) Admission for hospice care: Plan: pt is on GIP (3) Cancer associated pain: Plan: Pain is improved with modification of methadone to 7.5 mg p.o. 3 times daily. T here are some concern about how long he will be able to take p.o, however at that time we may be able to switch to methadone liquid. Methadone liquid however is quite greater and may be so unpalatable to patient that it may trigger vomiting. We will therefore hold off on this transition for now. If pain becomes intense or insufficiently controlled, the likely plan will be to move him to a Dilaudid infusion. I will leave his methadone unchanged at 7.5mg PO TID; METHADONE SHOULD NOT BE TITRATED DAILY: Methadone is lipophilic, thus it takes time to develop tissue stores that maintain serum levels. There is enormous interindividual variation in how long this takes. After a single dose there is a short distribution phase (associated with acute pain relief) with a half-life of 2-3 hours and a slow elimination phase (half-life 15-60 hours). Dosing must account for the accumulation of drug over days. It is this accumulation that accounts for most therapeutic misadventures. Liver metabolites are inactive; therefore no dose reduction is required with renal failure. After steady-state is reached, about two-thirds of patients will get adequate pain relief with twice a day dosing.Note: a number of drugs will alter methadone metabolism, so there needs to be close follow-up to drug interactions. I did not change prn roxanol for now, though I will note that using methadone for prn BTP is better and likely more effective for this patient than the roxanol given its significantly lower potency and patient's severe pain which with continued dose escalation of roxanol and progression to impaired renal function/declining UOP/declining oral intake may lead to a point where nephropathy would impair relief from morphine: Avoid use of morphine in patients with advancing renal disease/nephropathy. Pt should not have morphine because of the end stage renal failure - it is recommended that morphine (and codeine) are avoided in renal failure/dialysis patients, because when renal failure patients take morphine, their toxic metabolites, which are renally excreted, accumulate and can quickly cause over-opiation. Over opiation would be easily done with the use of a medication that pt cannot properly excrete. pt had paradox reaction to haldol at home (see my consult note for details.) No changes to his Ativan dose at this time. if pain remains poorly controlled would need to likely move towards Dilaudid [employer]IVE however with his increased agitation/restlessness, I worry he may be heading towards terminal delirium and further lines/tubes will add to his agitation. (4) Adenocarcinoma of gallbladder: Plan: Terminally ill (5) Comfort measures only status: Plan: Patient on GIP Met with patient's at bedside. She is at peace with the decision to seek placement. She has found that this decision finally allowed her to feel a tremendous amount of relief and peace leading to an increased sense of some control over the overall situation. She completed arrangements for his in accordance with his wishes, noting that she has been putting this off for a while because she had just been too overwhelmed with caring for him at home. She finds that completing this task is also brought her significant amount of peacefulness, knowing that arrangements are in place and aligned with what he wanted for his final steps. Additional support and reassurance provided to patient's . Emotionally, she appears to be in a significantly improved place than the other day. The decision to seek placement has provided a tremendous amount of relief to this family. was his only caregiver and does not have any other help, nor does she have the means financially to pay [id number] for private caregivers around the clock. Placement is a solution that will allow patient to have the ongoing technical care and support he needs while allowing his to reclaim her position and roll as his and longtime partner during this final chapter of life while not having to wear the multiple hats of caregiver, medication microsoft exchange administrator, field aide, etc. Patient's older daughter is in route to come visit for a few days, planning to arrive tomorrow in [place] at approximately 5 PM. expresses concerns with regards to the flight potentially being delayed or canceled due to the impending winter storm. (6) Metabolic encephalopathy: Plan Continue GIP/comfort care Med changes as outlined above No hospice nurse visit noted today Updated , primary nurse, care mgt and attending. Chayo Abbasi DNP Clinical Director, Palliative Medicine Admission and Anticipated Discharge Date Admission Date: May 19, 2022 Subjective Patient remains on GIP/inpt hospice. several med changes made yesterday: increased methadone dose to improve severe cancer pain, increased olanzapine to improve cancer related nausea, increased Ativan to assist with terminal delirium and agitation. I did not adjust haldol given his paradox reaction to it leading to admission. Nursing shares that he continues to have issues with swallowing. He is still able to take his methadone crushed up and a small spoonful of applesauce. Continues to request water to drink but still sputters when he takes too big a sip. Urine output is minimal. CM is working on finding placement. I am unclear is hospice SW is engaged/involved. Piter is alert to self but confused at times, loses details/sense of time but knows place is "not home" had a busy morning with OOB to bathroom then washed up, repositioned now deeply asleep. Review of Systems Review of Systems: Unobtainable due to cognitive status Physical Exam Physical Exam: Frail, chronically ill appearing male, cachectic and fatigued. He appears more comfortable today, less restless, calmer, resting peacefully. His skin is pale, skin cool. No mottling. Grimacing with palpation of abdomen/generalized. He has some distension. He has diminished breath sounds, no wheezing. S1-S2, mild JVD. + Generalized weakness. Results & Data ([facility]) Vital Signs (Past 12 Hours) Reviewed Laboratory Results No new labs or imaging, patient is on inpatient hospice PG Care Time/CCT Total # of Minutes Spent Total Time Spent: 50 Total Time Spent with Patient: Total time spent is greater than 50% in coordination of care (as documented) at patient's floor/unit and/or counseling patient: C[place] [address] Subseq Hosp Care Lvl 3 Patient Type Established History Detailed Exam Comprehensive Medical Decision Making Moderate Complexity Diagnoses Palliative care encounter Z51.5 Admission for hospice care Z51.5 Cancer associated pain G89.3 Adenocarcinoma of gallbladder C23 Comfort measures only status Z51.5 Metabolic encephalopathy G93.41
[2022-05-24] MEDS: LORazepam 1 MG in SYRINGE 0 ML IV PRN (12:48)
[2022-05-25] MEDS: ondansetron HCL 8 MG in DEXTROSE 5% 50 ML IV SCH ×4 (01:54→18:21)
[2022-05-25] MEDS: OLANZapine 10 MG TAB PO SCH ×2 (08:24→20:07)
[2022-05-25] MEDS: METHADONE HCL 5 MG TAB PO SCH ×3 (08:24→20:07)
--- NOTE | 2022-05-25 10:19 | Hospitalist Progress Note ---
Date of Service May 25, 2022 Assessment & Plan (1) Admission for hospice care: (2) Palliative care encounter: (3) Adenocarcinoma of gallbladder: (4) Cancer associated pain: (5) Comfort measures only status: (6) Generalized abdominal pain: (7) GERD (gastroesophageal reflux disease): (8) SVT (supraventricular tachycardia): (9) Coronary artery disease: (10) Metabolic encephalopathy: Plan Comfortable on current med regimen, moving bowels, not eating. Suspect will pass away in next 2 weeks. continue palliative care pathway/comfort care pathway appreciate hospice agency nurse visits and recs continue methadone to 7.5mg TID; once unable to swallow change everything to IV as needed nausea is better with scheduled zofran 8mg IV q6h; the nausea/spitting up/regurgitation/hiccups MUCH improved; phenergan and compazine dcd; on prn olanzapine as well, lorazepam prn cont olanzapine but was increased to 10mg BID for anxiety, sleep,nausea etc continue ativan 1.0 mg q4h prn sleep, agitation, or anxiety. continue glycopyrrolate for excess oral secretions. cont bee appreciate palliative care provider's assistance dispo - SNF with hospice when available-waiting bed at [facility] hopefully next week if has not passed before then social work assistance appreciated Admission and Anticipated Discharge Date Admission Date: May 19, 2022 Subjective Pt awake but lethargic, confused. When asked if he had pain, he said "I don't know." Appears comfortable. Had a large BM apparently overnight. Bee in place Review of Systems Review of Systems: Unobtainable due to cognitive status Physical Exam Physical Exam: gen - awake, confused, lethargic skin - severe pallor mouth - MM dry heart - heart tones are very distant but RRR, s1 s2 lungs - decreased BS bases but clear anteriorly Abd hypoactive BS, sft NT : Bee in palce with dark yellow clear urine PG Care Time/CCT Total # of Minutes Spent Total Time Spent with Patient: Total time spent is greater than 50% in coordination of care (as documented) at patient's floor/unit and/or counseling patient: Coding Level of Care Code 34266 Subseq Hosp Care Lvl 1 Diagnoses Admission for hospice care Z51.5 Palliative care encounter Z51.5 Adenocarcinoma of gallbladder C23 Cancer associated pain G89.3 Comfort measures only status Z51.5 Generalized abdominal pain R10.84 GERD (gastroesophageal reflux disease) K21.9 SVT (supraventricular tachycardia) I47.1 Coronary artery disease I25.10 Metabolic encephalopathy G93.41
[2022-05-26] MEDS: LORazepam 1 MG in SYRINGE 0 ML IV PRN (00:05)
[2022-05-26] MEDS: ondansetron HCL 8 MG in DEXTROSE 5% 50 ML IV SCH ×4 (02:03→18:41)
[2022-05-26] MEDS: MoRPHine SULFATE 5 MG/0.25 ML UDP PO PRN ×2 (02:19→06:14)
[2022-05-26] MEDS: METHADONE HCL 5 MG TAB PO SCH ×3 (09:43→21:54)
[2022-05-26] MEDS: OLANZapine 10 MG TAB PO SCH ×2 (09:44→21:54)
--- NOTE | 2022-05-26 12:10 | Palliative Care Progress Note ---
Date of Service May 26, 2022 Assessment & Plan (1) Generalized abdominal pain: Plan: with adenocarcinoma of the gallbladder. On methadone 7.5mg TID. He has had two doses of prn morphine in last 24 hours. He does benefit from premedication prior to routine care. (2) Nausea & vomiting: Plan: On routine odansetron and olanzapine. (3) Palliative care encounter: Admission and Anticipated Discharge Date Admission Date: May 19, 2022 Subjective No response to voice or touch. Able to take po meds and a few sips of water this morning. Review of Systems Review of Systems: Unobtainable due to reduced consciousness Physical Exam Constitutional: no acute distress ENMT: Mouth: + dry oral mucous membranes Respiratory: normal respiratory effort; no labored breathing Cardiovascular: Rate/Rhythm: + tachycardic Musculoskeletal: warm, no mottling Genitourinary: incontinent Results & Data ([facility]) Vital Signs (Past 12 Hours) Vital Signs O2 Del Method 05/26/22 08:00 Room Air PG Care Time/CCT Total # of Minutes Spent Total Time Spent with Patient: Total time spent is greater than 50% in coordination of care (as documented) at patient's floor/unit and/or counseling patient: Coding Level of Care Code 52785 Subseq Hosp Care Lvl 1 Diagnoses Generalized abdominal pain R10.84 Nausea & vomiting R11.2 Palliative care encounter Z51.5
--- NOTE | 2022-05-26 13:58 | Hospitalist Progress Note ---
Date of Service May 26, 2022 Assessment & Plan (1) Admission for hospice care: (2) Palliative care encounter: (3) Adenocarcinoma of gallbladder: (4) Cancer associated pain: (5) Comfort measures only status: (6) Generalized abdominal pain: (7) GERD (gastroesophageal reflux disease): (8) SVT (supraventricular tachycardia): (9) Coronary artery disease: (10) Metabolic encephalopathy: Plan Comfortable on current med regimen, moving bowels, not eating. Suspect will pass away in next 2 weeks. continue palliative care pathway/comfort care pathway appreciate hospice agency nurse visits and recs continue methadone to 7.5mg TID; once unable to swallow change everything to IV as needed nausea is better with scheduled zofran 8mg IV q6h; the nausea/spitting up/regurgitation/hiccups MUCH improved; phenergan and compazine dcd; on prn olanzapine as well, lorazepam prn cont olanzapine but was increased to 10mg BID for anxiety, sleep,nausea etc continue ativan 1.0 mg q4h prn sleep, agitation, or anxiety. continue glycopyrrolate for excess oral secretions. cont bee appreciate palliative care provider's assistance dispo - SNF with hospice when available-waiting bed at [facility] hopefully next week if has not passed before then social work assistance appreciated Admission and Anticipated Discharge Date Admission Date: May 19, 2022 Subjective Obtunded, did not wake him. Review of Systems Review of Systems: Unobtainable due to cognitive status and Unobtainable due to reduced consciousness Physical Exam Physical Exam: gen - obtunded,no distress skin - severe pallor mouth - MM dry heart - tachycardic, regular, no mgr lungs - decreased BS bases but clear anteriorly : Bee in place with dark yellow clear urine Results & Data Results & Data ([facility]) Vital Signs (Past 12 Hours) Vital Signs O2 Del Method 05/26/22 08:00 Room Air PG Care Time/CCT Total # of Minutes Spent Total Time Spent with Patient: Total time spent is greater than 50% in coordination of care (as documented) at patient's floor/unit and/or counseling patient: Coding Level of Care Code 89285 Subseq Hosp Care Lvl 1 Diagnoses Admission for hospice care Z51.5 Palliative care encounter Z51.5 Adenocarcinoma of gallbladder C23 Cancer associated pain G89.3 Comfort measures only status Z51.5 Generalized abdominal pain R10.84 GERD (gastroesophageal reflux disease) K21.9 SVT (supraventricular tachycardia) I47.1 Coronary artery disease I25.10 Metabolic encephalopathy G93.41
[2022-05-27] MEDS: ondansetron HCL 8 MG in DEXTROSE 5% 50 ML IV SCH ×3 (01:45→13:18)
[2022-05-27] MEDS: MoRPHine SULFATE 5 MG/0.25 ML UDP PO PRN ×2 (03:50→20:31)
[2022-05-27] MEDS: OLANZapine 10 MG TAB PO SCH ×2 (09:24→20:21)
[2022-05-27] MEDS: METHADONE HCL 5 MG TAB PO SCH ×3 (09:24→20:20)
--- NOTE | 2022-05-27 15:24 | Hospitalist Progress Note ---
Date of Service May 27, 2022 Assessment & Plan (1) Admission for hospice care: (2) Palliative care encounter: (3) Adenocarcinoma of gallbladder: (4) Cancer associated pain: (5) Comfort measures only status: (6) Generalized abdominal pain: (7) GERD (gastroesophageal reflux disease): (8) SVT (supraventricular tachycardia): (9) Coronary artery disease: (10) Metabolic encephalopathy: Plan Comfortable on current med regimen, moving bowels, not eating. Suspect will pass away in next 2 weeks. continue palliative care pathway/comfort care pathway appreciate hospice agency nurse visits and recs continue methadone to 7.5mg TID; if unable to swallow change everything to IV as needed nausea is better with scheduled zofran 8mg IV q6h; the nausea/spitting up/regurgitation/hiccups MUCH improved; phenergan and compazine dcd; on prn olanzapine as well, lorazepam prn --> will change to ODT as he would not be able to get IV Zofran at [facility] cont olanzapine but was increased to 10mg BID for anxiety, sleep,nausea etc continue ativan 1.0 mg q4h prn sleep, agitation, or anxiety. continue glycopyrrolate for excess oral secretions. cont bee appreciate palliative care provider's assistance dispo - SNF with hospice when available-waiting bed at [facility] hopefully next week if has not passed before then social work assistance appreciated Admission and Anticipated Discharge Date Admission Date: May 19, 2022 Subjective Obtunded, did not wake him. RN reports he does wake up, says things that don't make a lot of sense, takes pills crushed in apple juice and syringe fed. Having some possible hemoptysis as per RN thick duarte sputum with blood streak and small amount more blood Review of Systems Review of Systems: Unobtainable due to cognitive status Physical Exam Physical Exam: gen - obtunded,no distress skin - severe pallor mouth - MM dry heart - tachycardic, regular, no mgr lungs - decreased BS bases but clear anteriorly : Bee in place with dark yellow clear urine Results & Data Results & Data ([facility]) Vital Signs (Past 12 Hours) Vital Signs O2 Del Method 05/27/22 08:00 Room Air PG Care Time/CCT Total # of Minutes Spent Total Time Spent with Patient: Total time spent is greater than 50% in coordination of care (as documented) at patient's floor/unit and/or counseling patient: Coding Level of Care Code 24655 Subseq Hosp Care Lvl 1 Diagnoses Admission for hospice care Z51.5 Palliative care encounter Z51.5 Adenocarcinoma of gallbladder C23 Cancer associated pain G89.3 Comfort measures only status Z51.5 Generalized abdominal pain R10.84 GERD (gastroesophageal reflux disease) K21.9 SVT (supraventricular tachycardia) I47.1 Coronary artery disease I25.10 Metabolic encephalopathy G93.41
[2022-05-27] MEDS: ONDANSETRON 8MG OD TAB PO SCH ×2 (17:48→20:21)
[2022-05-28] MEDS: ONDANSETRON 8MG OD TAB PO SCH ×3 (03:10→16:37)
[2022-05-28] MEDS: LORazepam 1 MG in SYRINGE 0 ML IV PRN (06:25)
[2022-05-28] MEDS: MoRPHine SULFATE 5 MG/0.25 ML UDP PO PRN ×4 (08:29→21:09)
[2022-05-28] MEDS: METHADONE HCL 5 MG TAB PO SCH ×3 (08:30→21:08)
[2022-05-28] MEDS: OLANZapine 10 MG TAB PO SCH ×2 (08:31→21:08)
--- NOTE | 2022-05-28 17:28 | Hospitalist Progress Note ---
Date of Service May 28, 2022 Assessment & Plan (1) Admission for hospice care: (2) Palliative care encounter: (3) Adenocarcinoma of gallbladder: (4) Cancer associated pain: (5) Comfort measures only status: (6) Generalized abdominal pain: (7) GERD (gastroesophageal reflux disease): (8) SVT (supraventricular tachycardia): (9) Coronary artery disease: (10) Metabolic encephalopathy: Plan 1. continue palliative care pathway/comfort care pathway 2. appreciate hospice agency nurse visits and recs 3. continue methadone 7.5mg TID; cont morphine 5mg q2h prn 4. nausea controlled with scheduled zofran 8mg q6h; pt's requests the zofran be changed back to IV rather than PO 6. cont olanzapine 10mg BID for anxiety, sleep, etc 7. ativan 1mg q4h prn sleep, agitation, or anxiety. 8. cont bee, change as needed dispo - SNF with hospice social work assistance appreciated will update family tomorrow Admission and Anticipated Discharge Date Admission Date: May 19, 2022 Subjective patient was sleeping soundly when I arrived no family at bedside I called his name several times - he ultimately opened his eyes - he tried to say a few sentences none of which was intelligible offered him sip of water -- he took this with a straw and promptly coughed when I asked him if he had pain anywhere he said no he then quickly fell back asleep Review of Systems Review of Systems: Unobtainable due to cognitive status and Unobtainable due to reduced consciousness Physical Exam Physical Exam: gen - sleeping soundly but did awaken for about 1 minute then went back to sleep; comfortable; confused, garbled speech skin - severe pallor mouth - MM very dry heart - heart tones are very distant but RRR, s1 s2 lungs - decreased BS bases but clear otherwise abd - mildly distended, BS+, nontender ext - pulses 2+ b/l, no edema Results & Data Results & Data ([facility]) Vital Signs (Past 12 Hours) Vital Signs O2 Del Method 05/28/22 10:00 Room Air PG Care Time/CCT Total # of Minutes Spent Total Time Spent with Patient: Total time spent is greater than 50% in coordination of care (as documented) at patient's floor/unit and/or counseling patient: Coding Level of Care Code 18016 Subseq Hosp Care Lvl 1 Diagnoses Admission for hospice care Z51.5 Palliative care encounter Z51.5 Adenocarcinoma of gallbladder C23 Cancer associated pain G89.3 Comfort measures only status Z51.5 Generalized abdominal pain R10.84 GERD (gastroesophageal reflux disease) K21.9 SVT (supraventricular tachycardia) I47.1 Coronary artery disease I25.10 Metabolic encephalopathy G93.41
[2022-05-28] MEDS: ondansetron HCL 8 MG in DEXTROSE 5% 50 ML IV SCH (18:10)
[2022-05-29] MEDS: ondansetron HCL 8 MG in DEXTROSE 5% 50 ML IV SCH ×4 (05:46→17:48)
[2022-05-29] MEDS: MoRPHine SULFATE 5 MG/0.25 ML UDP PO PRN ×3 (06:02→22:44)
[2022-05-29] MEDS: METHADONE HCL 5 MG TAB PO SCH ×3 (08:01→21:55)
[2022-05-29] MEDS: OLANZapine 10 MG TAB PO SCH ×2 (08:02→21:55)
--- NOTE | 2022-05-29 15:13 | Palliative Care Progress Note ---
Date of Service May 29, 2022 Assessment & Plan (1) Palliative care encounter: Plan: on GP comfort care awaiting placement (2) Cancer associated pain: Plan: comfortable at rest, no changes (3) Admission for hospice care: (4) Adenocarcinoma of gallbladder: (5) Metabolic encephalopathy: Plan awaiting placement, please see CM notes for details no chnages today Chayo Abbasi DNP Clinical Director, Palliative Medicine Admission and Anticipated Discharge Date Admission Date: May 19, 2022 Subjective on GIP/comfort care awaiting placement more l, less arousable Review of Systems Review of Systems: Unobtainable due to cognitive status Physical Exam Physical Exam: Deeply asleep, wakes to louder verbal but then quickly drifts back. bitemp wasting MM dry s1s2/distant, tachy breath sounds overall diminished, intermittent bronchitic rattling abd distended slightly, mild grimacing noted with palpation/brow furrows skin pale, cool, faint mottling BLE Results & Data ([facility]) Vital Signs (Past 12 Hours) Vital Signs O2 Del Method 05/29/22 08:00 Room Air PG Care Time/CCT Total # of Minutes Spent Total Time Spent with Patient: Total time spent is greater than 50% in coordination of care (as documented) at patient's floor/unit and/or counseling patient: Coding [place] [address] Subseq Hosp Care Lvl 2 Patient Type Established History Expanded Problem Focused Exam Detailed Medical Decision Making Moderate Complexity Diagnoses Palliative care encounter Z51.5 Cancer associated pain G89.3 Admission for hospice care Z51.5 Adenocarcinoma of gallbladder C23 Metabolic encephalopathy G93.41
--- NOTE | 2022-05-29 20:10 | Hospitalist Progress Note ---
Date of Service May 29, 2022 Assessment & Plan (1) Admission for hospice care: (2) Palliative care encounter: (3) Adenocarcinoma of gallbladder: (4) Cancer associated pain: (5) Comfort measures only status: (6) Generalized abdominal pain: (7) GERD (gastroesophageal reflux disease): (8) SVT (supraventricular tachycardia): (9) Coronary artery disease: (10) Metabolic encephalopathy: Plan 1. continue palliative care pathway/comfort care pathway 2. appreciate hospice agency nurse visits and recs 3. continue methadone 7.5mg TID; cont morphine 5mg q2h prn -- needing about 2-3 doses/day for breakthrough 4. nausea controlled with scheduled zofran 8mg q6h; pt's requested the zofran be changed back to IV rather than PO - this was done over the weekend 6. cont olanzapine 10mg BID for anxiety, sleep, etc 7. ativan 1mg q4h prn sleep, agitation, or anxiety. 8. cont bee, change as needed dispo - SNF with hospice social work assistance appreciated spoke with this evening and gave update Admission and Anticipated Discharge Date Admission Date: May 19, 2022 Subjective lethargic awakens to name being called very confused with garble, unintelligible speech quickly returns to sleep states "no pain" when asked Review of Systems Review of Systems: Unobtainable due to cognitive status Physical Exam Physical Exam: gen - sleeping soundly but did awaken for about 2 minutes then went back to sleep; comfortable; confused, garbled speech; very difficult to understand skin - severe pallor mouth - MM very dry heart - heart tones are very distant but RRR, s1 s2, no murmur lungs - decreased BS bases but clear otherwise b/l abd - mildly distended, BS+, nontender ext - pulses 2+ b/l, no edema bee - clear urine in bag PG Care Time/CCT Total # of Minutes Spent Total Time Spent with Patient: Total time spent is greater than 50% in coordination of care (as documented) at patient's floor/unit and/or counseling patient: Coding Level of Care Code 70709 Subseq Hosp Care Lvl 1 Diagnoses Admission for hospice care Z51.5 Palliative care encounter Z51.5 Adenocarcinoma of gallbladder C23 Cancer associated pain G89.3 Comfort measures only status Z51.5 Generalized abdominal pain R10.84 GERD (gastroesophageal reflux disease) K21.9 SVT (supraventricular tachycardia) I47.1 Coronary artery disease I25.10 Metabolic encephalopathy G93.41
[2022-05-30] MEDS: ondansetron HCL 8 MG in DEXTROSE 5% 50 ML IV SCH ×2 (00:15→05:40)
[2022-05-30] MEDS: MoRPHine SULFATE 5 MG/0.25 ML UDP PO PRN ×2 (05:41→09:02)
[2022-05-30] MEDS: OLANZapine 10 MG TAB PO SCH (08:09)
[2022-05-30] MEDS: METHADONE HCL 5 MG TAB PO SCH (08:09)
--- NOTE | 2022-05-30 11:22 | Palliative Care Progress Note ---
Date of Service May 30, 2022 Assessment & Plan (1) Palliative care encounter: Plan: on GIP comfort care declining, transitioning to active dying not likely he will survive to mo, recc he remain on GIP and we escalate to IV meds - he can no longer take PO this is an opioid tolerant patient (2) Cancer associated pain: Plan: pt condition has declined with intermittent apnea and declining MS. he is not as arousable as yesterday, breathing more labored and coarse, +secretions/gurgling noted. he cannot take PO he is transitioning to an active dying process. Patient is using 22.5mg methadone + approx 20mg morphine orally/day, this is about 200 OMEs 200 OMEs = 66.6 IV MS equivalent = 13.3 IV Dilaudid equivalent = 0.555mg/hr Dilaudid equivalent I have converted pt to Dilaudid infusion 0.6mg per hour with 0.6mg prn q10min prn pain or dyspnea/air hunger he is opioid tolerant and therefore i have not reduced the dose for cross tolerance, he continued to report severe cancer related pain and dyspnea. i have stopped methadone and morphine oral orders i have added Robinul for secretions I have discussed above with pt and dtr, [facility] hospice office coordinator and Dr Strauss orders written (3) Admission for hospice care: (4) Adenocarcinoma of gallbladder: (5) Metabolic encephalopathy: Plan Continue GIP/end of life care. He is transitioning to active dying I have moved him to IV Dilaudid infusion, he has been equivalently converted/he is opioid tolerant/he has very severe cancer related pain reviewed plan of care with nursing and Dr Strauss family and hospice office coordinator updated, plan of care developed with their agreement. Chayo Abbasi DNP Clinical Director, Palliative Medicine Admission and Anticipated Discharge Date Admission Date: May 19, 2022 Subjective GIP status, comfort care continues to decline; and dtr from [place] at bedside; they report he seemed to have had a "great" day yesterday when they visited, but declined towards evening and into today. has been educating herself on EOL changes and understands this was an EOL rally. She also states she sees he is moving through the stages of active dying and feels he does not have long. Dtr in agreement. Review of Systems Review of Systems: Unobtainable due to cognitive status Physical Exam Physical Exam: unarousable; bitemp wasting MM dry s1s2/distant, tachy increased resp effort with use of accessory muscles noted, +abd breathing, br eath sounds overall diminished, intermittent bronchitic ++rattling intermittent apnea, 7-10 seconds abd distended slightly, grimacing noted with palpation/brow furrows skin pale, cool, + mottling BLE Results & Data ([facility]) Vital Signs (Past 12 Hours) Vital Signs O2 Del Method 05/30/22 07:40 Room Air PG Care Time/CCT Total # of Minutes Spent Total Time Spent: 70 Total Time Spent with Patient: Total time spent is greater than 50% in coordination of care (as documented) at patient's floor/unit and/or counseling patient:yes Prolonged Care Time Prolonged Care Time: Yes [place] [address] Subseq Hosp Care Lvl 3 Patient Type Established Exam Comprehensive Medical Decision Making High Complexity Diagnoses Palliative care encounter Z51.5 Cancer associated pain G89.3 Admission for hospice care Z51.5 Adenocarcinoma of gallbladder C23 Metabolic encephalopathy G93.41 Additional Codes Prolonged Care Time - Prolonged Care Time: Yes ([id number])
[2022-05-30] MEDS ORDERED: HYDROmorphone Bolus from PCA IV PRN (11:43)
[2022-05-30] MEDS ORDERED: HYDROmorphone PCA 30 MG/30 ML IV SCH (11:45)
[2022-05-30] MEDS: SODIUM CHLORIDE 0.9% 1000ML 1,000 ML IV SCH (12:34)
[2022-05-30] MEDS: GLYCOPYRROLATE 0.2 MG/ML VIAL IV PRN (12:34)
[2022-05-30] MEDS ORDERED: LORazepam 1 mg IV INJ IV PRN (19:45)
--- NOTE | 2022-05-30 21:06 | Hospitalist Progress Note ---
Date of Service May 30, 2022 Assessment & Plan (1) Admission for hospice care: (2) Palliative care encounter: (3) Adenocarcinoma of gallbladder: (4) Cancer associated pain: (5) Comfort measures only status: (6) Generalized abdominal pain: (7) GERD (gastroesophageal reflux disease): (8) SVT (supraventricular tachycardia): (9) Coronary artery disease: (10) Metabolic encephalopathy: Plan 1. continue palliative care pathway/comfort care pathway 2. appreciate hospice agency nurse visits and recs; appreciate palliative care recs 3. methadone & morphine stopped; now on dilaudid drip, titrate as necessary for optimal comfort 4. zofran stopped 6. olanzapine stopped 7. ativan 1mg q4h prn 8. cont bee likely to pass at [facility] as opposed to transferring to SNF for end of life care anticipate pt's passing within days updated by phone yesterday evening Admission and Anticipated Discharge Date Admission Date: May 19, 2022 Subjective patient now on dilaudid infusion - ordered by palliative care team during my assessment he was obtained; he did audrey & alma delia briefly when I palpated his abdomen urine in bee bag very concentrated Review of Systems Review of Systems: Unobtainable due to reduced consciousness Physical Exam Physical Exam: gen - obtunded skin - severe pallor mouth - MM very dry heart - heart tones are very distant but RRR, s1 s2, no murmur lungs - decreased BS bases but clear otherwise b/l abd - mildly distended, BS+, seems tender ext - pulses 2+ b/l, no edema Results & Data Results & Data ([facility]) Vital Signs (Past 12 Hours) Vital Signs O2 Del Method 05/30/22 14:30 Room Air PG Care Time/CCT Total # of Minutes Spent Total Time Spent with Patient: Total time spent is greater than 50% in coordination of care (as documented) at patient's floor/unit and/or counseling patient: Coding Level of Care Code 98298 Subseq Hosp Care Lvl 1 Diagnoses Admission for hospice care Z51.5 Palliative care encounter Z51.5 Adenocarcinoma of gallbladder C23 Cancer associated pain G89.3 Comfort measures only status Z51.5 Generalized abdominal pain R10.84 GERD (gastroesophageal reflux disease) K21.9 SVT (supraventricular tachycardia) I47.1 Coronary artery disease I25.10 Metabolic encephalopathy G93.41
[2022-05-31] MEDS: GLYCOPYRROLATE 0.2 MG/ML VIAL IV PRN ×2 (12:20→16:30)
--- NOTE | 2022-05-31 13:50 | Palliative Care Progress Note ---
Date of Service May 31, 2022 Assessment & Plan (1) Palliative care encounter: Plan: on GIP comfort care Piter has transitioned to an active dying process as noted y changes in mottling, increased apnea, decreased responsiveness and irreg breathing patterns He will remain on GIP and we will continue IV meds - he can no longer take PO. please note this is an this is an opioid tolerant patient. Continue robinul prn for secretion mgt (2) Cancer associated pain: Plan: pt condition has declined with intermittent apnea and declining MS. he cannot take PO he is in an active dying process. I will continue Dilaudid infusion 0.6mg per hour with 0.6mg prn q10min prn pain or dyspnea/air hunger and prn IV Robinul for secretions (3) Admission for hospice care: Plan: see #1 and 2 (4) Adenocarcinoma of gallbladder: (5) Metabolic encephalopathy: Plan Continue GIP/end of life care. Piter is actively dying, with an anticipated survival hours to few days at most. Apnea > 45sec Continue IV Dilaudid infusion for very severe cancer related pain and end of life related resp distress I have discussed above with pt by phone. She was understandably tearful but also accepting, she notes he was having similar prolonged apneic episodes during her visit. She is en route to run a few necessary errands and pick out hand her daughter then returning to the hospital. She expressed sincere appreciation for the care and assistance from medical and nursing teams provided to Piter and their family through this time. I have updated nursing and Dr Strauss. Chayo Abbais DNP Clinical Director, Palliative Medicine Admission and Anticipated Discharge Date Admission Date: May 19, 2022 Subjective pt is on inpatient hospice status HPI gathered from staff: he is less responsive today-eyes are opening a little randomly but to voice, he had an isolated scant dark brown emesis and some gurgling secretions, this was improved with a dose of robinul. he is more apneic today but appears more comfortable, no longer grimacing/moaning or furrowing his brow color is paler than yesterday family was here earlier this morning but left a few minutes before my arrival. Review of Systems Review of Systems: Unobtainable due to cognitive status Physical Exam Physical Exam: unarousable; bitemp wasting MM dry s1s2/distant, tachy variable resp effort with intermittent use of accessory muscles noted, decreased abd breathing, breath sounds overall diminished, decreased bronchitic rattle intermittent apnea, 49 sec during my assessment abd distended slightly, he did not grimace w/palpation/no furrowing of brow as noted in past assessments skin pale, cool, + mottling BLE to mid thigh and BUE to hands/mid forearm pt is no able to respond. will lift eyelids with voice Results & Data ([facility]) Vital Signs (Past 12 Hours) Vital Signs O2 Del Method 05/31/22 07:20 Room Air Laboratory Results none Diagnostic Findings none PG Care Time/CCT Total # of Minutes Spent Total Time Spent: 55 Total Time Spent with Patient: Total time spent is greater than 50% in coordination of care (as documented) at patient's floor/unit and/or counseling patient: Coding [place] [address] Subseq Hosp Care Lvl 3 Patient Type Established History Detailed Exam Detailed Medical Decision Making High Complexity Diagnoses Palliative care encounter Z51.5 Cancer associated pain G89.3 Admission for hospice care Z51.5 Adenocarcinoma of gallbladder C23 Metabolic encephalopathy G93.41
[2022-05-31] MEDS: SODIUM CHLORIDE 0.9% 1000ML 1,000 ML IV SCH (18:56)
--- NOTE | 2022-06-02 06:06 | Discharge Summary ---
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 He was initially diagnosed with his biliary tract cancer in the fall of 2020 after being admitted to [facility] for gallstone pancreatitis in 01/2021. During that hospitalization he underwent cholecystectomy and unfortunately pathology showed well-differentiated infiltrative adenocarcinoma. Patient was hospitalized at [facility] in 04/2022 due to gastric outlet obstruction. 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 He underwent palliative stenting of the duodenum during that hospital stay. Sometime in April the patient initiated hospice. He continues to live at home with his where he is using methadone, haldol, and morphine prn for his pain, nausea, and other symptoms. Evening of 05/18 he presented to [facility] with severe weakness and a syncopal event. He was found to be in SVT with marked hypotension. During the ER visit he complained of severe abdominal pain. He was ultimately admitted last evening for symptomatic control of his pain & nausea. Today, 05/19, he was seen by the palliative care team as well as social work. Numerous medication adjustments were made to his pain regimen and nausea therapies. There was discussion about having Mr Mckeon admitted under inpatient hospice status. Fortunately this status was granted by [facility]. He is now being fully admitted under inpatient hospice status. Principal Diagnosis 1. stage 4 adenocarcinoma of the gall bladder 2. cancer related pain 3. inpatient hospice status Discharge Exam last exam prior to - gen - obtunded, no response to voice/touch/pain mouth - severely dry MM heart - tachycardic, s1 s2 lungs - long periods of apnea; course BS b/l abd - distended ext - cool to touch, pulses 1+ b/l Discharge Data Allergies Allergy/AdvReac Type Severity Reaction Status Date / Time oxycodone AdvReac Mild Unknown Verified 05/06/22 19:32 [id number] Reductase AdvReac Mild muscle Verified 05/06/22 19:32 Inhibitor aches [Tuphufj-Ylg-Kok Reductase Inhibitor] Consultations 05/19/22 17:20 Consult Palliative Care Routine Hospital Course (1) Admission for hospice care: (2) Palliative care encounter: (3) Adenocarcinoma of gallbladder: (4) Cancer associated pain: (5) Comfort measures only status: (6) Generalized abdominal pain: (7) GERD (gastroesophageal reflux disease): (8) SVT (supraventricular tachycardia): (9) Coronary artery disease: (10) Metabolic encephalopathy: Plan Patient was admitted to inpatient hospice status for treatment of cancer-related pain, constant nausea, etc. Medication recommendations were made by both his hospice agency as well as the [facility] Palliative Care team. He ultimately required use of dilaudid drip later in his stay. On 05/31/22 he passed peacefully late in the evening. Total Time Total Time Spent Total Time Spent (In Minutes): 20 Discharge Plan Discharge Items Patient Disposition: Other Date/Time: 05/31/22 19:45 Coding Level of Care Code D/C DAY MANAGEMENT <30 MINS Diagnoses Admission for hospice care Z51.5 Palliative care encounter Z51.5 Adenocarcinoma of gallbladder C23 Cancer associated pain G89.3 Comfort measures only status Z51.5 Generalized abdominal pain R10.84 GERD (gastroesophageal reflux disease) K21.9 SVT (supraventricular tachycardia) I47.1 Coronary artery disease I25.10 Metabolic encephalopathy G93.41
== END 2022-05-31 22:00 | disposition expired | DRG 951 ==
LOC: 3E 16:52 → SUATTDRO 16:52
DX: R10.84 Generalized abdominal pain; Z51.5 Encounter for palliative care; Z95.5 Presence of coronary angioplasty implant and graft; C79.9 Secondary malignant neoplasm of unspecified site; I47.1 Supraventricular tachycardia; E11.9 Type 2 diabetes mellitus without complications; Z66 Do not resuscitate; G93.41 Metabolic encephalopathy; G89.3 Neoplasm related pain (acute) (chronic); I25.10 Atherosclerotic heart disease of native coronary artery without angina pectoris; Z87.891 Personal history of nicotine dependence; K21.9 Gastro-esophageal reflux disease without esophagitis; Z85.09 Personal history of malignant neoplasm of other digestive organs; I25.2 Old myocardial infarction